=== PATIENT | male | born 1950 | race Caucasian/White ===

== ENCOUNTER 2017-05-01 09:26 | Day surgery (SDC) | payer MEDICARE ==
[2017-04-29 14:01] VITALS: BMI 28.8
[~2017-05-01 09:26] MED LIST: LACTATED RINGERS 1,000 ML IV SCH
[2017-05-01 10:15] VITALS: TEMP 97.8
[2017-05-01 10:27] LABS: Glucose,Whole Blood 138 mg/dL (75-99)
[2017-05-01] MEDS ORDERED: LIDOCAINE 1% 20 ML VIAL (10MG/ML) FOR IV START INTRADERMA ONE (10:27)
[2017-05-01] MEDS ORDERED: PROPOFOL 10 MG/ML 20 ML VIAL IV ONE (10:48)
[2017-05-01] MEDS ORDERED: LIDOCAINE 1% INJ 10MG/ML (20 ML MDV) ONE (10:48)
--- NOTE | 2017-05-01 11:05 | P.PCN ---
Date of Procedure: 05/01/17 Preoperative Diagnosis: Postoperative Diagnosis: Procedure(s) Performed: BRIEF HISTORY: Patient is a 66-year-old pleasant white male, scheduled for an elective colonoscopy as a part of evaluation of rectal bleeding for the last 1 month duration. PROCEDURE PERFORMED: Colonoscopy. PREOPERATIVE DIAGNOSIS: intermittent rectal bleeding. IV sedation per Anesthesia. PROCEDURE: After informed consent was obtained, the patient, was brought into the endoscopy unit. IV sedation was administered by Anesthesia under continuous monitoring. Digital rectal examination was normal. Initially the Olympus CF- 160 flexible video colonoscope was then inserted in the rectum, gradually advanced into the cecum without any difficulty. Careful examination was performed as the scope was gradually being withdrawn. Ileocecal valve and the appendiceal orifice were visualized and appeared normal. Prep was excellent. Mucosa of the cecum, ascending colon, transverse colon, descending colon, sigmoid colon, and rectum appeared normal. Retroflexion was performed in the rectum and small internal hemorrhoids were seen. The patient tolerated the procedure well. IMPRESSION: Normal-appearing colon from rectum to cecum with no evidence of colorectal neoplasia. Small internal hemorrhoids. RECOMMENDATIONS: Findings of this examination were discussed with the patient as well as his family. He was advised to be a high-fiber diet and take fiber supplements on a regular basis. He will avoid straining and constipation. She can have a repeat screening colonoscopy in 10 years. Implants: Indications for Procedure: Operative Findings: Description of Procedure:
[2017-05-01] MEDS ORDERED: IV FLUID CONTINUATION 1,000 ML IV ONE (11:09)
[2017-05-01 11:25] LABS: Glucose,Whole Blood 126 mg/dL (75-99)
[2017-05-01 11:51] VITALS: RESP 18
[2017-05-01 11:52] VITALS: BP 142/94; PULSE 94
== END 2017-05-01 12:03 | disposition home or self-care (01) ==
LOC: ORWHC2ENDO 09:26
PROVIDERS: ATTEND Internal Medicine Gastroenterology
DX: K64.8 Other hemorrhoids (principal); I10 Essential (primary) hypertension; E78.5 Hyperlipidemia, unspecified; J44.9 Chronic obstructive pulmonary disease, unspecified; E16.2 Hypoglycemia, unspecified; K21.9 Gastro-esophageal reflux disease without esophagitis; Z79.82 Long term (current) use of aspirin; Z79.899 Other long term (current) drug therapy; Z87.891 Personal history of nicotine dependence
CPT/HCPCS: 45378; J2001; J2704

== ENCOUNTER 2018-04-23 06:19 | Day surgery (SDC) | payer MEDICARE ==
[2018-04-16 11:00] VITALS: BMI 29.5
[~2018-04-23 06:19] MED LIST changes: +ALPRAZolam 0.25 MG TAB PO PRN; +ALPRAZolam 0.5 MG TAB PO PRN; +ASPIRIN 325 MG TAB PO STA; +ATORVASTATIN 80 MG TAB PO STA; -LACTATED RINGERS 1,000 ML IV SCH; +NITROGLYCERIN SL TABS 0.4 MG TAB SUBLINGUAL PRN; +SODIUM CHLORIDE 0.9% 1,000 ML in EMPTY BAG 1 BAG IV ONE
[2018-04-23 07:04] LABS: Basophils % (A) 1 %; Eosinophils # (A) 0.1 k/uL (0-0.7); Eosinophils % (A) 1 %; HCT 39.5 % (39.0-53.0); HGB 13.3 gm/dL (13.0-17.5); Lymphocytes # (A) 1.4 k/uL (1.0-4.8); Lymphocytes % (A) 20 %; MCH 31.6 pg (25.0-35.0); MCHC 33.6 g/dL (31.0-37.0); Mean Platelet Volume 7.7; Monocytes # (A) 0.8 k/uL (0-1.0); Monocytes % (A) 11 %; Neutrophils # (A) 4.7 k/uL (1.3-7.7); Neutrophils % (A) 65 %; Platelet Count 198 k/uL (150-450); RBC 4.21 m/uL (4.30-5.90); RDW 12.3 % (11.5-15.5); WBC 7.3 k/uL (3.8-10.6)
[2018-04-23] MEDS ORDERED: VERAPAMIL 2.5 MG/ML 2 ML AMP ONE (07:18)
[2018-04-23] MEDS ORDERED: fentaNYL (PF) 50 MCG/ML 2 ML AMP ONE (07:18)
[2018-04-23] MEDS ORDERED: diphenhydrAMINE 50 MG/ML 1 ML VIAL ONE (07:18)
[2018-04-23] MEDS ORDERED: LIDOCAINE 1% INJ 10MG/ML (20 ML MDV) ONE (07:18)
[2018-04-23] MEDS ORDERED: HEPARIN SODIUM 1,000 UN/ML (10ML VL) ONE (07:18)
[2018-04-23 07:20] LABS: Calcium 9.3 mg/dL (8.4-10.2); Potassium 4.2 mmol/L (3.5-5.1)
[2018-04-23] MEDS ORDERED: fentaNYL (PF) 50 MCG/ML 2 ML AMP IVP ONE (08:07)
[2018-04-23] MEDS ORDERED: diphenhydrAMINE 50 MG/ML 1 ML VIAL IVP ONE (08:08)
[2018-04-23] MEDS ORDERED: LIDOCAINE 1% INJ 10MG/ML (20 ML MDV) SQ ONE (08:08)
[2018-04-23] MEDS ORDERED: MIDAZOLAM 2 MG/2 ML VIAL ONE (08:10)
[2018-04-23] MEDS ORDERED: MIDAZOLAM 2 MG/2 ML VIAL IVP ONE (08:12)
[2018-04-23] MEDS ORDERED: VERAPAMIL SYRINGE (5 MG/10 ML) INTRAARTER ONE ×2 (08:12)
[2018-04-23] MEDS ORDERED: HEPARIN SODIUM 1,000 UN/ML (10ML VL) IV ONE (08:19)
[2018-04-23] MEDS ORDERED: IOPAMIDOL-370 125ML BTL INJ ONE (08:30)
[2018-04-23] MEDS ORDERED: RX INFO: IV CONTRAST WAS GIVEN 1 EACH MISC MISCELLANE PRN (08:37)
[2018-04-23] MEDS ORDERED: SODIUM CHLORIDE 0.9% 1,000 ML IV SCH (08:45)
[2018-04-23] MEDS ORDERED: MONTELUKAST 10 MG TAB PO SCH (09:00)
[2018-04-23] MEDS ORDERED: LISINOPRIL 20 MG TAB PO SCH (09:00)
[2018-04-23] MEDS ORDERED: CITALOPRAM HYDROBROMIDE 20 MG TAB PO SCH (09:00)
[2018-04-23] MEDS ORDERED: FENOFIBRATE 160 MG TAB PO SCH (09:00)
[2018-04-23] MEDS ORDERED: THIAMINE 100 MG TAB PO SCH (09:00)
[2018-04-23] MEDS ORDERED: ASPIRIN 81 MG PO SCH (09:00)
[2018-04-23] MEDS ORDERED: FISH OIL 1200MG PO SCH (09:00)
[2018-04-23] MEDS ORDERED: NIACIN TR 500 MG CAPSULE.ER PO SCH (09:00)
[2018-04-23] MEDS ORDERED: PANTOPRAZOLE 40 MG TABLET PO SCH (09:00)
[2018-04-23] MEDS ORDERED: CYANOCOBALAMIN 500 MCG TAB PO SCH (09:00)
[2018-04-23] MEDS ORDERED: METOPROLOL SUCCINATE (ER) 25 MG TAB.ER.24H PO SCH (09:00)
[2018-04-23 09:23] VITALS: RESP 16; TEMP 97.1
--- NOTE | 2018-04-23 09:56 | LTR ---
April 23, 2018 Re: Josh Mayen Dear Dr. Gannon: I had the opportunity to perform cardiac catheterization on Mr. Mayen at [facility] on the 23 of April and a full copy of the procedure note will be forwarded to you. In brief, he was found to have mild calcification of coronary arteries with no evidence of high-grade stenosis and based on those findings I recommend to continue medical therapy with aggressive coronary risk modifications that have been initiated. Thank you again for allowing me the opportunity to participate in his care. Please feel free to call for any questions. Sincerely yours, Isaiah Morejon MD MMALANL / AQUILESN: [id number] /
--- NOTE | 2018-04-23 09:59 | CC ---
CARDIAC CATHETERIZATION REPORT Mr. Mayen is a 67-year-old male with known history of hypertension, hyperlipidemia, prior history of smoking, who presented with symptoms of progressive dyspnea on exertion. Because of that he underwent a dobutamine stress echocardiogram that was reported showing inferobasal ischemia. In view of that, recommendation was made regarding cardiac catheterization. The procedure as well as the risks and the complications were discussed with the patient who is in full understanding and agreement. PROCEDURE: Patient was brought to the culture media laboratory assistant in a fasting, semi-sedated state after receiving fentanyl Benadryl and achieving moderate conscious sedated state. Using Xylocaine anesthesia in the Seldinger technique, a 6-Divehi sheath was introduced in the right radial artery. Selective right and left coronary angiography performed using 5-Divehi 3.5 bend right and left Torin catheter. Multiple views of the coronary artery including hemiaxial views were obtained. Following that 5-Divehi tight pigtail catheter was introduced in the left ventricle and a 30-degree BOSTON view of the left ventricle was obtained. Following that, catheter and sheaths were removed. Hemostasis was obtained with deployment of an TR band. There was no immediate complication. Patient is returned to his room in stable condition. FINDINGS: FLUOROSCOPY: There is mild calcification involving the LAD and the right coronary artery. LEFT MAIN: This is a large-sized vessel trifurcating in left circumflex, left anterior descending artery and ramus intermedius. Left main coronary artery has no evidence of high-grade stenosis. LEFT ANTERIOR DESCENDING ARTERY: This is a large-sized vessel reaching toward the apex with a wrap around apex segment giving rise to a moderately sized diagonal branch in mid segment. The left anterior descending artery as well as branches have no evidence of obstructive coronary artery disease. LEFT CIRCUMFLEX: This is a nondominant vessel giving rise to a small obtuse marginal branch. The left circumflex as well as branches have no evidence of obstructive coronary artery disease. RAMUS INTERMEDIUS: This is a moderately-sized vessel reaching toward the apical lateral wall that has no evidence of high-grade stenosis. RIGHT CORONARY ARTERY: This is a large dominant vessel bifurcating in PDA and posterolateral segment branches. The right coronary artery as well as branches have no evidence of obstructive coronary artery disease. LEFT VENTRICULOGRAM: Left ventriculogram was performed in the 30-degree BOSTON view and revealed normal left ventricular size and systolic function. Ejection fraction 55%. There was no significant mitral regurgitation. HEMODYNAMICS: There was no gradient across the aortic valve. The left ventricular end- diastolic pressure was 18 to 20 mmHg. CONCLUSIONS: 1. Normal coronary arteries with mild calcification. 2. Normal left ventricular size and systolic function. RECOMMENDATION: In view of the finding of the anatomy, I recommend to continue medical therapy with aggressive coronary risk modifications that has been initiated. Those findings and recommendation were discussed with the patient and his family and are in full understanding and agreement. DURATION OF PROCEDURE: 19 minutes. MMODL / IJN: [id number] /
[2018-04-23 11:50] VITALS: BP 137/91; PULSE 69
== END 2018-04-23 15:20 | disposition home or self-care (01) ==
LOC: CATHCVL 06:19 → 3OBS 08:30 → CATHCVL 15:20
PROVIDERS: ATTEND Internal Medicine Interventional Cardiology
DX: I25.10 Atherosclerotic heart disease of native coronary artery without angina pectoris (principal); R94.39 Abnormal result of other cardiovascular function study; J44.9 Chronic obstructive pulmonary disease, unspecified; I10 Essential (primary) hypertension; E78.2 Mixed hyperlipidemia; Z79.82 Long term (current) use of aspirin; Z79.51 Long term (current) use of inhaled steroids; Z79.899 Other long term (current) drug therapy; Z87.891 Personal history of nicotine dependence
CPT/HCPCS: 93458; 80048; 85025; C1894; C1769; J2250; J1200; J2001; J3010; J1644; Q9967

== ENCOUNTER → 2018-12-29 | Outpatient (CLI) | payer MEDICARE ==
[2018-12-29 12:29] LABS: Appearance,Urine Clear (Clear); Bilirubin,Urine Negative (Negative); Blood,Urine Negative (Negative); Color,Urine Yellow; Glucose,Urine (UA) Negative (Negative); Ketones,Urine Negative (Negative); Leukocyte Esterase,Urine Negative (Negative); Nitrite,Urine Negative (Negative); Protein,Urine Negative (Negative); Specific Gravity,Urine 1.014 (1.001-1.035); Urobilinogen,Urine <2.0 mg/dL (<2.0)
[2018-12-29 13:01] LABS: Albumin 4.1 g/dL (3.5-5.0); Potassium 5.3 mmol/L (3.5-5.1); Total Bilirubin 0.6 mg/dL (0.2-1.3); Total Protein 6.8 g/dL (6.3-8.2)
[2018-12-29 13:13] LABS: MCH 31.5 pg (25.0-35.0); MCHC 32.5 g/dL (31.0-37.0); Mean Platelet Volume 7.3; Platelet Count 272 k/uL (150-450); RBC 4.43 m/uL (4.30-5.90); RDW 12.2 % (11.5-15.5); WBC 10.1 k/uL (3.8-10.6)
[2018-12-29 13:23] LABS: Partial Thromboplastin Time 24.1 sec (22.0-30.0); Prothrombin Time 10.4 sec (9.0-12.0)
== END ==
LOC: LABPAT 11:15
PROVIDERS: ATTEND Orthopaedic Surgery
DX: Z01.818 Encounter for other preprocedural examination (principal); Z01.812 Encounter for preprocedural laboratory examination; Z51.81 Encounter for therapeutic drug level monitoring; Z79.01 Long term (current) use of anticoagulants
CPT/HCPCS: 36415; 80053; 81003; 85027; 85610; 85730; 87070; 93005

== ENCOUNTER 2019-01-19 09:10 | Inpatient (IN) | payer MEDICARE ==
[~2019-01-19 09:10] MED LIST changes: +ACETAMINOPHEN TAB 500 MG TAB PO ONE; -ALPRAZolam 0.25 MG TAB PO PRN; -ALPRAZolam 0.5 MG TAB PO PRN; -ASPIRIN 325 MG TAB PO STA; -ATORVASTATIN 80 MG TAB PO STA; +DEXAMETHASONE SOD PHOSPHATE 10 MG/ML 1 ML VIAL IV ONE; +HYDROmorphone 0.5 MG/0.5 ML SYRINGE IVP PRN; +MELOXICAM 7.5 MG TAB PO ONE; +MIDAZOLAM (PF) 2 MG/2 ML VIAL IV PRN; -NITROGLYCERIN SL TABS 0.4 MG TAB SUBLINGUAL PRN; +ONDANSETRON 4 MG/2 ML VIAL IVP ONE; +ROPIVACAINE 246.25 MG, EPINEPHrine 0.5 MG, KETOROLAC 30 MG, cloNIDine HCL/PF 80 MCG, WA... MISCELLANE ONE; -SODIUM CHLORIDE 0.9% 1,000 ML in EMPTY BAG 1 BAG IV ONE; +TRANEXAMIC ACID 1,000 MG in SODIUM CHLORIDE 0.9% 100 ML IVPB ONE
[2019-01-19] MEDS: LACTATED RINGERS 1,000 ML IV SCH ×2 (11:42→16:29)
[2019-01-19] MEDS ORDERED: LIDOCAINE 1% 20 ML VIAL (10MG/ML) FOR IV START INTRADERMA ONE (11:42)
[2019-01-19] MEDS ORDERED: ceFAZolin IN SWFI 2 GM/20 ML SYRINGE IVP ONE (11:52)
[2019-01-19] MEDS ORDERED: ACETAMINOPHEN TAB 500 MG TAB PO ONE (11:52)
[2019-01-19 12:00] LABS: Glucose,Whole Blood 99 mg/dL (75-99)
[2019-01-19] MEDS ORDERED: PROPOFOL 10 MG/ML 20 ML VIAL IV ONE (12:17)
[2019-01-19] MEDS ORDERED: fentaNYL (PF) 50 MCG/ML 2 ML AMP ONE (12:17)
[2019-01-19] MEDS ORDERED: TRANEXAMIC ACID 1,000 MG/10 ML VIAL ONE (12:17)
[2019-01-19] MEDS ORDERED: MIDAZOLAM 2 MG/2 ML VIAL ONE (12:17)
[2019-01-19] MEDS ORDERED: SODIUM CHLORIDE 0.9% 100 ML BAG ONE (12:17)
--- NOTE | 2019-01-19 12:18 | P.ONQ ---
Anesthesiology Proc Note - PNB - Peripheral Nerve Block Performed Left Adductor Canal Infusion Procedure Start Time: 11:56 Procedure Stop Time: 12:11 Indication: Analgesia, Requested by physician Sedation Type: Sedate with meaningful contact maintained Preparation: Sterile Dressing Position: Supine Catheter: Indwelling Needle Types: On-Q Needle Size: 100mm (4") Needle Gauge: 18 Injectate: 0.5% Ropivacaine (see comment for volume) (20 ml) Blood Aspirated: No Pain Paresthesia on Injection Noted: No
[2019-01-19] MEDS ORDERED: ceFAZolin 3,000 MG in SODIUM CHLORIDE 0.9% IRRIGATIO 3,000 ML IRRIGATION ONE (12:21)
[2019-01-19] MEDS ORDERED: LACTATED RINGERS 1,000 ML IV ONE (13:25)
--- NOTE | 2019-01-19 14:06 | P.OP ---
Date of Procedure: 01/19/19 Preoperative Diagnosis: Severe osteoarthritis left knee Postoperative Diagnosis: Severe osteoarthritis left knee Procedure(s) Performed: Left total knee arthroplasty Implants: [employer]hew Journey II CR Oxinium cruciate retaining femoral component size 8, left [employer] Journey left nonporous tibial baseplate size 8 [employer] Journey II, XLPE CR articular insert, size 9 mm, Size 7-8 left [employer] Journey BCS resurfacing oval patellar component, 35 mm All components were cemented using Palacos R bone cement.. The articulation is Oxinium on polyethylene. Anesthesia: spinal Surgeon: [facility] Therapist #1: Rose Marie Shafer Estimated Blood Loss (ml): 25 Pathology: other (Bone and cartilage) Condition: stable Disposition: PACU Indications for Procedure: After failure of conservative treatment we discussed the surgical and nonsurgical treatment options at length. Patient wishes to proceed with a total knee arthroplasty. Complications specific to this procedure were discussed at length, including but not limited to infection, bleeding, stiffness, and nerve injury. Patient is aware of all these complications and informed consent was obtained Operative Findings: The operative findings are consistent with severe osteoarthritis of the left knee Description of Procedure: Patient was seen in the preoperative area consent was reviewed and operative site was marked with a skin marker. An adductor canal pain catheter was placed by anesthesia in the preoperative area. Patient was then brought to the operating room and given preoperative antibiotics intravenously. A spinal anesthetic was administered by the anesthesia department. A tourniquet was placed on the upper thigh and the lower extremity was prepped and draped in usual sterile fashion. A gram of transexamic acid was given. A universal timeout was then performed which confirmed the patient's name, surgical site, ALLERGIES, and consent. The lower extremity was then exsanguinated and tourniquet was inflated to 250 mmHg. A standard and anterior midline approach to the knee was performed. The skin and subcutaneous tissue was dissected down to the patellar tendon. A medial parapatellar arthrotomy was then performed. The knee was then extended, the patellar was everted, and the knee was again flexed. Anterior horns of both menisci were excised, and a release was performed to the posterior medial aspect of the knee. On gross visual inspection, there was complete loss of articular cartilage in the medial and patellofemoral joint spaces. There was also significant cartilage damage in the lateral compartment. There were multiple periarticular osteophytes which were then removed with a Ronguer. The femoral canal was then opened with the appropriate drill, and the intramedullary femoral cutting guide was then placed and set for 5 of valgus. The distal femoral cutting block was then pinned in place, and the distal femur was then cut. The cutting block was then removed and the cut was checked for flatness. Next, the sizing guide was then placed and set for 3 external rotation based off of the epicondylar axis and Whitesides line. After the femur was sized, the appropriate 4-in-1 cutting block was then pinned in place. The anterior condyles were cut without notching. The posterior and chamfer cuts were performed while protecting the collateral ligaments. The cutting block was then removed, and the femoral canal was plugged with autologous bone. Attention was then directed to the tibia. The remaining ACL was removed with a Ronguer, and the tibia was then gently subluxed forward with a large bent knee retractor. Any remaining menisci was excised. The posterior lateral corner was cauterized in order to cauterize the lateral geniculate artery. The extra medullary tibial cutting guide was then placed, set for the appropriate rotation, slope, and depth of resection. The proximal tibia cutting guide was then pinned in place. Proximal tibia was then cut and sized. Next trials were then placed with the appropriate-sized insert. The knee was able to fully extend and flex to 130 and was stable throughout all range of motion. The knee was then extended, patella everted. Patella was then measured, and then using an osteotomy guide, the patella was cut at the appropriate level. The patella was then measured and drilled and the patella trial was then placed. The knee was then taken through range of motion with the patella trial and the patella tracked normally. The knee was then extended patella trial was then removed and the patella was everted. Knee was then flexed and lug holes were drilled through the femoral trial and the femoral trial was then removed. The tibial was then exposed, and the tibial broach guide was then pinned in place after it was set for the appropriate rotation to allow for the most coverage without overhang. The tibia was then reamed and broached. The cut surfaces of bone were then irrigated with pulsatile lavage. The posterior structures were injected with the ropivacaine solution. The knee was also irrigated with Irrisept solution. The components were then opened, the cement was mixed, and the components were then cemented in place. The cement was allowed to harden with the knee in full extension. While the cement was hardening, the remaining soft tissues were then injected with a ropivacaine solution, which consisted of 246.25 mg of ropivacaine, 0.5 mg of epinephrine, 30 mg of Toradol, 80 g of clonidine, and 48.45 mL of sterile water, for a total of 100 mL of fluid injected. After the cemented hardened. The tourniquet was released, and hemostasis was obtained. A second gram of transexamic acid was given. The knee was again irrigated. The knee was again taken through range of motion and found to be stable throughout all range of motion of 0-130, and the patella tracked normally. The fascia was then closed with #2 strata fix suture. The subcutaneous tissue was closed with 3-0 Vicryl and 3-0 strata fix. Dermabond glue was used for the skin and placed with the knee in flexion. The patient was placed in a sterile silver dressing. Patient was then transferred to recovery room in stable condition. The bar assistant BOBBY Dan was required due the complexity surgery and the need for a skilled surgical scrub technologist. She assisted in positioning, draping, retraction, and closure of the wound.
[2019-01-19 14:29] VITALS: RESP 16
[2019-01-19] MEDS ORDERED: ROPIVACAINE 1,100 MG, SODIUM CHLORIDE 0.9% 500 ML 330 ML MISCELLANE PRN ×2 (14:45)
--- NOTE | 2019-01-19 14:57 | XR ---
EXAMINATION TYPE: XR knee limited LT DATE OF EXAM: 01/19/2019 COMPARISON: None HISTORY: Postop knee replacement TECHNIQUE: 2 view left knee FINDINGS: Tibial and femoral components of in place. Postsurgical changes are within the soft tissues . No acute fractures are evident. IMPRESSION: 1. No acute fractures post knee replacement.
[2019-01-19] MEDS ORDERED: BISACODYL 10 MG SUPP RECTAL PRN (15:44)
[2019-01-19] MEDS ORDERED: HYDROmorphone 0.5 MG/0.5 ML SYRINGE IVP PRN ×3 (15:44)
[2019-01-19] MEDS ORDERED: DIAZEPAM 5 MG TAB PO PRN (15:44)
[2019-01-19] MEDS ORDERED: MAGNESIUM HYDROXIDE 2,400 MG/10 ML CUP PO PRN (15:44)
[2019-01-19] MEDS ORDERED: hydrOXYzine PAMOATE 25 MG CAP PO PRN (15:44)
[2019-01-19] MEDS ORDERED: NA PHOS,M-B/NA PHOS,DI-BA 133 ML ENEMA RECTAL PRN (15:44)
[2019-01-19] MEDS ORDERED: NALOXONE 0.4 MG/ML 1 ML VIAL IV PRN (15:44)
[2019-01-19] MEDS ORDERED: ONDANSETRON 4 MG/2 ML VIAL IVP PRN (15:44)
[2019-01-19] MEDS ORDERED: HYDROcodone/APAP 5-325MG 1 EACH TAB PO PRN (15:44)
[2019-01-19] MEDS ORDERED: LORazepam 1 MG TAB PO PRN (16:03)
--- NOTE | 2019-01-19 16:13 | P.CONS ---
History of Present Illness - Reason for Consult Consult date: 01/19/19 - Chief Complaint left knee OA - History of Present Illness Mrs. Mayen is a 68 years old male patient of Dr. Gannon was admitted for an elective left knee arthroplasty under Dr. Frye's with past medical history of COPD, GERD, hyperlipidemia, hypertension, osteoarthritis. Patient is evaluated postoperatively lying comfortably in bed denies any chest pain or shortness of breath, denies any history of blood clots, denies any history of coronary artery disease, peripheral artery disease or history of PE or DVT. Patient had significant osteoarthritis of the left knee which is affecting his functional activities. He is an ex smoker quit 20-25 years ago and used to smoke 2-3 packs a day prior to that. White is evaluated suggested a temp of 97 blood pressure 144/77 saturating at 94% on 3 L. Labs involving includes potassium of 4.8 glucose 99 Review of Systems Constitutional: Denies chills, Denies fever, Denies lethargy, Denies malaise, Denies poor appetite, Denies weakness, Denies weight loss Eyes: denies decreased vision, denies diplopia, denies discharge, denies pain Ears: deny: decreased hearing Ears, nose, mouth and throat: Denies dental pain, Denies headache, Denies nasal discharge, Denies nose pain Cardiovascular: Denies chest pain, Denies decreased exercise tolerance, Denies edema, Denies high blood pressure, Denies irregular heart beat, Denies palpitations, Denies paroxysmal nocturnal dyspnea, Denies rapid heart beat, Denies shortness of breath Respiratory: Denies congestion, Denies cough, Denies cough with sputum, Denies d yspnea, Denies home oxygen, Denies wheezing Gastrointestinal: Denies abdominal pain, Denies change in bowel habits, Denies coffee ground emesis, Denies early satiety, Denies excessive gas, Denies hear tburn, Denies hematemesis, Denies hematochezia, Denies loss of appetite, Denies nausea, Denies vomiting Genitourinary: Denies dysuria, Denies flank pain, Denies kidney stones, Denies menorrhagia, Denies urgency, Denies urinary frequency Musculoskeletal: Denies gait dysfunction, Denies limitation of motion, Denies morning stiffness, Denies muscle cramps knee pain Integumentary: Denies rash, Denies wounds, Denies brittle nails, Denies change in hair/nails, Denies darkening of skin Neurological: Denies balance difficulties, Denies change in speech, Denies double vision, Denies gait dysfunction, Denies loss of vision, Denies motor disturbance, Denies numbness, Denies paralysis, Denies paresthesias, Denies seizures Psychiatric: Denies anxiety, Denies depression Endocrine: Denies excessive sweating, Denies excessive thirst, Denies high blood sugars, Denies palpitations Hematologic/Lymphatic: Denies easy bruising, Denies lymphadenopathy Past Medical History Past Medical History: COPD, GERD/Reflux, Hyperlipidemia, Hypertension, Osteoarthritis (OA) Additional Past Medical History / Comment(s): hypoglycemia,hemorrhoids History of Any Multi-Drug Resistant Organisms: None Reported Past Surgical History: Back Surgery Additional Past Surgical History / Comment(s): COLONOSCOPY Past Anesthesia/Blood Transfusion Reactions: No Reported Reaction Additional Past Anesthesia/Blood Transfusion Reaction / Comm: claustrophobic,no hx blood transfusion Additional Past Alcohol Use History / Comment(s): quit smoking , smoked approx 25yrs 1ppd,dtr states "drinks approx 4 beers per day" - Past Family History Mother Family Medical History: No Reported History Father Family Medical History: No Reported History Medications and Allergies Home Medications Medication Instructions Recorded Confirmed Type Lisinopril [Zestril] 20 mg PO QAM 01/13/14 01/14/19 History Aspirin 81 mg PO DAILY 04/29/17 01/14/19 History Citalopram Hydrobromide 20 mg PO QAM 04/29/17 01/14/19 History [Citalopram HBr] Cyanocobalamin (Vitamin B-12) 1,000 mcg PO DAILY 04/29/17 01/14/19 History [Vitamin B-12] Fish Oil/Dha/Epa [Fish Oil 1,200 1,000 mg PO DAILY 04/29/17 01/14/19 History mg Fish Oil] Metoprolol Succinate (ER) [Toprol 25 mg PO QAM 04/29/17 01/19/19 History Xl] Montelukast Sodium [Singulair] 10 mg PO QAM 04/29/17 01/14/19 History Niacin 500 mg PO DAILY 04/29/17 01/14/19 History Pantoprazole Sodium 40 mg PO QAM 04/29/17 01/14/19 History Thiamine [Vitamin B-1] 500 mg PO DAILY 04/29/17 01/14/19 History Albuterol Sulfate [Proair Hfa] 1 - 2 puff INHALATION RT-Q6H PRN 01/14/19 01/19/19 History Budesonide/Formoterol Fumarate 2 puff INHALATION RT-BID 01/14/19 01/19/19 History [Symbicort 160-4.5 Mcg Inhaler] LORazepam [Ativan] 1 mg PO QAM PRN 01/14/19 01/14/19 History Tiotropium 18 Mcg/Puff [Spiriva] 1 puff INHALATION RT-DAILY 01/14/19 01/19/19 History Fenofibrate 160 mg PO DAILY 01/19/19 01/19/19 History Allergies Allergy/AdvReac Type Severity Reaction Status Date / Time No Known Allergies Allergy Verified 01/19/19 15:19 Physical Exam Vitals: Vital Signs Temp Pulse Pulse Resp BP Pulse Ox 01/19/19 15:12 70 16 149/87 100 01/19/19 14:57 74 16 141/80 100 01/19/19 14:41 77 16 138/88 98 01/19/19 14:25 95 16 135/79 92 L 01/19/19 14:10 97.7 F 95 16 144/77 94 L 01/19/19 12:13 83 17 126/88 95 01/19/19 11:11 98.2 F 79 17 119/78 98 Intake and Output 01/19/19 01/19/19 01/19/19 06:59 14:59 22:59 Intake Total 1401 250 Output Total 25 Balance 1376 250 Intake: IV 1401 250 Output: Estimated Blood Loss 25 - Constitutional General appearance: cooperative, no acute distress, obese - EENT Eyes: anicteric sclerae, PERRLA, normal appearance ENT: hearing grossly normal - Neck Neck: no lymphadenopathy, normal ROM, no other, no rigidity, no stridor, no thyromegaly - Respiratory Respiratory: bilateral: CTA, negative: diminished, dullness, rales, rhonchi - Cardiovascular Rhythm: regular Heart sounds: normal: S1, S2 Abnormal Heart Sounds: no systolic murmur, no diastolic murmur, no rub, no S3 Gallop, no S4 Gallop, no click, no other - Gastrointestinal General gastrointestinal: normal bowel sounds, soft - Integumentary Integumentary: no rash - Neurologic Neurologic: CNII-XII intact - Musculoskeletal Musculoskeletal: gait normal, strength equal bilaterally left knee with dressing intact no drainage seen On-Q pump - Psychiatric Psychiatric: A&O x's 3, appropriate affect Results CBC & Chem 7: 01/19/19 11:50 Assessment and Plan Plan: #1 left knee osteoarthritis is status post left knee arthroplasty with Dr. Frye. PTOT consult. Aspirin 325 mg twice a day for DVT prophylaxis. Incentive spirometry for pulmonary prophylaxis and on 3 L of oxygen titrated to keep SpO2 more than 90% #2 hypertension continue metoprolol 25 mg by mouth daily with lisinopril milligrams every morning. Give first was now as patient's blood pressure is high #3 hyperlipidemia we will initiate patient on fenofibrate 160 by mouth daily #4 history of COPD not in exacerbation currently. Continue Symbicort twice a day with albuterol as needed for shortness of breath #5 depression continue citalopram 20 mg every morning #6 GERD continue Protonix 40 mg every morning. CODE STATUS full code Thank you for the consult. I'll be happy to assist in patient's medical need while patient is here in the hospital
[2019-01-19 16:19] VITALS: BMI 27.8
[2019-01-19] MEDS: METOPROLOL SUCCINATE (ER) 25 MG TAB.ER.24H PO SCH ×3 (16:51→18:00)
[2019-01-19] MEDS: LISINOPRIL 20 MG TAB PO SCH ×2 (16:51→17:59)
[2019-01-19] MEDS: SODIUM CHLORIDE 0.9% 1,000 ML IV SCH (16:52)
[2019-01-19] MEDS: ceFAZolin IN SWFI 2 GM/20 ML SYRINGE IVP SCH ×2 (16:53→23:33)
[2019-01-19] MEDS: SYMBICORT 160-4.5 MCG INHALER INHALATION SCH (20:07)
[2019-01-19] MEDS: ASPIRIN 325 MG TAB PO SCH (20:29)
[2019-01-19] MEDS ORDERED: SENNOSIDES-DOCUSATE SODIUM 1 EACH TAB PO SCH (21:00)
[2019-01-20] MEDS: LACTATED RINGERS 1,000 ML IV SCH ×2 (01:21→13:16)
[2019-01-20] MEDS: HYDROcodone/APAP 5-325MG 1 EACH TAB PO PRN ×2 (04:45→11:49)
[2019-01-20] MEDS: SODIUM CHLORIDE 0.9% 1,000 ML IV SCH (05:45)
[2019-01-20] MEDS ORDERED: PANTOPRAZOLE 40 MG TABLET PO SCH (07:30)
[2019-01-20 07:33] VITALS: PULSE 67; TEMP 97.6
--- NOTE | 2019-01-20 07:37 | P.PN ---
Progress Note - Text Progress Note Date: 01/20/19 The patient is POD #1 s/p L TKA. Pain is well controlled. Pt denies weakness. Catheter site is clean and dry A/P POD #1 s/p L TKA - continue current regimen
[2019-01-20] MEDS: SYMBICORT 160-4.5 MCG INHALER INHALATION SCH (08:17)
[2019-01-20] MEDS: IPRATROPIUM 0.5 MG/2.5 ML NEBU INHALATION SCH ×2 (08:17→11:41)
[2019-01-20] MEDS: LISINOPRIL 20 MG TAB PO SCH (08:22)
[2019-01-20] MEDS: ASPIRIN 325 MG TAB PO SCH (08:22)
[2019-01-20] MEDS: METOPROLOL SUCCINATE (ER) 25 MG TAB.ER.24H PO SCH (08:22)
[2019-01-20 08:43] LABS: Basophils % (A) 0 %; Eosinophils % (A) 0 %; HCT 37.7 % (39.0-53.0); HGB 12.4 gm/dL (13.0-17.5); Lymphocytes # (A) 1.2 k/uL (1.0-4.8); Lymphocytes % (A) 7 %; MCH 31.4 pg (25.0-35.0); MCHC 32.9 g/dL (31.0-37.0); MCV 95.6 fL (80.0-100.0); Mean Platelet Volume 7.6; Monocytes # (A) 1.5 k/uL (0-1.0); Monocytes % (A) 9 %; Neutrophils # (A) 12.9 k/uL (1.3-7.7); Neutrophils % (A) 81 %; Platelet Count 272 k/uL (150-450); RBC 3.94 m/uL (4.30-5.90); RDW 12.8 % (11.5-15.5); WBC 15.9 k/uL (3.8-10.6)
[2019-01-20] MEDS ORDERED: FENOFIBRATE 160 MG TAB PO SCH (09:00)
[2019-01-20] MEDS ORDERED: CITALOPRAM HYDROBROMIDE 20 MG TAB PO SCH (09:00)
[2019-01-20] MEDS ORDERED: NIACIN TR 500 MG CAPLET PO SCH (09:00)
[2019-01-20] MEDS ORDERED: MELOXICAM 7.5 MG TAB PO SCH (09:00)
[2019-01-20] MEDS ORDERED: CYANOCOBALAMIN 500 MCG TAB PO SCH (09:00)
[2019-01-20] MEDS ORDERED: MONTELUKAST 10 MG TAB PO SCH (09:00)
[2019-01-20] MEDS ORDERED: NON-FORMULARY DRUG (Fish Oil/Dha/Epa [Fish Oil 1,200 Mg Fish Oil] 1,000 MG) PO SCH (09:00)
[2019-01-20] MEDS ORDERED: THIAMINE 100 MG TAB PO SCH (09:00)
--- NOTE | 2019-01-20 09:19 | P.DS ---
Providers Date of admission: 01/19/19 10:33 Expected date of discharge: 01/20/19 Attending physician: Faheem Frye Consults: 01/19/19 15:24 Consult Physician Urgent Consulting Provider: Shabana Gannon Consult Reason/Comments: medical management Do you want consulting provider notified?: Yes Placement Type Exists?: Yes Primary care physician: Shabana Gannon - Discharge Diagnosis(es) (1) Osteoarthritis of left knee Current Visit: Yes Status: Acute (2) S/P total knee arthroplasty Current Visit: Yes Status: Acute Hospital Course: This is a 68-year-old male with known history of degenerative arthritis of the left knee. The patient presents for evaluation. After discussion and consideration patient elects to proceed with total knee arthroplasty. The patient is seen preoperatively by Dr. Frye and medically cleared for surgery by their primary care physician. Patient is admitted to [facility] on 01/19/2019 for total knee arthroplasty. The procedures performed without complication or sequelae. The patient is doing well postoperatively. Labs and vital signs are stable on day of discharge. On day of discharge patient's knee incision is healing well. There is minimal erythema. There is no drainage noted at this time. There is minimal soft tissue swelling to the knee. Patient has full foot and ankle motion without difficulty or pain. Calf is soft and nontender to palpation. Neurovascular status to the left lower extremity is intact. Patient is discharged home in good condition. Opioid start talking form is reviewed and signed at patient bedside. Please see med rec for accurate list of home medications. Plan - Discharge Summary Discharge Rx Participant: No New Discharge Prescriptions: New Aspirin 325 mg PO BID #60 tab HYDROcodone/APAP 5-325MG [[place] 5-325] 1 - 2 tab PO Q6HR PRN #56 tab PRN Reason: Pain Sennosides [Senokot] 1 tab PO BID #60 tablet No Action Lisinopril [Zestril] 20 mg PO QAM Montelukast Sodium [Singulair] 10 mg PO QAM Metoprolol Succinate (ER) [Toprol Xl] 25 mg PO QAM Thiamine [Vitamin B-1] 500 mg PO DAILY Niacin 500 mg PO DAILY Citalopram Hydrobromide [Citalopram HBr] 20 mg PO QAM Pantoprazole Sodium 40 mg PO QAM Fish Oil/Dha/Epa [Fish Oil 1,200 mg Fish Oil] 1,000 mg PO DAILY Cyanocobalamin (Vitamin B-12) [Vitamin B-12] 1,000 mcg PO DAILY Aspirin 81 mg PO DAILY Tiotropium 18 Mcg/Puff [Spiriva] 1 puff INHALATION RT-DAILY LORazepam [Ativan] 1 mg PO QAM PRN PRN Reason: Anxiety Albuterol Sulfate [Proair Hfa] 1 - 2 puff INHALATION RT-Q6H PRN PRN Reason: sob Budesonide/Formoterol Fumarate [Symbicort 160-4.5 Mcg Inhaler] 2 puff INHALATION RT-BID Fenofibrate 160 mg PO DAILY Discharge Medication List Lisinopril [Zestril] 20 mg PO QAM 01/13/14 [History] Aspirin 81 mg PO DAILY 04/29/17 [History] Citalopram Hydrobromide [Citalopram HBr] 20 mg PO QAM 04/29/17 [History] Cyanocobalamin (Vitamin B-12) [Vitamin B-12] 1,000 mcg PO DAILY 04/29/17 [History] Fish Oil/Dha/Epa [Fish Oil 1,200 mg Fish Oil] 1,000 mg PO DAILY 04/29/17 [History] Metoprolol Succinate (ER) [Toprol Xl] 25 mg PO QAM 04/29/17 [History] Montelukast Sodium [Singulair] 10 mg PO QAM 04/29/17 [History] Niacin 500 mg PO DAILY 04/29/17 [History] Pantoprazole Sodium 40 mg PO QAM 04/29/17 [History] Thiamine [Vitamin B-1] 500 mg PO DAILY 04/29/17 [History] Albuterol Sulfate [Proair Hfa] 1 - 2 puff INHALATION RT-Q6H PRN 01/14/19 [History] Budesonide/Formoterol Fumarate [Symbicort 160-4.5 Mcg Inhaler] 2 puff INHALATION RT-BID 01/14/19 [History] LORazepam [Ativan] 1 mg PO QAM PRN 01/14/19 [History] Tiotropium 18 Mcg/Puff [Spiriva] 1 puff INHALATION RT-DAILY 01/14/19 [History] Fenofibrate 160 mg PO DAILY 01/19/19 [History] Aspirin 325 mg PO BID #60 tab 01/20/19 [Rx] HYDROcodone/APAP 5-325MG [[place] 5-325] 1 - 2 tab PO Q6HR PRN #56 tab 01/20/19 [Rx] Sennosides [Senokot] 1 tab PO BID #60 tablet 01/20/19 [Rx] Follow up Appointment(s)/Referral(s): Faheem Frye DO [Doctor of Osteopathic Medicine] - 2 Weeks Activity/Diet/Wound Care/Special Instructions: Weightbearing as tolerated with a walker. CPM 5-6h daily. Leave dressing intact. May be removed by home care nurse or by patient in 10 days. May shower with dressing on. Please follow up with [facility] and call with any questions or concerns, . Discharge Disposition: HOME WITH HOME HEALTH SERVICES
[2019-01-20 11:00] VITALS: BP 122/79
== END 2019-01-20 13:34 | disposition home health service (06) | DRG 470 ==
LOC: 2ORMAIN 10:33 → 4SSUR 14:43
PROVIDERS: ADMIT Orthopaedic Surgery; ATTEND Orthopaedic Surgery
PROC: 3E0T3BZ Introduction of Anesthetic Agent into Peripheral Nerves and Plexi, Percutaneous Approach (ICD-10-PCS; principal; 2019-01-19 12:40)
PROC: 0SRD069 Replacement of Left Knee Joint with Oxidized Zirconium on Polyethylene Synthetic Substitute, Cemented, Open Approach (ICD-10-PCS; principal; 2019-01-19 12:40)
DX: M17.12 Unilateral primary osteoarthritis, left knee (principal); E78.5 Hyperlipidemia, unspecified; J44.9 Chronic obstructive pulmonary disease, unspecified; F32.9 Major depressive disorder, single episode, unspecified; I10 Essential (primary) hypertension; K21.9 Gastro-esophageal reflux disease without esophagitis; Z79.51 Long term (current) use of inhaled steroids; Z98.890 Other specified postprocedural states; Z79.82 Long term (current) use of aspirin; Z79.899 Other long term (current) drug therapy; Z87.891 Personal history of nicotine dependence; Z87.19 Personal history of other diseases of the digestive system
CPT/HCPCS: 84132; 85025; 88300; 94640; 94760

== ENCOUNTER 2019-01-22 09:25 | Inpatient (IN) | payer MEDICARE ==
[2019-01-22] MEDS ORDERED: VANCOMYCIN IV PER PHARMACY 1 EACH MISC MISCELLANE PRN (09:31)
[2019-01-22] MEDS ORDERED: VANCOMYCIN 2,000 MG in SODIUM CHLORIDE 0.9% 500 ML 500 ML IVPB STA (09:34)
[2019-01-22] MEDS ORDERED: SODIUM CHLORIDE 0.9% 1,000 ML IV ONE (09:36)
[2019-01-22] MEDS ORDERED: MORPHINE SULFATE 4 MG/ML SYRINGE IVP STA (09:40)
[2019-01-22] MEDS ORDERED: NALOXONE 0.4 MG/ML 1 ML VIAL IV PRN ×2 (09:44→16:38)
[2019-01-22] MEDS ORDERED: MORPHINE SULFATE 4 MG/ML SYRINGE IV PRN (09:44)
[2019-01-22] MEDS ORDERED: ONDANSETRON 4 MG/2 ML VIAL IVP PRN (09:44)
--- NOTE | 2019-01-22 09:44 | ED ---
Fall HPI - General Source: patient Mode of arrival: EMS <Maribell Song - Last Filed: 01/22/19 10:24> <DeborahhemaRodolfo Reece - Last Filed: 01/22/19 15:48> - General Chief Complaint: Fall Stated Complaint: fall/knee injury Time Seen by Provider: 01/22/19 09:31 - History of Present Illness Initial Comments: 68-year-old male presenting today for chief complaint of left knee injury. POD #2 s/p TKA of the left knee for by Dr. Faheem Jay. He states he was in the shower about 45 minutes prior to arrival and he slipped and fell due to loss of balance. Denies any chest pain, shortness of breath dizziness or headache. Associated symptoms prior to falling. He states this was mechanical. After falling he noticed that he had opened his incision and there is exposure of underlying structures. Patient called EMS and was transported to the hospital for further evaluation. Upon arrival pt states pain 8/10, pt does not appear in distress, and bleeding is controlled. (Maribell Song) - Related Data Home Medications Medication Instructions Recorded Confirmed Lisinopril [Zestril] 20 mg PO QAM 01/13/14 01/22/19 Aspirin 81 mg PO DAILY 04/29/17 01/22/19 Citalopram Hydrobromide 20 mg PO QAM 04/29/17 01/22/19 [Citalopram HBr] Cyanocobalamin (Vitamin B-12) 1,000 mcg PO DAILY 04/29/17 01/22/19 [Vitamin B-12] Fish Oil/Dha/Epa [Fish Oil 1,200 1 cap PO DAILY 04/29/17 01/22/19 mg Fish Oil] Metoprolol Succinate (ER) [Toprol 25 mg PO QAM 04/29/17 01/22/19 Xl] Montelukast Sodium [Singulair] 10 mg PO QAM 04/29/17 01/22/19 Niacin 500 mg PO DAILY 04/29/17 01/22/19 Pantoprazole Sodium 40 mg PO QAM 04/29/17 01/22/19 Thiamine [Vitamin B-1] 50 mg PO DAILY 04/29/17 01/22/19 Albuterol Sulfate [Proair Hfa] 1 - 2 puff INHALATION RT-Q6H PRN 01/14/19 0 01/22/19 Budesonide/Formoterol Fumarate 2 puff INHALATION RT-BID 01/14/19 01/22/19 [Symbicort 160-4.5 Mcg Inhaler] LORazepam [Ativan] 1 mg PO QAM PRN 01/14/19 01/22/19 Tiotropium 18 Mcg/Puff [Spiriva] 1 puff INHALATION RT-DAILY 01/14/19 01/22/19 Fenofibrate 160 mg PO DAILY 01/19/19 01/22/19 Sennosides [Senokot] 8.6 mg PO BID 01/22/19 01/22/19 Previous Rx's Medication Instructions Recorded Aspirin 325 mg PO BID #60 tab 01/20/19 HYDROcodone/APAP 5-325MG [[place] 1 - 2 tab PO Q6HR PRN #56 tab 01/20/19 5-325] Allergies Allergy/AdvReac Type Severity Reaction Status Date / Time No Known Allergies Allergy Verified 01/22/19 09:47 Review of Systems ROS Other: All systems not noted in ROS Statement are negative. <Maribell Song - Last Filed: 01/22/19 10:24> ROS Other: All systems not noted in ROS Statement are negative. <Rodolfo Naranjo - Last Filed: 01/22/19 15:48> ROS Statement: Those systems with pertinent positive or pertinent negative responses have been documented in the HPI. Past Medical History Past Medical History: COPD, GERD/Reflux, Hyperlipidemia, Hypertension, Osteoarthritis (OA) Additional Past Medical History / Comment(s): hypoglycemia,hemorrhoids History of Any Multi-Drug Resistant Organisms: None Reported Past Surgical History: Back Surgery, Joint Replacement Additional Past Surgical History / Comment(s): COLONOSCOPY Past Anesthesia/Blood Transfusion Reactions: No Reported Reaction Additional Past Anesthesia/Blood Transfusion Reaction / Comment(s): claustrophobic,no hx blood transfusion Past Psychological History: Depression Smoking Status: Former smoker Past Alcohol Use History: Daily Past Drug Use History: None Reported - Past Family History Mother Family Medical History: No Reported History Father Family Medical History: No Reported History <Maribell Song - Last Filed: 01/22/19 10:24> General Exam Limitations: no limitations <Maribell Song - Last Filed: 01/22/19 10:24> - General Exam Comments Initial Comments: General: The patient is awake and alert, in no distress, and does not appear acutely ill. Eye: +3 mm pupils are equal, round and reactive to light, extra-ocular movements are intact. No nystagmus. There is normal conjunctiva bilaterally. No signs of icterus. Ears, nose, mouth and throat: There are moist mucous membranes and no oral lesions. Neck: The neck is supple, there is no tenderness or JVD. Cardiovascular: There is a regular rate and rhythm. No murmur, rub or gallop is appreciated. Respiratory: Lungs are clear to auscultation, respirations are non-labored, breath sounds are equal. No wheezes, stridor, rales, or rhonchi. Musculoskeletal: Upon inspection of the left knee there is complaint wound dehiscence. Exposure of prosthetic an underlying structures. Normal ROM, no tenderness of the right knee. Sensation intact both proximal and distal to injury site. Posterior tibial pulses equal bilaterally 2+. Edema of the dorsum of the left foot. No active bleeding Neurological: A&O x 3. CN II-XII intact, There are no obvious motor or sensory deficits. Coordination appears grossly intact. Speech is normal. Skin: Skin is warm and dry and no rashes or lesions are noted. Psychiatric: Cooperative, appropriate mood & affect, normal judgment. (Maribell Song) Course Vital Signs 01/22/19 01/22/19 01/22/19 09:28 10:28 11:14 Temperature 98.7 F Pulse Rate 104 H 96 101 H Respiratory 18 18 18 Rate Blood Pressure 145/92 141/86 146/95 O2 Sat by Pulse 95 98 98 Oximetry Medical Decision Making - Lab Data Result diagrams: 01/22/19 09:50 01/22/19 09:50 <Maribell Song - Last Filed: 01/22/19 10:24> - Lab Data Result diagrams: 01/22/19 09:50 01/22/19 09:50 <Rodolfo Naranjo - Last Filed: 01/22/19 15:48> - Medical Decision Making 68-year-old male presenting today for chief complaint of fall left knee injury. There is complete wound dehiscence on examination. Patient is neurovascularly intact. Full sensation. Proximal distal to injury site. Sterile bandage is applied. Patient was started on IV antibiotics including 2 g of Ancef and vancomycin as dosed by pharmacy. Patient's surgeon was contacted, my attending provider Dr. Naranjo spoke with Dr Faheem Jay. He recommended IV antibiotics, NPO, sterile bandage and will take patient to the OR for repair/washout. Basic laboratory studies were obtained for surgical clearance. Patient is no other complaints. Patient denies hitting his head or injury to any other extremity. Patient was given pain medication the emergency department has morphine ordered to 4 hours as needed. IV fluids were administered. Bleeding is controlled. Patient transferred to floor in stable condition appea ring well, additional orders in place by PENELOPE Dan for Dr. Jay. Patient is agreeable care plan, QUESTIONS were answered to the best mobility prior to transfer to the floor. (Maribell Song) 68-year-old male 2 days postop left total knee presents status post fall with wound dehiscence. Patient initially on antibiotics and admitted for surgical repair. Discussed case with the patient's surgeon Dr. Jay (Rodolfo Naranjo) Disposition Is patient prescribed a controlled substance at d/c from ED?: No Time of Disposition: 09:47 Decision to Admit Reason: Admit from EC Decision Date: 01/22/19 Decision Time: 09:47 <Maribell Song - Last Filed: 01/22/19 10:24> <Rodolfo Naranjo - Last Filed: 01/22/19 15:48> Clinical Impression: Dehiscence of internal surgical incision, Left knee pain Disposition: ADMITTED IP TO THIS HOSP Condition: Stable
[2019-01-22] MEDS ORDERED: ceFAZolin IN SWFI 2 GM/20 ML SYRINGE IVP STA (09:56)
[2019-01-22] MEDS: SODIUM CHLORIDE 0.9% 1,000 ML IV SCH ×3 (10:01→21:32)
[2019-01-22 10:08] LABS: Basophils % (A) 0 %; Eosinophils # (A) 0.2 k/uL (0-0.7); Eosinophils % (A) 2 %; HCT 35.8 % (39.0-53.0); HGB 12.1 gm/dL (13.0-17.5); Lymphocytes # (A) 1.1 k/uL (1.0-4.8); Lymphocytes % (A) 11 %; MCH 32.5 pg (25.0-35.0); MCHC 33.7 g/dL (31.0-37.0); MCV 96.5 fL (80.0-100.0); Mean Platelet Volume 7.7; Monocytes # (A) 1.1 k/uL (0-1.0); Monocytes % (A) 11 %; Neutrophils # (A) 7.4 k/uL (1.3-7.7); Neutrophils % (A) 74 %; Platelet Count 225 k/uL (150-450); RBC 3.71 m/uL (4.30-5.90); RDW 12.3 % (11.5-15.5); WBC 10.1 k/uL (3.8-10.6)
[2019-01-22 10:15] LABS: Albumin 3.5 g/dL (3.5-5.0); Calcium 9.2 mg/dL (8.4-10.2); Potassium 4.8 mmol/L (3.5-5.1); Total Bilirubin 0.8 mg/dL (0.2-1.3); Total Protein 6.2 g/dL (6.3-8.2)
[2019-01-22] MEDS ORDERED: HYDROmorphone 1 MG/ML 1 ML SYRINGE IVP STA (11:07)
--- NOTE | 2019-01-22 13:28 | P.HPOR ---
History of Present Illness H&P Date: 01/22/19 This is a 68-year-old male who is status post left total knee arthroplasty on 01/19/2019. Patient states that he was in the shower today and slipped and fell. Patient denies any dizziness or loss of consciousness, but states that he did hit his head. Patient presented to the emergency room via EMS because his incision split open.patient's son is present in the room today as well and states that he has had multiple falls. Patient also complains of pain in the left foot and ankle.patient thinks he also might of hit his right elbow. While in the room, the patient was describing an object that he saw on the countertop in front of him that is not actually there. Per nursing staff, the patient was having trouble with certain commands, such as rolling to the side, and also with depth perception when reaching for objects. Patient denies any nausea, headache, visual changes, neck pain, fever or chills. Review of Systems See HPI. Past Medical History Past Medical History: COPD, GERD/Reflux, Hyperlipidemia, Hypertension, Oste oarthritis (OA) Additional Past Medical History / Comment(s): Hypoglycemia, hemorrhoids History of Any Multi-Drug Resistant Organisms: None Reported Past Surgical History: Back Surgery, Joint Replacement Additional Past Surgical History / Comment(s): 01/20/19 total left knee arthroplasty, COLONOSCOPY Past Anesthesia/Blood Transfusion Reactions: No Reported Reaction Additional Past Anesthesia/Blood Transfusion Reaction / Comment(s): claustrophobic,no hx blood transfusion Smoking Status: Former smoker - Past Family History Mother Family Medical History: No Reported History Father Family Medical History: No Reported History Medications and Allergies Home Medications Medication Instructions Recorded Confirmed Type Lisinopril [Zestril] 20 mg PO QAM 01/13/14 01/22/19 History Aspirin 81 mg PO DAILY 04/29/17 01/22/19 History Citalopram Hydrobromide 20 mg PO QAM 04/29/17 01/22/19 History [Citalopram HBr] Cyanocobalamin (Vitamin B-12) 1,000 mcg PO DAILY 04/29/17 01/22/19 History [Vitamin B-12] Fish Oil/Dha/Epa [Fish Oil 1,200 1 cap PO DAILY 04/29/17 01/22/19 History mg Fish Oil] Metoprolol Succinate (ER) [Toprol 25 mg PO QAM 04/29/17 01/22/19 History Xl] Montelukast Sodium [Singulair] 10 mg PO QAM 04/29/17 01/22/19 History Niacin 500 mg PO DAILY 04/29/17 01/22/19 History Pantoprazole Sodium 40 mg PO QAM 04/29/17 01/22/19 History Thiamine [Vitamin B-1] 50 mg PO DAILY 04/29/17 01/22/19 History Albuterol Sulfate [Proair Hfa] 1 - 2 puff INHALATION RT-Q6H PRN 01/14/19 01/22/19 History Budesonide/Formoterol Fumarate 2 puff INHALATION RT-BID 01/14/19 01/22/19 History [Symbicort 160-4.5 Mcg Inhaler] LORazepam [Ativan] 1 mg PO QAM PRN 01/14/19 01/22/19 History Tiotropium 18 Mcg/Puff [Spiriva] 1 puff INHALATION RT-DAILY 01/14/19 01/22/19 History Fenofibrate 160 mg PO DAILY 01/19/19 01/22/19 History Aspirin 325 mg PO BID #60 tab 01/20/19 01/22/19 Rx HYDROcodone/APAP 5-325MG [[place] 1 - 2 tab PO Q6HR PRN #56 tab 01/20/19 01/22/19 Rx 5-325] Sennosides [Senokot] 8.6 mg PO BID 01/22/19 01/22/19 History Allergies Allergy/AdvReac Type Severity Reaction Status Date / Time No Known Allergies Allergy Verified 01/22/19 09:47 Physical Examination On exam patient is lying comfortably in bed in no acute distress. Patient is alert and oriented. Dressing is removed from the left knee revealing an open incision. Left total knee arthroplasty components are visible. There is moderate bloody drainage present. Patient is holding the left knee in flexion. There is swelling of the left lower leg including the left ankle and foot. There is ecchymosis to the lateral aspect of the left foot. There is tenderness to palpation over the left ankle .Skin is intact over the left foot and ankle. The left lower extremity is warm and well perfused. On exam of the right lower extremity there is no swelling, tenderness to palpation, ecchymosis or erythema. Patient has good range of motion of the right lower extremity. On exam of bilateral upper extremities there is a small abrasion over the right elbow. There is no tenderness to palpation or limitation of range of motion of bilateral upper extremities. There is no swelling, erythema, ecchymosis or dr ainage. Sensation is intact. Patient has good range of motion of the head and neck without pain or difficulty. Patient responds to questions appropriately. Patient does describe seeing an object sitting on the counter top in front of him that is not physically there and he relates this to his foot hurting. Results X-rays of the left knee, left tibia/fibula, left ankle and left foot are pending. - Labs Labs: Abnormal Lab Results - Last 24 Hours (Table) 01/22/19 01/22/19 Range/Units 09:50 09:50 RBC 3.71 L (4.30-5.90) m/uL Hgb 12.1 L (13.0-17.5) gm/dL Hct 35.8 L (39.0-53.0) % Monocytes # 1.1 H (0-1.0) k/uL Sodium 135 L (137-145) mmol/L BUN 21 H (9-20) mg/dL Glucose 102 H (74-99) mg/dL Total Protein 6.2 L (6.3-8.2) g/dL H & H 01/22/19 Range/Units 09:50 Hgb 12.1 L (13.0-17.5) gm/dL Hct 35.8 L (39.0-53.0) % Result Diagrams: 01/22/19 09:50 01/22/19 09:50 Assessment and Plan (1) Pain and swelling of left ankle Current Visit: Yes Status: Acute Code(s): M25.572 - PAIN IN LEFT ANKLE AND JOINTS OF LEFT FOOT; M25.472 - EFFUSION, LEFT ANKLE SNOMED Code(s): 516487272 (2) Swelling of left foot Current Visit: Yes Status: Acute Code(s): M79.89 - OTHER SPECIFIED SOFT TISSUE DISORDERS SNOMED Code(s): 097979325 (3) Dehiscence of internal surgical incision Current Visit: Yes Status: Acute Code(s): T81.32XA - DISRUPTION OF INTERNAL OPERATION (SURGICAL) WOUND, NEC, INIT SNOMED Code(s): 28950710 (4) Left knee pain Current Visit: Yes Status: Acute Code(s): M25.562 - PAIN IN LEFT KNEE SNOMED Code(s): 46068320 (5) S/P total knee arthroplasty Current Visit: No Status: Acute Code(s): Z96.659 - PRESENCE OF UNSPECIFIED ARTIFICIAL KNEE JOINT SNOMED Code(s): 3331963255971 Plan: 1. X-rays are pending. 2. Patient is to be nothing by mouth. 3. Reinforce dressing as needed. Ice to the left knee and ankle as needed. 4. Further recommendations pending x-ray results. 5. Plan for surgical wound closure today pending patient consent.
--- NOTE | 2019-01-22 14:04 | XR ---
EXAMINATION TYPE: XR tibia fibula LT DATE OF EXAM: 01/22/2019 COMPARISON: NONE HISTORY: Pain TECHNIQUE: Two views are submitted. FINDINGS: The osseous structures are intact. The joint spaces are preserved. Postsurgical changes compatible with previous knee arthroplasty noted. Patella this appears displaced laterally correlate clinically. IMPRESSION: 1. Postsurgical change involving the knee. Patella appears to be displaced laterally and should be co rrelated clinically for subluxation or dislocation.
--- NOTE | 2019-01-22 14:05 | XR ---
EXAMINATION TYPE: XR ankle complete LT DATE OF EXAM: 01/22/2019 COMPARISON: NONE HISTORY: Pain FINDINGS: Three views of the ankle demonstrate the ankle mortise to be intact and symmetric. The joint spaces are preserved. The osseous structures are intact. Soft tissue swelling noted. Small calcaneal spur noted. IMPRESSION: 1. No definite acute fracture or dislocation, if symptoms persist follow-up study in 7 to 10 days wou ld be suggested.
--- NOTE | 2019-01-22 14:05 | XR ---
EXAMINATION TYPE: XR knee complete LT DATE OF EXAM: 01/22/2019 CLINICAL HISTORY: pain TECHNIQUE: Three views of the left knee are obtained. COMPARISON: 01/19/2019 FINDINGS: Lateral dislocation of the patella is noted. No distinct fracture identified. Total knee ar throplasty identified. IMPRESSION: Lateral dislocation of the patella.
--- NOTE | 2019-01-22 14:05 | XR ---
EXAMINATION TYPE: XR foot complete LT DATE OF EXAM: 01/22/2019 CLINICAL HISTORY: pain TECHNIQUE: Frontal, lateral and oblique images of the left foot are obtained. COMPARISON: None. FINDINGS: There is no acute fracture/dislocation evident. The joint spaces appear within normal graham its. The overlying soft tissue appears unremarkable. IMPRESSION: There is no acute fracture or dislocation. ICD 10 NO FRACTURE, INITIAL EVALUATION
[2019-01-22] MEDS ORDERED: LACTATED RINGERS 1,000 ML IV ONE (15:19)
[2019-01-22] MEDS ORDERED: HYDROcodone/APAP 5-325MG 1 EACH TAB PO PRN (16:38)
[2019-01-22] MEDS ORDERED: NA PHOS,M-B/NA PHOS,DI-BA 133 ML ENEMA RECTAL PRN (16:38)
[2019-01-22] MEDS ORDERED: BISACODYL 10 MG SUPP RECTAL PRN (16:38)
[2019-01-22] MEDS ORDERED: MAGNESIUM HYDROXIDE 2,400 MG/10 ML CUP PO PRN (16:38)
[2019-01-22] MEDS ORDERED: HYDROmorphone 0.5 MG/0.5 ML SYRINGE IVP PRN ×3 (16:38)
[2019-01-22] MEDS ORDERED: SUCCINYLCHOLINE CHLORIDE 100 MG/5 ML SYR IV ONE (16:39)
[2019-01-22] MEDS ORDERED: fentaNYL (PF) 50 MCG/ML 2 ML AMP ONE (16:39)
[2019-01-22] MEDS ORDERED: HYDROmorphone (PF) 1 MG/ML ONE (16:39)
[2019-01-22] MEDS ORDERED: PROPOFOL 10 MG/ML 20 ML VIAL IV ONE (16:39)
[2019-01-22] MEDS ORDERED: MIDAZOLAM 2 MG/2 ML VIAL ONE (16:39)
[2019-01-22] MEDS ORDERED: LIDOCAINE 1% INJ 10MG/ML (20 ML MDV) ONE (16:39)
[2019-01-22] MEDS ORDERED: PHENYLEPHRINE-0.9% NACL SYG 1 MG/10 ML SYRINGE ONE (16:39)
[2019-01-22] MEDS ORDERED: ceFAZolin 3,000 MG in SODIUM CHLORIDE 0.9% IRRIGATIO 3,000 ML IRRIGATION ONE (16:42)
--- NOTE | 2019-01-22 17:38 | P.OP ---
Date of Procedure: 01/22/19 Preoperative Diagnosis: Wound dehiscence left total knee Postoperative Diagnosis: Wound dehiscence left total knee Procedure(s) Performed: Irrigation and primary closure wound dehiscence left total knee Anesthesia: SHAR Surgeon: Faheem [place] Director #1: Rose Marie Shafer Estimated Blood Loss (ml): 50 Pathology: none sent Condition: stable Disposition: PACU Indications for Procedure: This is a 68-year-old gentleman that had a left total knee on January 19. He is at home showering when he slipped and fell and landed directly onto his left knee. His wound dehisced completely including the deep fascia. He was seen in the emergency room a sterile dressing was applied. X-rays were obtained of his left leg which showed no acute fractures. After discussing the treatment options, recommended an urgent irrigation with primary closure of his left knee wound. I discussed the risk of infection secondary to the wound being open and him and his family are aware of this. Informed consent was obtained. Operative Findings: The operative findings are consistent with a wound dehiscence of the skin and deep fascia of the left knee. Description of Procedure: The patient was seen in the preoperative area and the consent was reviewed. The operative site was marked with a skin marker the patient was then brought to the operating room. General anesthetic was administered by the anesthesia de partment and the left lower extremities and prepped and draped in the usual sterile fashion. A universal timeout was then performed confirming the patient's name, surgical site, ALLERGIES, and consent. The knee wound was then inspected and found to be completely dehisced with the skin and deep to the quadriceps fascia. Any remaining suture was removed. Next, using pulsatile lavage, 3000 L of anabolic solution were irrigated through the knee. The fascia was then closed with #2 strata fix suture. Subcutaneous tissue was closed with 3-0 Vicryl followed by asad for the skin. A sterile dressing was applied and a knee immobilizer was placed. The patient was transferred recovery room in stable condition. The medical assistant cardiology BOBBY Dan was required due the complexity of surgery, and the need for skilled surgical pathologist.
--- NOTE | 2019-01-22 19:00 | XR ---
EXAMINATION TYPE: XR knee limited LT DATE OF EXAM: 01/22/2019 COMPARISON: Today HISTORY: Knee surgery TECHNIQUE: 2 views FINDINGS: There is a left knee prosthesis. Components appear in anatomic position. There are anterior skin asad. There is apparent repair of the laceration deformity above the patella compared to exa m earlier today. IMPRESSION: No complicating process seen. No fracture seen.
[2019-01-22] MEDS ORDERED: VANCOMYCIN 1,750 MG in SODIUM CHLORIDE 0.9% 500 ML 500 ML IVPB SCH (21:00)
[2019-01-22] MEDS: SENNOSIDES-DOCUSATE SODIUM 1 EACH TAB PO SCH (21:33)
[2019-01-22] MEDS: ASPIRIN 325 MG TAB PO SCH (21:33)
[2019-01-22] MEDS: HYDROcodone/APAP 5-325MG 1 EACH TAB PO PRN (21:33)
[2019-01-23] MEDS: ceFAZolin IN SWFI 2 GM/20 ML SYRINGE IVP SCH ×2 (06:08→10:41)
[2019-01-23 07:29] LABS: Basophils % (A) 0 %; Eosinophils # (A) 0.1 k/uL (0-0.7); Eosinophils % (A) 0 %; HCT 34.1 % (39.0-53.0); HGB 11.2 gm/dL (13.0-17.5); Lymphocytes # (A) 0.7 k/uL (1.0-4.8); Lymphocytes % (A) 6 %; MCH 31.3 pg (25.0-35.0); MCHC 32.8 g/dL (31.0-37.0); MCV 95.5 fL (80.0-100.0); Mean Platelet Volume 7.6; Monocytes # (A) 1.3 k/uL (0-1.0); Monocytes % (A) 11 %; Neutrophils # (A) 10.3 k/uL (1.3-7.7); Neutrophils % (A) 81 %; Platelet Count 264 k/uL (150-450); RBC 3.57 m/uL (4.30-5.90); RDW 12.4 % (11.5-15.5); WBC 12.7 k/uL (3.8-10.6)
[2019-01-23] MEDS: HYDROcodone/APAP 5-325MG 1 EACH TAB PO PRN ×2 (09:54→16:43)
[2019-01-23] MEDS: MELOXICAM 7.5 MG TAB PO SCH (09:54)
[2019-01-23] MEDS: ASPIRIN 325 MG TAB PO SCH ×2 (09:54→22:16)
--- NOTE | 2019-01-23 10:25 | P.HPIM ---
History of Present Illness H&P Date: 01/23/19 This is a 68-year-old male who is status post left knee arthroplasty on 01/19/2018. Patient presented to the emergency room after sustaining a fall in the shower which was caused by loss of balance. Patient denied any dizziness or loss of consciousness, but states that he did hit his head. Patient came to the emergency room because his incision split open from the fall. Patient's family states that he has had multiple falls in the past he has also had multiple episodes of confusion prior to this fall. In the emergency room patient was complaining of pain to the left foot and ankle. Patient also complained of seeing an object on the countertop that was not actually there. He was having difficulty following commands and depth perception with reaching for objects. Patient has medical history of COPD, GERD, hyperlipidemia, hypertension, osteoarthritis, depression. He is a former smoker who quit in a 1999 and drinks approximately 4 beers a day but none recently due to recent surgery. Patient is seen today resting in bed in moderate distress. Patient is upset and feels that the nursing staff are being mean to him and possibly poisoning him through his medications. He is not sure what they want when they are asking him to follow commands. Patient states that when he follows the commands they then start to yell at him because he is not doing what they instructed. Patient feels like they are not telling the complete story and that he is fearful of them. During the interview family did come to the bedside and stated that over the past few months they have noticed patient to have increased confusion. Patient will create stories they do not make sense to explain behaviors. Son-in-law states that he will stop in the middle of the street thinking it is a corner that he needs to stop at and is forgetful and confused. Patient denies any pain to the left knee at this time. Patient is able to answer questions appropriately. A and O 3. Patient was able to follow simple commands, however, nursing staff reports that more elaborate commands are not able to be followed. Patient denies any fever or chills at this time. Review of Systems All systems: negative Constitutional: Denies chills, Denies fever, Denies malaise Eyes: denies blurred vision, denies pain Ears, nose, mouth and throat: Denies headache, Denies nasal congestion, Denies nasal discharge, Denies sore throat Cardiovascular: Denies chest pain, Denies dyspnea on exertion, Denies shortness of breath Respiratory: Denies cough Gastrointestinal: Denies abdominal pain, Denies diarrhea, Denies nausea, Denies vomiting Genitourinary: Denies dysuria Musculoskeletal: Reports limitation of motion, Denies myalgias Integumentary: Denies pruritus, Denies rash Neurological: Reports confusion, Reports gait dysfunction, Reports lack of coordination, Denies numbness, Denies weakness Psychiatric: Reports disorientation, Denies anxiety, Denies depression, Denies hallucinations Endocrine: Denies fatigue, Denies weight change Past Medical History Past Medical History: COPD, GERD/Reflux, Hyperlipidemia, Hypertension, Ost eoarthritis (OA) Additional Past Medical History / Comment(s): Hypoglycemia, hemorrhoids History of Any Multi-Drug Resistant Organisms: None Reported Past Surgical History: Back Surgery, Joint Replacement Additional Past Surgical History / Comment(s): 01/20/19 total left knee arthroplasty, COLONOSCOPY Past Anesthesia/Blood Transfusion Reactions: No Reported Reaction Additional Past Anesthesia/Blood Transfusion Reaction / Comment(s): claustrophobic,no hx blood transfusion Smoking Status: Former smoker - Past Family History Mother Family Medical History: No Reported History Father Family Medical History: No Reported History Medications and Allergies Home Medications Medication Instructions Recorded Confirmed Type Lisinopril [Zestril] 20 mg PO QA 01/13/14 01/22/19 History Aspirin 81 mg PO DAILY 04/29/17 01/22/19 History Citalopram Hydrobromide 20 mg PO QAM 04/29/17 01/22/19 History [Citalopram HBr] Cyanocobalamin (Vitamin B-12) 1,000 mcg PO DAILY 04/29/17 01/22/19 History [Vitamin B-12] Fish Oil/Dha/Epa [Fish Oil 1,200 1 cap PO DAILY 04/29/17 01/22/19 History mg Fish Oil] Metoprolol Succinate (ER) [Toprol 25 mg PO QAM 04/29/17 01/22/19 History Xl] Montelukast Sodium [Singulair] 10 mg PO QAM 04/29/17 01/22/19 History Niacin 500 mg PO DAILY 04/29/17 01/22/19 History Pantoprazole Sodium 40 mg PO QAM 04/29/17 01/22/19 History Thiamine [Vitamin B-1] 50 mg PO DAILY 04/29/17 01/22/19 History Albuterol Sulfate [Proair Hfa] 1 - 2 puff INHALATION RT-Q6H PRN 01/14/19 01/22/19 History Budesonide/Formoterol Fumarate 2 puff INHALATION RT-BID 01/14/19 01/22/19 History [Symbicort 160-4.5 Mcg Inhaler] LORazepam [Ativan] 1 mg PO QAM PRN 01/14/19 01/22/19 History Tiotropium 18 Mcg/Puff [Spiriva] 1 puff INHALATION RT-DAILY 01/14/19 01/22/19 History Fenofibrate 160 mg PO DAILY 01/19/19 01/22/19 History Aspirin 325 mg PO BID #60 tab 01/20/19 01/22/19 Rx HYDROcodone/APAP 5-325MG [[place] 1 - 2 tab PO Q6HR PRN #56 tab 01/20/19 01/22/19 Rx 5-325] Sennosides [Senokot] 8.6 mg PO BID 01/22/19 01/22/19 History Allergies Allergy/AdvReac Type Severity Reaction Status Date / Time No Known Allergies Allergy Verified 01/22/19 09:47 Physical Exam Vitals: Vital Signs Temp Pulse Pulse Pulse Resp BP BP 01/23/19 07:38 98.2 F 119 H 12 133/87 01/23/19 01:42 98.4 F 106 H 16 130/80 01/22/19 19:00 98.3 F 116 H 16 138/92 01/22/19 18:30 109 H 18 162/90 01/22/19 18:15 110 H 17 156/87 01/22/19 18:00 109 H 18 155/90 01/22/19 17:43 97.7 F 109 H 18 153/88 01/22/19 15:15 98.9 F 110 H 17 138/91 01/22/19 14:36 98.6 F 105 H 16 123/76 01/22/19 11:14 101 H 18 146/95 01/22/19 10:28 96 18 141/86 Pulse Ox 01/23/19 07:38 92 L 01/23/19 01:42 92 L 01/22/19 19:00 92 L 01/22/19 18:30 95 01/22/19 18:15 98 01/22/19 18:00 99 01/22/19 17:43 99 01/22/19 15:15 93 L 01/22/19 14:36 92 L 01/22/19 11:14 98 01/22/19 10:28 98 Intake and Output 01/22/19 01/23/19 01/23/19 22:59 06:59 14:59 Intake Total 701 Output Total 50 375 Balance 651 -375 Intake: IV 701 Output: Urine 375 Estimated Blood Loss 50 Other: # Voids 1 - Constitutional General appearance: cooperative, mild distress - EENT Eyes: anicteric sclerae, EOMI, PERRLA ENT: hearing grossly normal, NA/AT - Neck Neck: no lymphadenopathy, normal ROM - Respiratory Respiratory: bilateral: CTA, negative: diminished, dullness, rales, rhonchi, wheezing, prolonged expiration, prolonged inspiration, other - Cardiovascular Rhythm: regular Heart sounds: normal: S1, S2 Abnormal Heart Sounds: no systolic murmur, no diastolic murmur, no rub, no S3 Gallop, no S4 Gallop, no click, no other - Gastrointestinal General gastrointestinal: no distended, normal bowel sounds, no organomegaly, soft, no tenderness - Integumentary Integumentary: decreased turgor - Neurologic Neurologic: CNII-XII intact, focal deficits - Musculoskeletal Immobilizer in place left leg. A commode with assist noted to lateral aspect of left foot. Musculoskeletal: generalized weakness - Psychiatric Psychiatric: A&O x's 3, appropriate affect, intact judgment & insight Results CBC & Chem 7: 01/23/19 06:44 01/23/19 06:44 Labs: Abnormal Lab Results - Last 24 Hours (Table) 01/23/19 Range/Units 06:44 WBC 12.7 H (3.8-10.6) k/uL RBC 3.57 L (4.30-5.90) m/uL Hgb 11.2 L (13.0-17.5) gm/dL Hct 34.1 L (39.0-53.0) % Neutrophils # 10.3 H (1.3-7.7) k/uL Lymphocytes # 0.7 L (1.0-4.8) k/uL Monocytes # 1.3 H (0-1.0) k/uL Thrombosis Risk Factor Assmnt - Choose All That Apply Each Factor Represents 1 point: Obesity (BMI >25) Other Risk Factors: Yes Each Risk Factor Represents 2 Points: Age 61-74 years, Major surgery Other congenital or acquired thrombophilia - If yes, enter type in comment: No Thrombosis Risk Factor Assessment Total Risk Factor Score: 5 Thrombosis Risk Factor Assessment Level: High Risk Assessment and Plan Plan: 1. Fall. s/p washout. Consult PT/OT 2. Knee injury s/P washout. Continue vancomycin. Continue pain management with [place] and Dilaudid. Blood cultures obtained 3. Osteoarthritis S/P total knee arthroplasty. Consult PT OT. Continue Mobic 4. Confusion. Consult psychiatry and neurology. Consult social work for possible placement 5. COPD. Symbicort 2 puffs twice a day 6. GERD. Protonix 40 mg by mouth before breakfast 7. Hyperlipidemia. Fenofibrate 160 mg daily, niacin 500 mg daily 8. Hypertension. Lisinopril 20 mg by mouth daily, metoprolol 25 mg by mouth daily 9. Depression. Continue Celexa 20 mg by mouth 9. DVT prophylaxis. 10. GI prophylaxis. See above Discharge plan: Possible Friday to Impression and plan of care have been directed as dictated by the signing physician. Shruthi Bazan nurse practitioner acting as scribe for signing physician.
[2019-01-23] MEDS: SODIUM CHLORIDE 0.9% 1,000 ML IV SCH ×3 (10:40→17:44)
--- NOTE | 2019-01-23 12:10 | P.PN ---
Subjective Progress Note Date: 01/23/19 Principal diagnosis: S/P Irrigation and primary closure of wound dehiscence Patient is seen at bedside this morning. He is postop day #1 from irrigation and primary closure of wound dehiscence from recent TKA. He has pain at the surgical site as expected but denies any new complaints. He denies numbness, tingling or calf pain. Review of systems is negative for fever, chills, chest pain, shortness of breath or other Objective - Vital Signs Vital signs: Vital Signs Temp 98.2 F 01/23/19 07:38 Pulse 119 H 01/23/19 07:38 Resp 12 01/23/19 07:38 BP 133/87 01/23/19 07:38 Pulse Ox 92 L 01/23/19 07:38 Intake & Output 01/22/19 01/23/19 01/23/19 18:59 06:59 18:59 Intake Total 1201 Output Total 50 375 Balance 1151 -375 Weight 102.058 kg Intake: IV 701 Intake, IV Titration 500 Amount Vancomycin 1,750 mg In 500 Sodium Chloride 0.9% 500 ml 500 ml @ 167 mls/hr IVPB Q12HR ALEX Rx#: [id number] Output: Urine 375 Estimated Blood Loss 50 Other: # Voids 1 - Exam Inspection reveals a benign surgical wound. Knee immobilizer in place. There is no active bleeding or drainage. Neurovascular status is intact throughout the lower extremity with motor and sensation fully intact. Calf is soft and nontender. 2+ dorsalis pedis pulse and less than 2 second cap refill is present. - Constitutional General appearance: Present: no acute distress - Labs CBC & Chem 7: 01/23/19 06:44 01/23/19 06:44 Labs: Abnormal Lab Results - Last 24 Hours (Table) 01/23/19 Range/Units 06:44 WBC 12.7 H (3.8-10.6) k/uL RBC 3.57 L (4.30-5.90) m/uL Hgb 11.2 L (13.0-17.5) gm/dL Hct 34.1 L (39.0-53.0) % Neutrophils # 10.3 H (1.3-7.7) k/uL Lymphocytes # 0.7 L (1.0-4.8) k/uL Monocytes # 1.3 H (0-1.0) k/uL Microbiology - Last 24 Hours (Table) 01/22/19 09:50 Blood Culture - Preliminary Blood No Growth after 24 hours Assessment and Plan (1) Dehiscence of internal surgical incision Narrative/Plan: He will continue with routine postop orthopedic protocol including pain management, wound care, PT, DVT prophylaxis and medical management. Maintain immobilizer. Expect D/C to home in next 1-2 days. Current Visit: Yes Status: Acute Priority: Medium Code(s): T81.32XA - DISRUPTION OF INTERNAL OPERATION (SURGICAL) WOUND, NEC, INIT SNOMED Code(s): 88283866 (2) S/P total knee arthroplasty Current Visit: No Status: Acute Priority: Medium Code(s): Z96.659 - PRESENCE OF UNSPECIFIED ARTIFICIAL KNEE JOINT SNOMED Code(s): 5464478219630 Time with Patient: Less than 30
[2019-01-23] MEDS: VANCOMYCIN 1,750 MG in SODIUM CHLORIDE 0.9% 500 ML 500 ML IVPB SCH ×2 (13:42→23:47)
[2019-01-23] MEDS: LISINOPRIL 20 MG TAB PO SCH (13:47)
--- NOTE | 2019-01-23 15:11 | P.CNNES ---
History of Present Illness Consult date: 01/23/19 Reason for Consult: Confusion History of Present Illness: Patient is a 68-year-old male who is status post left total knee arthroplasty on 01/19/2019, suffered from a fall yesterday in the shower. Patient states that he was in the shower, and his feet slipped and he fell, in which he had complete wound dehiscence of the left knee arthroplasty. He also hurt his back. Patient states that he hit his head on the toilet. Patient was brought to the hospital, where he underwent irrigation and primary closure of the wound dehiscence from recent total knee arthroplasty. Patient was noted to be confused, which prompted this neurology consultation. Patient is not in a very good mood, not very cooperative. He states that he had slipped a couple times, once in the bathroom as mentioned. He also had a slip when he was working in a "hole in the ground" and slipped in the "hole". His back is hurting. He claims back pain 04/24. Patient has also been receiving pain medication since surgery. He received 4 mg of morphine IV at 1:56 AM this morning. He also has received one tablet of [place] at 12:50 PM today. Patient was noted to have some paranoia. Patient denies any focal symptoms, problem with the vision, numbness tingling or weakness. Review of Systems Positive for left knee pain, back pain, some confusion. Denies any numbness tingling weakness. Constitutional: Reports as per HPI Past Medical History Past Medical History: COPD, GERD/Reflux, Hyperlipidemia, Hypertension, Osteoarthritis (OA) Additional Past Medical History / Comment(s): Hypoglycemia, hemorrhoids History of Any Multi-Drug Resistant Organisms: None Reported Past Surgical History: Back Surgery, Joint Replacement Additional Past Surgical History / Comment(s): 01/20/19 total left knee arthroplasty, COLONOSCOPY Past Anesthesia/Blood Transfusion Reactions: No Reported Reaction Additional Past Anesthesia/Blood Transfusion Reaction / Comment(s): claustrophobic,no hx blood transfusion Smoking Status: Former smoker - Past Family History Mother Family Medical History: No Reported History Father Family Medical History: No Reported History Medications and Allergies Home Medications Medication Instructions Recorded Confirmed Type Lisinopril [Zestril] 20 mg PO QAM 01/13/14 01/22/19 History Aspirin 81 mg PO DAILY 04/29/17 01/22/19 History Citalopram Hydrobromide 20 mg PO QAM 04/29/17 01/22/19 History [Citalopram HBr] Cyanocobalamin (Vitamin B-12) 1,000 mcg PO DAILY 04/29/17 01/22/19 History [Vitamin B-12] Fish Oil/Dha/Epa [Fish Oil 1,200 1 cap PO DAILY 04/29/17 01/22/19 History mg Fish Oil] Metoprolol Succinate (ER) [Toprol 25 mg PO QAM 04/29/17 01/22/19 History Xl] Montelukast Sodium [Singulair] 10 mg PO QAM 04/29/17 01/22/19 History Niacin 500 mg PO DAILY 04/29/17 01/22/19 History Pantoprazole Sodium 40 mg PO QAM 04/29/17 01/22/19 History Thiamine [Vitamin B-1] 50 mg PO DAILY 04/29/17 01/22/19 History Albuterol Sulfate [Proair Hfa] 1 - 2 puff INHALATION RT-Q6H PRN 01/14/19 01/22/19 History Budesonide/Formoterol Fumarate 2 puff INHALATION RT-BID 01/14/19 01/22/19 History [Symbicort 160-4.5 Mcg Inhaler] LORazepam [Ativan] 1 mg PO QAM PRN 01/14/19 01/22/19 History Tiotropium 18 Mcg/Puff [Spiriva] 1 puff INHALATION RT-DAILY 01/14/19 01/22/19 History Fenofibrate 160 mg PO DAILY 01/19/19 01/22/19 History Aspirin 325 mg PO BID #60 tab 01/20/19 01/22/19 Rx HYDROcodone/APAP 5-325MG [[place] 1 - 2 tab PO Q6HR PRN #56 tab 01/20/19 01/22/19 Rx 5-325] Sennosides [Senokot] 8.6 mg PO BID 01/22/19 01/22/19 History Allergies Allergy/AdvReac Type Severity Reaction Status Date / Time No Known Allergies Allergy Verified 01/22/19 09:47 Physical Examination - Vital Signs Vital Signs: Vital Signs Temp Pulse Pulse Resp BP Pulse Ox 01/23/19 14:08 99.0 F 113 H 18 110/75 93 L 01/23/19 07:38 98.2 F 119 H 12 133/87 92 L 01/23/19 01:42 98.4 F 106 H 16 130/80 92 L 01/22/19 19:00 98.3 F 116 H 16 138/92 92 L 01/22/19 18:30 109 H 18 162/90 95 01/22/19 18:15 110 H 17 156/87 98 01/22/19 18:00 109 H 18 155/90 99 01/22/19 17:43 97.7 F 109 H 18 153/88 99 01/22/19 15:15 98.9 F 110 H 17 138/91 93 L Intake and Output 01/23/19 01/23/19 01/23/19 06:59 14:59 22:59 Intake Total 540 Output Total 375 Balance -375 540 Intake: Oral 540 Output: Urine 375 Other: # Voids 1 1 On examination patient is a elderly male, in no distress. He is alert and awake. He is not in a very good mood, appears to have a "worried" look on his face. Patient's speech and language functions are normal. No aphasia or dysarthria. He is fully oriented, knows it is January 2019 and that he is in [facility] in the [facility] and name of the current president. On cranial nerve examination pupils are round and reactive to light visual moran are full except muscles are intact. Face is symmetric and tongue protrudes to midline. On muscle strength testing the strength is normal in both arms and the right leg. The left ankle is normal. Proximally the left leg was not tested. Reflexes are symmetric and plantars downgoing. No obvious bruit heard. Tone and bulk of muscles normal. Results - Laboratory Findings CBC and BMP: 01/23/19 06:44 01/23/19 06:44 Abnormal Lab Findings: Abnormal Labs 01/22/19 01/22/19 01/23/19 09:50 09:50 06:44 WBC 12.7 H RBC 3.71 L 3.57 L Hgb 12.1 L 11.2 L Hct 35.8 L 34.1 L Neutrophils # 10.3 H Lymphocytes # 0.7 L Monocytes # 1.1 H 1.3 H Sodium 135 L BUN 21 H Glucose 102 H Total Protein 6.2 L Assessment and Plan Assessment: * Mental confusion, probably delirium. This could be related to pain and the pain medications. * Status post slip and fall, with subsequent left knee wound dehiscence, 01/22/2019, status post irrigation and primary closure * Status post left total knee arthroplasty 01/19/2019. Plan: Computed tomography scan of head to rule out subdural hematoma. Try to limit narcotics/sedatives. We'll follow clinically.
--- NOTE | 2019-01-23 16:50 | CT ---
EXAMINATION TYPE: CT brain wo con DATE OF EXAM: 01/23/2019 COMPARISON: None HISTORY: 68-year-old male fall, confusion, Altered mental status. Rule out subdural hematoma TECHNIQUE: Examination was done in axial plane without intravenous contrast. Coronal and sagittal r econstructions performed. CT DLP: 1151.4 mGycm Automated exposure control for dose reduction was used. FINDINGS: There is no evidence of acute intracranial hemorrhage, acute ischemic changes, mass, mass-effect, or extra-axial fluid collection. There is no effacement of cerebral sulci or basal subarachnoid cister ns. There is no hydrocephalus. There is no midline shift. Lopez-white matter distinction is preserv ed. Moderate generalized cortical atrophy. Trace mucosal thickening anterior right ethmoid air cells. Orbits and globes appear intact. Mastoid a ir cells well pneumatized. Leftward nasal septal deviation. No calvarial fracture. IMPRESSION: Moderate cerebral cortical atrophy. No acute intracranial abnormality seen.
[2019-01-23] MEDS: SYMBICORT 160-4.5 MCG INHALER INHALATION SCH (19:42)
[2019-01-23] MEDS ORDERED: ASPIRIN 325 MG TAB PO SCH (21:00)
[2019-01-23] MEDS ORDERED: LORazepam 2 MG/ML INJ IV PRN (22:06)
[2019-01-23] MEDS: SENNOSIDES-DOCUSATE SODIUM 1 EACH TAB PO SCH (22:16)
[2019-01-23] MEDS: SENNOSIDES 8.6 MG TAB PO SCH (22:16)
[2019-01-23] MEDS: MIRTAZAPINE 15 MG TAB PO SCH (23:47)
[2019-01-24] MEDS ORDERED: HALOPERIDOL LACTATE 5 MG/ML 1 ML VIAL IM PRN ×2 (01:55→11:22)
[2019-01-24] MEDS ORDERED: LORazepam 2 MG/ML INJ IV PRN ×3 (01:58)
[2019-01-24] MEDS ORDERED: THIAMINE 100 MG/ML 2 ML VIAL IM STA (01:58)
[2019-01-24] MEDS: SODIUM CHLORIDE 0.9% 1,000 ML IV SCH ×2 (02:46→19:59)
[2019-01-24 02:49] LABS: Basophils % (A) 0 %; Eosinophils # (A) 0.1 k/uL (0-0.7); Eosinophils % (A) 1 %; HCT 30.9 % (39.0-53.0); HGB 10.6 gm/dL (13.0-17.5); Lymphocytes # (A) 1.1 k/uL (1.0-4.8); Lymphocytes % (A) 10 %; MCH 32.2 pg (25.0-35.0); MCHC 34.2 g/dL (31.0-37.0); MCV 93.9 fL (80.0-100.0); Mean Platelet Volume 7.4; Monocytes # (A) 1.5 k/uL (0-1.0); Monocytes % (A) 14 %; Neutrophils # (A) 8.3 k/uL (1.3-7.7); Neutrophils % (A) 73 %; Platelet Count 267 k/uL (150-450); RBC 3.29 m/uL (4.30-5.90); RDW 12.1 % (11.5-15.5); WBC 11.4 k/uL (3.8-10.6)
[2019-01-24] MEDS ORDERED: VANCOMYCIN TROUGH DUE 1 EACH MISC MISCELLANE ONE (08:00)
[2019-01-24] MEDS: SYMBICORT 160-4.5 MCG INHALER INHALATION SCH ×2 (08:55→21:36)
[2019-01-24] MEDS ORDERED: SODIUM CHLORIDE 0.9% 1,000 ML with MVI, ADULT NO.4 WITH VIT K 10 ML, THIAMINE 100 MG, F... IV ONE ×4 (09:30)
--- NOTE | 2019-01-24 09:31 | XR ---
EXAMINATION TYPE: XR Hip LT and AP Pelvis , 3 VIEWS DATE OF EXAM ORDERED: 01/24/2019 HISTORY: left hip and leg swelling bruising. COMPARISON: None. FINDINGS: There has been a previous interpedicular fusion of the lower lumbar spine. There are mild degenerative changes in both hips. Osseous structures about the pelvis are normal. No fracture or dis location is identified. IMPRESSION: 1. POSTSURGICAL CHANGE. 2. MILD DEGENERATIVE CHANGE.
[2019-01-24] MEDS ORDERED: ACETAMINOPHEN TAB 325 MG TAB PO PRN (10:18)
--- NOTE | 2019-01-24 11:31 | P.CN ---
Psychiatric Consult - . Consult date: 01/24/19 Consult:: 01/24/19 11:23 IDENTIFYING DATA: A 68-year-old male patient HPI: Patient admitted to [facility] status post fall. Per chart history he had left knee arthroplasty on 01/19/2018. He had a fall in the shower in which his incisions that open and he also per chart history hit his head. He has had subsequent surgery. Psychiatric consultation regarding him confusion, agitation. Per chart history he was making some references to the nurses being mean and possibly poisoning him through medications. Earlier today he became agitated and was screaming and swearing at staff. Per history he has been exhibiting some increased confusion for some months. Patient is initially sleeping and he does awaken with name-calling and relates that he feels tired. When asked what brought him into the hospital he states that he had an accident, makes reference to falling off of a ladder. Per staff he has been hallucinating at times. CT of the brain noted to be done which showed moderate generalized cortical atrophy. Patient currently is not able to maintain alertness and does fall back asleep. PAST PSYCHIATRIC HISTORY: Per chart history he has been on Celexa 20 mg daily and Remeron 15 mg at bedtime. There is some history of depression per chart history. PMH: COPD, gastroesophageal reflux disease, hyperlipidemia, hypertension, osteoarthritis, depression, hypoglycemia, hemorrhoids, back surgery, knee david savana ALLERGIES: No known ALLERGIES MEDICATIONS: Tylenol when necessary, aspirin, Dulcolax when necessary, Symbicort, Celexa, low fiber, Zestril, milk of magnesia when necessary, Mobic, Toprol-XL, Remeron, morphine sulfate when necessary, Narcan when necessary, niacin, Zofran when necessary, Protonix, phenobarbital, Senokot, Senokot-S, thiamine, vancomycin, CHEMICAL DEPENDENCY HISTORY: Per history alcohol use, approximately 4 beers per day and marijuana use FAMILY PSYCHIATRIC HISTORY: None known at this time FAMILY CHEMICAL DEPENDENCY HISTORY: Not known at this time SOCIAL HISTORY: Unable to be obtained due to mental status at this time MENTAL STATUS EXAM: Patient is found in his room lying in bed sleeping. He does awaken with name-calling but is not able to maintain alertness at this time. He does not show any significant agitation at this time. Per staff he has received some sedating medications, had some significant agitation earlier today. IMPRESSIONS: Delirium likely, rule out any component of dementia. Depression per history PLAN: Continue to treat any possible causes of delirium. He has been started on phenobarbital protocol for possible alcohol withdrawal. Haldol 1 mg IM twice a day when necessary ordered for any significant agitation. Psychiatry can continue to follow and monitor his status.
--- NOTE | 2019-01-24 11:48 | P.PN ---
Subjective Progress Note Date: 01/24/19 Principal diagnosis: S/P Irrigation and primary closure of wound dehiscence Patient is seen at bedside this morning. He is postop day #2 from irrigation and primary closure of wound dehiscence from recent TKA. He has had confusion and combatitiveness. CT of brain has been ordered as well as phsychiatry consult. he is sleeping when seen this morning. Objective - Vital Signs Vital signs: Vital Signs Temp 98 F 01/24/19 09:26 Pulse 107 H 01/24/19 09:26 Resp 12 01/24/19 09:26 BP 162/102 01/24/19 09:26 Pulse Ox 93 L 01/24/19 09:26 Intake & Output 01/23/19 01/24/19 01/24/19 18:59 06:59 18:59 Intake Total 540 1340 Output Total 200 1100 Balance 340 240 Intake: Intake, IV Titration 1340 Amount Sodium Chloride 0.9% 1, 840 000 ml @ 60 mls/hr IV . [id number] ALEX Rx#:[id number] Vancomycin 1,750 mg In 500 Sodium Chloride 0.9% 500 ml 500 ml @ 167 mls/hr IVPB Q12H ALEX Rx#: [id number] Oral 540 Output: Urine 200 1100 Straight 600 Other: Voiding Method Urinal # Voids 1 1 - Exam Inspection reveals a benign surgical wound. Knee immobilizer in place. There is diffuse swelling through the LLE. There is no active bleeding or drainage. Neurovascular status is intact throughout the lower extremity. Calf is soft and nontender. 2+ dorsalis pedis pulse and less than 2 second cap refill is present. - Constitutional General appearance: Present: no acute distress - Labs CBC & Chem 7: 01/24/19 02:29 01/24/19 02:29 Labs: Abnormal Lab Results - Last 24 Hours (Table) 01/24/19 Range/Units 02:29 WBC 11.4 H (3.8-10.6) k/uL RBC 3.29 L (4.30-5.90) m/uL Hgb 10.6 L (13.0-17.5) gm/dL Hct 30.9 L (39.0-53.0) % Neutrophils # 8.3 H (1.3-7.7) k/uL Monocytes # 1.5 H (0-1.0) k/uL Microbiology - Last 24 Hours (Table) 01/22/19 09:50 Blood Culture - Preliminary Blood No Growth after 24 hours Assessment and Plan (1) Dehiscence of internal surgical incision Narrative/Plan: He will continue with routine postop orthopedic protocol including pain management, wound care, PT, DVT prophylaxis and medical management. Psychiatry consulted. Doppler U/S and xray of the hip will be ordered. Maintain immobi lizer. Will make further recommendations as appropriate pending findings and course. Current Visit: Yes Status: Acute Priority: Medium Code(s): T81.32XA - DISRUPTION OF INTERNAL OPERATION (SURGICAL) WOUND, NEC, INIT SNOMED Code(s): 94868747 (2) S/P total knee arthroplasty Current Visit: No Status: Acute Priority: Medium Code(s): Z96.659 - P RESENCE OF UNSPECIFIED ARTIFICIAL KNEE JOINT SNOMED Code(s): 2055139237832
--- NOTE | 2019-01-24 11:51 | US ---
EXAMINATION TYPE: US venous doppler duplex LE LT DATE OF EXAM: 01/24/2019 9:34 AM COMPARISON: NONE CLINICAL HISTORY: leg swelling. left leg swelling SIDE PERFORMED: Left TECHNIQUE: The lower extremity deep venous system is examined utilizing real time linear array sonog kami with graded compression, doppler sonography and color-flow sonography. VESSELS IMAGED: External Iliac Vein (EIV) Common Femoral Vein Deep Femoral Vein Greater Saphenous Vein * Femoral Vein Popliteal Vein patient is post total knee, there is extensive swelling. Exam is limited behind the knee. Left Leg: Negative for DVT in upper leg, limited pop vn images as patient has extensive swelling and unable to bend knee. No popliteal fossa lesion is seen. IMPRESSION: THIS EXAMINATION IS NEGATIVE FOR DVT WITHIN THE LEFT UPPER LEG.
[2019-01-24] MEDS: VANCOMYCIN 1,750 MG in SODIUM CHLORIDE 0.9% 500 ML 500 ML IVPB SCH ×2 (12:18→23:37)
--- NOTE | 2019-01-24 12:18 | P.PN ---
Subjective Progress Note Date: 01/24/19 This is a 68-year-old male who is status post left knee arthroplasty on 01/19/2018. Patient presented to the emergency room after sustaining a fall in the shower which was caused by loss of balance. Patient denied any dizziness or loss of consciousness, but states that he did hit his head. Patient came to the emergency room because his incision split open from the fall. Patient's family states that he has had multiple falls in the past he has also had multiple episodes of confusion prior to this fall. In the emergency room patient was complaining of pain to the left foot and ankle. Patient also complained of seeing an object on the countertop that was not actually there. He was having difficulty following commands and depth perception with reaching for objects. Patient has medical history of COPD, GERD, hyperlipidemia, hypertension, osteoarthritis, depression. He is a former smoker who quit in a 2000 and drinks approximately 4 beers a day but none recently due to recent surgery. Patient is seen today resting in bed in moderate distress. Patient is upset and feels that the nursing staff are being mean to him and possibly poisoning him through his medications. He is not sure what they want when they are asking him to follow commands. Patient states that when he follows the commands they then start to yell at him because he is not doing what they instructed. Patient feels like they are not telling the complete story and that he is fearful of them. During the interview family did come to the bedside and stated that over the past few months they have noticed patient to have increased confusion. Patient will create stories they do not make sense to explain behaviors. Son-in-law states that he will stop in the middle of the street thinking it is a corner that he needs to stop at and is forgetful and confused. Patient denies any pain to the left knee at this time. Patient is able to answer questions appropriately. A and O 3. Patient was able to follow simple commands, however, nursing staff reports that more elaborate commands are not able to be followed. Patient denies any fever or chills at this time. 01/24: During the night patient experienced probable alcohol DTs possible EtOH withdrawal. Last drink was 7 days ago. Patient had increased confusion, tremors, paranoia behavior, and tachycardia. Patient experienced severe hallucinations he is disoriented to person and place an increase in agitation. His ciwa score was 22. He received a total of 4 mg of Ativan through the night. At this time patient is sleeping he is arousable however he returns easily back to sleep. Patient has a director of safety and security at the bedside. Left lower extremity is edematous, warm to touch. Patient is afebrile, he was dynamically stable. WBC 11.4, hemoglobin 10.6. Venous Doppler was negative for DVTs within the left upper leg, hip and pelvis x-ray was negative. Brain CT showed moderate cerebral cortical atrophy. No acute intracranial abnormality seen. Neurology consult suggested limited narcotics and sedatives. Review of systems: Unable to obtain due to drowsiness Objective - Vital Signs Vital signs: Vital Signs Temp 98 F 01/24/19 09:26 Pulse 107 H 01/24/19 09:26 Resp 12 01/24/19 09:26 BP 162/102 01/24/19 09:26 Pulse Ox 93 L 01/24/19 09:26 Intake & Output 01/23/19 01/24/19 01/24/19 18:59 06:59 18:59 Intake Total 540 1340 Output Total 200 1100 Balance 340 240 Intake: Intake, IV Titration 1340 Amount Sodium Chloride 0.9% 1, 840 000 ml @ 60 mls/hr IV . [id number] ALEX Rx#:[id number] Vancomycin 1,750 mg In 500 Sodium Chloride 0.9% 500 ml 500 ml @ 167 mls/hr IVPB Q12H ALEX Rx#: [id number] Oral 540 Output: Urine 200 1100 Straight 600 Other: Voiding Method Urinal # Voids 1 1 - Exam General Appearance: Alert, cooperative, no distress, appears stated age. Neck HEENT: Supple, no lymphadenopathy, no thyroid enlargement, no carotid bruits. Lungs: Clear to auscultation without crackles or wheezes no rhonchi, no deformity. Heart: Regular rate and rhythm, S1, S2 normal, no murmur, rub or gallop. Back: Symmetric, no curvature, ROM normal, no CVA tenderness. Abdomen: Soft, non-tender, no rebound or rigidity, no hepatosplenomegaly. Extremities: Left lower extremity edematous, warm to touch Pulses: 2+ and symmetric. Skin: Skin color, texture, tugor normal, no rashes or lesions. Neurologic: Alert oriented x3 cranial nerves II through XII intact, no motor deficit, no abnormal balance or gait - Labs CBC & Chem 7: 01/24/19 02:29 01/24/19 02:29 Labs: Abnormal Lab Results - Last 24 Hours (Table) 01/24/19 Range/Units 02:29 WBC 11.4 H (3.8-10.6) k/uL RBC 3.29 L (4.30-5.90) m/uL Hgb 10.6 L (13.0-17.5) gm/dL Hct 30.9 L (39.0-53.0) % Neutrophils # 8.3 H (1.3-7.7) k/uL Monocytes # 1.5 H (0-1.0) k/uL Microbiology - Last 24 Hours (Table) 01/22/19 09:50 Blood Culture - Preliminary Blood No Growth after 48 hours Assessment and Plan Plan: 1. Fall. s/p washout. Consult PT/OT 2. Knee injury s/P washout. Continue vancomycin. Discontinue narcotics, pain management with NSAIDs. Blood cultures obtained. Venous Doppler results noted above. Consult infectious disease also cellulitis. 3. Osteoarthritis S/P total knee arthroplasty. Consult PT OT. Continue Mobic 4. Confusion. Consult psychiatry and neurology appreciated. CT results noted above. Consult social work for possible placement. client liaison at bedside. 5. Delirium possible EtOH withdrawal unable to rule out EtOH encephalopathy. Change from Ativan Ciwa protocol to phenobarbital protocol. Thiamine 100 mg twice a day area 6. COPD. Symbicort 2 puffs twice a day 7. GERD. Protonix 40 mg by mouth before breakfast 8. Hyperlipidemia. Fenofibrate 160 mg daily, niacin 500 mg daily 9. Hypertension. Lisinopril 20 mg by mouth daily, metoprolol 25 mg by mouth daily 10. Depression. Continue Celexa 20 mg by mouth 11. DVT prophylaxis. 12. GI prophylaxis. See above Discharge plan: Possible Friday to Impression and plan of care have been directed as dictated by the signing physician. Shruthi Bazan nurse practitioner acting as scribe for signing physician.
[2019-01-24] MEDS: MELOXICAM 7.5 MG TAB PO SCH (13:40)
[2019-01-24] MEDS: ASPIRIN 325 MG TAB PO SCH ×2 (13:40→21:41)
[2019-01-24] MEDS: FENOFIBRATE 160 MG TAB PO SCH (13:40)
[2019-01-24] MEDS: PANTOPRAZOLE 40 MG TABLET PO SCH (13:40)
[2019-01-24] MEDS: NIACIN TR 500 MG CAPLET PO SCH (13:40)
[2019-01-24] MEDS: METOPROLOL SUCCINATE (ER) 25 MG TAB.ER.24H PO SCH (13:42)
[2019-01-24] MEDS: LISINOPRIL 20 MG TAB PO SCH (13:42)
[2019-01-24] MEDS: CITALOPRAM HYDROBROMIDE 20 MG TAB PO SCH (13:42)
[2019-01-24] MEDS: SENNOSIDES 8.6 MG TAB PO SCH ×2 (13:42→21:41)
[2019-01-24] MEDS ORDERED: PHENobarbital 64.8 MG TAB PO ONE ×2 (14:30→18:30)
--- NOTE | 2019-01-24 14:55 | P.PN ---
Subjective Progress Note Date: 01/24/19 Patient apparently had a rough night. He had been very agitated yesterday. Patient has severe claustrophobia. Wanted to go out of the room. He walked with a walker, in the hallway [facility] down he wanted to sit and wheelchair was brought. Patient then would not go back into the room. He stayed in the wheelchair for some time, then started hallucinating, seeing cats which were not there. He became violent, aggressive. Alcohol withdrawal was suspected. He was given Remeron, Haldol, Ativan 4 mg. Now getting phenobarbital. No seizures reported. Patient tells me that he drinks couple beers every day and couple times a week he drinks more heavily, about 8 beers and vodka. Patient's one of gross friend, who knows him since last 21 years Miss Zimmerman stated that she does know that he drinks every day, although does not know how much. At present denies headache, appears more calm and comfortable. He is receiving phenobarbital. Patient apparently drank the day before his surgery, which was January 18. It is possible that he is having alcohol withdrawals at this time. Objective - Vital Signs Vital signs: Vital Signs Temp 98 F 01/24/19 09:26 Pulse 107 H 01/24/19 09:26 Resp 12 01/24/19 09:26 BP 162/102 01/24/19 09:26 Pulse Ox 93 L 01/24/19 09:26 Intake & Output 01/23/19 01/24/19 01/24/19 18:59 06:59 18:59 Intake Total 540 1340 Output Total 200 1100 Balance 340 240 Intake: Intake, IV Titration 1340 Amount Sodium Chloride 0.9% 1, 840 000 ml @ 60 mls/hr IV . [id number] ALEX Rx#:[id number] Vancomycin 1,750 mg In 500 Sodium Chloride 0.9% 500 ml 500 ml @ 167 mls/hr IVPB Q12H ALEX Rx#: [id number] Oral 540 Output: Urine 200 1100 Straight 600 Other: Voiding Method Urinal # Voids 1 1 3 - Exam On examination patient is an elderly male, appears younger than his age. Patient is laying comfortably in the bed, and his close friend is present next to him. A sitter and nurse were also present. He is alert and awake. No agitation. He knows that it is January and the year is 19 and that he currently is in [facility] in [facility]. Speech and language functions are normal. Attention span slightly decreased. Fund of knowledge appears adequate for now. Cranial nerves are normal. Muscle strength is normal in the arms. Legs not checked. Tone is normal. - Labs CBC & Chem 7: 01/24/19 02:29 01/24/19 02:29 Labs: Abnormal Lab Results - Last 24 Hours (Table) 01/24/19 Range/Units 02:29 WBC 11.4 H (3.8-10.6) k/uL RBC 3.29 L (4.30-5.90) m/uL Hgb 10.6 L (13.0-17.5) gm/dL Hct 30.9 L (39.0-53.0) % Neutrophils # 8.3 H (1.3-7.7) k/uL Monocytes # 1.5 H (0-1.0) k/uL Microbiology - Last 24 Hours (Table) 01/22/19 09:50 Blood Culture - Preliminary Blood No Growth after 48 hours Assessment and Plan Assessment: * Mental confusion, probably delirium. Probable alcohol withdrawal syndrome. * History of alcoholism. * Status post slip and fall, with subsequent left knee wound dehiscence, 01/22/2019, status post irrigation and primary closure * Status post left total knee arthroplasty 01/19/2019. Plan: Computed tomography scan of head was negative for any subdural hematoma. Doppler ultrasound negative for DVT. Try to limit narcotics/sedatives. Treatment of alcohol withdrawal as per protocol. Neurologically, no other workup indicated. We will sign off.
[2019-01-24] MEDS: THIAMINE 100 MG TAB PO SCH (18:34)
[2019-01-24] MEDS ORDERED: HALOPERIDOL LACTATE 5 MG/ML 1 ML VIAL IM SCH (21:00)
[2019-01-24] MEDS: MIRTAZAPINE 15 MG TAB PO SCH (21:41)
[2019-01-24] MEDS: SENNOSIDES-DOCUSATE SODIUM 1 EACH TAB PO SCH (21:41)
--- NOTE | 2019-01-24 22:53 | P.CONS ---
History of Present Illness - Reason for Consult Consult date: 01/24/19 Left knee cellulitis Requesting physician: Keanu Urrutia - Chief Complaint Left knee wound dehiscence x 1 day - History of Present Illness Patient is a 68-year-old male who is status post left knee arthroplasty done by Dr. mcgee of on 01/19/2019, patient was subsequently discharged home in stable condition on the day of presentation back to the hospital the patient slipped while taking a shower landing on his left knee with dehiscence of his left knee wound down to the fascial level patient was subsequently taken back to the OR and status post primary repair of his left knee and no evidence of any purulence was noticed at the time of surgical repair the patient has been afebrile on presentation and continued to be afebrile throughout his hospital stay the patient did have a normal white count presentation subsequently white count slightly jumped to 12.2 however is down to 11.1 today the patient did have blood cultures turned which are negative so for the patient has been treated with IV vancomycin pharmacy to dose since admission infectious disease was consulted today for further recommendations regarding antibiotic therapy. The patient is currently lethargic and not adequate historian and didn't answer any question regarding the level of pain to his left knee or any other symptoms hence most information has been obtained from review the chart Review of Systems Positive points has been mentioned in HPI, complete review could not be obtained because of his condition Past Medical History Past Medical History: COPD, GERD/Reflux, Hyperlipidemia, Hypertension, Osteoart hritis (OA) Additional Past Medical History / Comment(s): Hypoglycemia, hemorrhoids History of Any Multi-Drug Resistant Organisms: None Reported Past Surgical History: Back Surgery, Joint Replacement Additional Past Surgical History / Comment(s): 01/20/19 total left knee arthroplasty, COLONOSCOPY Past Anesthesia/Blood Transfusion Reactions: No Reported Reaction Additional Past Anesthesia/Blood Transfusion Reaction / Comm: claustrophobic,no hx blood transfusion Smoking Status: Former smoker - Past Family History Mother Family Medical History: No Reported History Father Family Medical History: No Reported History Medications and Allergies Home Medications Medication Instructions Recorded Confirmed Type Lisinopril [Zestril] 20 mg PO QAM 01/13/14 01/22/19 History Aspirin 81 mg PO DAILY 04/29/17 01/22/19 History Citalopram Hydrobromide 20 mg PO QAM 04/29/17 01/22/19 History [Citalopram HBr] Cyanocobalamin (Vitamin B-12) 1,000 mcg PO DAILY 04/29/17 01/22/19 History [Vitamin B-12] Fish Oil/Dha/Epa [Fish Oil 1,200 1 cap PO DAILY 04/29/17 01/22/19 History mg Fish Oil] Metoprolol Succinate (ER) [Toprol 25 mg PO QAM 04/29/17 01/22/19 History Xl] Montelukast Sodium [Singulair] 10 mg PO QAM 04/29/17 01/22/19 History Niacin 500 mg PO DAILY 04/29/17 01/22/19 History Pantoprazole Sodium 40 mg PO QAM 04/29/17 01/22/19 History Thiamine [Vitamin B-1] 50 mg PO DAILY 04/29/17 01/22/19 History Albuterol Sulfate [Proair Hfa] 1 - 2 puff INHALATION RT-Q6H PRN 01/14/19 01/22/19 History Budesonide/Formoterol Fumarate 2 puff INHALATION RT-BID 01/14/19 01/22/19 History [Symbicort 160-4.5 Mcg Inhaler] LORazepam [Ativan] 1 mg PO QAM PRN 01/14/19 01/22/19 History Tiotropium 18 Mcg/Puff [Spiriva] 1 puff INHALATION RT-DAILY 01/14/19 01/22/19 History Fenofibrate 160 mg PO DAILY 01/19/19 01/22/19 History Aspirin 325 mg PO BID #60 tab 01/20/19 01/22/19 Rx HYDROcodone/APAP 5-325MG [[place] 1 - 2 tab PO Q6HR PRN #56 tab 01/20/19 01/22/19 Rx 5-325] Sennosides [Senokot] 8.6 mg PO BID 01/22/19 01/22/19 History Allergies Allergy/AdvReac Type Severity Reaction Status Date / Time No Known Allergies Allergy Verified 01/22/19 09:47 Physical Exam Vitals: Vital Signs Temp Pulse Pulse Resp BP BP Pulse Ox 01/24/19 09:26 98 F 107 H 12 162/102 93 L 01/24/19 03:23 106 H 24 152/77 96 05/12/19 01:30 98.2 F 123 H 28 H 114/75 96 01/23/19 19:39 116 H 18 01/23/19 19:21 98.0 F 120 H 16 127/82 93 L 01/23/19 14:08 99.0 F 113 H 18 110/75 93 L Intake and Output 01/23/19 01/24/19 01/24/19 22:59 06:59 14:59 Intake Total 480 860 Output Total 200 1100 Balance 280 -240 Intake: Intake, IV Titration 480 860 Amount Sodium Chloride 0.9% 1, 480 360 000 ml @ 60 mls/hr IV . [id number] ALEX Rx#:[id number] Vancomycin 1,750 mg In 500 Sodium Chloride 0.9% 500 ml 500 ml @ 167 mls/hr IVPB Q12H ALEX Rx#: [id number] Output: Urine 200 1100 Straight 600 Other: Voiding Method Urinal # Voids 1 GENERAL DESCRIPTION: An elderly male lying in bed, no distress. No tachypnea or accessory muscle of respiration use. HEENT: Shows Pallor , no scleral icterus. Oral mucous membrane is dry. No pharyngeal erythema or thrush NECK: Trachea central, no thyromegaly. LUNGS: Unlabored breathing. Clear to auscultation anteriorly. No wheeze or crackle. HEART: S1, S2, regular rate and rhythm. No loud murmur ABDOMEN: Soft, no tenderness , guarding or rigidity, no organomegaly EXTREMITIES: Left knee with minimal swelling and redness stitches are intact no drainage was noticed SKIN: No rash, no masses palpable. NEUROLOGICAL: The patient is sleepy orientation could not be determined. Results CBC & Chem 7: 01/24/19 02:29 01/24/19 02:29 Labs: Abnormal Lab Results - Last 24 Hours (Table) 01/24/19 Range/Units 02:29 WBC 11.4 H (3.8-10.6) k/uL RBC 3.29 L (4.30-5.90) m/uL Hgb 10.6 L (13.0-17.5) gm/dL Hct 30.9 L (39.0-53.0) % Neutrophils # 8.3 H (1.3-7.7) k/uL Monocytes # 1.5 H (0-1.0) k/uL Microbiology - Last 24 Hours (Table) 01/22/19 09:50 Blood Culture - Preliminary Blood No Growth after 48 hours Assessment and Plan Assessment: 1-patient with recent history of left knee arthroplasty. Subsequently had did have a fall with dehiscence of his left knee wound status post operative repair of the same on 01/22/2019 this patient has been afebrile throughout his hospital stay with a normal white count on presentation subsequently slight jump that has subsequently came down to the culture has been negative clinical suspicious low for underlying cellulitis Plan: 1-marked the area of the redness on his left knee that we will monitor serially 2-continue with empiric vancomycin pharmacy to dose while monitoring his kidney function and Vanco trough closely We will follow-up on clinical condition and cultures to further adjust medi cation if needed Thank you for this consultation will follow this patient along with you Time with Patient: Greater than 30
[2019-01-25] MEDS: SYMBICORT 160-4.5 MCG INHALER INHALATION SCH ×2 (07:40→19:24)
[2019-01-25] MEDS: PHENobarbital 32.4 MG TAB PO SCH ×3 (08:26→21:37)
[2019-01-25] MEDS: THIAMINE 100 MG TAB PO SCH ×2 (08:26→16:48)
[2019-01-25] MEDS: PHENobarbital 64.8 MG TAB PO SCH ×3 (08:26→21:37)
[2019-01-25] MEDS: SENNOSIDES 8.6 MG TAB PO SCH ×2 (08:26→21:37)
[2019-01-25] MEDS: LISINOPRIL 20 MG TAB PO SCH (08:26)
[2019-01-25] MEDS: CITALOPRAM HYDROBROMIDE 20 MG TAB PO SCH (08:27)
[2019-01-25] MEDS: ASPIRIN 325 MG TAB PO SCH ×2 (08:27→21:38)
[2019-01-25] MEDS: MELOXICAM 7.5 MG TAB PO SCH (08:27)
[2019-01-25] MEDS: PANTOPRAZOLE 40 MG TABLET PO SCH (08:27)
[2019-01-25] MEDS: METOPROLOL SUCCINATE (ER) 25 MG TAB.ER.24H PO SCH (08:27)
[2019-01-25] MEDS: FENOFIBRATE 160 MG TAB PO SCH (08:27)
[2019-01-25] MEDS: NIACIN TR 500 MG CAPLET PO SCH (08:41)
--- NOTE | 2019-01-25 09:41 | P.PN ---
Subjective Progress Note Date: 01/25/19 This is a 68 year old male who is status post irrigation and wound closure after a fall on 01/22/2019. Patient underwent let total knee arthroplasty on 01/19/2019. Today patient states that his pain is under control. Patient denies any new complaints today. Patient does seem confused this morning. Patient does answer questions appropriately. Objective - Vital Signs Vital signs: Vital Signs Temp 98.5 F 01/25/19 07:51 Pulse 86 01/25/19 07:51 Resp 16 01/25/19 07:51 BP 143/84 01/25/19 07:51 Pulse Ox 92 L 01/25/19 07:51 Intake & Output 01/24/19 01/25/19 01/25/19 18:59 06:59 18:59 Intake Total 1300 Balance 1300 Intake: Intake, IV Titration 1300 Amount Sodium Chloride 0.9% 1, 800 000 ml @ 100 mls/hr IV . Q10H7M ONE with Mvi, Adult No.4 with Vit K 10 ml with Thiamine 100 mg with Folic Acid 1 mg Rx#: [id number] Vancomycin 1,750 mg In 500 Sodium Chloride 0.9% 500 ml 500 ml @ 167 mls/hr IVPB Q12H ALEX Rx#: [id number] Other: Voiding Method Diaper Diaper # Voids 3 3 # Bowel Movements 1 - Exam On exam asad are intact. There is minimal drainage present. Minimal erythema. There is moderate swelling of the left lower extremity. Calf is soft. Patient has good foot and ankle motion. Neurovascular status and circulatory status are intact. - Labs CBC & Chem 7: 01/24/19 02:29 01/24/19 02:29 Labs: Microbiology - Last 24 Hours (Table) 01/22/19 09:50 Blood Culture - Preliminary Blood No Growth after 48 hours Assessment and Plan Assessment: Status post irrigation and wound closure left knee. (1) Pain and swelling of left ankle Current Visit: Yes Status: Acute Code(s): M25.572 - PAIN IN LEFT ANKLE AND JOINTS OF LEFT FOOT; M25.472 - EFFUSION, LEFT ANKLE SNOMED Code(s): 219936855 (2) Swelling of left foot Current Visit: Yes Status: Acute Code(s): M79.89 - OTHER SPECIFIED SOFT TISSUE DISORDERS SNOMED Code(s): 442511113 (3) Dehiscence of internal surgical incision Current Visit: Yes Status: Acute Priority: Medium Code(s): T81.32XA - DISRUPTION OF INTERNAL OPERATION (SURGICAL) WOUND, NEC, INIT SNOMED Code(s): 44076210 (4) Left knee pain Current Visit: Yes Status: Acute Code(s): M25.562 - PAIN IN LEFT KNEE SNOMED Code(s): 47316382 (5) S/P total knee arthroplasty Current Visit: No Status: Acute Priority: Medium Code(s): Z96.659 - PRESENCE OF UNSPECIFIED ARTIFICIAL KNEE JOINT SNOMED Code(s): 4360291060518 Plan: 1. Continue knee immobilizer. 2. Rest and elevate. 3. Continue pain control. 4. Continue ASA for anticoagulation. 5. Appreciate input from medicine. 6. Patient may need discharge to rehab.
[2019-01-25 10:51] LABS: Potassium 3.7 mmol/L (3.5-5.1)
[2019-01-25] MEDS ORDERED: VANCOMYCIN TROUGH DUE 1 EACH MISC MISCELLANE ONE (11:00)
[2019-01-25 11:03] LABS: C Reactive Protein 162.8 mg/L (<10.0)
[2019-01-25 11:28] LABS: Basophils % (A) 1 %; Eosinophils # (A) 0.3 k/uL (0-0.7); Eosinophils % (A) 4 %; HCT 31.9 % (39.0-53.0); HGB 10.1 gm/dL (13.0-17.5); Lymphocytes % (A) 14 %; MCH 30.6 pg (25.0-35.0); MCHC 31.7 g/dL (31.0-37.0); MCV 96.6 fL (80.0-100.0); Mean Platelet Volume 7.2; Monocytes # (A) 0.9 k/uL (0-1.0); Monocytes % (A) 13 %; Neutrophils # (A) 4.7 k/uL (1.3-7.7); Neutrophils % (A) 66 %; Platelet Count 317 k/uL (150-450); RBC 3.31 m/uL (4.30-5.90); RDW 11.9 % (11.5-15.5); WBC 7.2 k/uL (3.8-10.6)
[2019-01-25] MEDS: VANCOMYCIN 1,750 MG in SODIUM CHLORIDE 0.9% 500 ML 500 ML IVPB SCH (12:15)
[2019-01-25] MEDS: SODIUM CHLORIDE 0.9% 1,000 ML IV SCH (12:15)
--- NOTE | 2019-01-25 13:38 | P.PN ---
Subjective Progress Note Date: 01/25/19 This is a 68-year-old male who is status post left knee arthroplasty on 01/19/2018. Patient presented to the emergency room after sustaining a fall in the shower which was caused by loss of balance. Patient denied any dizziness or loss of consciousness, but states that he did hit his head. Patient came to the emergency room because his incision split open from the fall. Patient's family states that he has had multiple falls in the past he has also had multiple episodes of confusion prior to this fall. In the emergency room patient was complaining of pain to the left foot and ankle. Patient also complained of seeing an object on the countertop that was not actually there. He was having difficulty following commands and depth perception with reaching for objects. Patient has medical history of COPD, GERD, hyperlipidemia, hypertension, osteoarthritis, depression. He is a former smoker who quit in a 2000 and drinks approximately 4 beers a day but none recently due to recent surgery. Patient is seen today resting in bed in moderate distress. Patient is upset and feels that the nursing staff are being mean to him and possibly poisoning him through his medications. He is not sure what they want when they are asking him to follow commands. Patient states that when he follows the commands they then start to yell at him because he is not doing what they instructed. Patient feels like they are not telling the complete story and that he is fearful of them. During the interview family did come to the bedside and stated that over the past few months they have noticed patient to have increased confusion. Patient will create stories they do not make sense to explain behaviors. Son-in-law states that he will stop in the middle of the street thinking it is a corner that he needs to stop at and is forgetful and confused. Patient denies any pain to the left knee at this time. Patient is able to answer questions appropriately. A and O 3. Patient was able to follow simple commands, however, nursing staff reports that more elaborate commands are not able to be followed. Patient denies any fever or chills at this time. 01/24: During the night patient experienced probable alcohol DTs possible EtOH withdrawal. Last drink was 7 days ago. Patient had increased confusion, tremors, paranoia behavior, and tachycardia. Patient experienced severe hallucinations he is disoriented to person and place an increase in agitation. His ciwa score was 22. He received a total of 4 mg of Ativan through the night. At this time patient is sleeping he is arousable however he returns easily back to sleep. Patient has a product safety coordinator at the bedside. Left lower extremity is edematous, warm to touch. Patient is afebrile, he was dynamically stable. WBC 11.4, hemoglobin 10.6. Venous Doppler was negative for DVTs within the left upper leg, hip and pelvis x-ray was negative. Brain CT showed moderate cerebral cortical atrophy. No acute intracranial abnormality seen. Neurology consult suggested limited narcotics and sedatives. 01/25: Patient is found ambulating in the hallway with PT and OT. Orthopedics is recommending subacute rehab secondary to the recent total knee arthroplasty and potential for injury. He does have a left knee immobilizer in place. Patient has been seen by multiple consultants including Dr. Mcgraw and 1 dose of Haldol was given. He is currently on the phenobarbital protocol. His mental status is improved at this point but he continues to have confusion. He has been followed by neurology and subsequently signed off his case. He has been seen by Dr. Link with recommendations for vancomycin. Suspicion low for underlying cellulitis. Discussed discharge planning with his daughter and currently planning for subacute rehab. Discussed his current symptoms and prognosis. Patient most likely has some alcohol withdrawal as well as underlying dementia.. Review Of Systems: Constitutional: No fever, no chills, no night sweats. No weight change. No weakness, fatigue or lethargy. No daytime sleepiness. EENT: No headache. No blurred vision or double vision, no loss of vision. No loss of Hearing, no ringing in the ears, no dizziness. No nasal drainage or congestion. No epistaxis. No sore throat. Lungs: No shortness of breath, cough, no sputum production. No wheezing. Cardiovascular: No chest pain, no lower extremity edema. No palpitations. No paroxysmal nocturnal dyspnea. No orthopnea. No lightheadedness or dizziness. No syncopal episodes. Abdominal: No abdominal pain. No nausea, vomiting. No diarrhea. No constipation. No bloody or tarry stools.. No loss of appetite. Genitourinary: No dysuria, increased frequency, urgency. No urinary retention. Musculoskeletal: No myalgias. No muscle weakness, no gait dysfunction, no frequent falls. No back pain. No neck pain. Left knee pain. Integumentary: Surgical wounds, no lesions. No rash or pruritus. No unusual bruising. No change in hair or nails. Neurologic: No aphasia. No facial droop. No change in mentation. No head injury. No headache. No paralysis. No paresthesia. Psychiatric: No depression. No anxiety. No mood swings. Noted confusion. Endocrine: No abnormal blood sugars. No weight change. No excessive sweating or thirst. No cold intolerance. Objective - Vital Signs Vital signs: Vital Signs Temp 98.5 F 01/25/19 07:51 Pulse 86 01/25/19 07:51 Resp 16 01/25/19 07:51 BP 143/84 01/25/19 07:51 Pulse Ox 92 L 01/25/19 07:51 Intake & Output 01/24/19 01/25/19 01/25/19 18:59 06:59 18:59 Intake Total 1300 Balance 1300 Intake: Intake, IV Titration 1300 Amount Sodium Chloride 0.9% 1, 800 000 ml @ 100 mls/hr IV . Q10H7M ONE with Mvi, Adult No.4 with Vit K 10 ml with Thiamine 100 mg with Folic Acid 1 mg Rx#: [id number] Vancomycin 1,750 mg In 500 Sodium Chloride 0.9% 500 ml 500 ml @ 167 mls/hr IVPB Q12H [facility] Rx#: [id number] Other: Voiding Method Diaper Diaper # Voids 3 3 # Bowel Movements 1 - Exam General Appearance: Alert, cooperative, no distress, appears stated age. Neck HEENT: Supple, no lymphadenopathy, no thyroid enlargement, no carotid brui ts. Lungs: Clear to auscultation without crackles or wheezes no rhonchi, no deformity. Heart: Regular rate and rhythm, S1, S2 normal, no murmur, rub or gallop. Back: Symmetric, no curvature, ROM normal, no CVA tenderness. Abdomen: Soft, non-tender, no rebound or rigidity, no hepatosplenomegaly. Extremities: Left lower extremity edematous, warm to touch. Knee immobilizer in place. Pulses: 2+ and symmetric. Skin: Skin color, texture, tugor normal, no rashes or lesions. Neurologic: Alert oriented x2 cranial nerves II through XII intact, no motor deficit, no abnormal balance or gait - Labs CBC & Chem 7: 01/25/19 10:05 01/25/19 10:05 Labs: Microbiology - Last 24 Hours (Table) 01/22/19 09:50 Blood Culture - Preliminary Blood No Growth after 48 hours Assessment and Plan Plan: 1. Fall. s/p washout. Consult PT/OT 2. Knee injury s/P washout. Continue vancomycin. Discontinue narcotics, pain management with NSAIDs. Blood cultures obtained. Venous Doppler results noted above. Consult infectious disease also cellulitis. 3. Osteoarthritis S/P total knee arthroplasty. Consult PT OT. Continue Mobic 4. Confusion. Consult psychiatry and neurology appreciated. CT results noted above. Consult social work for possible placement. certified technician at bedside. 5. Acute Delirium possible EtOH withdrawal and possible EtOH encephalopathy with underlying dementia. Continue phenobarbital protocol. Thiamine 100 mg twice a day area 6. COPD. Symbicort 2 puffs twice a day 7. GERD. Protonix 40 mg by mouth before breakfast 8. Hyperlipidemia. Fenofibrate 160 mg daily, niacin 500 mg daily 9. Hypertension. Lisinopril 20 mg by mouth daily, metoprolol 25 mg by mouth daily 10. Depression. Continue Celexa 20 mg by mouth 11. DVT prophylaxis. 12. GI prophylaxis. See above Discharge plan: Possible Friday to Impression and plan of care have been directed as dictated by the signing physician. Destini Barrett nurse practitioner acting as scribe for signing physician.
--- NOTE | 2019-01-25 14:22 | PN ---
PROGRESS NOTE DATE OF SERVICE: 01/25/2019 REASON FOR FOLLOWUP: Left knee swelling, redness and question of cellulitis. INTERVAL HISTORY: The patient is currently afebrile. Patient has been breathing comfortably. Denies having any chest pain or cough or any worsening pain in the left knee area. PHYSICAL EXAMINATION: Blood pressure 143/84 with a pulse of 83, temperature 98.5. He is 92% on room air. General description is an elderly male, lying in bed in no distress. RESPIRATORY SYSTEM: Unlabored breathing, clear to auscultation anteriorly. HEART: S1, S2. Regular rate and rhythm. ABDOMEN: Soft, no tenderness. EXTREMITIES: Left knee with swelling. No significant redness today with minimal clear drainage today. LABS: Hemoglobin is 7.1 with white count of 7.2 with BUN of 11, creatinine 1.03. Blood culture negative. DIAGNOSTIC IMPRESSION AND PLAN: Patient with left knee swelling, more likely secondary to recent trauma with wound dehiscence stage IV with for underlying cellulitis, currently on vancomycin. Blood cultures have been negative. Will continue with a short course of oral antibiotic . Family at the bedside, their concerns and questions were answered. MMODL / IJN: [id number] /
[2019-01-25] MEDS ORDERED: LORazepam 2 MG/ML INJ IV PRN ×3 (18:55)
[2019-01-25] MEDS: DONEPEZIL 5 MG TAB PO SCH (21:37)
[2019-01-25] MEDS: SENNOSIDES-DOCUSATE SODIUM 1 EACH TAB PO SCH (21:38)
[2019-01-25] MEDS: VANCOMYCIN 1,500 MG in SODIUM CHLORIDE 0.9% 250 ML IVPB SCH (23:51)
[2019-01-26] MEDS: SODIUM CHLORIDE 0.9% 1,000 ML IV SCH (04:31)
[2019-01-26] MEDS: ASPIRIN 325 MG TAB PO SCH ×2 (07:44→20:18)
[2019-01-26] MEDS: METOPROLOL SUCCINATE (ER) 25 MG TAB.ER.24H PO SCH (07:44)
[2019-01-26] MEDS: THIAMINE 100 MG TAB PO SCH ×2 (07:44→17:35)
[2019-01-26] MEDS: FENOFIBRATE 160 MG TAB PO SCH (07:45)
[2019-01-26] MEDS: SENNOSIDES 8.6 MG TAB PO SCH ×2 (07:45→20:21)
[2019-01-26] MEDS: LISINOPRIL 20 MG TAB PO SCH (07:45)
[2019-01-26] MEDS: NIACIN TR 500 MG CAPLET PO SCH (07:45)
[2019-01-26] MEDS: MELOXICAM 7.5 MG TAB PO SCH (07:45)
[2019-01-26] MEDS: PHENobarbital 64.8 MG TAB PO SCH (07:45)
[2019-01-26] MEDS: PHENobarbital 32.4 MG TAB PO SCH ×3 (07:45→21:25)
[2019-01-26] MEDS: PANTOPRAZOLE 40 MG TABLET PO SCH (07:45)
[2019-01-26] MEDS: CITALOPRAM HYDROBROMIDE 20 MG TAB PO SCH (07:46)
[2019-01-26] MEDS: SYMBICORT 160-4.5 MCG INHALER INHALATION SCH ×2 (09:31→20:38)
--- NOTE | 2019-01-26 11:47 | P.PN ---
Subjective Progress Note Date: 01/26/19 This is a 68 year old male who is status post irrigation and wound closure after a fall on 01/22/2019. Patient underwent left total knee arthroplasty on 01/19/2019. Today patient states that his pain is under control. Patient continues to be confused. Family is present in the room today. Patient denies any new complaints. Objective - Vital Signs Vital signs: Vital Signs Temp 98.0 F 01/26/19 01:36 Pulse 72 01/26/19 01:36 Resp 18 01/26/19 01:36 BP 140/88 01/26/19 01:36 Pulse Ox 98 01/26/19 01:36 Intake & Output 01/25/19 01/26/19 01/26/19 18:59 06:59 18:59 Intake Total 650 250 Output Total 1040 Balance -390 250 Intake: Intake, IV Titration 650 250 Amount Sodium Chloride 0.9% 1, 400 000 ml @ 100 mls/hr IV . Q10H7M ONE with Mvi, Adult No.4 with Vit K 10 ml with Thiamine 100 mg with Folic Acid 1 mg Rx#: [id number] Vancomycin 1,500 mg In 250 250 Sodium Chloride 0.9% 250 ml @ 125 mls/hr IVPB Q12H [facility] Rx#:[id number] Output: Urine 1040 Other: Voiding Method Diaper # Voids 1 1 # Bowel Movements 1 - Exam On exam asad are intact. There is minimal drainage present. Minimal erythema. There is moderate swelling of the left lower extremity. Calf is soft. Patient has good foot and ankle motion. Neurovascular status and circulatory status are intact. - Labs CBC & Chem 7: 01/25/19 10:05 01/26/19 06:51 Labs: Microbiology - Last 24 Hours (Table) 01/22/19 09:50 Blood Culture - Preliminary Blood No Growth after 72 hours Assessment and Plan Assessment: Status post irrigation and wound closure left knee. (1) Pain and swelling of left ankle Current Visit: Yes Status: Acute Code(s): M25.572 - PAIN IN LEFT ANKLE AND JOINTS OF LEFT FOOT; M25.472 - EFFUSION, LEFT ANKLE SNOMED Code(s): 197379777 (2) Swelling of left foot Current Visit: Yes Status: Acute Code(s): M79.89 - OTHER SPECIFIED SOFT TISSUE DISORDERS SNOMED Code(s): 719513153 (3) Dehiscence of internal surgical incision Current Visit: Yes Status: Acute Priority: Medium Code(s): T81.32XA - DISRUPTION OF INTERNAL OPERATION (SURGICAL) WOUND, NEC, INIT SNOMED Code(s): 31926958 (4) Left knee pain Current Visit: Yes Status: Acute Code(s): M25.562 - PAIN IN LEFT KNEE SNOMED Code(s): 65479171 (5) S/P total knee arthroplasty Current Visit: No Status: Acute Priority: Medium Code(s): Z96.659 - PRESENCE OF UNSPECIFIED ARTIFICIAL KNEE JOINT SNOMED Code(s): 0568236992614 Plan: 1. Continue knee immobilizer until outpatient follow-up. 2. Rest and elevate. 3. Continue pain control. 4. Continue ASA for anticoagulation. 5. Appreciate input from medicine. 6. Likely discharge to [facility] tomorrow.
[2019-01-26] MEDS: VANCOMYCIN 1,500 MG in SODIUM CHLORIDE 0.9% 250 ML IVPB SCH (13:58)
--- NOTE | 2019-01-26 15:44 | P.PN ---
Subjective Progress Note Date: 01/26/19 This is a 68-year-old male who is status post left knee arthroplasty on 01/19/2018. Patient presented to the emergency room after sustaining a fall in the shower which was caused by loss of balance. Patient denied any dizziness or loss of consciousness, but states that he did hit his head. Patient came to the emergency room because his incision split open from the fall. Patient's family states that he has had multiple falls in the past he has also had multiple episodes of confusion prior to this fall. In the emergency room patient was complaining of pain to the left foot and ankle. Patient also complained of seeing an object on the countertop that was not actually there. He was having difficulty following commands and depth perception with reaching for objects. Patient has medical history of COPD, GERD, hyperlipidemia, hypertension, osteoarthritis, depression. He is a former smoker who quit in a 2000 and drinks approximately 4 beers a day but none recently due to recent surgery. Patient is seen today resting in bed in moderate distress. Patient is upset and feels that the nursing staff are being mean to him and possibly poisoning him through his medications. He is not sure what they want when they are asking him to follow commands. Patient states that when he follows the commands they then start to yell at him because he is not doing what they instructed. Patient feels like they are not telling the complete story and that he is fearful of them. During the interview family did come to the bedside and stated that over the past few months they have noticed patient to have increased confusion. Patient will create stories they do not make sense to explain behaviors. Son-in-law states that he will stop in the middle of the street thinking it is a corner that he needs to stop at and is forgetful and confused. Patient denies any pain to the left knee at this time. Patient is able to answer questions appropriately. A and O 3. Patient was able to follow simple commands, however, nursing staff reports that more elaborate commands are not able to be followed. Patient denies any fever or chills at this time. 01/24: During the night patient experienced probable alcohol DTs possible EtOH withdrawal. Last drink was 7 days ago. Patient had increased confusion, tremors, paranoia behavior, and tachycardia. Patient experienced severe hallucinations he is disoriented to person and place an increase in agitation. His ciwa score was 22. He received a total of 4 mg of Ativan through the night. At this time patient is sleeping he is arousable however he returns easily back to sleep. Patient has a chief security and safety officer at the bedside. Left lower extremity is edematous, warm to touch. Patient is afebrile, he was dynamically stable. WBC 11.4, hemoglobin 10.6. Venous Doppler was negative for DVTs within the left upper leg, hip and pelvis x-ray was negative. Brain CT showed moderate cerebral cortical atrophy. No acute intracranial abnormality seen. Neurology consult suggested limited narcotics and sedatives. 01/25: Patient is found ambulating in the hallway with PT and OT. Orthopedics is recommending subacute rehab secondary to the recent total knee arthroplasty and potential for injury. He does have a left knee immobilizer in place. Patient has been seen by multiple consultants including Dr. Mcgraw and 1 dose of Haldol was given. He is currently on the phenobarbital protocol. His mental status is improved at this point but he continues to have confusion. He has been followed by neurology and subsequently signed off his case. He has been seen by Dr. Link with recommendations for vancomycin. Suspicion low for underlying cellulitis. Discussed discharge planning with his daughter and currently planning for subacute rehab. Discussed his current symptoms and prognosis. Patient most likely has some alcohol withdrawal as well as underlying dementia.. 01/26: The patient is confused today but is stable. Pain is controlled. He is complaining of discomfort behind his knee from pressure of the immobilizer and nurse will add padding. We will complete the medication reconciliation patient may be discharged to [facility] today. Antibiotics have been clarified with Dr. Link and patient will be placed on doxycycline for 7 more days. Patient will be provided prescription for phenobarbital for another 4 days and this course will be completed. Daughter is concerned about Lewey body dementia and patient does demonstrate signs and symptoms of this. Patient has been afebrile, heart rate in the 70s, blood pressure 140/88, pulse ox 98% on room air. Patient is cleared for discharge from medicine. Review Of Systems: Constitutional: No fever, no chills, no night sweats. No weight change. No weakness, fatigue or lethargy. No daytime sleepiness. EENT: No headache. No blurred vision or double vision, no loss of vision. No loss of Hearing, no ringing in the ears, no dizziness. No nasal drainage or congestion. No epistaxis. No sore throat. Lungs: No shortness of breath, cough, no sputum production. No wheezing. Cardiovascular: No chest pain, no lower extremity edema. No palpitations. No paroxysmal nocturnal dyspnea. No orthopnea. No lightheadedness or dizziness. No syncopal episodes. Abdominal: No abdominal pain. No nausea, vomiting. No diarrhea. No constipation. No bloody or tarry stools.. No loss of appetite. Genitourinary: No dysuria, increased frequency, urgency. No urinary retention. Musculoskeletal: No myalgias. No muscle weakness, no gait dysfunction, no frequent falls. No back pain. No neck pain. Left knee pain. Integumentary: Surgical wounds, no lesions. No rash or pruritus. No unusual bruising. No change in hair or nails. Neurologic: No aphasia. No facial droop. No change in mentation. No head injury. No headache. No paralysis. No paresthesia. Psychiatric: No depression. No anxiety. No mood swings. Noted confusion. Endocrine: No abnormal blood sugars. No weight change. No excessive sweating or thirst. No cold intolerance. Objective - Vital Signs Vital signs: Vital Signs Temp 98.0 F 01/26/19 01:36 Pulse 72 01/26/19 01:36 Resp 18 01/26/19 01:36 BP 140/88 01/26/19 01:36 Pulse Ox 98 01/26/19 01:36 Intake & Output 01/25/19 01/26/19 01/26/19 18:59 06:59 18:59 Intake Total 650 250 Output Total 1040 Balance -390 250 Intake: Intake, IV Titration 650 250 Amount Sodium Chloride 0.9% 1, 400 000 ml @ 100 mls/hr IV . Q10H7M ONE with Mvi, Adult No.4 with Vit K 10 ml with Thiamine 100 mg with Folic Acid 1 mg Rx#: [id number] Vancomycin 1,500 mg In 250 250 Sodium Chloride 0.9% 250 ml @ 125 mls/hr IVPB Q12H [facility] Rx#:[id number] Output: Urine 1040 Other: Voiding Method Diaper # Voids 1 1 # Bowel Movements 1 - Exam General Appearance: Alert, cooperative, no distress, appears stated age. Neck HEENT: Supple, no lymphadenopathy, no thyroid enlargement, no carotid bruits. Lungs: Clear to auscultation without crackles or wheezes no rhonchi, no deformity. Heart: Regular rate and rhythm, S1, S2 normal, no murmur, rub or gallop. Back: Symmetric, no curvature, ROM normal, no CVA tenderness. Abdomen: Soft, non-tender, no rebound or rigidity, no hepatosplenomegaly. Extremities: Left lower extremity edematous, warm to touch. Knee immobilizer in place. Pulses: 2+ and symmetric. Skin: Skin color, texture, tugor normal, no rashes or lesions. Neurologic: Alert oriented x2 cranial nerves II through XII intact, no motor deficit, no abnormal balance or gait - Labs CBC & Chem 7: 01/25/19 10:05 01/26/19 06:51 Labs: Abnormal Lab Results - Last 24 Hours (Table) 01/25/19 01/25/19 Range/Units 10:05 10:05 RBC 3.31 L (4.30-5.90) m/uL Hgb 10.1 L (13.0-17.5) gm/dL Hct 31.9 L (39.0-53.0) % Chloride 108 H (98-107) mmol/L Glucose 109 H (74-99) mg/dL C-Reactive Protein 162.8 H (<10.0) mg/L Microbiology - Last 24 Hours (Table) 01/22/19 09:50 Blood Culture - Preliminary Blood No Growth after 72 hours Assessment and Plan Plan: 1. Fall. s/p washout. Patient to be transferred to subacute rehab. 2. Knee injury s/P washout. Continue vancomycin. Discontinue narcotics, pain management with NSAIDs. Blood cultures obtained. Venous Doppler results noted above. Consult infectious disease also cellulitis. 3. Osteoarthritis S/P total knee arthroplasty. Consult PT OT. Continue Mobic 4. Confusion. Consult psychiatry and neurology appreciated. CT results noted above. Consult social work for possible placement. full time babysitter at bedside. 5. Acute Delirium possible EtOH withdrawal and possible EtOH encephalopathy with underlying dementia. Continue phenobarbital protocol. Thiamine 100 mg twice a day area 6. COPD. Symbicort 2 puffs twice a day 7. GERD. Protonix 40 mg by mouth before breakfast 8. Hyperlipidemia. Fenofibrate 160 mg daily, niacin 500 mg daily 9. Hypertension. Lisinopril 20 mg by mouth daily, metoprolol 25 mg by mouth daily 10. Depression. Continue Celexa 20 mg by mouth 11. DVT prophylaxis. 12. GI prophylaxis. See above Discharge plan: [facility]. Medication reconciliation completed. Impression and plan of care have been directed as dictated by the signing physician. Destini Barrett nurse practitioner acting as scribe for signing physician.
[2019-01-26 16:14] VITALS: PULSE 75
[2019-01-26 19:39] VITALS: BP 134/79; RESP 16; TEMP 99.9
[2019-01-26] MEDS: DONEPEZIL 5 MG TAB PO SCH (20:17)
[2019-01-26] MEDS: SENNOSIDES-DOCUSATE SODIUM 1 EACH TAB PO SCH (20:23)
[2019-01-26] MEDS: DOXYCYCLINE 100 MG CAP PO SCH (21:25)
--- NOTE | 2019-01-26 22:15 | PN ---
PROGRESS NOTE DATE OF SERVICE: 01/26/2019 REASON FOR FOLLOWUP: Question of left knee cellulitis. INTERVAL HISTORY: The patient is currently afebrile. The patient has been breathing comfortably. Denies having any chest pain or any cough. No abdominal pain. Denies any pain to the left knee area. PHYSICAL EXAMINATION: Blood pressure 121/77 with a pulse of 75, temperature 98. He is 95% on room air. General description is an elderly male lying in bed in no distress. RESPIRATORY SYSTEM: Unlabored breathing. Clear to auscultation anteriorly. HEART: S1, S2. Regular rate and rhythm. ABDOMEN: Soft. Left knee is currently dressed up. No obvious drainage on the dressing. LABS: Creatinine 0.97. Blood culture has been negative. DIAGNOSTIC IMPRESSION AND PLAN: Patient admitted to hospital after dehiscence of his left knee wound after a fall with no evidence of any purulence at time of surgical repair. Minimal swelling, more likely post-surgical. Clinical suspicion is low for overlying significant cellulitis. Currently on vancomycin. That will be transitioned to oral doxycycline 100 b.i.d. for another 7 days with close outpatient followup. MMODL / IJN: [id number] /
--- NOTE | 2019-01-27 08:40 | P.DS ---
Providers Date of admission: 01/22/19 09:44 Expected date of discharge: 01/27/19 Attending physician: Faheem Frye Consults: 01/22/19 13:28 Consult Physician Routine Consulting Provider: Shabana Gannon Consult Reason/Comments: medical management. Do you want consulting provider notified?: Yes 01/23/19 10:35 Consult Physician Routine Consulting Provider: Angel Goel Consult Reason/Comments: Increased confusion; Do you want consulting provider notified?: Yes 01/23/19 10:38 Consult Physician Routine Consulting Provider: Luiz Elkins Consult Reason/Comments: confusion vs. dementia, paronia Do you want consulting provider notified?: Yes 01/24/19 10:20 Consult Physician Routine Consulting Provider: Phyllis Link Consult Reason/Comments: wound dehiscence poss. cellulitis Do you want consulting provider notified?: Already Contacted Primary care physician: Shabana Lairdo - Discharge Diagnosis(es) (1) Pain and swelling of left ankle Current Visit: Yes Status: Acute (2) Swelling of left foot Current Visit: Yes Status: Acute (3) Dehiscence of internal surgical incision Current Visit: Yes Status: Acute Priority: Medium (4) Left knee pain Current Visit: Yes Status: Acute (5) S/P total knee arthroplasty Current Visit: No Status: Acute Priority: Medium (6) Delirium Current Visit: Yes Status: Acute Hospital Course: This is a 68-year-old male who is status post left total knee arthroplasty on 01/19/2019. Patient fell at home in the shower on 01/22/2019 onto his left knee causing wound dehiscence of his incision. Patient presented to the emergency room for further evaluation. X-rays were found to be negative and patient underwent irrigation and primary closure wound dehiscence left total knee arthroplasty on 01/22/2019. Patient is admitted to [facility] on 01/22/2019. The procedures performed without complication or sequelae. The patient has been confused and agitated postoperatively and has been treated and evaluated for alcohol withdrawal during this admission. A CT of the brain was negative for any acute process. A Doppler ultrasound of the left lower extremity was negative for DVT. Labs and vital signs are stable on day of discharge. On day of discharge patient's knee incision is healing well. There is minimal erythema. There is minimal drainage noted at this time. There is minimal soft tissue swelling to the knee. Patient has full foot and ankle motion without difficulty or pain. Calf is soft and nontender to palpation. Neurovascular status to the left lower extremity is intact. Patient is discharged to rehab in good condition. Please see [facility] rec for accurate list of home medications. Patient Condition at Discharge: Stable Plan - Discharge Summary Discharge Rx Participant: No New Discharge Prescriptions: New Donepezil [Aricept] 5 mg PO HS #30 tab Aspirin 325 mg PO BID tab PHENobarbital [Luminal] 32.4 mg PO 0730,1630,2200 4 Days tab Meloxicam [Mobic] 7.5 mg PO DAILY tab Sennosides-Docusate Sodium [Senokot-S] 2 each PO HS tab Acetaminophen Tab [Tylenol] 650 mg PO Q4HR PRN tab PRN Reason: Fever And/ Or Pain Doxycycline Hyclate 100 mg PO BID #14 tab Aspirin 325 mg PO BID #60 tab Cephalexin [Keflex] 500 mg PO Q6H 10 Days #40 cap Continue Lisinopril [Zestril] 20 mg PO QAM Montelukast Sodium [Singulair] 10 mg PO QAM Metoprolol Succinate (ER) [Toprol XL] 25 mg PO QAM Thiamine [Vitamin B-1] 50 mg PO DAILY Niacin 500 mg PO DAILY Citalopram Hydrobromide [Citalopram HBr] 20 mg PO QAM Pantoprazole Sodium 40 mg PO QAM Fish Oil/Dha/Epa [Fish Oil 1,200 mg Fish Oil] 1 cap PO DAILY Cyanocobalamin (Vitamin B-12) [Vitamin B-12] 1,000 mcg PO DAILY Tiotropium 18 Mcg/Puff [Spiriva] 1 puff INHALATION RT-DAILY Albuterol Sulfate [Proair Hfa] 1 - 2 puff INHALATION RT-Q6H PRN PRN Reason: sob Budesonide/Formoterol Fumarate [Symbicort 160-4.5 Mcg Inhaler] 2 puff INHALATION RT-BID Fenofibrate 160 mg PO DAILY Sennosides [Senokot] 8.6 mg PO BID Discontinued Aspirin 81 mg PO DAILY LORazepam [Ativan] 1 mg PO QAM PRN PRN Reason: Anxiety Aspirin 325 mg PO BID #60 tab HYDROcodone/APAP 5-325MG [Willard 5-325] 1 - 2 tab PO Q6HR PRN #56 tab PRN Reason: Pain Discharge Medication List Lisinopril [Zestril] 20 mg PO QAM 01/13/14 [History] Citalopram Hydrobromide [Citalopram HBr] 20 mg PO QAM 04/29/17 [History] Cyanocobalamin (Vitamin B-12) [Vitamin B-12] 1,000 mcg PO DAILY 04/29/17 [History] Fish Oil/Dha/Epa [Fish Oil 1,200 mg Fish Oil] 1 cap PO DAILY 04/29/17 [History] Metoprolol Succinate (ER) [Toprol XL] 25 mg PO QAM 04/29/17 [History] Montelukast Sodium [Singulair] 10 mg PO QAM 04/29/17 [History] Niacin 500 mg PO DAILY 04/29/17 [History] Pantoprazole Sodium 40 mg PO QAM 04/29/17 [History] Thiamine [Vitamin B-1] 50 mg PO DAILY 04/29/17 [History] Albuterol Sulfate [Proair Hfa] 1 - 2 puff INHALATION RT-Q6H PRN 01/14/19 [History] Budesonide/Formoterol Fumarate [Symbicort 160-4.5 Mcg Inhaler] 2 puff INHALATION RT-BID 01/14/19 [History] Tiotropium 18 Mcg/Puff [Spiriva] 1 puff INHALATION RT-DAILY 01/14/19 [History] Fenofibrate 160 mg PO DAILY 01/19/19 [History] Sennosides [Senokot] 8.6 mg PO BID 01/22/19 [History] Acetaminophen Tab [Tylenol] 650 mg PO Q4HR PRN tab 01/26/19 [Rx] Aspirin 325 mg PO BID tab 01/26/19 [Rx] Donepezil [Aricept] 5 mg PO HS #30 tab 01/26/19 [Rx] Doxycycline Hyclate 100 mg PO BID #14 tab 01/26/19 [Rx] Meloxicam [Mobic] 7.5 mg PO DAILY tab 01/26/19 [Rx] PHENobarbital [Luminal] 32.4 mg PO 0730,1630,2200 4 Days tab 01/26/19 [Rx] Sennosides-Docusate Sodium [Senokot-S] 2 each PO HS tab 01/26/19 [Rx] Aspirin 325 mg PO BID #60 tab 01/27/19 [Rx] Cephalexin [Keflex] 500 mg PO Q6H 10 Days #40 cap 01/27/19 [Rx] Follow up Appointment(s)/Referral(s): Shabana Gannon MD [Primary Care Provider] - 1 Week (afater discharge from [facility]) Faheem Frye DO [Doctor of Osteopathic Medicine] - 10 Days Activity/Diet/Wound Care/Special Instructions: Weightbearing as tolerated with a walker and knee immobilizer. Knee immobilizer to be worn at all times except for hygiene until follow-up appointment. Daily dressing changes, keep incision clean and dry. May shower if no drainage from incision. Abhijeet to be removed 10-14 days postoperatively. Please follow up with [facility] and call with any questions or concerns, [phone]. Discharge Disposition: TRANSFER TO SNF/ECF
[2019-01-27] MEDS: SYMBICORT 160-4.5 MCG INHALER INHALATION SCH (09:07)
[2019-01-27] MEDS: METOPROLOL SUCCINATE (ER) 25 MG TAB.ER.24H PO SCH (09:11)
[2019-01-27] MEDS: SENNOSIDES 8.6 MG TAB PO SCH (09:11)
[2019-01-27] MEDS: THIAMINE 100 MG TAB PO SCH (09:11)
[2019-01-27] MEDS: ASPIRIN 325 MG TAB PO SCH (09:11)
[2019-01-27] MEDS: CITALOPRAM HYDROBROMIDE 20 MG TAB PO SCH (09:12)
[2019-01-27] MEDS: PHENobarbital 32.4 MG TAB PO SCH (09:12)
[2019-01-27] MEDS: PANTOPRAZOLE 40 MG TABLET PO SCH (09:12)
[2019-01-27] MEDS: LISINOPRIL 20 MG TAB PO SCH (09:12)
[2019-01-27] MEDS: FENOFIBRATE 160 MG TAB PO SCH (09:12)
[2019-01-27] MEDS: MELOXICAM 7.5 MG TAB PO SCH (09:12)
[2019-01-27] MEDS: NIACIN TR 500 MG CAPLET PO SCH (09:15)
[2019-01-27] MEDS: DOXYCYCLINE 100 MG CAP PO SCH (09:15)
--- NOTE | 2019-01-27 14:23 | PN ---
PROGRESS NOTE DATE OF SERVICE: 01/27/2019 REASON FOR FOLLOWUP: Possible left leg cellulitis. INTERVAL HISTORY: The patient currently denies having any fever or any chills. Denies having any chest pain. No shortness of breath. No cough. No abdominal pain or any pain. Worsening pain to the left knee is about 2/10. PHYSICAL EXAMINATION: His last reported blood pressure is 134/79 with a pulse of 75. He is 95% on room air. General description is an elderly male lying in bed, in no distress. RESPIRATORY SYSTEM: Unlabored breathing, clear to auscultation anteriorly. HEART: S1, S2. Regular rate and rhythm. Positive left is congestive labs no new. LABS: Have been obtained today. Blood culture has been negative. DIAGNOSTIC IMPRESSION AND PLAN: Patient admitted to the hospital with left knee wound dehiscence after recent left knee arthroplasty, status post primary closure of the same with no evidence of any occlusion illness at the time of surgery no further fevers 9 elevated white count more likely reactive. The patient given a short course of oral doxycycline since then and close outpatient followup condition. He is. MMODL / IJN: [id number] /
== END 2019-01-27 13:32 | DRG 908 ==
LOC: EC 09:25 → 4SSUR 09:44
PROVIDERS: ADMIT Orthopaedic Surgery; ATTEND Orthopaedic Surgery
PROC: 0JQP0ZZ Repair Left Lower Leg Subcutaneous Tissue and Fascia, Open Approach (ICD-10-PCS; principal; 2019-01-22 16:26)
DX: T81.32XA Disruption of internal operation (surgical) wound, not elsewhere classified, initial encounter (principal); F10.231 Alcohol dependence with withdrawal delirium; L03.116 Cellulitis of left lower limb; R44.3 Hallucinations, unspecified; J44.9 Chronic obstructive pulmonary disease, unspecified; G31.2 Degeneration of nervous system due to alcohol; F03.90 Unspecified dementia, unspecified severity, without behavioral disturbance, psychotic disturbance, mood disturbance, and anxiety; F32.9 Major depressive disorder, single episode, unspecified; F40.240 Claustrophobia; E78.5 Hyperlipidemia, unspecified; I10 Essential (primary) hypertension; K21.9 Gastro-esophageal reflux disease without esophagitis; M19.90 Unspecified osteoarthritis, unspecified site; E16.2 Hypoglycemia, unspecified; K64.9 Unspecified hemorrhoids; R29.6 Repeated falls; M54.9 Dorsalgia, unspecified; M79.672 Pain in left foot; M25.572 Pain in left ankle and joints of left foot; M25.521 Pain in right elbow; Z79.82 Long term (current) use of aspirin; Z79.899 Other long term (current) drug therapy; Z79.51 Long term (current) use of inhaled steroids; Z96.652 Presence of left artificial knee joint; Z87.891 Personal history of nicotine dependence; W18.2XXA Fall in (into) shower or empty bathtub, initial encounter; W22.09XA Striking against other stationary object, initial encounter; Y93.E1 Activity, personal bathing and showering
CPT/HCPCS: 36415; 70450; 73502; 80048; 80053; 80202; 82565; 83605; 85025; 86140; 86850; 86900; 86901; 87040; 93005; 94640; 96374; 96375; 99284

== ENCOUNTER 2019-02-04 02:26 | Inpatient (IN) | payer MEDICARE ==
[2019-02-04] MEDS ORDERED: HYDROcodone/APAP 5-325MG 1 EACH TAB PO PRN (04:15)
[2019-02-04] MEDS ORDERED: ACETAMINOPHEN TAB 325 MG TAB PO PRN (04:15)
[2019-02-04] MEDS ORDERED: MORPHINE SULFATE 4 MG/ML SYRINGE IV PRN (04:15)
[2019-02-04] MEDS ORDERED: NALOXONE 0.4 MG/ML 1 ML VIAL IV PRN ×2 (04:15→11:41)
[2019-02-04] MEDS ORDERED: ONDANSETRON 4 MG/2 ML VIAL IVP PRN (04:15)
[2019-02-04] MEDS ORDERED: ALBUTEROL NEBULIZED 2.5 MG/3 ML INHALATION PRN (04:17)
[2019-02-04] MEDS: SODIUM CHLORIDE 0.9% 1,000 ML IV SCH ×4 (04:26→18:41)
[2019-02-04 04:27] LABS: Basophils # (A) 0.1 k/uL (0-0.2); Basophils % (A) 1 %; Eosinophils # (A) 0.4 k/uL (0-0.7); Eosinophils % (A) 4 %; HCT 33.3 % (39.0-53.0); Hypochromasia Slight; Lymphocytes # (A) 1.7 k/uL (1.0-4.8); Lymphocytes % (A) 18 %; MCH 30.6 pg (25.0-35.0); MCHC 32.9 g/dL (31.0-37.0); Mean Platelet Volume 7.8; Monocytes # (A) 0.7 k/uL (0-1.0); Monocytes % (A) 8 %; Neutrophils # (A) 6.1 k/uL (1.3-7.7); Neutrophils % (A) 67 %; Platelet Count 429 k/uL (150-450); RBC 3.58 m/uL (4.30-5.90); RDW 12.7 % (11.5-15.5); WBC 9.2 k/uL (3.8-10.6)
[2019-02-04 04:34] LABS: Potassium 4.4 mmol/L (3.5-5.1)
[2019-02-04 04:39] LABS: INR 1.2 (<1.2); Prothrombin Time 12.3 sec (9.0-12.0)
--- NOTE | 2019-02-04 05:06 | ED ---
General Adult HPI - General Chief complaint: Skin/Abscess/Foreign Body Stated complaint: Post OP Knee Complications Time Seen by Provider: 02/04/19 03:00 Source: patient, EMS Mode of arrival: EMS Limitations: no limitations - History of Present Illness Initial comments: This patient is a 68-year-old man presents from the [facility] care facility for complaint of him with his surgical incision. He had undergone left TKA on 01/19/[address] Frye. In addition, the patient had a fall, landing on his left knee and resulting in a wound dehiscence, on 01/22, though subsequently closed. Patient reports that he had gotten up to use the bathroom tonight and then noticed that there was blood coming from his incision site. The patient states that he had been feeling relatively well prior to that. No fever or chills. No increase in his postsurgical pain. No chest pain, palpitations, shortness of breath. Onset/Timin -: hour(s) Location: left, lower extremity Consistency: constant Improves with: none Worsens with: none Associated Symptoms: denies other symptoms Treatments Prior to Arrival: none - Related Data Home Medications Medication Instructions Recorded Confirmed Lisinopril [Zestril] 20 mg PO QAM 01/13/14 01/22/19 Citalopram Hydrobromide 20 mg PO QAM 04/29/17 01/22/19 [Citalopram HBr] Cyanocobalamin (Vitamin B-12) 1,000 mcg PO DAILY 04/29/17 01/22/19 [Vitamin B-12] Fish Oil/Dha/Epa [Fish Oil 1,200 1 cap PO DAILY 04/29/17 01/22/19 mg Fish Oil] Metoprolol Succinate (ER) [Toprol 25 mg PO QAM 04/29/17 01/22/19 XL] Montelukast Sodium [Singulair] 10 mg PO QAM 04/29/17 01/22/19 Niacin 500 mg PO DAILY 04/29/17 01/22/19 Pantoprazole Sodium 40 mg PO QAM 04/29/17 01/22/19 Thiamine [Vitamin B-1] 50 mg PO DAILY 04/29/17 01/22/19 Albuterol Sulfate [Proair Hfa] 1 - 2 puff INHALATION RT-Q6H PRN 01/14/19 01/22/19 Budesonide/Formoterol Fumarate 2 puff INHALATION RT-BID 01/14/19 01/22/19 [Symbicort 160-4.5 Mcg Inhaler] Tiotropium 18 Mcg/Puff [Spiriva] 1 puff INHALATION RT-DAILY 01/14/19 01/22/19 Fenofibrate 160 mg PO DAILY 01/19/19 01/22/19 Sennosides [Senokot] 8.6 mg PO BID 01/22/19 01/22/19 Previous Rx's Medication Instructions Recorded Acetaminophen Tab [Tylenol] 650 mg PO Q4HR PRN tab 01/26/19 Aspirin 325 mg PO BID tab 01/26/19 Donepezil [Aricept] 5 mg PO HS #30 tab 01/26/19 Doxycycline Hyclate 100 mg PO BID #14 tab 01/26/19 Meloxicam [Mobic] 7.5 mg PO DAILY tab 01/26/19 Sennosides-Docusate Sodium 2 each PO HS tab 01/26/19 [Senokot-S] Aspirin 325 mg PO BID #60 tab 01/27/19 Cephalexin [Keflex] 500 mg PO Q6H 10 Days #40 cap 01/27/19 PHENobarbital 32.4 mg PO TID 3 Days #9 tab 01/27/19 Allergies Allergy/AdvReac Type Severity Reaction Status Date / Time No Known Allergies Allergy Verified 02/04/19 02:33 Review of Systems ROS Statement: Those systems with pertinent positive or pertinent negative responses have been documented in the HPI. ROS Other: All systems not noted in ROS Statement are negative. Constitutional: Denies: fever, chills Respiratory: Denies: cough, dyspnea Cardiovascular: Denies: chest pain, palpitations, syncope Gastrointestinal: Denies: vomiting Skin: Reports: as per HPI Neurological: Denies: weakness Hematological/Lymphatic: Denies: easy bleeding Past Medical History Past Medical History: COPD, GERD/Reflux, Hyperlipidemia, Hypertension, Osteoarthritis (OA) Additional Past Medical History / Comment(s): Hypoglycemia, hemorrhoids History of Any Multi-Drug Resistant Organisms: None Reported Past Surgical History: Back Surgery, Joint Replacement Additional Past Surgical History / Comment(s): 01/20/19 total left knee arthroplasty, COLONOSCOPY Past Anesthesia/Blood Transfusion Reactions: No Reported Reaction Additional Past Anesthesia/Blood Transfusion Reaction / Comment(s): claust rophobic,no hx blood transfusion Past Psychological History: Depression Smoking Status: Former smoker Past Alcohol Use History: Occasional Past Drug Use History: None Reported - Past Family History Mother Family Medical History: No Reported History Father Family Medical History: No Reported History General Exam Limitations: no limitations General appearance: alert, in no apparent distress Head exam: Present: atraumatic, normocephalic Eye exam: Present: normal appearance. Absent: scleral icterus, conjunctival injection Respiratory exam: Present: normal lung sounds bilaterally. Absent: respiratory distress, wheezes, rales, rhonchi, stridor Cardiovascular Exam: Present: regular rate, normal rhythm, normal heart sounds. Absent: systolic murmur, diastolic murmur, rubs, gallop GI/Abdominal exam: Present: soft. Absent: distended, tenderness, guarding, rebound, mass Extremities exam: Present: other (There is an approximately 10 cm length of the patient's surgical incision that has had dehiscence. No active bleeding currently. There does not appear to be secondary infection at this point.) Back exam: Present: normal inspection Neurological exam: Present: alert. Absent: motor sensory deficit Skin exam: Present: warm, dry, normal color, other (As above). Absent: rash Course Vital Signs 02/04/19 02:30 Temperature 98.2 F Pulse Rate 78 Respiratory 18 Rate Blood Pressure 147/93 O2 Sat by Pulse 97 Oximetry Medical Decision Making - Lab Data Result diagrams: 02/04/19 04:00 02/04/19 04:00 Lab Results 02/04/19 02/04/19 02/04/19 Range/Units 04:00 04:00 04:00 WBC 9.2 (3.8-10.6) k/uL RBC 3.58 L (4.30-5.90) m/uL Hgb 11.0 L (13.0-17.5) gm/dL Hct 33.3 L (39.0-53.0) % MCV 93.0 (80.0-100.0) fL MCH 30.6 (25.0-35.0) pg MCHC 32.9 (31.0-37.0) g/dL RDW 12.7 (11.5-15.5) % Plt Count 429 (150-450) k/uL Neutrophils % 67 % Lymphocytes % 18 % Monocytes % 8 % Eosinophils % 4 % Basophils % 1 % Neutrophils # 6.1 (1.3-7.7) k/uL Lymphocytes # 1.7 (1.0-4.8) k/uL Monocytes # 0.7 (0-1.0) k/uL Eosinophils # 0.4 (0-0.7) k/uL Basophils # 0.1 (0-0.2) k/uL Hypochromasia Slight PT 12.3 H (9.0-12.0) sec INR 1.2 H (<1.2) Sodium 134 L (137-145) mmol/L Potassium 4.4 (3.5-5.1) mmol/L Chloride 106 (98-107) mmol/L Carbon Dioxide 20 L (22-30) mmol/L Anion Gap 8 mmol/L BUN 17 (9-20) mg/dL Creatinine 1.25 (0.66-1.25) mg/dL Est GFR (CKD-EPI)AfAm 68 (>60 ml/min/1.73 sqM) Est GFR (CKD-EPI)NonAf 58 (>60 ml/min/1.73 sqM) Glucose 113 H (74-99) mg/dL Calcium 10.0 (8.4-10.2) mg/dL Disposition Clinical Impression: Dehiscence of closure of skin Disposition: ADMITTED IP TO THIS [facility] Condition: Fair Referrals: Shabana Gannon MD [Primary Care Provider] - 1-2 days
[2019-02-04] MEDS: SYMBICORT 160-4.5 MCG INHALER INHALATION SCH ×2 (08:43→21:46)
--- NOTE | 2019-02-04 08:51 | P.HPOR ---
History of Present Illness H&P Date: 02/04/19 This is a 68 year-old male who is admitted for wound dehiscence of the knee after a fall around 1:30am today. Patient has been at [facility] and states that when he was walking back from the bathroom he slipped and fell and noticed blood draining from his left knee. Patient is status post left total knee arthroplasty on 01/19/2019. Patient has a history of a previous fall causing wound dehiscence on 01/22/2019. Patient underwent irrigation and primary wound closure of left knee incision on 01/22/2019. Patient was seen in the office on 02/03/2019 as an outpatient and was doing very well. Incision was clean, dry and intact. Patient denies any pain, dizziness, fever/chills, numbness, weakness or tingling. Patient has a history of delirium and alcohol withdrawal along with COPD, GERD, hyperlipidemia and hypertension. No family is present in the room today. Review of Systems See HPI. Past Medical History Past Medical History: COPD, GERD/Reflux, Hyperlipidemia, Hypertension, Osteoarthritis (OA) Additional Past Medical History / Comment(s): Hypoglycemia, hemorrhoids History of Any Multi-Drug Resistant Organisms: None Reported Past Surgical History: Back Surgery, Joint Replacement Additional Past Surgical History / Comment(s): 01/20/19 total left knee arthroplasty, COLONOSCOPY Past Anesthesia/Blood Transfusion Reactions: No Reported Reaction Additional Past Anesthesia/Blood Transfusion Reaction / Comment(s): claustrophobic,no hx blood transfusion Past Psychological History: Depression Additional Psychological History / Comment(s): Pt normally resides alone, lately d/t his recent knee surgery, family has been staying with him. He is using a cane or walker to ambulate. He normally can drive. Smoking Status: Former smoker Past Alcohol Use History: Occasional Additional Past Alcohol Use History / Comment(s): Pt started smoking as a teen and quit in 1999. He drinks approximately 4 beers a day but none for several days d/t recent surgery. Past Drug Use History: None Reported - Past Family History Mother Family Medical History: No Reported History Father Family Medical History: No Reported History Medications and Allergies Home Medications Medication Instructions Recorded Confirmed Type Lisinopril [Zestril] 20 mg PO QAM 01/13/14 02/04/19 History Citalopram Hydrobromide 20 mg PO QAM 04/29/17 02/04/19 History [Citalopram HBr] Cyanocobalamin (Vitamin B-12) 2,000 mcg PO DAILY@1700 04/29/17 02/04/19 History [Vitamin B-12] Fish Oil/Dha/Epa [Fish Oil 1,200 1 cap PO DAILY 04/29/17 02/04/19 History mg Fish Oil] Metoprolol Succinate (ER) [Toprol 25 mg PO QAM 04/29/17 02/04/19 History XL] Montelukast Sodium [Singulair] 10 mg PO QAM 04/29/17 02/04/19 History Niacin 500 mg PO DAILY 04/29/17 02/04/19 History Pantoprazole Sodium 40 mg PO QAM 04/29/17 02/04/19 History Thiamine [Vitamin B-1] 50 mg PO DAILY 04/29/17 02/04/19 History Albuterol Sulfate [Proair Hfa] 2 puff INHALATION RT-Q6H PRN 01/14/19 02/04/19 History Budesonide/Formoterol Fumarate 2 puff INHALATION RT-BID 01/14/19 02/04/19 History [Symbicort 160-4.5 Mcg Inhaler] Tiotropium 18 Mcg/Puff [Spiriva] 1 puff INHALATION RT-DAILY 01/14/19 02/04/19 History Fenofibrate 160 mg PO DAILY@1700 01/19/19 02/04/19 History Acetaminophen Tab [Tylenol] 650 mg PO Q4HR PRN tab 01/26/19 02/04/19 Rx Donepezil [Aricept] 5 mg PO HS #30 tab 01/26/19 02/04/19 Rx Meloxicam [Mobic] 7.5 mg PO DAILY tab 01/26/19 02/04/19 Rx Aspirin 325 mg PO BID #60 tab 01/27/19 02/04/19 Rx Cephalexin [Keflex] 500 mg PO QID@08,12,17,21 02/04/19 02/04/19 History Sennosides-Docusate Sodium 2 tab PO HS 02/04/19 02/04/19 History [Senokot-S] Allergies Allergy/AdvReac Type Severity Reaction Status Date / Time No Known Allergies Allergy Verified 02/04/19 08:25 Physical Examination On exam patient is resting comfortably in bed. On inspection there is dehiscence of his left total knee incision. There is swelling of the left lower extremity. Left lower extremity is warm and well perfused. Sensation is int act. Exams of the head, neck, bilateral upper extremities and right lower extremity are within normal limits. Neurovascular status and circulatory status are intact. Results X-rays of the left knee are pending. - Labs Labs: Abnormal Lab Results - Last 24 Hours (Table) 02/04/19 02/04/19 02/04/19 Range/Units 04:00 04:00 04:00 RBC 3.58 L (4.30-5.90) m/uL Hgb 11.0 L (13.0-17.5) gm/dL Hct 33.3 L (39.0-53.0) % PT 12.3 H (9.0-12.0) sec INR 1.2 H (<1.2) Sodium 134 L (137-145) mmol/L Carbon Dioxide 20 L (22-30) mmol/L Glucose 113 H (74-99) mg/dL H & H 02/04/19 Range/Units 04:00 Hgb 11.0 L (13.0-17.5) gm/dL Hct 33.3 L (39.0-53.0) % Coagulation 02/04/19 Range/Units 04:00 INR 1.2 H (<1.2) Result Diagrams: 02/04/19 04:00 02/04/19 04:00 Assessment and Plan (1) Dehiscence of incision Current Visit: Yes Status: Acute Code(s): T81.31XA - DISRUPTION OF EXTERNAL OPERATION (SURGICAL) WOUND, NEC, INIT SNOMED Code(s): 81737712 (2) S/P total knee arthroplasty Current Visit: No Status: Acute Priority: Medium Code(s): Z96.659 - PRESENCE OF UNSPECIFIED ARTIFICIAL KNEE JOINT SNOMED Code(s): 5483210664840 Plan: 1. NPO diet. 2. Keep wound covered. May reinforce dressing as needed. 3. Non-weightbearing to the left lower extremity. 4. Continue IV antibiotics. 5. X-rays of the left knee are pending. 6. Appreciate input from medicine. 7. If x-rays are negative, plan for irrigation and wound closure in the OR today. Pending medical clearance and consent.
[2019-02-04] MEDS ORDERED: FAMOTIDINE 20 MG TAB PO SCH (09:00)
[2019-02-04] MEDS ORDERED: NIACIN 500 MG PO SCH (09:00)
[2019-02-04] MEDS ORDERED: PHENobarbital 32.4 MG TAB PO SCH (09:00)
[2019-02-04] MEDS ORDERED: DOXYCYCLINE 100 MG CAP PO SCH (09:00)
--- NOTE | 2019-02-04 09:04 | XR ---
EXAMINATION TYPE: XR knee complete LT DATE OF EXAM: 02/04/2019 CLINICAL HISTORY: Left knee pain after fall with recent arthroplasty. TECHNIQUE: Frontal and lateral views of the left knee are obtained. COMPARISON: 01/22/2019. FINDINGS: There is evidence of recent surgery with decreased degree of subcutaneous emphysema and so ft tissue swelling in comparison to the exam of 01/22/2019. The midline surgical asad have been rem wendie in the interim. Right hip arthroplasty demonstrates normal alignment without evidence of hardwar e fracture, nome bone fracture or loosening. IMPRESSION: No evidence of hardware fracture, malalignment, or nome bone fracture of the knee. Decr eased amount of subcutaneous emphysema and soft tissue swelling in comparison to the recent postsurgi hong radiograph.
[2019-02-04] MEDS: PANTOPRAZOLE 40 MG TABLET PO SCH (10:29)
[2019-02-04] MEDS: CITALOPRAM HYDROBROMIDE 20 MG TAB PO SCH (10:29)
[2019-02-04] MEDS: THIAMINE 100 MG TAB PO SCH (10:29)
[2019-02-04] MEDS: MONTELUKAST 10 MG TAB PO SCH (10:29)
[2019-02-04] MEDS: LISINOPRIL 10 MG TAB PO SCH (10:29)
[2019-02-04] MEDS: METOPROLOL SUCCINATE (ER) 25 MG TAB.ER.24H PO SCH (10:29)
[2019-02-04] MEDS: PHENobarbital 32.4 MG TAB PO SCH ×3 (10:30→22:38)
[2019-02-04] MEDS: FENOFIBRATE 160 MG TAB PO SCH (10:30)
[2019-02-04] MEDS: CYANOCOBALAMIN 500 MCG TAB PO SCH (10:44)
[2019-02-04] MEDS ORDERED: HYDROmorphone 0.5 MG/0.5 ML SYRINGE IVP PRN ×3 (11:41)
[2019-02-04] MEDS ORDERED: MAGNESIUM HYDROXIDE 2,400 MG/10 ML CUP PO PRN (11:41)
[2019-02-04] MEDS ORDERED: BISACODYL 10 MG SUPP RECTAL PRN (11:41)
[2019-02-04] MEDS ORDERED: LACTATED RINGERS 1,000 ML IV ONE (12:19)
[2019-02-04] MEDS ORDERED: MIDAZOLAM 2 MG/2 ML VIAL ONE (12:56)
[2019-02-04] MEDS ORDERED: fentaNYL (PF) 50 MCG/ML 2 ML AMP ONE (12:56)
[2019-02-04] MEDS ORDERED: PROPOFOL 10 MG/ML 20 ML VIAL IV ONE (12:56)
[2019-02-04] MEDS ORDERED: LIDOCAINE 1% INJ 10MG/ML (20 ML MDV) ONE (12:56)
[2019-02-04] MEDS ORDERED: ceFAZolin 1,000 MG VIAL IVPB ONE (13:18)
--- NOTE | 2019-02-04 13:59 | P.OP ---
Date of Procedure: 02/04/19 Preoperative Diagnosis: wound dehiscence left total knee Postoperative Diagnosis: wound dehiscence left total knee Procedure(s) Performed: irrigation an primary closure left total knee Anesthesia: SHAR Surgeon: Faheem Frye Estimated Blood Loss (ml): 25 Pathology: other (cultures x 2) Condition: stable Disposition: PACU Indications for Procedure: this is a 68-year-old gentleman that has had a left total knee performed approximately 3 weeks ago. 3 days after surgery he fell and opened his left knee wound he was brought urgently to the OR for irrigation an primary closure. his placed in knee immobilizer Patricia is been residing a residential. he was seen in the office yesterday and his wound appeared to have healed well the patient had good range of motion and strength of his knee. his skin stables were removed and he was allowed to remove his knee immobilizer. then last evening something happened at the residential , and his incision split open again. after discussing this with his daughter at length, I recommended another urgent irrigation and closure of his wound. I discussed I'm very concerned about an infection there are aware of this. informed consent was obtained. Operative Findings: the operative findings are consistent the dehiscence of the skin and part of the patellar retinaculum. Description of Procedure: the patient was seen in the preoperative area. The consent was reviewed and the operative site was marked with a skin marker. The case was discussed at length with the patient and with his daughter who was present. The patient was then brought to the operating room and given a general anesthetic by the anesthesia department. The patient is already on scheduled antibiotics from the emergency room. The left knee was then prepped and draped in usual sterile fashion. Guild timeout was then performed confirming the patient's name , ALLERGY , surgical site , and consent. The left knee wound was inspected found have dehiscence of the skin as well as a part of the patellar retinacular repair. 2 deep cultures were obtained. there was no obvious signs of infection. Next using pulsatile lavage, the knee was irrigated with 3000 L of antibiotic solution. The patellar retinaculum was then repaired with #1 Vicryl as well as #1 strata fix suture. Skin was closed with 3-0 Vicryl and asad. A sterile dressing was applied and patient was placed in a knee immobilizer. The patient was then transferred to the recovery room in stable condition.
[2019-02-04] MEDS: HYDROmorphone 1 MG/ML 1 ML SYRINGE IVP ONE ×2 (14:09→14:16)
--- NOTE | 2019-02-04 16:44 | P.CONS ---
History of Present Illness - Reason for Consult Consult date: 02/04/19 Medical management - History of Present Illness This is a 68-year-old male patient of Dr. Gannon with past medical history of COPD, GERD, hyperlipidemia, hypertension, osteoarthritis, depression. He is a former smoker who quit in a 1999 and drinks approximately 4 beers a day but none recently due to recent surgery and ECF. He is status post left knee arthroplasty on 01/19/2018. Patient presented to the emergency room after sustaining a fall in the shower which was caused by loss of balance on January 22 requiring rehospitalization. He underwent irrigation and closure of wound dehiscence. Patient had significant mental status changes was combative and confused and was placed on alcohol withdrawal therapy. He was seen in consultation by Dr. Mcgraw and was given 1 dose of Haldol and continued on phenobarbital protocol. Eventually his confusion did improve and he appears to have a baseline confusion possibly related to warrant kidneys encephalopathy. Patient was discharge to [facility] for subacute rehab. Apparently, patient had a fall at the skilled nursing causing a second wound dehiscence of his left knee surgery site. He has been admitted under the care of Dr. Frye with plan for I&D today. Review of Systems ROS unobtainable: due to mental status Past Medical History Past Medical History: COPD, GERD/Reflux, Hyperlipidemia, Hypertension, Osteoarthritis (OA) Additional Past Medical History / Comment(s): Hypoglycemia, hemorrhoids History of Any Multi-Drug Resistant Organisms: None Reported Past Surgical History: Back Surgery, Joint Replacement Additional Past Surgical History / Comment(s): 01/20/19 total left knee arthroplasty, COLONOSCOPY Past Anesthesia/Blood Transfusion Reactions: No Reported Reaction Additional Past Anesthesia/Blood Transfusion Reaction / Comm: claustrophobic,no hx blood transfusion Past Psychological History: Depression Additional Psychological History / Comment(s): Pt normally resides alone, lately d/t his recent knee surgery, family has been staying with him. He is using a c ane or walker to ambulate. He normally can drive. Smoking Status: Former smoker Past Alcohol Use History: Occasional Additional Past Alcohol Use History / Comment(s): Pt started smoking as a teen and quit in 1999. He drinks approximately 4 beers a day but none for several days d/t recent surgery. Past Drug Use History: None Reported - Past Family History Mother Family Medical History: No Reported History Father Family Medical History: No Reported History Medications and Allergies Home Medications Medication Instructions Recorded Confirmed Type Lisinopril [Zestril] 20 mg PO QAM 01/13/14 02/04/19 History Citalopram Hydrobromide 20 mg PO QAM 04/29/17 02/04/19 History [Citalopram HBr] Cyanocobalamin (Vitamin B-12) 2,000 mcg PO DAILY@1700 04/29/17 02/04/19 History [Vitamin B-12] Fish Oil/Dha/Epa [Fish Oil 1,200 1 cap PO DAILY 04/29/17 02/04/19 History mg Fish Oil] Metoprolol Succinate (ER) [Toprol 25 mg PO QAM 04/29/17 02/04/19 History XL] Montelukast Sodium [Singulair] 10 mg PO QAM 04/29/17 02/04/19 History Niacin 500 mg PO DAILY 04/29/17 02/04/19 History Pantoprazole Sodium 40 mg PO QAM 04/29/17 02/04/19 History Thiamine [Vitamin B-1] 50 mg PO DAILY 04/29/17 02/04/19 History Albuterol Sulfate [Proair Hfa] 2 puff INHALATION RT-Q6H PRN 01/14/19 02/04/19 History Budesonide/Formoterol Fumarate 2 puff INHALATION RT-BID 01/14/19 02/04/19 History [Symbicort 160-4.5 Mcg Inhaler] Tiotropium 18 Mcg/Puff [Spiriva] 1 puff INHALATION RT-DAILY 01/14/19 02/04/19 History Fenofibrate 160 mg PO DAILY@1700 01/19/19 02/04/19 History Acetaminophen Tab [Tylenol] 650 mg PO Q4HR PRN tab 01/26/19 02/04/19 Rx Donepezil [Aricept] 5 mg PO HS #30 tab 01/26/19 02/04/19 Rx Meloxicam [Mobic] 7.5 mg PO DAILY tab 01/26/19 02/04/19 Rx Aspirin 325 mg PO BID #60 tab 01/27/19 02/04/19 Rx Cephalexin [Keflex] 500 mg PO QID@,,,21 02/04/19 02/04/19 History Sennosides-Docusate Sodium 2 tab PO HS 02/04/19 02/04/19 History [Senokot-S] Allergies Allergy/AdvReac Type Severity Reaction Status Date / Time No Known Allergies Allergy Verified 02/04/19 08:25 Physical Exam Vitals: Vital Signs Temp Pulse Pulse Resp BP BP Pulse Ox 02/04/19 07:10 97.7 F 73 143/86 99 02/04/19 05:43 87 18 138/87 99 02/04/19 02:30 98.2 F 78 18 147/93 97 Intake and Output 02/03/19 02/04/19 02/04/19 22:59 06:59 14:59 Other: Weight 102.512 kg General Appearance: Alert, cooperative, no distress, appears stated age. Neck HEENT: Supple, no lymphadenopathy, no thyroid enlargement, no carotid bruits. Lungs: Clear to auscultation without crackles or wheezes no rhonchi, no deformity. Heart: Regular rate and rhythm, S1, S2 normal, no murmur, rub or gallop. Back: Symmetric, no curvature, ROM normal, no CVA tenderness. Abdomen: Soft, non-tender, no rebound or rigidity, no hepatosplenomegaly. Extremities: Dressing is in place to the left knee which was not removed. Knee immobilizer in place.. Pulses: 2+ and symmetric. Skin: Skin color, texture, tugor normal, no rashes or lesions. Neurologic: Alert oriented x1-2 cranial nerves II through XII intact, no motor deficit Results CBC & Chem 7: 02/04/19 04:00 02/04/19 04:00 Labs: Abnormal Lab Results - Last 24 Hours (Table) 02/04/19 02/04/19 02/04/19 Range/Units 04:00 04:00 04:00 RBC 3.58 L (4.30-5.90) m/uL Hgb 11.0 L (13.0-17.5) gm/dL Hct 33.3 L (39.0-53.0) % PT 12.3 H (9.0-12.0) sec INR 1.2 H (<1.2) Sodium 134 L (137-145) mmol/L Carbon Dioxide 20 L (22-30) mmol/L Glucose 113 H (74-99) mg/dL Assessment and Plan Plan: 1. Fall with wound dehiscence. Orthopedics is planning for I&D today. 2. Osteoarthritis S/P total knee arthroplasty initially completed on January 19. Consult PT OT. 3. Confusion most likely secondary to Wernicke encephalopathy secondary to long-term alcohol abuse. Patient was seen by psychiatry and neurology on last admission. Continue vitamin B12 daily, phenobarbital 32.4 mg 3 times daily, thiamine daily. Continue Aricept 5 mg at bedtime. 4. COPD. Symbicort 2 puffs twice a day 5. GERD. Protonix 40 mg by mouth before breakfast 6. Hyperlipidemia. Fenofibrate 160 mg daily, niacin 500 mg daily 7. Hypertension. Lisinopril 20 mg by mouth daily, metoprolol 25 mg by mouth daily 8. Recurrent depression. Continue Celexa 20 mg by mouth 11. DVT prophylaxis. Aspirin 325 mg twice daily. 12. GI prophylaxis. See above Discharge plan: [facility]. Medication reconciliation completed. Impression and plan of care have been directed as dictated by the signing physician. Destini Barrett nurse practitioner acting as scribe for signing physician.
[2019-02-04] MEDS ORDERED: LORazepam 2 MG/ML INJ IV PRN (16:45)
[2019-02-04] MEDS: IPRATROPIUM 0.5 MG/2.5 ML NEBU INHALATION SCH ×2 (16:54→18:41)
[2019-02-04] MEDS: LORazepam 1 MG TAB PO PRN ×2 (17:43→22:38)
[2019-02-04 19:44] VITALS: RESP 16
[2019-02-04] MEDS ORDERED: DONEPEZIL 5 MG TAB PO SCH (21:00)
[2019-02-04] MEDS ORDERED: SENNOSIDES-DOCUSATE SODIUM 1 EACH TAB PO SCH (21:00)
[2019-02-04] MEDS: ASPIRIN 325 MG TAB PO SCH (22:38)
[2019-02-05] MEDS: LORazepam 1 MG TAB PO PRN (03:20)
[2019-02-05] MEDS: SODIUM CHLORIDE 0.9% 1,000 ML IV SCH ×2 (05:59)
[2019-02-05] MEDS: SYMBICORT 160-4.5 MCG INHALER INHALATION SCH (07:38)
[2019-02-05 07:39] LABS: Basophils # (A) 0.1 k/uL (0-0.2); Basophils % (A) 1 %; Eosinophils # (A) 0.2 k/uL (0-0.7); Eosinophils % (A) 2 %; HCT 30.5 % (39.0-53.0); HGB 9.9 gm/dL (13.0-17.5); Hypochromasia Slight; Lymphocytes # (A) 1.3 k/uL (1.0-4.8); Lymphocytes % (A) 14 %; MCH 30.2 pg (25.0-35.0); MCHC 32.5 g/dL (31.0-37.0); MCV 93.2 fL (80.0-100.0); Mean Platelet Volume 6.9; Monocytes # (A) 0.9 k/uL (0-1.0); Monocytes % (A) 9 %; Neutrophils # (A) 6.7 k/uL (1.3-7.7); Neutrophils % (A) 72 %; Platelet Count 407 k/uL (150-450); RBC 3.27 m/uL (4.30-5.90); RDW 12.4 % (11.5-15.5); WBC 9.3 k/uL (3.8-10.6)
[2019-02-05] MEDS: ASPIRIN 325 MG TAB PO SCH (07:52)
[2019-02-05] MEDS: THIAMINE 100 MG TAB PO SCH (07:52)
[2019-02-05] MEDS: PANTOPRAZOLE 40 MG TABLET PO SCH (07:52)
[2019-02-05] MEDS: MONTELUKAST 10 MG TAB PO SCH (07:52)
[2019-02-05] MEDS: LISINOPRIL 10 MG TAB PO SCH (07:52)
[2019-02-05] MEDS: PHENobarbital 32.4 MG TAB PO SCH (07:53)
[2019-02-05] MEDS: CYANOCOBALAMIN 500 MCG TAB PO SCH (07:53)
[2019-02-05] MEDS: METOPROLOL SUCCINATE (ER) 25 MG TAB.ER.24H PO SCH (07:53)
[2019-02-05] MEDS: FENOFIBRATE 160 MG TAB PO SCH (07:54)
[2019-02-05] MEDS: CITALOPRAM HYDROBROMIDE 20 MG TAB PO SCH (07:54)
--- NOTE | 2019-02-05 08:13 | P.PN ---
Subjective Progress Note Date: 02/05/19 This is a 68 year-old male who is status post irrigation and primary closure left total knee. This is postoperative day #1. Patient is seen and evaluated at bedside. Patient does seem confused today, but is not agitated. Per nursing staff the patient was very agitated after surgery yesterday. Patient denies any pain or new complaints today. Patient denies any fever/chills, numbness, weakness, tingling, abdominal pain, shortness of breath or chest pain. Objective - Vital Signs Vital signs: Vital Signs Temp 98.9 F 02/05/19 01:00 Pulse 91 02/05/19 01:00 Resp 16 02/05/19 01:00 BP 143/89 02/05/19 01:00 Pulse Ox 96 02/05/19 01:00 Intake & Output 02/04/19 02/05/19 02/05/19 18:59 06:59 18:59 Intake Total 800 Output Total 25 800 Balance 775 -800 Intake: IV 700 Oral 100 Output: Urine 800 Estimated Blood Loss 25 Other: # Voids 1 - Exam Vital signs are stable. Patient is in no acute distress and is alert. Patient does seem confused. Calf is soft and nontender to palpation. Dressing is clean, dry, and intact. Dressing is removed and the incision is clean, dry and intact. There is no active drainage. Patient has full foot and ankle motion without pain or difficulty. Neurovascular status and circulatory status are intact. - Labs CBC & Chem 7: 02/05/19 06:44 02/04/19 04:00 Labs: Abnormal Lab Results - Last 24 Hours (Table) 02/05/19 Range/Units 06:44 RBC 3.27 L (4.30-5.90) m/uL Hgb 9.9 L (13.0-17.5) gm/dL Hct 30.5 L (39.0-53.0) % Microbiology - Last 24 Hours (Table) 02/04/19 13:30 Gram Stain - Preliminary Knee - Left Wound Culture - Preliminary 02/04/19 13:30 Gram Stain - Preliminary Knee - Left Wound Culture - Preliminary 02/04/19 13:30 Anaerobic Culture - Preliminary Knee - Left 02/04/19 13:30 Anaerobic Culture - Preliminary Knee - Left Assessment and Plan Assessment: Status post irrigation and primary wound closure left knee. (1) Dehiscence of incision Current Visit: Yes Status: Acute Code(s): T81.31XA - DISRUPTION OF EXTERNAL OPERATION (SURGICAL) WOUND, NEC, INIT SNOMED Code(s): 72293131 (2) S/P total knee arthroplasty Current Visit: No Status: Acute Priority: Medium Code(s): Z96.659 - PRESENCE OF UNSPECIFIED ARTIFICIAL KNEE JOINT SNOMED Code(s): 7422152511666 Plan: 1. Weightbearing as tolerated with knee immobilizer and walker. Maintain knee immobilizer at all times. 2. Continue routine postoperative care and pain control. 3. Continue IV antibiotics. 4. Daily dressing changes. Keep dressing clean and dry. 5. Appreciate input from medicine. 6. Anticipate discharge back to [facility] today or tomorrow.
[2019-02-05 08:36] VITALS: BP 144/82; PULSE 76; TEMP 98.8
--- NOTE | 2019-02-05 09:25 | P.DS ---
Providers Date of admission: 02/04/19 04:15 Expected date of discharge: 02/05/19 Attending physician: Faheem Frye Consults: 02/04/19 08:34 Consult Physician Routine Consulting Provider: Richard De Los Santos Reason/Comments: medical management Do you want consulting provider notified?: Yes Primary care physician: Shabana Jagdeep - Discharge Diagnosis(es) (1) Dehiscence of incision Current Visit: Yes Status: Acute (2) S/P total knee arthroplasty Current Visit: No Status: Acute Priority: Medium Hospital Course: This is a 68-year-old male who was admitted on 02/04/2019 for dehiscence of left knee incision after a fall. The patient presented for evaluation in the emergency room. After discussion and consideration patient elects to proceed with irrigation and primary wound closure of the left knee. The patient is seen preoperatively by Dr. Frye and cleared for surgery. Patient has a history of left total knee arthroplasty done on 01/19/2019. Patient had a previous fall and underwent irrigation and primary wound closure of the left knee on 01/22/2019. Patient has been at [facility] for rehabilitation and was doing well until this most recent injury. Patient is status post irrigation and primary wound closure of the left knee on 02/04/2019. The procedures performed without complication or sequelae. The patient is doing well postoperatively. Labs and vital signs are stable on day of discharge. On day of discharge patient's knee incision is healing well. There is minimal erythema. There is minimal drainage noted at this time. There is minimal soft tissue swelling to the left lower extremity. Patient has full foot and ankle motion without difficulty or pain. Neurovascular status to the left lower extremity is intact. Patient is discharged to rehab in good condition. Please see med rec for accurate list of home medications. Patient Condition at Discharge: Fair Plan - Discharge Summary Discharge Rx Participant: No New Discharge Prescriptions: New Aspirin 325 mg PO BID #28 tab LORazepam [Ativan] 1 mg PO Q4HR PRN #12 tab PRN Reason: Anxiety PHENobarbital [Luminal] 32.4 mg PO TID #9 tab Continue Lisinopril [Zestril] 20 mg PO QAM Montelukast Sodium [Singulair] 10 mg PO QAM Metoprolol Succinate (ER) [Toprol XL] 25 mg PO QAM Thiamine [Vitamin B-1] 50 mg PO DAILY Niacin 500 mg PO DAILY Citalopram Hydrobromide [Citalopram HBr] 20 mg PO QAM Pantoprazole Sodium 40 mg PO QAM Fish Oil/Dha/Epa [Fish Oil 1,200 mg Fish Oil] 1 cap PO DAILY Cyanocobalamin (Vitamin B-12) [Vitamin B-12] 2,000 mcg PO DAILY@1700 Tiotropium 18 Mcg/Puff [Spiriva] 1 puff INHALATION RT-DAILY Albuterol Sulfate [Proair Hfa] 2 puff INHALATION RT-Q6H PRN PRN Reason: Shortness Of Breath Budesonide/Formoterol Fumarate [Symbicort 160-4.5 Mcg Inhaler] 2 puff INHALATION RT-BID Fenofibrate 160 mg PO DAILY@1700 Donepezil [Aricept] 5 mg PO HS #30 tab Meloxicam [Mobic] 7.5 mg PO DAILY tab Acetaminophen Tab [Tylenol] 650 mg PO Q4HR PRN tab PRN Reason: Fever And/ Or Pain Aspirin 325 mg PO BID #60 tab Cephalexin [Keflex] 500 mg PO QID@,,, Sennosides-Docusate Sodium [Senokot-S] 2 tab PO HS Discharge Medication List Lisinopril [Zestril] 20 mg PO QAM 01/13/14 [History] Citalopram Hydrobromide [Citalopram HBr] 20 mg PO QAM 04/29/17 [History] Cyanocobalamin (Vitamin B-12) [Vitamin B-12] 2,000 mcg PO DAILY@1700 04/29/17 [History] Fish Oil/Dha/Epa [Fish Oil 1,200 mg Fish Oil] 1 cap PO DAILY 04/29/17 [History] Metoprolol Succinate (ER) [Toprol XL] 25 mg PO QAM 04/29/17 [History] Montelukast Sodium [Singulair] 10 mg PO QAM 04/29/17 [History] Niacin 500 mg PO DAILY 04/29/17 [History] Pantoprazole Sodium 40 mg PO QAM 04/29/17 [History] Thiamine [Vitamin B-1] 50 mg PO DAILY 04/29/17 [History] Albuterol Sulfate [Proair Hfa] 2 puff INHALATION RT-Q6H PRN 01/14/19 [History] Budesonide/Formoterol Fumarate [Symbicort 160-4.5 Mcg Inhaler] 2 puff INHALATION RT-BID 01/14/19 [History] Tiotropium 18 Mcg/Puff [Spiriva] 1 puff INHALATION RT-DAILY 01/14/19 [History] Fenofibrate 160 mg PO DAILY@1700 01/19/19 [History] Acetaminophen Tab [Tylenol] 650 mg PO Q4HR PRN tab 01/26/19 [Rx] Donepezil [Aricept] 5 mg PO HS #30 tab 01/26/19 [Rx] Meloxicam [Mobic] 7.5 mg PO DAILY tab 01/26/19 [Rx] Aspirin 325 mg PO BID #60 tab 01/27/19 [Rx] Cephalexin [Keflex] 500 mg PO QID@08,12,17,21 02/04/19 [History] Sennosides-Docusate Sodium [Senokot-S] 2 tab PO HS 02/04/19 [History] Aspirin 325 mg PO BID #28 tab 02/05/19 [Rx] LORazepam [Ativan] 1 mg PO Q4HR PRN #12 tab 02/05/19 [Rx] PHENobarbital [Luminal] 32.4 mg PO TID #9 tab 02/05/19 [Rx] Follow up Appointment(s)/Referral(s): Shabana Gannon MD [Primary Care Provider] - 1-2 days Faheem Frye DO [Doctor of Osteopathic Medicine] - 10 Days Activity/Diet/Wound Care/Special Instructions: Maintain knee immobilizer at all times. Weightbearing as tolerated with knee immobilizer, walker and supervision. Continue Keflex as prescribed, 500mg by mouth four times daily for 3 weeks. Abhijeet to be removed in 14 days. Aspirin twice a day for 2 more weeks. Please follow up with [facility] in 10 days and call with any questions or concerns, . Discharge Disposition: TRANSFER TO SNF/ECF
--- NOTE | 2019-02-05 11:29 | P.PN ---
Subjective Progress Note Date: 02/05/19 This is a 68-year-old male patient of Dr. Gannon with past medical history of COPD, GERD, hyperlipidemia, hypertension, osteoarthritis, depression. He is a former smoker who quit in a 2000 and drinks approximately 4 beers a day but none recently due to recent surgery and ECF. He is status post left knee arthroplasty on 01/19/2018. Patient presented to the emergency room after sustaining a fall in the shower which was caused by loss of balance on January 22 requiring rehospitalization. He underwent irrigation and closure of wound dehiscence. Patient had significant mental status changes was combative and confused and was placed on alcohol withdrawal therapy. He was seen in consultation by Dr. Mcgraw and was given 1 dose of Haldol and continued on phenobarbital protocol. Eventually his confusion did improve and he appears to have a baseline confusion possibly related to warrant kidneys encephalopathy. Patient was discharge to [facility] for subacute rehab. Apparently, patient had a fall at the [place] [facility] causing a second wound dehiscence of his left knee surgery site. He has been admitted under the care of Dr. Frye with plan for I&D today. 02/05: Objective - Vital Signs Vital signs: Vital Signs Temp 98.8 F 02/05/19 06:56 Pulse 76 02/05/19 08:00 Resp 16 02/05/19 08:00 BP 144/82 02/05/19 06:56 Pulse Ox 94 L 02/05/19 06:56 Intake & Output 02/04/19 02/05/19 02/05/19 18:59 06:59 18:59 Intake Total 800 Output Total 25 800 Balance 775 -800 Intake: IV 700 Oral 100 Output: Urine 800 Estimated Blood Loss 25 Other: # Voids 1 - Exam Review Of Systems: Constitutional: No fever, no chills, no night sweats. No weight change. No weakness, fatigue or lethargy. No daytime sleepiness. EENT: No headache. No blurred vision or double vision, no loss of vision. No loss of Hearing, no ringing in the ears, no dizziness. No nasal drainage or congestion. No epistaxis. No sore throat. Lungs: No shortness of breath, cough, no sputum production. No wheezing. Cardiovascular: No chest pain, no lower extremity edema. No palpitations. No paroxysmal nocturnal dyspnea. No orthopnea. No lightheadedness or dizziness. No syncopal episodes. Abdominal: No abdominal pain. No nausea, vomiting. No diarrhea. No constipation. No bloody or tarry stools.. No loss of appetite. Genitourinary: No dysuria, increased frequency, urgency. No urinary retention. Musculoskeletal: No myalgias. No muscle weakness, no gait dysfunction, no frequent falls. No back pain. No neck pain. Left knee discomfort. Integumentary: No wounds, no lesions. No rash or pruritus. No unusual bruising. No change in hair or nails. Neurologic: No aphasia. No facial droop. No change in mentation. No head injury. No headache. No paralysis. No paresthesia. Psychiatric: No depression. No anxiety. No mood swings. Endocrine: No abnormal blood sugars. No weight change. No excessive sweating or thirst. No cold intolerance. General Appearance: Alert, cooperative, no distress, appears stated age. Neck HEENT: Supple, no lymphadenopathy, no thyroid enlargement, no carotid bruits. Lungs: Clear to auscultation without crackles or wheezes no rhonchi, no deformity. Heart: Regular rate and rhythm, S1, S2 normal, no murmur, rub or gallop. Back: Symmetric, no curvature, ROM normal, no CVA tenderness. Abdomen: Soft, non-tender, no rebound or rigidity, no hepatosplenomegaly. Extremities: Dressing is in place to the left knee which was not removed. Knee immobilizer in place.. Pulses: 2+ and symmetric. Skin: Skin color, texture, tugor normal, no rashes or lesions. Neurologic: Alert oriented x 2, cranial nerves II through XII intact, no motor deficit - Labs CBC & Chem 7: 02/05/19 06:44 02/04/19 04:00 Labs: Abnormal Lab Results - Last 24 Hours (Table) 02/05/19 Range/Units 06:44 RBC 3.27 L (4.30-5.90) m/uL Hgb 9.9 L (13.0-17.5) gm/dL Hct 30.5 L (39.0-53.0) % Microbiology - Last 24 Hours (Table) 02/04/19 13:30 Gram Stain - Preliminary Knee - Left Wound Culture - Preliminary 02/04/19 13:30 Gram Stain - Preliminary Knee - Left Wound Culture - Preliminary 02/04/19 13:30 Anaerobic Culture - Preliminary Knee - Left 02/04/19 13:30 Anaerobic Culture - Preliminary Knee - Left Assessment and Plan Plan: 1. Fall with wound dehiscence. Orthopedics has performed irrigation and primary closure of the left total knee wound. 2. Osteoarthritis S/P total knee arthroplasty initially completed on January 19. Consult PT OT. 3. Confusion most likely secondary to Wernicke encephalopathy secondary to long-term alcohol abuse. Patient was seen by psychiatry and neurology on last admission. Continue vitamin B12 daily, phenobarbital 32.4 mg 3 times daily, thiamine daily. Continue Aricept 5 mg at bedtime. 4. COPD. Symbicort 2 puffs twice a day 5. GERD. Protonix 40 mg by mouth before breakfast 6. Hyperlipidemia. Fenofibrate 160 mg daily, niacin 500 mg daily 7. Hypertension. Lisinopril 20 mg by mouth daily, metoprolol 25 mg by mouth daily 8. Recurrent depression. Continue Celexa 20 mg by mouth 11. DVT prophylaxis. Aspirin 325 mg twice daily. 12. GI prophylaxis. See above Discharge plan: [facility]. Medication reconciliation completed and patient cleared for discharge back to [facility]. Impression and plan of care have been directed as dictated by the signing physician. Destini Barrett nurse practitioner acting as scribe for signing physician.
== END 2019-02-05 11:55 | DRG 908 ==
LOC: EC 02:26 → OBSVTOIN 04:15 → INTOOBSV 04:15 → 4SSUR 04:15 → UNDODISOB 02-05 11:55 → UNDODISIN 02-05 11:55
PROVIDERS: ADMIT Orthopaedic Surgery; ATTEND Orthopaedic Surgery
PROC: 0HDLXZZ Extraction of Left Lower Leg Skin, External Approach (ICD-10-PCS; 2019-02-04)
PROC: 0JQP3ZZ Repair Left Lower Leg Subcutaneous Tissue and Fascia, Percutaneous Approach (ICD-10-PCS; 2019-02-04)
PROC: 0LDR0ZZ Extraction of Left Knee Tendon, Open Approach (ICD-10-PCS; principal; 2019-02-04 11:40)
DX: T81.32XA Disruption of internal operation (surgical) wound, not elsewhere classified, initial encounter (principal); F33.9 Major depressive disorder, recurrent, unspecified; E51.2 Wernicke's encephalopathy; J44.9 Chronic obstructive pulmonary disease, unspecified; E78.5 Hyperlipidemia, unspecified; F40.240 Claustrophobia; I10 Essential (primary) hypertension; K21.9 Gastro-esophageal reflux disease without esophagitis; Z79.51 Long term (current) use of inhaled steroids; Z79.1 Long term (current) use of non-steroidal anti-inflammatories (NSAID); Z79.82 Long term (current) use of aspirin; Z79.899 Other long term (current) drug therapy; Z87.891 Personal history of nicotine dependence; Z96.652 Presence of left artificial knee joint; K64.9 Unspecified hemorrhoids; M19.90 Unspecified osteoarthritis, unspecified site; R45.1 Restlessness and agitation; W19.XXXA Unspecified fall, initial encounter; Y92.129 Unspecified place in nursing home as the place of occurrence of the external cause
CPT/HCPCS: 36415; 80048; 85025; 85610; 87070; 87075; 87205; 94640; 96361; 96365; 96366; 96375; 96376; 99284; 99285

== ENCOUNTER 2019-03-25 13:00 | Emergency (ER) | payer MEDICARE ==
[2019-03-25 13:24] VITALS: RESP 18
[2019-03-25] MEDS ORDERED: LIDOCAINE 1% INJ 10MG/ML (20 ML MDV) SQ ONE (14:08)
--- NOTE | 2019-03-25 15:25 | XR ---
EXAMINATION TYPE: XR knee complete LT DATE OF EXAM: 03/25/2019 CLINICAL HISTORY: Fall with subsequent left knee pain TECHNIQUE: Three views of the left knee are obtained. COMPARISON: 02/04/2019 FINDINGS: There is no acute fracture/dislocation evident in the left knee arthroplasty nor [place]. The tri-compartment joint spaces appear within normal limits. The patellar joint effusion is see n. The medial superior anterior left knee calcifications are present. No hardware fracture nor malali gnment. IMPRESSION: There is no acute fracture or dislocation in the left knee [place] bone or arthroplasty. New calcifications appear linear and the medial suprapatellar region and could relate to myositis oss ificans or sequela of vastus medialis calcific tendinosis. However there appears to be a suprapatella r joint effusion deep to this and MRI could further evaluate both findings.
[2019-03-25] MEDS ORDERED: DIPH,PERTUS(ACELL)TETVAC-LF 0.5 ML VIAL IM ONE (16:18)
--- NOTE | 2019-03-25 16:27 | ED ---
Lower Extremity Injury HPI - General Chief Complaint: Extremity Injury, Lower Stated Complaint: Fall, knee injury/laceration Time Seen by Provider: 03/25/19 13:27 Source: patient Mode of arrival: wheelchair Limitations: no limitations - History of Present Illness Initial Comments: Patient is a 68-year-old male who presents emergency Department with complaints of falling onto his left knee 2 hours ago. Patient states he was trying to go up 2 steps onto his porch and did not lift his left leg far enough and tripped and fell straight down onto his left knee. Patient is s/p 2 months from left TKA. Patient has large laceration to the anterior aspect of the left knee. Patient states his last tetanus vaccine was over 11 years ago. Patient states he is able to walk on his left knee and his bending within normal limits. Patient denies hitting his head or any other injuries at this time. Patient denies being on a blood thinner. Bleeding is controlled at this time. No other complaints at this time. - Related Data Home Medications Medication Instructions Recorded Confirmed Lisinopril [Zestril] 20 mg PO QAM 01/13/14 02/04/19 Citalopram Hydrobromide 20 mg PO QAM 04/29/17 02/04/19 [Citalopram HBr] Cyanocobalamin (Vitamin B-12) 2,000 mcg PO DAILY@1700 04/29/17 02/04/19 [Vitamin B-12] Fish Oil/Dha/Epa [Fish Oil 1,200 1 cap PO DAILY 04/29/17 02/04/19 mg Fish Oil] Metoprolol Succinate (ER) [Toprol 25 mg PO QAM 04/29/17 02/04/19 XL] Montelukast Sodium [Singulair] 10 mg PO QAM 04/29/17 02/04/19 Niacin 500 mg PO DAILY 04/29/17 02/04/19 Pantoprazole Sodium 40 mg PO QAM 04/29/17 02/04/19 Thiamine [Vitamin B-1] 50 mg PO DAILY 04/29/17 02/04/19 Albuterol Sulfate [Proair Hfa] 2 puff INHALATION RT-Q6H PRN 01/14/19 02/04/19 Budesonide/Formoterol Fumarate 2 puff INHALATION RT-BID 01/14/19 02/04/19 [Symbicort 160-4.5 Mcg Inhaler] Tiotropium 18 Mcg/Puff [Spiriva] 1 puff INHALATION RT-DAILY 01/14/19 02/04/19 Fenofibrate 160 mg PO DAILY@1700 01/19/19 02/04/19 Cephalexin [Keflex] 500 mg PO QID@08,12,17,21 02/04/19 02/04/19 Sennosides-Docusate Sodium 2 tab PO HS 02/04/19 02/04/19 [Senokot-S] Previous Rx's Medication Instructions Recorded Acetaminophen Tab [Tylenol] 650 mg PO Q4HR PRN tab 01/26/19 Donepezil [Aricept] 5 mg PO HS #30 tab 01/26/19 Meloxicam [Mobic] 7.5 mg PO DAILY tab 01/26/19 Aspirin 325 mg PO BID #60 tab 01/27/19 Aspirin 325 mg PO BID #28 tab 02/05/19 LORazepam [Ativan] 1 mg PO Q4HR PRN #12 tab 02/05/19 PHENobarbital [Luminal] 32.4 mg PO TID #9 tab 02/05/19 Cephalexin [Keflex] 500 mg PO Q6HR 3 Days #12 cap 03/25/19 Allergies Allergy/AdvReac Type Severity Reaction Status Date / Time No Known Allergies Allergy Verified 03/25/19 13:21 Review of Systems ROS Statement: Those systems with pertinent positive or pertinent negative responses have been documented in the HPI. ROS Other: All systems not noted in ROS Statement are negative. Past Medical History Past Medical History: COPD, GERD/Reflux, Hyperlipidemia, Hypertension, Osteoarthritis (OA) Additional Past Medical History / Comment(s): Hypoglycemia, hemorrhoids History of Any Multi-Drug Resistant Organisms: None Reported Past Surgical History: Back Surgery, Joint Replacement Additional Past Surgical History / Comment(s): 01/20/19 total left knee arthroplasty, COLONOSCOPY Past Anesthesia/Blood Transfusion Reactions: No Reported Reaction Additional Past Anesthesia/Blood Transfusion Reaction / Comment(s): claustrophobic,no hx blood transfusion Past Psychological History: No Psychological Hx Reported, Depression Smoking Status: Former smoker Past Alcohol Use History: None Reported, Occasional Past Drug Use History: None Reported - Past Family History Mother Family Medical History: No Reported History Father Family Medical History: No Reported History General Exam - General Exam Comments Initial Comments: GENERAL: Well-appearing, well-nourished and in no acute distress. HEAD: Atraumatic, normocephalic. EYES: Pupils equal round and reactive to light, extraocular movements intact, sclera anicteric, conjunctiva are normal. ENT: TMs normal, nares patent, oropharynx clear without exudates. Moist mucous membranes. NECK: Normal range of motion, supple without lymphadenopathy or JVD. LUNGS: Breath sounds clear to auscultation bilaterally and equal. No wheezes rales or rhonchi. HEART: Regular rate and rhythm without murmurs, rubs or gallops. ABDOMEN: Soft, nontender, normoactive bowel sounds. No guarding, no rebound. No masses appreciated. : Deferred EXTREMITIES: Healing scar on left knee secondary to TKA 2 months ago. Patient has full left knee extension and flexion 90-100 degrees. Neurovascular intact. NEUROLOGICAL: Cranial nerves II through XII grossly intact. Normal speech, normal gait. PSYCH: Normal mood, normal affect. SKIN: Warm, Dry, normal turgor. Patient has large laceration, 5cm irregular shaped, to anterior aspect of the left knee. Limitations: no limitations Course Vital Signs 03/25/19 03/25/19 13:21 16:32 Temperature 98.1 F 98.2 F Pulse Rate 80 91 Respiratory 18 18 Rate Blood Pressure 108/74 119/77 O2 Sat by Pulse 92 L Oximetry Procedures - Laceration Laceration #1 Consent Obtained: verbal consent Indication: laceration Site: lower extremity (Anterior left knee) Size (cm): 5 Description: linear, irregular Depth: simple, single layer Anesthetic Used: lidocaine 1% Anesthesia Technique: local infiltration Amount (mls): 2 Pre-repair: irrigated extensively Type of Sutures: nylon Size of Sutures: 4-0 Number of Sutures: 10 Technique: simple, interrupted Patient Tolerated Procedure: well Medical Decision Making - Medical Decision Making Patient is a 68-year-old male with complaints of a fall onto his left knee with large laceration 2 hours ago. Patient is 2 months s/p left TKA. On exam patient's range of motion is within his normal limits. Patient has large laceration, 5 cm, on the anterior aspect of his left knee. X-rays of the left knee show no acute fracture dislocation of the pala bone or arthroplasty. 10, 4-0 sutures were used to close this wound. Patient tolerated procedure well. Patient will follow up with his surgeon next week. Patient will be given prescription for antibiotics for infection prophylactic. Patient's tetanus vaccine is updated today. Patient will be discharged home. Return parameters were discussed with the patient and he verbalized understanding. Case discussed with Dr. Ann. Disposition Clinical Impression: Fall, Laceration of left knee, S/P total knee arthroplasty Disposition: HOME SELF-CARE Condition: Stable Instructions (If sedation given, give patient instructions): Care For Your Stitches (ED) Additional Instructions: Please return to the Emergency Department if symptoms worsen or any other concerns. Follow-up with surgeon as discussed next week. Watch for any signs of infection such as increase in redness, yellow drainage from the area, fever, chills. Prescriptions: Cephalexin [Keflex] 500 mg PO Q6HR 3 Days #12 cap Is patient prescribed a controlled substance at d/c from ED?: No Referrals: Shabana Gannon MD [Primary Care Provider] - 1-2 days
[2019-03-25 16:33] VITALS: BP 119/77; PULSE 91; TEMP 98.2
== END 2019-03-25 16:32 | disposition home or self-care (01) ==
LOC: EC 13:00
DX: S81.012A Laceration without foreign body, left knee, initial encounter (principal); Z23 Encounter for immunization; M25.862 Other specified joint disorders, left knee; I10 Essential (primary) hypertension; F32.9 Major depressive disorder, single episode, unspecified; J44.9 Chronic obstructive pulmonary disease, unspecified; K21.9 Gastro-esophageal reflux disease without esophagitis; Z79.51 Long term (current) use of inhaled steroids; Z79.899 Other long term (current) drug therapy; Z96.652 Presence of left artificial knee joint; W01.0XXA Fall on same level from slipping, tripping and stumbling without subsequent striking against object, initial encounter
CPT/HCPCS: 73562; 90715; 99283; 90471; 12002; J2001

== ENCOUNTER → 2019-05-18 | Outpatient (CLI) | payer MEDICARE ==
[2019-05-18 18:13] LABS: Appearance,BF Bloody; Color,BF Red; Nucleated Cells, Body Fluid 944 /uL; RBC, Body Fluid 11111 /uL
[2019-05-18 18:19] LABS: Mononuclear WBC,Body Fluid 21 %; Polynuclear WBC,Body Fluid 79 %; Total Cells Counted,Body Fluid 100
== END | disposition home or self-care (01) ==
LOC: LABWHC1 17:12
PROVIDERS: ATTEND Orthopaedic Surgery
DX: M25.562 Pain in left knee (principal); I10 Essential (primary) hypertension; E78.5 Hyperlipidemia, unspecified; S76.199 Other specified injury of unspecified quadriceps muscle, fascia and tendon; J44.9 Chronic obstructive pulmonary disease, unspecified; Z47.89 Encounter for other orthopedic aftercare; Z96.652 Presence of left artificial knee joint; Z87.891 Personal history of nicotine dependence
CPT/HCPCS: 87070; 87075; 87205; 89050; 89060

== ENCOUNTER → 2021-01-16 | Outpatient (CLI) | payer MEDICARE ==
--- NOTE | 2021-01-16 10:59 | XR ---
EXAMINATION TYPE: XR bone survey complete DATE OF EXAM: 01/16/2021 COMPARISON: None HISTORY: Monoclonal gammopathy TECHNIQUE: Multiple images were obtained over the axial and appendicular skeleton FINDINGS: Cervical spine: 2 views were obtained. Note is made of vascular calcification in the region of the le ft carotid bifurcation. Prevertebral space is normal. Disc heights are preserved. Vertebral body heig hts are preserved. Posterior spinal lamellar line is intact. No suspicious lytic lesions are evident. CHEST: Heart size is normal. Pulmonary vasculature is normal. Lungs are clear. Osseous structures wit hin the field of view appear unremarkable. Note is made of thoracic spondylosis. Humeri: No suspicious lytic or sclerotic lesions are evident. Joint spaces as visualized appear prese rved. Skull: 2 views. No suspicious lytic lesions are evident. Right frontal sinus is hypoplastic. Pelvis: Single AP view pelvis. Sacroiliac joints and symphysis pubis are normal. Femoral heads articu late with the acetabulum. Joint space narrowing is present. No suspicious lytic or sclerotic lesions are evident. Postsurgical changes are within the lower lumbar spine. Thoracic spine: There are 12 thoracic type vertebral bodies. Pedicles are intact. The body heights ar e preserved. Alignment is normal. Spondylosis is present within the mid thoracic spine. No suspicious lytic lesions. Lumbar spine: 2 views. There 5 lumbar-type vertebral bodies. L1 and L2 pedicles are intact. Some comp ression deformity of L1 is noted. This may be chronic. Pedicle screws are present L3-L5. Bilateral femurs: Femoral heads articulate with the acetabulum. No suspicious lytic or sclerotic lesi ons are evident. Left knee prosthesis is noted. Calcifications adjacent to the medial metaphyseal lef t femur. IMPRESSION: 1. No suspicious lytic lesions identified. 2. No suspicious acute osseous abnormality
== END | disposition home or self-care (01) ==
LOC: RADXRMAIN 10:09
PROVIDERS: ATTEND Internal Medicine Hematology & Oncology
DX: D47.2 Monoclonal gammopathy (principal)
CPT/HCPCS: 77075

== ENCOUNTER → 2021-12-27 | Outpatient (CLI) | payer MEDICARE ==
--- NOTE | 2021-12-27 13:37 | CT ---
EXAMINATION TYPE: CT chest w con DATE OF EXAM: 12/27/2021 COMPARISON: CT dated 08/16/2010 and x-ray dated 12/17/2021 HISTORY: prior abnormal exam CT DLP: 720 mGycm Automated exposure control for dose reduction was used. TECHNIQUE: CT scan of the chest is performed with IV Contrast, patient injected with 100 mL of Isovue 300. FINDINGS: LUNGS: Suspicious lesion with spiculated margin measuring 2.2 x 2.6 cm seen at the medial aspect of t he left upper lobe, not appreciated in 2010 CT scan. It is inseparable from the mediastinal pleura wi th possible invasion into the adjacent mediastinal fat. Large left-sided pleural effusion with a left lower lobe subsegmental pulmonary atelectasis demonstrating air bronchogram within. Severe COPD johnson ges and emphysematous changes mainly involving the upper lobes. 4 mm nodule in the left oblique fissu re, stable. Thick irregular scarring is seen in the left lung apex. No other definite suspicious lung lesion identified. MEDIASTINUM: Ascending aortic aneurysm measuring 4.5 cm. No gross cardiomegaly. Arterial and coronary atherosclerotic calcifications. No sizable pericardial effusion. No pathologically enlarged lymph no jack in the chest. OTHER: Unremarkable upper abdomen. Minimal upper endplate depression of T6 and T7 vertebral bodies w ith mild compression of L1, likely chronic. No gross aggressive bone lesion. Questionable chronic hea led fracture of the superior aspect of the body of the sternum. IMPRESSION: Left upper lung lobe suspicious lesion as described above, for further PET/CT scan assessment and [facility] surgery consultation. Other findings as described above.
== END | disposition home or self-care (01) ==
LOC: RADCTMAIN 10:32
PROVIDERS: ATTEND Internal Medicine Critical Care Medicine
DX: R91.8 Other nonspecific abnormal finding of lung field (principal)
CPT/HCPCS: 82565; 84520; 71260; 36415; Q9967

== ENCOUNTER → 2022-01-12 | Outpatient (CLI) | payer MEDICARE ==
--- NOTE | 2022-01-15 06:21 | PE ---
EXAMINATION TYPE: PET CT fusion skull to thigh DATE OF EXAM: 01/12/2022 COMPARISON: Prior chest CT December 27, 2021 and older CTs HISTORY: Solitary pulmonary nodule, abnormal CT. TECHNIQUE: Following the intravenous administration of 11.07 mCi of F-18 FDG, whole body images are performed from the skull base to the midthigh. Images are reviewed on the computer in the coronal, a xial, and sagittal planes. Reconstructed rotating images are created on independent workstation and reviewed on the computer. A localization and attenuation correction CT is performed in conjunction with the PET scan. Blood glucose level equals 106 SCAN: Initial Scan FINDINGS: SKULL BASE AND NECK: No areas of abnormal hypermetabolic uptake. CHEST, MEDIASTINUM, AND HILAR REGION: Background underlying emphysematous change is redemonstrated. P ersistent moderate to large size left pleural effusion extending to left lung apex slightly larger fr om recent CT. No abnormal hypermetabolic uptake in effusion. Suggestion of mildly hypermetabolic pleu ral based subcentimeter nodularity axial image 112, max SUV is 2.69 at this level Persistent suspicious anterior 2.8 x 2.0 cm spiculated nodule with abnormal hypermetabolic uptake axi al image 95, max SUV is 10.38. Cavitary 3.2 x 1.5 cm left apical lesion axial image 74, max SUV is 4. 38. Persistent abnormal mass or lymph node measuring approximately 1.5 x 1.4 cm in the inferior prevascul ar space axial image 98, max SUV is 6.08. ABDOMEN AND PELVIS: No adrenal masses. Normal excretion. No areas of abnormal hypermetabolic uptake. OSSEOUS STRUCTURES: No areas of abnormal hypermetabolic uptake. OTHER CT: Ascending aortic aneurysm up to 4.3 cm. Mild three-vessel coronary artery calcification. Postsurgical change to the lumbar spine is present. IMPRESSION: Confirmation of suspected left lung malignancy with thoracic adenopathy and possible left apical lung involvement along with moderate to large size associated left pleural effusion. No dista l metastatic disease is seen.
== END | disposition home or self-care (01) ==
LOC: RADPETMAIN 08:21
PROVIDERS: ATTEND Internal Medicine Critical Care Medicine
DX: R91.8 Other nonspecific abnormal finding of lung field (principal)
CPT/HCPCS: 78815; A9552

== ENCOUNTER 2022-01-21 10:49 | Day surgery (SDC) | payer MEDICARE ==
[~2022-01-21 10:49] MED LIST changes: -ACETAMINOPHEN TAB 500 MG TAB PO ONE; -DEXAMETHASONE SOD PHOSPHATE 10 MG/ML 1 ML VIAL IV ONE; -HYDROmorphone 0.5 MG/0.5 ML SYRINGE IVP PRN; -MELOXICAM 7.5 MG TAB PO ONE; -MIDAZOLAM (PF) 2 MG/2 ML VIAL IV PRN; -ONDANSETRON 4 MG/2 ML VIAL IVP ONE; -ROPIVACAINE 246.25 MG, EPINEPHrine 0.5 MG, KETOROLAC 30 MG, cloNIDine HCL/PF 80 MCG, WA... MISCELLANE ONE; +SODIUM CHLORIDE 0.9% 500 ML 500 ML in EMPTY BAG 1 BAG IV PRN; -TRANEXAMIC ACID 1,000 MG in SODIUM CHLORIDE 0.9% 100 ML IVPB ONE
[2022-01-21] MEDS ORDERED: ATROPINE SULFATE 0.4 MG/ML 1 ML VIAL IM STA (11:23)
[2022-01-21 11:27] VITALS: TEMP 97.8
[2022-01-21 12:21] VITALS: BP 118/77; PULSE 84; RESP 14
--- NOTE | 2022-01-21 12:52 | XR ---
EXAMINATION TYPE: XR chest 1V portable DATE OF EXAM: 01/21/2022 COMPARISON: Chest CT December 27, 2021. PET CT January 12, 2022 HISTORY: Left-sided thoracentesis. History of lung cancer. TECHNIQUE: Single AP portable frontal upright view of the chest is obtained. FINDINGS: No pneumothorax after left-sided thoracentesis. Background chronic emphysematous change wi th persistent left basilar opacity favoring pleural effusion and associated infiltrate and/or atelect asis. The cardiac silhouette size remains within normal limits. The osseous structures are deminera lized. IMPRESSION: As above.
--- NOTE | 2022-01-21 13:15 | PCN ---
PROCEDURE NOTE PULMONARY/CRITICAL CARE PROCEDURE NOTE: PROCEDURE: Left-sided thoracentesis. PREOP DIAGNOSIS: Left pleural effusion. Rule out cancer. POSTOP DIAGNOSIS: Left pleural effusion, rule out cancer. REGIONAL MANAGER: Dr. Burton. DESCRIPTION OF PROCEDURE: There was informed consent and universal timeout. The patient's procedure took place in [facility] third floor. The left posterior chest was marked. 700 mL of brownish fluid was removed from the left pleural space. The patient tolerated the procedure well. There was no immediate complication. The patient's fluid will be sent for chemistry, cytology, and microbiology. Again, there was no immediate complication. A chest x-ray was done after the procedure. If the chest x-ray is normal, the patient could be discharged home. MMODL / IJN: [id number] /
[2022-01-21] MEDS ORDERED: LIDOCAINE 1% INJ 10MG/ML (10 ML MDV) SQ ONE (13:31)
[2022-01-21 21:57] LABS: Appearance,BF Cloudy
[2022-01-21 22:54] LABS: Glucose, BF Source Pleural Fluid; Glucose, Body Fluid 91 mg/dL; LDH, Body Fluid Source Pleural Fluid; T. Protein, Body Fluid Source Pleural Fluid; Total Protein, Body Fluid 4470 mg/dL
== END 2022-01-22 13:18 ==
LOC: PROCWHC3 10:49
PROVIDERS: ATTEND Internal Medicine Critical Care Medicine
DX: J91.0 Malignant pleural effusion (principal); C80.1 Malignant (primary) neoplasm, unspecified; Z79.84 Long term (current) use of oral hypoglycemic drugs; Z79.82 Long term (current) use of aspirin; Z79.51 Long term (current) use of inhaled steroids; Z79.899 Other long term (current) drug therapy; K21.9 Gastro-esophageal reflux disease without esophagitis; M19.90 Unspecified osteoarthritis, unspecified site; H81.09 Meniere's disease, unspecified ear; F41.9 Anxiety disorder, unspecified; J44.9 Chronic obstructive pulmonary disease, unspecified; I10 Essential (primary) hypertension; E78.5 Hyperlipidemia, unspecified; Z87.891 Personal history of nicotine dependence; Z98.890 Other specified postprocedural states
CPT/HCPCS: 88108; 88305; 89050; 88342; 88341; 87070; 87205; 87075; 87116; 87206; 82945; 83615; 84157; 71045; 96372; 32554; J0461; J2001 ×2

== ENCOUNTER → 2022-01-21 | Outpatient (CLI) | payer MEDICARE ==
--- NOTE | 2022-01-21 11:08 | US ---
EXAMINATION TYPE: US chest DATE OF EXAM: 01/21/2022 COMPARISON: Chest CT December 27, 2021. PET/CT January 12, 2022 CLINICAL HISTORY: J90 Plureal Effusion. Left chest per order. Lung cancer. TECHNIQUE: Targeted ultrasound of the posterior lower left hemithorax EXAM MEASUREMENTS: Left Pleural Effusion pocket size: 11.3 cm and 6.5 cm to lung Left skin surface to fluid distance: 3.5 cm Left side marked for possible thoracentesis outside the dept. Pulmonologists are able to review the images in the patient?s EMR. Small to moderate-sized left pleural effusion correlates with most recent PET/CT. IMPRESSIONS: As above.
== END | disposition home or self-care (01) ==
LOC: RADUSWWP 10:31
PROVIDERS: ATTEND Internal Medicine Critical Care Medicine
DX: J90 Pleural effusion, not elsewhere classified (principal)
CPT/HCPCS: 76604

== ENCOUNTER 2022-01-31 11:22 | Day surgery (SDC) | payer MEDICARE ==
[2022-01-31] MEDS ORDERED: ATROPINE SULFATE 0.4 MG/ML 1 ML VIAL IM STA (11:40)
[2022-01-31 11:48] VITALS: RESP 18; TEMP 98.1
--- NOTE | 2022-01-31 12:59 | XR ---
EXAMINATION TYPE: XR chest 1V DATE OF EXAM: 01/31/2022 COMPARISON: 01/21/2022 HISTORY: 71-year-old male preprocedural imaging prior to thoracentesis TECHNIQUE: Single frontal view of the chest is obtained. FINDINGS: Left heart margin obscured by adjacent pleural parenchymal opacity. Moderate to large left pleural ef fusion increased from prior exam. Relative upper lung lucencies. Hyperinflation. Patchy lower lung op acities on both sides. IMPRESSION: Slight increased moderate to large left pleural effusion with adjacent atelectasis and/or consolidati on.
--- NOTE | 2022-01-31 13:36 | XR ---
EXAMINATION TYPE: XR chest 1V portable DATE OF EXAM: 01/31/2022 COMPARISON: 01/31/2022 HISTORY: Postthoracentesis TECHNIQUE: Single frontal view of the chest is obtained. FINDINGS: Interval resolution of left-sided pleural fluid with basilar consolidation. Nodular promin ence of the medial aspect of left upper lobe. This likely represents a suspicious mass seen by prior PET scan. Underlying COPD noted. Biapical pleural thickening. No pneumothorax. IMPRESSION: 1. No pneumothorax post procedure.
[2022-01-31 13:48] VITALS: BP 121/80; PULSE 89
--- NOTE | 2022-01-31 14:43 | PCN ---
PROCEDURE NOTE PROCEDURE: Left-sided thoracentesis. PREOPERATIVE DIAGNOSIS: Recurrent left pleural effusion. POSTOPERATIVE DIAGNOSIS: Recurrent malignant left pleural effusion. HAT BLOCK MAKER: Dr. Burton. PROCEDURE DESCRIPTION: There was informed consent and universal timeout. The patient's procedure took place in [address] procedure area. The patient was prepped in the usual fashion. The area was cleansed. The area had been previously marked by ultrasound. The ultrasound was reviewed by me. Skin was anesthetized. with 1% lidocaine. The fluid was located with the small needle. Next, the catheter device was used to attempt to extract the fluid. Unfortunately, only about 10 mL of yellow fluid was extracted. For some reason, I could not locate the pocket as was previously marked. This was not his first thoracentesis. The procedure was aborted when no fluid could be obtained. The patient tolerated the procedure well. Will ask Interventional Radiology to try to do the procedure with ultrasound guidance. MMODL / IJN: [id number] / MTDD
--- NOTE | 2022-01-31 15:53 | US ---
Ultrasound-guided therapeutic and diagnostic thoracentesis DATE OF EXAM: 01/31/2022 CLINICAL HISTORY: Left pleural effusion The procedure was discussed with the patient. The risks, complications, benefits, and alternatives we re discussed and any questions were answered. Informed consent was obtained. The patient was placed supine on the ultrasound table and prepped and draped in the usual sterile fas hion. All elements of maximal barrier and sterile technique were utilized. Under ultrasound guidance, access into the pleural space was obtained, via the thoracentesis catheter system and direct ultrasound guidance. Ap proximately 2.6 liters of straw-colored fluid was removed. The patient was stable throughout the procedure and remained stable upon discharge from Department of Radiology. IMPRESSION: 1. Successful therapeutic and diagnostic thoracentesis under ultrasound guidance.
== END 2022-02-01 07:22 | disposition home or self-care (01) ==
LOC: PROCWHC3 11:22
PROVIDERS: ATTEND Internal Medicine Critical Care Medicine
DX: J91.0 Malignant pleural effusion (principal)
CPT/HCPCS: 71045; 32555 ×2; 96372; 32554; J0461

== ENCOUNTER → 2022-02-07 | Outpatient (CLI) | payer MEDICARE ==
--- NOTE | 2022-02-08 04:26 | MR ---
EXAMINATION TYPE: MR brain wo/w con DATE OF EXAM: 02/07/2022 COMPARISON: None HISTORY: Headache, AMS, lung cancer CONTRAST: Standard multiplanar, multisequence MRI departmental protocol images were obtained without contrast a nd with 10 mL intravenous Gadavist gadolinium contrast. There is some cerebral cortical atrophy. There is no mass effect or midline shift. No evidence of int racranial hemorrhage. Diffusion images show no sign of an acute infarct. No evidence of any significa nt cerebral edema. There is minimal white matter increased signal on the T2 and FLAIR images in the c entrum semiovale bilaterally. The brainstem is intact. Corpus callosum is intact. There is mild thinn ing of the corpus callosum. Sella turcica appears normal. No evidence of orbital mass. Contrast images show no pathologic enhancement. There is normal enhancement of the venous sinuses. IMPRESSION: Cerebral atrophy. Age-related white matter signal changes. No evidence of an infarct. No evidence of metastatic disease.
== END | disposition home or self-care (01) ==
LOC: RADMRIMAIN 08:40
PROVIDERS: ATTEND Internal Medicine Hematology & Oncology
DX: G44.59 Other complicated headache syndrome (principal); R41.82 Altered mental status, unspecified
CPT/HCPCS: 70553; A9585

== ENCOUNTER 2022-02-19 13:42 | Inpatient (IN) | payer MEDICARE ==
--- NOTE | 2022-02-19 14:25 | ED ---
General Adult HPI - General Chief complaint: Shortness of Breath Stated complaint: MUKESH-Sent by PCP Time Seen by Provider: 02/19/22 14:00 Source: patient, RN notes reviewed, old records reviewed Mode of arrival: ambulatory Limitations: no limitations - History of Present Illness Initial comments: This is a 71-year-old male who presents emergency Department with a diagnosis of lung cancer. Patient has had pleural effusions and has had thoracentesis twice before. Patient become more short of breath over the last few days and his oncologist wants to come and be admitted and get a thoracentesis for a third time so that they can start treatment for the lung cancer. Patient states he has increased shortness of breath over the last couple days he denies any fever chills or cough per patient denies any chest pain or palpitations. Patient denies any abdominal pain patient denies nausea vomiting diarrhea. - Related Data Home Medications Medication Instructions Recorded Confirmed Citalopram Hydrobromide 20 mg PO DAILY 04/29/17 02/19/22 [Citalopram HBr] Cyanocobalamin (Vitamin B-12) 1,000 mcg PO MOTUWETHFR 04/29/17 02/19/22 [Vitamin B-12] Fish Oil/Dha/Epa [Fish Oil 1,200 1 cap PO DAILY 04/29/17 02/19/22 mg Fish Oil] Niacin 500 mg PO DAILY 04/29/17 02/19/22 Pantoprazole Sodium 40 mg PO DAILY 04/29/17 02/19/22 Thiamine [Vitamin B-1] 100 mg PO DAILY 04/29/17 02/19/22 Budesonide/Formoterol Fumarate 2 puff INHALATION RT-BID 01/14/19 02/19/22 [Symbicort 160-4.5 Mcg Inhaler] Tiotropium 18 Mcg/Puff [Spiriva] 1 puff INHALATION RT-DAILY 01/14/19 02/19/22 Fenofibrate 160 mg PO DAILY 01/19/19 02/19/22 Ezetimibe [Zetia] 10 mg PO DAILY 01/21/22 02/19/22 Pioglitazone [Actos] 30 mg PO DAILY 01/21/22 02/19/22 Docusate [Colace] 100 mg PO DAILY 02/19/22 02/19/22 Donepezil HCl [Aricept] 10 mg PO DAILY 02/19/22 02/19/22 LORazepam [Ativan] 1 mg PO DAILY PRN 02/19/22 02/19/22 Metoprolol Succinate (ER) [Toprol 25 mg PO DAILY 02/19/22 02/19/22 Xl] Montelukast Sodium [Singulair] 10 mg PO DAILY 02/19/22 02/19/22 Allergies Allergy/AdvReac Type Severity Reaction Status Date / Time No Known Allergies Allergy Verified 02/19/22 16:05 Review of Systems ROS Statement: Those systems with pertinent positive or pertinent negative responses have been documented in the HPI. ROS Other: All systems not noted in ROS Statement are negative. Past Medical History Past Medical History: Cancer, COPD, GERD/Reflux, Hyperlipidemia, Hypertension, Osteoarthritis (OA), Respiratory Disorder Additional Past Medical History / Comment(s): Hypoglycemia, hemorrhoids. LEFT PLEURAL EFFUSIONS. THORACENTESIS., left lung cancer diagnosed january 2022. Pt states he is not diabetic but takes actos. History of Any Multi-Drug Resistant Organisms: None Reported Past Surgical History: Back Surgery, Joint Replacement Additional Past Surgical History / Comment(s): 01/20/19 total left knee arthroplasty, COLONOSCOPY. LEFT THORACENTESIS. Past Anesthesia/Blood Transfusion Reactions: No Reported Reaction Additional Past Anesthesia/Blood Transfusion Reaction / Comment(s): claustrophobic,no hx blood transfusion Past Psychological History: No Psychological Hx Reported, Depression Smoking Status: Former smoker Past Alcohol Use History: None Reported, Occasional Past Drug Use History: None Reported - Past Family History Mother Family Medical History: No Reported History Father Family Medical History: No Reported History General Exam - General Exam Comments Initial Comments: GENERAL: Patient is well-developed and well-nourished. Patient is nontoxic and well- hydrated and is in no acute distress. ENT: Neck is soft and supple. No significant lymphadenopathy is noted. Oropharynx is clear. Moist mucous membranes. Neck has full range of motion without eliciting any pain. EYES: The sclera were anicteric and conjunctiva were pink and moist. Extraocular movements were intact and pupils were equal round and reactive to light. Eyelids were unremarkable. PULMONARY: Patient has significantly decreased breath sounds on the left. CARDIOVASCULAR: There is a regular rate and rhythm without any murmurs gallops or rubs. ABDOMEN: Soft and nontender with normal bowel sounds. SKIN: Skin is clear with no lesions or rashes and otherwise unremarkable. NEUROLOGIC: Patient is alert and oriented x3. Cranial nerves II through XII are grossly intact. Motor and sensory are also intact. Normal speech, volume and content. Symmetrical smile. MUSCULOSKELETAL: Normal extremities with adequate strength and full range of motion. LYMPHATICS: No significant lymphadenopathy is noted PSYCHIATRIC: Normal psychiatric evaluation. Limitations: no limitations Course Vital Signs 02/19/22 02/19/22 02/19/22 13:44 14:35 16:00 Temperature 97.4 F L Pulse Rate 90 74 Respiratory 20 18 Rate Blood Pressure 116/88 125/94 136/90 O2 Sat by Pulse 96 96 Oximetry Medical Decision Making - Medical Decision Making EKG shows sinus rhythm at 72 bpm ME interval is 205 QRSs 85 QT interval 365 QTC is 390. Patient's EKG shows no ST segment elevation or depression. Patient's chest x-ray shows a large pleural effusion on the right I spoke with Dr. De Los Santos he agreed to admit the patient admitted the patient I wrote admitting orders. - Lab Data Result diagrams: 02/19/22 14:31 02/19/22 14:31 Lab Results 02/19/22 02/19/22 02/19/22 Range/Units 14:31 14:31 14:31 WBC 11.2 H (3.8-10.6) k/uL RBC 5.33 (4.30-5.90) m/uL Hgb 15.4 (13.0-17.5) gm/dL Hct 46.5 (39.0-53.0) % MCV 87.3 (80.0-100.0) fL MCH 28.9 (25.0-35.0) pg MCHC 33.1 (31.0-37.0) g/dL RDW 13.4 (11.5-15.5) % Plt Count 344 (150-450) k/uL MPV 7.1 Neutrophils % 73 % Lymphocytes % 11 % Monocytes % 8 % Eosinophils % 5 % Basophils % 0 % Neutrophils # 8.2 H (1.3-7.7) k/uL Lymphocytes # 1.2 (1.0-4.8) k/uL Monocytes # 0.9 (0-1.0) k/uL Eosinophils # 0.6 (0-0.7) k/uL Basophils # 0.0 (0-0.2) k/uL PT (9.0-12.0) sec INR (<1.2) APTT (22.0-30.0) sec Sodium 133 L (137-145) mmol/L Potassium 4.6 (3.5-5.1) mmol/L Chloride 106 (98-107) mmol/L Carbon Dioxide 22 (22-30) mmol/L Anion Gap 5 mmol/L BUN 11 (9-20) mg/dL Creatinine 0.93 (0.66-1.25) mg/dL Est GFR (CKD-EPI)AfAm >90 (>60 ml/min/1.73 sqM) Est GFR (CKD-EPI)NonAf 81 (>60 ml/min/1.73 sqM) Glucose 95 (74-99) mg/dL Calcium 9.2 (8.4-10.2) mg/dL Total Bilirubin 0.4 (0.2-1.3) mg/dL AST 20 (17-59) U/L ALT 12 (4-49) U/L Alkaline Phosphatase 57 (38-126) U/L Troponin I <0.012 (0.000-0.034) ng/mL Total Protein 6.8 (6.3-8.2) g/dL Albumin 4.0 (3.5-5.0) g/dL 02/19/22 Range/Units 15:10 WBC (3.8-10.6) k/uL RBC (4.30-5.90) m/uL Hgb (13.0-17.5) gm/dL Hct (39.0-53.0) % MCV (80.0-100.0) fL MCH (25.0-35.0) pg MCHC (31.0-37.0) g/dL RDW (11.5-15.5) % Plt Count (150-450) k/uL MPV Neutrophils % % Lymphocytes % % Monocytes % % Eosinophils % % Basophils % % Neutrophils # (1.3-7.7) k/uL Lymphocytes # (1.0-4.8) k/uL Monocytes # (0-1.0) k/uL Eosinophils # (0-0.7) k/uL Basophils # (0-0.2) k/uL PT 10.8 (9.0-12.0) sec INR 1.0 (<1.2) APTT 21.6 L (22.0-30.0) sec Sodium (137-145) mmol/L Potassium (3.5-5.1) mmol/L Chloride (98-107) mmol/L Carbon Dioxide (22-30) mmol/L Anion Gap mmol/L BUN (9-20) mg/dL Creatinine (0.66-1.25) mg/dL Est GFR (CKD-EPI)AfAm (>60 ml/min/1.73 sqM) Est GFR (CKD-EPI)NonAf (>60 ml/min/1.73 sqM) Glucose (74-99) mg/dL Calcium (8.4-10.2) mg/dL Total Bilirubin (0.2-1.3) mg/dL AST (17-59) U/L ALT (4-49) U/L Alkaline Phosphatase (38-126) U/L Troponin I (0.000-0.034) ng/mL Total Protein (6.3-8.2) g/dL Albumin (3.5-5.0) g/dL Disposition Clinical Impression: Pleural effusion, Lung cancer Disposition: ADMITTED IP TO THIS HOSP Referrals: Shabana Gannon MD [Primary Care Provider] - 1-2 days Time of Disposition: 16:05
[2022-02-19 14:57] LABS: Basophils % (A) 0 %; Eosinophils # (A) 0.6 k/uL (0-0.7); Eosinophils % (A) 5 %; HCT 46.5 % (39.0-53.0); HGB 15.4 gm/dL (13.0-17.5); Lymphocytes # (A) 1.2 k/uL (1.0-4.8); Lymphocytes % (A) 11 %; MCH 28.9 pg (25.0-35.0); MCHC 33.1 g/dL (31.0-37.0); MCV 87.3 fL (80.0-100.0); Mean Platelet Volume 7.1; Monocytes # (A) 0.9 k/uL (0-1.0); Monocytes % (A) 8 %; Neutrophils # (A) 8.2 k/uL (1.3-7.7); Neutrophils % (A) 73 %; Platelet Count 344 k/uL (150-450); RBC 5.33 m/uL (4.30-5.90); RDW 13.4 % (11.5-15.5); WBC 11.2 k/uL (3.8-10.6)
[2022-02-19 15:02] LABS: ALT 12 U/L (4-49); AST 20 U/L (17-59); African American GFR (CKD) >90 (>60 ml/min/1.73 sqM); Alkaline Phosphatase 57 U/L (38-126); Anion Gap 5 mmol/L; Blood Urea Nitrogen 11 mg/dL (9-20); Calcium 9.2 mg/dL (8.4-10.2); Carbon Dioxide 22 mmol/L (22-30); Chloride 106 mmol/L (98-107); Glucose 95 mg/dL (74-99); Non-African American GFR(CKD) 81 (>60 ml/min/1.73 sqM); Potassium 4.6 mmol/L (3.5-5.1); Sodium 133 mmol/L (137-145); Total Bilirubin 0.4 mg/dL (0.2-1.3); Total Protein 6.8 g/dL (6.3-8.2)
--- NOTE | 2022-02-19 15:19 | XR ---
EXAMINATION TYPE: XR chest 2V DATE OF EXAM: 02/19/2022 COMPARISON: 01/31/2022 HISTORY: 71-year-old male shortness of breath, difficulty breathing TECHNIQUE: PA and lateral views FINDINGS: Left heart margin obscured by adjacent pleural parenchymal opacity. Relative lung lucencies and hyper inflation. Mild interstitial prominence. IMPRESSION: Interval development of a moderate left pleural effusion with adjacent atelectasis and/or consolidati on. Background COPD.
[2022-02-19 15:38] LABS: Prothrombin Time 10.8 sec (9.0-12.0)
[2022-02-19 15:46] LABS: Partial Thromboplastin Time 21.6 sec (22.0-30.0)
[2022-02-19] MEDS ORDERED: SODIUM CHLORIDE 0.9% 1,000 ML IV ONE (16:20)
[2022-02-19] MEDS: ACETAMINOPHEN TAB 325 MG TAB PO PRN (23:52)
[2022-02-19] MEDS: LORazepam 1 MG TAB PO PRN (23:53)
[2022-02-20] MEDS: SYMBICORT 160-4.5 MCG INHALER INHALATION SCH ×2 (07:45→19:13)
[2022-02-20] MEDS: IPRATROPIUM 0.5 MG/2.5 ML NEBU INHALATION SCH ×4 (07:45→19:12)
[2022-02-20] MEDS: LORazepam 1 MG TAB PO PRN (08:28)
[2022-02-20] MEDS: MONTELUKAST 10 MG TAB PO SCH (08:29)
[2022-02-20] MEDS: THIAMINE 100 MG TAB PO SCH (08:29)
[2022-02-20] MEDS: DONEPEZIL 10 MG TAB PO SCH (08:29)
[2022-02-20] MEDS: NIACIN TR 500 MG CAPLET PO SCH (08:29)
[2022-02-20] MEDS: DOCUSATE 100 MG CAP PO SCH (08:29)
[2022-02-20] MEDS: PIOGLITAZONE 30 MG TAB PO SCH (08:29)
[2022-02-20] MEDS: CITALOPRAM HYDROBROMIDE 20 MG TAB PO SCH (08:29)
[2022-02-20] MEDS: FENOFIBRATE 160 MG TAB PO SCH (08:29)
[2022-02-20] MEDS: METOPROLOL SUCCINATE (ER) 25 MG TAB.ER.24H PO SCH (08:29)
[2022-02-20] MEDS: EZETIMIBE 10 MG TAB PO SCH (08:29)
[2022-02-20] MEDS: PANTOPRAZOLE 40 MG TABLET PO SCH (08:29)
[2022-02-20] MEDS ORDERED: NON FORMULARY DRUG (Fish Oil/Dha/Epa [Fish Oil 1,200 Mg Fish Oil] 1 EACH Capsule) PO SCH (09:00)
[2022-02-20] MEDS ORDERED: CYANOCOBALAMIN 500 MCG TAB PO SCH (09:00)
--- NOTE | 2022-02-20 11:00 | P.HPIM ---
History of Present Illness H&P Date: 02/20/22 HISTORY OF PRESENT ILLNESS This is a 71-year-old male patient of Dr. Matthews with past medical history of COPD, hypertension, hyperlipidemia, diabetes mellitus type 2, generalized anxiety disorder, dementia. Patient states that he was diagnosed with left- sided lung cancer 5-6 weeks ago. Patient is a poor historian and not able to give full details but states he was told to come into the hospital to have his lung drained. 12/27: CAT scan of the chest revealed left upper lobe suspicious lesion. 01/12: PET scan revealed confirmation of suspected left lung malignancy with thor acic adenopathy and possible left apical lung involvement along with moderate to large size associated left pleural effusion. No distal metastatic disease is seen. 01/16: Bone scan revealed no suspicious lytic lesions, no suspicious acute osseous abnormalities. 01/21: Left-sided thoracentesis with removal of 700 ML's of brownish fluid. Pathology positive for metastatic adenocarcinoma consistent with pulmonary primary. 01/31: Patient underwent left-sided thoracentesis which was unsuccessful as pocke t was not located and procedure was aborted. Followed by ultrasound-guided thoracentesis by radiology with removal of 2.6 L of straw-colored fluid. 02/07 MRI of the brain revealed cerebral atrophy. Age-related white matter signal changes. No evidence of an infarct. No evidence of metastatic disease. Patient presented to [facility] emergency center. He was found to be afebrile, heart rate 90, blood pressure 116/88, pulse ox 96% on room air. EKG was a sinus rhythm with no acute ST changes. WBC 11.2, hemoglobin 15.4, platelet count 344. Sodium 133, potassium 4.6, chloride 106, CO2 22, BUN 11 creatinine 0.93. Blood sugar 95. Troponin negative. INR 1.0. Chest x-ray reveals interval development of moderate left pleural effusion with adjacent atelectasis and/or consolidation and background of COPD. Patient is status post 1 L of IV fluids, admitted to the [facility] floor and consult placed with pulmonary medicine, cardiothoracic surgery for Pleurx catheter, oncology. REVIEW OF SYSTEMS Constitutional: No fever, no chills, no night sweats. No weight change. No weakness, fatigue or lethargy. No daytime sleepiness. EENT: No headache. No blurred vision or double vision, no loss of vision. No loss of Hearing, no ringing in the ears, no dizziness. No nasal drainage or congestion. No epistaxis. No sore throat. Lungs: Reports shortness of breath, cough, no sputum production. No wheezing. Reports dyspnea with exertion. Cardiovascular: No chest pain, no lower extremity edema. No palpitations. No paroxysmal nocturnal dyspnea. No orthopnea. No lightheadedness or dizziness. No syncopal episodes. Abdominal: No abdominal pain. No nausea, vomiting. No diarrhea. No constipation. No bloody or tarry stools. No loss of appetite. Genitourinary: No dysuria, increased frequency, urgency. No urinary retention. Musculoskeletal: No myalgias. No muscle weakness, no gait dysfunction, no frequent falls. No back pain. No neck pain. Integumentary: No wounds, no lesions. No rash or pruritus. No unusual bruising. No change in hair or nails. Neurologic: No aphasia. No facial droop. No change in mentation. No head injury. No headache. No paralysis. No paresthesia. Psychiatric: No depression. No anxiety. No mood swings. Endocrine: No abnormal blood sugars. No weight change. SOCIAL HISTORY Patient was a smoker of one pack per day for greater than 30 years and quit 20 years ago. He denies any alcohol use, marijuana or illicit drug use. Patient is and lives alone. FAMILY HISTORY Father in his 70s and patient does not know the cause of or his medical history. Mother in her 40s from some type of leukemia. Patient has one sister alive with no major medical problems. He decided have any brothers. Patient has one daughter with no major medical problems. PHYSICAL EXAMINATION Gen: This is a 71-year-old male. He is resting in bed appears to be comfortable and in no acute distress. HEENT: Head is atraumatic, normocephalic. Pupils equal, round. Sclerae is anicteric. NECK: Supple. No JVD. No lymphadenopathy. No thyromegaly. LUNGS: Diminished. Few scattered rhonchi. No intercostal retractions. HEART: Regular rate and rhythm. No murmur. ABDOMEN: Soft. Bowel sounds are present. No masses. No tenderness. EXTREMITIES: No pedal edema. No calf tenderness. NEUROLOGICAL: Patient is awake, alert and oriented x2 mild confusion, poor short-term memory. Cranial nerves 2 through 12 are grossly intact. ASSESSMENT AND PLAN 1. Malignant lobulated left-sided pleural effusion, recurrent. [facility] consult with cardiothoracic surgery for Pleurx catheter placement. 2. Recently diagnosed with adenocarcinoma of the lung. Consult with oncology and pulmonary medicine. 3. COPD without exacerbation. Continue Symbicort twice daily, Atrovent 4 times daily, Singulair 10 mg daily. 4. Hypertension. Continue Toprol-XL 25 mg daily. 5. Hyperlipidemia. Continue Zetia 10 mg daily, fenofibrate 160 mg daily 6. Diabetes mellitus type 2. Continue Actos 30 mg daily, NovoLog scale before meals and at bedtime. 7. Generalized anxiety disorder. Continue Celexa 20 mg daily, Ativan 1 mg daily as needed. 8. Dementia. Continue Aricept 10 mg daily. 9. Gastroesophageal reflux disease and GI prophylaxis. Continue Protonix 40 mg daily. 10. DVT prophylaxis. SCDs and PRASANTH hose. Patient will be admitted to the hospital for a minimum of 2 night stay. DISCHARGE PLAN Most likely return home. Impression and plan of care have been directed as dictated by the signing physician. Destini Barrett nurse practitioner acting as scribe for signing physician. Past Medical History Past Medical History: Cancer, COPD, GERD/Reflux, Hyperlipidemia, Hypertension, Osteoarthritis (OA), Respiratory Disorder Additional Past Medical History / Comment(s): Hypoglycemia, hemorrhoids. LEFT PLEURAL EFFUSIONS. THORACENTESIS., left lung cancer diagnosed january 2022. Pt states he is not diabetic but takes actos. History of Any Multi-Drug Resistant Organisms: None Reported Past Surgical History: Back Surgery, Joint Replacement Additional Past Surgical History / Comment(s): 01/20/19 total left knee arthropl asty, COLONOSCOPY. LEFT THORACENTESIS. Past Anesthesia/Blood Transfusion Reactions: No Reported Reaction Additional Past Anesthesia/Blood Transfusion Reaction / Comment(s): claustrophobic,no hx blood transfusion Past Psychological History: No Psychological Hx Reported Additional Psychological History / Comment(s): Pt normally resides alone, lately d/t his recent knee surgery, family has been staying with him. He can drive. Smoking Status: Former smoker Past Alcohol Use History: None Reported, Occasional Additional Past Alcohol Use History / Comment(s): Pt started smoking as a teen and quit in 1999. He drinks approximately 4 beers a day but none for several days d/t recent surgery. Past Drug Use History: None Reported - Past Family History Mother Family Medical History: No Reported History Father Family Medical History: No Reported History Medications and Allergies Home Medications Medication Instructions Recorded Confirmed Type Citalopram Hydrobromide 20 mg PO DAILY 04/29/17 02/19/22 History [Citalopram HBr] Cyanocobalamin (Vitamin B-12) 1,000 mcg PO MOTUWETHFR 04/29/17 02/19/22 History [Vitamin B-12] Fish Oil/Dha/Epa [Fish Oil 1,200 1 cap PO DAILY 04/29/17 02/19/22 History mg Fish Oil] Niacin 500 mg PO DAILY 04/29/17 02/19/22 History Pantoprazole Sodium 40 mg PO DAILY 04/29/17 02/19/22 History Thiamine [Vitamin B-1] 100 mg PO DAILY 04/29/17 02/19/22 History Budesonide/Formoterol Fumarate 2 puff INHALATION RT-BID 01/14/19 02/19/22 History [Symbicort 160-4.5 Mcg Inhaler] Tiotropium 18 Mcg/Puff [Spiriva] 1 puff INHALATION RT-DAILY 01/14/19 02/19/22 History Fenofibrate 160 mg PO DAILY 01/19/19 02/19/22 History Ezetimibe [Zetia] 10 mg PO DAILY 01/21/22 02/19/22 History Pioglitazone [Actos] 30 mg PO DAILY 01/21/22 02/19/22 History Docusate [Colace] 100 mg PO DAILY 02/19/22 02/19/22 History Donepezil HCl [Aricept] 10 mg PO DAILY 02/19/22 02/19/22 History LORazepam [Ativan] 1 mg PO DAILY PRN 02/19/22 02/19/22 History Metoprolol Succinate (ER) [Toprol 25 mg PO DAILY 02/19/22 02/19/22 History Xl] Montelukast Sodium [Singulair] 10 mg PO DAILY 02/19/22 02/19/22 History Allergies Allergy/AdvReac Type Severity Reaction Status Date / Time No Known Allergies Allergy Verified 02/19/22 16:05 Physical Exam Vitals: Vital Signs Temp Pulse Pulse Resp BP BP Pulse Ox 02/20/22 04:58 97.9 F 80 18 118/76 93 L 02/19/22 23:04 97.7 F 68 18 132/86 93 L 02/19/22 23:00 18 02/19/22 19:20 97.5 F L 66 18 136/93 95 02/19/22 16:00 136/90 02/19/22 14:35 74 18 125/94 96 02/19/22 13:44 97.4 F L 90 20 116/88 96 Intake and Output 02/19/22 02/20/22 02/20/22 22:59 06:59 14:59 Intake Total 400 Balance 400 Intake: Oral 400 Other: Voiding Method Toilet # Voids 3 Weight 106.141 kg Results CBC & Chem 7: 02/19/22 14:31 02/19/22 14:31 Labs: Abnormal Lab Results - Last 24 Hours (Table) 02/19/22 02/19/22 02/19/22 Range/Units 14:31 14:31 15:10 WBC 11.2 H (3.8-10.6) k/uL Neutrophils # 8.2 H (1.3-7.7) k/uL APTT 21.6 L (22.0-30.0) sec Sodium 133 L (137-145) mmol/L Thrombosis Risk Factor Assmnt - Choose All That Apply Any of the Below Risk Factors Present?: Yes Each Factor Represents 1 point: Abnormal pulmonary function (COPD), Obesity (BMI >25) Other Risk Factors: Yes Each Risk Factor Represents 2 Points: Age 61-74 years, Malignancy Other congenital or acquired thrombophilia - If yes, enter type in comment: No Thrombosis Risk Factor Assessment Total Risk Factor Score: 6 Thrombosis Risk Factor Assessment Level: High Risk
--- NOTE | 2022-02-20 11:25 | P.GSCN ---
History of Present Illness Consult date: 02/20/22 Reason for Consult: Recurrent malignant pleural effusion Requesting physician: Destini Brarett History of present illness: This is a 71-year-old gentleman who follows on an outpatient basis with Dr. Gannon for primary care, Dr. Burton for pulmonology, and Dr. Colon for oncology. He has a previous medical history of COPD with previous tobacco dependence, new diagnosis of lung cancer, hypertension, hyperlipidemia, borderline diabetes, and anxiety. This gentleman has a history of thoracentesis 3 with cytology on 01/21 positive for metastatic adenocarcinoma consistent with pulmonary primary. Unfortunately after his last thoracentesis he quickly filled back up with fluid again on his left side. Dr. Burton requested placement of Pleurx catheter and patient was to see Dr. Millan in the office 02/21/2022 to schedule Pleurx catheter placement. Unfortunately patient continued to have shortness of breath and came to [facility] emergency room at the request of Dr. Colon for treatment of his left-sided pleural effusion. Consultation was placed to Dr. Millan for Pleurx catheter placement. Review of Systems Review of systems was completed and was negative except as noted - Respiratory Reports as per HPI, Reports dyspnea Past Medical History Past Medical History: Cancer, COPD, GERD/Reflux, Hyperlipidemia, Hypertension, Osteoarthritis (OA), Respiratory Disorder Additional Past Medical History / Comment(s): Hypoglycemia, hemorrhoids. LEFT PLEURAL EFFUSIONS. THORACENTESIS., left lung cancer diagnosed january 2022. Pt states he is not diabetic but takes actos. History of Any Multi-Drug Resistant Organisms: None Reported Past Surgical History: Back Surgery, Joint Replacement Additional Past Surgical History / Comment(s): 01/20/19 total left knee arthroplasty, COLONOSCOPY. LEFT THORACENTESIS. Past Anesthesia/Blood Transfusion Reactions: No Reported Reaction Additional Past Anesthesia/Blood Transfusion Reaction / Comm: claustrophobic,no hx blood transfusion Past Psychological History: Anxiety Additional Psychological History / Comment(s): Pt normally resides alone, lately d/t his recent knee surgery, family has been staying with him. He can drive. Smoking Status: Former smoker Past Alcohol Use History: None Reported, Occasional Additional Past Alcohol Use History / Comment(s): Pt started smoking as a teen and quit in 1999. He drinks approximately 4 beers a day but none for several days d/t recent surgery. Past Drug Use History: None Reported - Past Family History Mother Additional Family Medical History / Comment(s): Leukemia Father Family Medical History: No Reported History Additional Family Medical History / Comment(s): from old age Medications and Allergies Home Medications Medication Instructions Recorded Confirmed Type Citalopram Hydrobromide 20 mg PO DAILY 04/29/17 02/19/22 History [Citalopram HBr] Cyanocobalamin (Vitamin B-12) 1,000 mcg PO MOTUWETHFR 04/29/17 02/19/22 History [Vitamin B-12] Fish Oil/Dha/Epa [Fish Oil 1,200 1 cap PO DAILY 04/29/17 02/19/22 History mg Fish Oil] Niacin 500 mg PO DAILY 04/29/17 02/19/22 History Pantoprazole Sodium 40 mg PO DAILY 04/29/17 02/19/22 History Thiamine [Vitamin B-1] 100 mg PO DAILY 04/29/17 02/19/22 History Budesonide/Formoterol Fumarate 2 puff INHALATION RT-BID 01/14/19 02/19/22 History [Symbicort 160-4.5 Mcg Inhaler] Tiotropium 18 Mcg/Puff [Spiriva] 1 puff INHALATION RT-DAILY 01/14/19 02/19/22 History Fenofibrate 160 mg PO DAILY 01/19/19 02/19/22 History Ezetimibe [Zetia] 10 mg PO DAILY 01/21/22 02/19/22 History Pioglitazone [Actos] 30 mg PO DAILY 01/21/22 02/19/22 History Docusate [Colace] 100 mg PO DAILY 02/19/22 02/19/22 History Donepezil HCl [Aricept] 10 mg PO DAILY 02/19/22 02/19/22 History LORazepam [Ativan] 1 mg PO DAILY PRN 02/19/22 02/19/22 History Metoprolol Succinate (ER) [Toprol 25 mg PO DAILY 02/19/22 02/19/22 History Xl] Montelukast Sodium [Singulair] 10 mg PO DAILY 02/19/22 02/19/22 History Allergies Allergy/AdvReac Type Severity Reaction Status Date / Time No Known Allergies Allergy Verified 02/19/22 16:05 Surgical - Exam Vital Signs Temp Pulse Resp BP Pulse Ox 97.4 F L 90 20 116/88 96 02/19/22 13:44 02/19/22 13:44 02/19/22 13:44 02/19/22 13:44 02/19/22 13:44 CONSTITUTIONAL: Awake and alert, appears comfortable, cooperative, well- developed, well-nourished, no pain, no acute distress EYES: Pupils equal, round, reactive to light, normal ocular movement ENT: Moist mucous membranes without oral lesions present NECK: No masses, no bruits, trachea midline RESPIRATORY: Lungs sounds diminished on the left side. Respirations even, nonlabored. Currently on room air with oxygen saturation 93%. Strong cough. No chest wall deformities. No clubbing or cyanosis present CARDIOVASCULAR: S1, S2 present. Regular rate and rhythm. Palpable peripheral pulses bilaterally. No edema present. No calf pain or tenderness noted. GASTROINTESTINAL: Abdomen soft, nontender, nondistended without masses or organomegaly noted. There is no rebound or guarding present. Active bowel sounds present 4 quadrants. GENITOURINARY: Deferred INTEGUMENTARY: Skin is warm and dry with evidence of good perfusion. NEUROLOGIC: Cranial nerves II through XII intact, normal coordination, no obvious motor or sensory deficits, speech is normal MUSKULOSKELETAL: Able to move all extremities, strength equal bilaterally, normal posture PSYCHIATRIC: Alert and oriented to person place and time, appropriate affect, intact judgment and insight Results - Labs 02/19/22 14:31 02/19/22 14:31 Abnormal Lab Results - Last 24 Hours (Table) 02/19/22 02/19/22 02/19/22 Range/Units 14:31 14:31 15:10 WBC 11.2 H (3.8-10.6) k/uL Neutrophils # 8.2 H (1.3-7.7) k/uL APTT 21.6 L (22.0-30.0) sec Sodium 133 L (137-145) mmol/L Diabetes panel 02/19/22 Range/Units 14:31 Sodium 133 L (137-145) mmol/L Potassium 4.6 (3.5-5.1) mmol/L Chloride 106 (98-107) mmol/L Carbon Dioxide 22 (22-30) mmol/L BUN 11 (9-20) mg/dL Creatinine 0.93 (0.66-1.25) mg/dL Glucose 95 (74-99) mg/dL Calcium 9.2 (8.4-10.2) mg/dL AST 20 (17-59) U/L ALT 12 (4-49) U/L Alkaline Phosphatase 57 (38-126) U/L Total Protein 6.8 (6.3-8.2) g/dL Albumin 4.0 (3.5-5.0) g/dL Calcium panel 02/19/22 Range/Units 14:31 Calcium 9.2 (8.4-10.2) mg/dL Albumin 4.0 (3.5-5.0) g/dL Pituitary panel 02/19/22 Range/Units 14:31 Sodium 133 L (137-145) mmol/L Potassium 4.6 (3.5-5.1) mmol/L Chloride 106 (98-107) mmol/L Carbon Dioxide 22 (22-30) mmol/L BUN 11 (9-20) mg/dL Creatinine 0.93 (0.66-1.25) mg/dL Glucose 95 (74-99) mg/dL Calcium 9.2 (8.4-10.2) mg/dL Adrenal panel 02/19/22 Range/Units 14:31 Sodium 133 L (137-145) mmol/L Potassium 4.6 (3.5-5.1) mmol/L Chloride 106 (98-107) mmol/L Carbon Dioxide 22 (22-30) mmol/L BUN 11 (9-20) mg/dL Creatinine 0.93 (0.66-1.25) mg/dL Glucose 95 (74-99) mg/dL Calcium 9.2 (8.4-10.2) mg/dL Total Bilirubin 0.4 (0.2-1.3) mg/dL AST 20 (17-59) U/L ALT 12 (4-49) U/L Alkaline Phosphatase 57 (38-126) U/L Total Protein 6.8 (6.3-8.2) g/dL Albumin 4.0 (3.5-5.0) g/dL - Imaging Chest x-ray: report reviewed, image reviewed CT scan - chest: report reviewed, image reviewed EKG: image reviewed Assessment and Plan Assessment: 1. Recurrent left-sided malignant pleural effusion, status post thoracentesis 3 with cytology on 01/21/22 positive for metastatic adenocarcinoma consistent with pulmonary primary 2. COPD 3. Previous tobacco dependence 4. Hypertension 5. Hyperlipidemia 6. Borderline diabetes 7. Anxiety Plan: The patient was seen and examined at the bedside with Dr. Millan. Chart/diagnostics were reviewed in detail. The patient is currently sitting up in a recliner in no acute distress, oxygenating well on room air. The usual perioperative course of Pleurx catheter placement was discussed in detail with the patient, risks and benefits reviewed, all questions are answered, and the patient does consent to surgery. The patient will be nothing by mouth after midnight. Our plan is for left sided Pleurx catheter placement by Dr. Millan tomorrow, 02/21/2022. Teaching regarding Pleurx catheter drainage will take place after placement, home care will be ordered. Medical management of other comorbidities per primary care, oncology, pulmonology. Thank you for this consult. We will continue to follow along with you and make further recommendations. I have personally seen and examined the patient, performed the documentation and the assessment and plan as written. Number of minutes spent on the visit: 30. Madelaine Calix NP-C
[2022-02-20 12:13] LABS: Glucose,Whole Blood 100 mg/dL (75-99)
[2022-02-20] MEDS: INSULIN ASPART (NovoLOG) 100 UNIT/ML VIAL SQ SCH ×3 (12:20→20:13)
--- NOTE | 2022-02-20 14:04 | P.CNPUL ---
History of Present Illness Consult date: 02/20/22 Reason for consult: pleural effusion History of present illness: 71-year-old male patient with known history of COPD and metastatic adenocarcinom a of the lung with malignant left-sided pleural effusion. The patient has undergone previous thoracentesis 2 and the patient is coming in with worsening shortness of breath. There is a recurrent left-sided pleural effusion and the patient was hospitalized with the intention of inserting a Pleurx catheter. The patient has not started any treatment. The patient has seen oncology. There is a recent diagnosis of lung cancer. PET scan was doneAnd this was done on 02/11/2023 showed evidence of left lung malignancy with thoracic lymphadenopathy and possible left apical involvement along with moderately large sized pleural effusion on the left. MRI of the brain was done as part of the workup and it showed no evidence of any metastatic involvement. The patient has no syncope. No hoarseness. He has lost some weight. Exertional dyspnea. Has episodic coughing spells. 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 No hemoptysis. No pleurisy. No swelling lower extremities. No other complaints otherwise for now. Review of Systems Constitutional: Reports fatigue, Reports weakness Eyes: denies as per HPI, denies blurred vision, denies bulging eye, denies decreased vision, denies diplopia, denies discharge, denies dry eye, denies irritation, denies itching, denies pain, denies photophobia, denies loss of peripheral vision, denies loss of vision, denies tunnel vision/blind spots Ears: deny: decreased hearing, ear discharge, earache, tinnitus Ears, nose, mouth and throat: Reports as per HPI Breasts: absent: as per HPI, gynecomastia Cardiovascular: Reports decreased exercise tolerance, Reports dyspnea on exertion Respiratory: Reports cough, Reports dyspnea, Reports wheezing Gastrointestinal: Reports as per HPI Genitourinary: Reports as per HPI Musculoskeletal: Reports as per HPI Musculoskeletal: absent: ankle pain, ankle stiffness, ankle swelling Neurological: Reports as per HPI Psychiatric: Reports as per HPI Endocrine: Reports as per HPI Hematologic/Lymphatic: Reports as per HPI Allergic/Immunologic: Reports as per HPI Past Medical History Past Medical History: Cancer, COPD, GERD/Reflux, Hyperlipidemia, Hypertension, Osteoarthritis (OA), Respiratory Disorder Additional Past Medical History / Comment(s): Hypoglycemia, hemorrhoids. LEFT PLEURAL EFFUSIONS. THORACENTESIS., left lung cancer diagnosed january 2022. Pt states he is not diabetic but takes actos. History of Any Multi-Drug Resistant Organisms: None Reported Past Surgical History: Back Surgery, Joint Replacement Additional Past Surgical History / Comment(s): 01/20/19 total left knee arthroplasty, COLONOSCOPY. LEFT THORACENTESIS. Past Anesthesia/Blood Transfusion Reactions: No Reported Reaction Additional Past Anesthesia/Blood Transfusion Reaction / Comment(s): claustrophobic,no hx blood transfusion Past Psychological History: Anxiety Additional Psychological History / Comment(s): Pt normally resides alone, lately d/t his recent knee surgery, family has been staying with him. He can drive. Smoking Status: Former smoker Past Alcohol Use History: None Reported, Occasional Additional Past Alcohol Use History / Comment(s): Pt started smoking as a teen and quit in 1999. He drinks approximately 4 beers a day but none for several days d/t recent surgery. Past Drug Use History: None Reported - Past Family History Mother Family Medical History: No Reported History Additional Family Medical History / Comment(s): Leukemia Father Family Medical History: No Reported History Additional Family Medical History / Comment(s): from old age Medications and Allergies Home Medications Medication Instructions Recorded Confirmed Type Citalopram Hydrobromide 20 mg PO DAILY 04/29/17 02/19/22 History [Citalopram HBr] Cyanocobalamin (Vitamin B-12) 1,000 mcg PO MOTUWETHFR 04/29/17 02/19/22 History [Vitamin B-12] Fish Oil/Dha/Epa [Fish Oil 1,200 1 cap PO DAILY 04/29/17 02/19/22 History mg Fish Oil] Niacin 500 mg PO DAILY 04/29/17 02/19/22 History Pantoprazole Sodium 40 mg PO DAILY 04/29/17 02/19/22 History Thiamine [Vitamin B-1] 100 mg PO DAILY 04/29/17 02/19/22 History Budesonide/Formoterol Fumarate 2 puff INHALATION RT-BID 01/14/19 02/19/22 History [Symbicort 160-4.5 Mcg Inhaler] Tiotropium 18 Mcg/Puff [Spiriva] 1 puff INHALATION RT-DAILY 01/14/19 02/19/22 History Fenofibrate 160 mg PO DAILY 01/19/19 02/19/22 History Ezetimibe [Zetia] 10 mg PO DAILY 01/21/22 02/19/22 History Pioglitazone [Actos] 30 mg PO DAILY 01/21/22 02/19/22 History Docusate [Colace] 100 mg PO DAILY 02/19/22 02/19/22 History Donepezil HCl [Aricept] 10 mg PO DAILY 02/19/22 02/19/22 History LORazepam [Ativan] 1 mg PO DAILY PRN 02/19/22 02/19/22 History Metoprolol Succinate (ER) [Toprol 25 mg PO DAILY 02/19/22 02/19/22 History Xl] Montelukast Sodium [Singulair] 10 mg PO DAILY 02/19/22 02/19/22 History Allergies Allergy/AdvReac Type Severity Reaction Status Date / Time No Known Allergies Allergy Verified 02/19/22 16:05 Physical Exam Vitals: Vital Signs Temp Pulse Pulse Resp BP BP Pulse Ox 02/20/22 12:08 97.5 F L 62 18 143/86 93 L 02/20/22 04:58 97.9 F 80 18 118/76 93 L 02/19/22 23:04 97.7 F 68 18 132/86 93 L 02/19/22 23:00 18 02/19/22 19:20 97.5 F L 66 18 136/93 95 02/19/22 16:00 136/90 02/19/22 14:35 74 18 125/94 96 Intake and Output 02/19/22 02/20/22 02/20/22 22:59 06:59 14:59 Intake Total 400 Balance 400 Intake: Oral 400 Other: Voiding Method Toilet # Voids 3 Weight 106.141 kg CONSTITUTIONAL: Awake and alert, appears comfortable, cooperative, well- developed, well-nourished, no pain, no acute distress EYES: Pupils equal, round, reactive to light, normal ocular movement ENT: Moist mucous membranes without oral lesions present NECK: No masses, no bruits, trachea midline RESPIRATORY: Lungs sounds diminished on the left side. Respirations even, nonlabored. Currently on room air with oxygen saturation 93%. Strong cough. No chest wall deformities. No clubbing or cyanosis present CARDIOVASCULAR: S1, S2 present. Regular rate and rhythm. Palpable peripheral pulses bilaterally. No edema present. No calf pain or tenderness noted. GASTROINTESTINAL: Abdomen soft, nontender, nondistended without masses or organomegaly noted. There is no rebound or guarding present. Active bowel sounds present 4 quadrants. GENITOURINARY: Deferred INTEGUMENTARY: Skin is warm and dry with evidence of good perfusion. NEUROLOGIC: Cranial nerves II through XII intact, normal coordination, no obvious motor or sensory deficits, speech is normal MUSKULOSKELETAL: Able to move all extremities, strength equal bilaterally, normal posture PSYCHIATRIC: Alert and oriented to person place and time, appropriate affect, intact judgment and insight Results - Laboratory Findings CBC and BMP: 02/19/22 14:31 02/19/22 14:31 PT/INR, D-dimer PT 10.8 sec (9.0-12.0) 02/19/22 15:10 INR 1.0 (<1.2) 02/19/22 15:10 Abnormal lab findings: Abnormal Labs 02/19/22 02/19/22 02/19/22 14:31 14:31 15:10 WBC 11.2 H Neutrophils # 8.2 H APTT 21.6 L Sodium 133 L POC Glucose (mg/dL) 02/20/22 12:11 WBC Neutrophils # APTT Sodium POC Glucose (mg/dL) 100 H - Diagnostic Findings Chest x-ray: image reviewed Assessment and Plan Plan: Recurrent left-sided malignant pleural effusion, status post thoracentesis 3 with cytology on 01/21/22 positive for metastatic adenocarcinoma consistent with pulmonary primary Metastatic adenocarcinoma of the lung with pleural effusion, malignant maintained on a combination of Spiriva and Symbicort on outpatient basis COPD Previous tobacco dependence Hypertension Hyperlipidemia Borderline diabetes Anxiety Plan Resume home medications Supplemental O2 to maintain a saturation above 90% Proceed with a Pleurx catheter insertion tomorrow for symptomatic relief. Will continue to FU
[2022-02-20] MEDS ORDERED: CYANOCOBALAMIN 1,000 MCG/ML 1 ML VIAL IM ONE (15:15)
[2022-02-20 17:07] LABS: Glucose,Whole Blood 119 mg/dL (75-99)
[2022-02-20] MEDS: FOLIC ACID 1 MG TAB PO SCH (17:41)
[2022-02-20] MEDS: ACETAMINOPHEN TAB 325 MG TAB PO PRN (17:42)
[2022-02-20] MEDS: LORazepam 0.5 MG TAB PO PRN (17:42)
--- NOTE | 2022-02-20 19:51 | P.CONS ---
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 Rrecently though, patient was referred to Dr. Colon for new diagnosis of lung adenocarcinoma. He presented with worsening exertional dyspnea 2-3 months, CT of the chest 12/27/21 revealed a large left pleural effusion, 2.2 x 2.6 spiculated mass in the left upper lobe, inseparable of the mediastinal fat. Staging PET scan 01/12/22 revealed large left pleural effusion, suspicious uptake in the left upper lobe lung mass, cavitary lesion in the left apex, borderline mediastinal nodes. 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 Colon met with the patient on , plans for treatment with carboplatin, Alimta and Keytruda, pending insurance approval. Patient has had thoracentesis on 01/21-that is the one aware patient was diagnosed, he also h ad a 2.6 L thoracentesis 01/31. Unfortunately, patient is having reaccumulation of fluid which led to him going to the ER for acute symptoms. Patient was due to see CTS next week for possible Pleurx drain. Otherwise, patient is thankfully not experiencing too many other symptoms on a 10 point ROS. Review of Systems 10 point review of systems is negative except as stated in HPI Past Medical History Past Medical History: Cancer, COPD, GERD/Reflux, Hyperlipidemia, Hypertension, Osteoarthritis (OA), Respiratory Disorder Additional Past Medical History / Comment(s): Hypoglycemia, hemorrhoids. LEFT PLEURAL EFFUSIONS. THORACENTESIS., left lung cancer diagnosed january 2022. Pt states he is not diabetic but takes actos. History of Any Multi-Drug Resistant Organisms: None Reported Past Surgical History: Back Surgery, Joint Replacement Additional Past Surgical History / Comment(s): 01/20/19 total left knee arthroplasty, COLONOSCOPY. LEFT THORACENTESIS. Past Anesthesia/Blood Transfusion Reactions: No Reported Reaction Additional Past Anesthesia/Blood Transfusion Reaction / Comm: claustrophobic,no hx blood transfusion Past Psychological History: Anxiety Additional Psychological History / Comment(s): Pt normally resides alone, lately d/t his recent knee surgery, family has been staying with him. He can drive. Smoking Status: Former smoker Past Alcohol Use History: None Reported, Occasional Additional Past Alcohol Use History / Comment(s): Pt started smoking as a teen and quit in 1999. He drinks approximately 4 beers a day but none for several d ays d/t recent surgery. Past Drug Use History: None Reported - Past Family History Mother Family Medical History: No Reported History Additional Family Medical History / Comment(s): Leukemia Father Family Medical History: No Reported History Additional Family Medical History / Comment(s): from old age Medications and Allergies Home Medications Medication Instructions Recorded Confirmed Type Citalopram Hydrobromide 20 mg PO DAILY 04/29/17 02/19/22 History [Citalopram HBr] Cyanocobalamin (Vitamin B-12) 1,000 mcg PO MOTUWETHFR 04/29/17 02/19/22 History [Vitamin B-12] Fish Oil/Dha/Epa [Fish Oil 1,200 1 cap PO DAILY 04/29/17 02/19/22 History mg Fish Oil] Niacin 500 mg PO DAILY 04/29/17 02/19/22 History Pantoprazole Sodium 40 mg PO DAILY 04/29/17 02/19/22 History Thiamine [Vitamin B-1] 100 mg PO DAILY 04/29/17 02/19/22 History Budesonide/Formoterol Fumarate 2 puff INHALATION RT-BID 01/14/19 02/19/22 History [Symbicort 160-4.5 Mcg Inhaler] Tiotropium 18 Mcg/Puff [Spiriva] 1 puff INHALATION RT-DAILY 01/14/19 02/19/22 History Fenofibrate 160 mg PO DAILY 01/19/19 02/19/22 History Ezetimibe [Zetia] 10 mg PO DAILY 01/21/22 02/19/22 History Pioglitazone [Actos] 30 mg PO DAILY 01/21/22 02/19/22 History Docusate [Colace] 100 mg PO DAILY 02/19/22 02/19/22 History Donepezil HCl [Aricept] 10 mg PO DAILY 02/19/22 02/19/22 History LORazepam [Ativan] 1 mg PO DAILY PRN 02/19/22 02/19/22 History Metoprolol Succinate (ER) [Toprol 25 mg PO DAILY 02/19/22 02/19/22 History Xl] Montelukast Sodium [Singulair] 10 mg PO DAILY 02/19/22 02/19/22 History Allergies Allergy/AdvReac Type Severity Reaction Status Date / Time No Known Allergies Allergy Verified 02/19/22 16:05 Physical Exam Vitals: Vital Signs Temp Pulse Pulse Resp BP BP Pulse Ox 02/20/22 12:08 97.5 F L 62 18 143/86 93 L 02/20/22 04:58 97.9 F 80 18 118/76 93 L 02/19/22 23:04 97.7 F 68 18 132/86 93 L 02/19/22 23:00 18 02/19/22 19:20 97.5 F L 66 18 136/93 95 Intake and Output 02/20/22 02/20/22 02/20/22 06:59 14:59 22:59 Intake Total 400 Balance 400 Intake: Oral 400 Other: Voiding Method Toilet # Voids 3 Weight 106.141 kg - Constitutional General appearance: average body habitus, cooperative, no acute distress - EENT Eyes: anicteric sclerae, EOMI ENT: hearing grossly normal - Neck Neck: no lymphadenopathy - Respiratory Respiratory: right: CTA, left: diminished, other (absent breath sounds lower two thirds) - Cardiovascular Rhythm: regular Heart sounds: normal: S1, S2 Abnormal Heart Sounds: no systolic murmur, no diastolic murmur, no rub, no S3 Gallop, no S4 Gallop, no click, no other leg Peripheral Edema: bilateral: None - Gastrointestinal General gastrointestinal: no absent bowel sounds, no decreased bowel sounds, no distended, no hepatomegaly, no hyperactive bowel sounds, normal bowel sounds, no organomegaly, no rigid, no scaphoid, soft, no splenomegaly, no tenderness, no umbilical hernia, no ventral hernia - Integumentary Integumentary: normal - Neurologic Neurologic: CNII-XII intact - Musculoskeletal Musculoskeletal: strength equal bilaterally - Psychiatric Psychiatric: A&O x's 3, appropriate affect, intact judgment & insight Results CBC & Chem 7: 02/19/22 14:31 02/19/22 14:31 Labs: Abnormal Lab Results - Last 24 Hours (Table) 02/20/22 Range/Units 12:11 POC Glucose (mg/dL) 100 H (75-99) mg/dL Chest x-ray: report reviewed Assessment and Plan (1) Malignant pleural effusion Current Visit: Yes Status: Acute Priority: High Code(s): J91.0 - MALIGNANT PLEURAL EFFUSION SNOMED Code(s): 628459125 (2) Adenocarcinoma, lung Current Visit: Yes Status: Acute Priority: High Code(s): C34.90 - MALIGNANT NEOPLASM OF UNSP PART OF UNSP BRONCHUS OR LUNG SNOMED Code(s): 410455621 Plan: Patient shortness of breath/difficulty breathing secondary to recurrent malignant pleural effusion. Pulmonary and cardiothoracic surgery consulted. Patient is being considered for a possible Pleurx drain so that symptoms can be managed outpatient until patient is had a chance to start treatment and for treatment to work. New diagnosis of lung adenocarcinoma, metastatic disease. Patient saw Dr. Colon on 02/18/22 with recommendations for carboplatin, Alimta and keytruda (lumikras for KRAS G12C mutation is second line therapy). Due to start treatment after education session. We are trying to adjust that appointment so that patient can be started on treatment sooner. Parenteral B12 and oral folic acid ordered for folate antagonist treatment pPnding Pulmonary and CTS evaluation of patient. attests: I have preformed H&P, seen and examined patient, developed impression and plan of care. Discussed with dictator. Agree with documentation, dictated as a scribe.
[2022-02-20 20:15] LABS: Glucose,Whole Blood 134 mg/dL (75-99)
[2022-02-21] MEDS: LORazepam 0.5 MG TAB PO PRN (06:44)
[2022-02-21] MEDS: MONTELUKAST 10 MG TAB PO SCH (07:20)
[2022-02-21] MEDS: EZETIMIBE 10 MG TAB PO SCH (07:20)
[2022-02-21] MEDS: METOPROLOL SUCCINATE (ER) 25 MG TAB.ER.24H PO SCH (07:20)
[2022-02-21 07:26] LABS: Glucose,Whole Blood 99 mg/dL (75-99)
[2022-02-21] MEDS: INSULIN ASPART (NovoLOG) 100 UNIT/ML VIAL SQ SCH ×2 (07:26→13:06)
--- NOTE | 2022-02-21 07:51 | P.PN ---
Subjective Progress Note Date: 02/21/22 ISTORY OF PRESENT ILLNESS This is a 71-year-old male patient of Dr. Matthews with past medical history of COPD, hypertension, hyperlipidemia, diabetes mellitus type 2, generalized anxiety disorder, dementia. Patient states that he was diagnosed with left- sided lung cancer 5-6 weeks ago. Patient is a poor historian and not able to give full details but states he was told to come into the hospital to have his lung drained. 12/27: CAT scan of the chest revealed left upper lobe suspicious lesion. 01/12: PET scan revealed confirmation of suspected left lung malignancy with thoracic adenopathy and possible left apical lung involvement along with moderate to large size associated left pleural effusion. No distal metastatic disease is seen. 01/16: Bone scan revealed no suspicious lytic lesions, no suspicious acute osseous abnormalities. 01/21: Left-sided thoracentesis with removal of 700 ML's of brownish fluid. Pathology positive for metastatic adenocarcinoma consistent with pulmonary primary. 01/31: Patient underwent left-sided thoracentesis which was unsuccessful as pocket was not located and procedure was aborted. Followed by ultrasound-guided thoracentesis by radiology with removal of 2.6 L of straw-colored fluid. 02/07 MRI of the brain revealed cerebral atrophy. Age-related white matter signal changes. No evidence of an infarct. No evidence of metastatic disease. Patient presented to [facility] emergency center. He was found to be afebrile, heart rate 90, blood pressure 116/88, pulse ox 96% on room air. EKG was a sinus rhythm with no acute ST changes. WBC 11.2, hemoglobin 15.4, platelet count 344. Sodium 133, potassium 4.6, chloride 106, CO2 22, BUN 11 creatinine 0.93. Blood sugar 95. Troponin negative. INR 1.0. Chest x-ray reveals interval development of moderate left pleural effusion with adjacent atelectasis and/or consolidation and background of COPD. Patient is status post 1 L of IV fluids, admitted to the [facility] floor and con sult placed with pulmonary medicine, cardiothoracic surgery for Pleurx catheter, oncology. 02/21: Patient complains of feeling crabby because he is NPO for procedure today. He is scheduled for PleurX catheter around [facility] today. Patient is comfortable at rest without shortness of breath. REVIEW OF SYSTEMS Constitutional: No fever, no chills, no night sweats. No weight change. No weakness, fatigue or lethargy. No daytime sleepiness. EENT: No headache. No blurred vision or double vision, no loss of vision. No loss of Hearing, no ringing in the ears, no dizziness. No nasal drainage or congestion. No epistaxis. No sore throat. Lungs: Reports shortness of breath, cough, no sputum production. No wheezing. Reports dyspnea with exertion. Cardiovascular: No chest pain, no lower extremity edema. No palpitations. No paroxysmal nocturnal dyspnea. No orthopnea. No lightheadedness or dizziness. No syncopal episodes. Abdominal: No abdominal pain. No nausea, vomiting. No diarrhea. No constipation. No bloody or tarry stools. No loss of appetite. Genitourinary: No dysuria, increased frequency, urgency. No urinary retention. Musculoskeletal: No myalgias. No muscle weakness, no gait dysfunction, no frequent falls. No back pain. No neck pain. Integumentary: No wounds, no lesions. No rash or pruritus. No unusual bruising. No change in hair or nails. Neurologic: No aphasia. No facial droop. No change in mentation. No head injury. No headache. No paralysis. No paresthesia. Psychiatric: No depression. No anxiety. No mood swings. Endocrine: No abnormal blood sugars. No weight change. PHYSICAL EXAMINATION Gen: This is a 71-year-old male. He is resting in bed appears to be comfortable and in no acute distress. HEENT: Head is atraumatic, normocephalic. Pupils equal, round. Sclerae is anict paty. NECK: Supple. No JVD. No lymphadenopathy. No thyromegaly. LUNGS: Diminished. Few scattered rhonchi. No intercostal retractions. HEART: Regular rate and rhythm. No murmur. ABDOMEN: Soft. Bowel sounds are present. No masses. No tenderness. EXTREMITIES: No pedal edema. No calf tenderness. NEUROLOGICAL: Patient is awake, alert and oriented x2 mild confusion, poor short-term memory. Cranial nerves 2 through 12 are grossly intact. ASSESSMENT AND PLAN 1. Malignant lobulated left-sided pleural effusion, recurrent. Patient admitted to the [facility] floor, consult with cardiothoracic surgery for Pleurx catheter placement scheduled today. 2. Recently diagnosed with adenocarcinoma of the lung. Consult with oncology and pulmonary medicine appreciated. 3. COPD without exacerbation. Continue Symbicort twice daily, Atrovent 4 times daily, Singulair 10 mg daily. 4. Hypertension. Continue Toprol-XL 25 mg daily. 5. Hyperlipidemia. Continue Zetia 10 mg daily, fenofibrate 160 mg daily 6. Diabetes mellitus type 2. Continue Actos 30 mg daily, NovoLog scale before meals and at bedtime. 7. Generalized anxiety disorder. Continue Celexa 20 mg daily, Ativan 1 mg daily as needed. 8. Dementia. Continue Aricept 10 mg daily. 9. Gastroesophageal reflux disease and GI prophylaxis. Continue Protonix 40 mg daily. 10. DVT prophylaxis. SCDs and PRASANTH hose. DISCHARGE PLAN Most likely return home on . Impression and plan of care have been directed as dictated by the signing physician. Destini Barrett nurse practitioner acting as scribe for signing physician. Objective - Vital Signs Vital signs: Vital Signs Temp 97.6 F 02/21/22 05:00 Pulse 84 02/21/22 05:00 Resp 16 02/21/22 05:00 BP 147/89 02/21/22 05:00 Pulse Ox 92 L 02/21/22 05:00 FiO2 21 02/20/22 19:18 Intake & Output 02/20/22 02/21/22 02/21/22 18:59 06:59 18:59 Intake Total 1100 590 Balance 1100 590 Intake: Oral 1100 590 Other: Voiding Method Toilet # Voids 2 2 - Labs CBC & Chem 7: 02/19/22 14:31 02/19/22 14:31 Labs: Abnormal Lab Results - Last 24 Hours (Table) 02/20/22 02/20/22 02/20/22 Range/Units 12:11 17:05 20:12 POC Glucose (mg/dL) 100 H 119 H 134 H (75-99) mg/dL
[2022-02-21] MEDS: SYMBICORT 160-4.5 MCG INHALER INHALATION SCH (08:08)
[2022-02-21] MEDS: IPRATROPIUM 0.5 MG/2.5 ML NEBU INHALATION SCH ×2 (08:08→12:12)
[2022-02-21] MEDS ORDERED: LACTATED RINGERS 1,000 ML IV ONE (10:40)
[2022-02-21] MEDS ORDERED: ONDANSETRON 4 MG/2 ML VIAL ONE (11:00)
[2022-02-21] MEDS ORDERED: ONDANSETRON 4 MG/2 ML VIAL IVP ONE (11:01)
[2022-02-21] MEDS ORDERED: DEXAMETHASONE SOD PHOSPHATE 4 MG/ML 1 ML VIAL IVP ONE (11:01)
[2022-02-21] MEDS ORDERED: PROPOFOL 10 MG/ML 20 ML VIAL IV ONE (11:20)
[2022-02-21] MEDS ORDERED: fentaNYL (PF) 50 MCG/ML 2 ML AMP ONE (11:20)
[2022-02-21] MEDS ORDERED: MIDAZOLAM 2 MG/2 ML VIAL ONE (11:20)
--- NOTE | 2022-02-21 11:22 | P.PN ---
Subjective Progress Note Date: 02/21/22 Principal diagnosis: SOB, newly diagnosed carcinoma Pt going for pleurex drain, no new c/o Objective - Vital Signs Vital signs: Vital Signs Temp 97.0 F L 02/21/22 10:36 Pulse 76 02/21/22 10:36 Resp 16 02/21/22 10:36 BP 152/81 02/21/22 10:36 Pulse Ox 95 02/21/22 10:36 FiO2 21 02/20/22 19:18 Intake & Output 02/20/22 02/21/22 02/21/22 18:59 06:59 18:59 Intake Total 1100 590 Balance 1100 590 Intake: Oral 1100 590 Other: Voiding Method Toilet # Voids 2 2 - Exam Pt leaving unit-did not appear to be in any acute distress, A&Ox4 - Labs CBC & Chem 7: 02/19/22 14:31 02/19/22 14:31 Labs: Abnormal Lab Results - Last 24 Hours (Table) 02/20/22 02/20/22 02/20/22 Range/Units 12:11 17:05 20:12 POC Glucose (mg/dL) 100 H 119 H 134 H (75-99) mg/dL Assessment and Plan (1) Malignant pleural effusion Current Visit: Yes Status: Acute Priority: High Code(s): J91.0 - MALIGNANT PLEURAL EFFUSION SNOMED Code(s): 867176834 (2) Adenocarcinoma, lung Current Visit: Yes Status: Acute Priority: High Code(s): C34.90 - MALIGNANT NEOPLASM OF UNSP PART OF UNSP BRONCHUS OR LUNG SNOMED Code(s): 779100926 Plan: Patient shortness of breath/difficulty breathing secondary to recurrent malignant pleural effusion. Pleurex drain insertion with Cardiothoracic surgery. New diagnosis of lung adenocarcinoma, metastatic disease. Patient saw Dr. Colon on 02/18/22 with recommendations for carboplatin, Alimta and keytruda (lumikras for KRAS G12C mutation is second line therapy). Due to start treatment after education session. Edu appt updated. Parenteral B12 and oral folic acid ordered for folate antagonist treatment
[2022-02-21] MEDS ORDERED: LIDOCAINE 1% INJ 10MG/ML (20 ML MDV) SQ ONE ×2 (11:36)
--- NOTE | 2022-02-21 12:06 | P.OP ---
Date of Procedure: 02/21/22 Preoperative Diagnosis: Recurrent malignant left pleural effusion Postoperative Diagnosis: Same Procedure(s) Performed: Placement of left Pleurx catheter with fluoroscopic guidance Implants: Pleurx catheter Anesthesia: MAC Surgeon: Pollo Millan Estimated Blood Loss (ml): 2 IV fluids (ml): 200 Urine output (ml): 0 Pathology: none sent Condition: stable Disposition: PACU Indications for Procedure: 71-year-old male with known pulmonary metastatic carcinoma and recurrent malignant pleural effusion. Was scheduled to be seen by me in the office today but presented to the hospital yesterday complaints of shortness of breath and was admitted with a left pleural effusion. Pleurx catheter was indicated for drainage of recurrent left malignant pleural effusion Operative Findings: 2000 mL of serous yellow fluid was drained with good reexpansion of the lung Description of Procedure: Patient was brought to the operating room and placed supine on the table. The right arm was tucked at the side and the left arm placed on arm board. The left lower chest and left upper quadrant of the abdomen were sterilely prepped and draped. 1% lidocaine was used for anesthesia. The fluid was localized in the seventh interspace in the anterior axillary line. 18-gauge needle was placed here into the pleural space and guidewire threaded into the pleural space under fluoroscopic guidance. Under lidocaine anesthesia counterincision was made just below the costal arch in the left upper quadrant and the puncture site near the seventh interspace was enlarged with a knife. Pleurx catheter was tunneled from the exit site to the entry site and the cuff positioned just under the skin. Introducer and dilator were placed over the guidewire and through the introducer sheath the Pleurx catheter was introduced into the pleural space. Introducer sheath was removed. Catheter was connected to suction and clear serous drainage was obtained. Catheter was secured at the exit site with a 2-0 silk suture. The entry site was closed with a 4-0 Vicryl subcuticular stitch. Upon completion of the drainage the catheter was capped. Skin glue was applied at the entry site and the drapes were removed. Standard Pleurx dressing was applied. Patient was transferred to recovery in stable condition. Fluoroscopy on completion of the breech procedure demonstrated good reexpansion of the lung. Catheter was in good position.
[2022-02-21 12:07] VITALS: RESP 15; TEMP 97.7
--- NOTE | 2022-02-21 12:33 | XR ---
EXAMINATION TYPE: XR chest 1V portable DATE OF EXAM: 02/21/2022 COMPARISON: 02/19/2022 INDICATION: Post Pleurx catheter placement TECHNIQUE: Single frontal view of the chest is obtained. FINDINGS: The heart size is normal. The pulmonary vasculature is normal. Previous moderate left pleural effusion is diminished. Left-sided chest tube is present. This has a m arker outside of the chest . Correlate with the function. IMPRESSION: 1. Small left pleural effusion, diminished from prior study. Catheter is present on the left Follow-u p is recommended
--- NOTE | 2022-02-21 12:39 | FL ---
Fluoroscopy INDICATION: Pain FINDINGS: Fluoroscopy time: 4 seconds. Images obtained: 2. IMPRESSIONS: 1. Documentation of fluoroscopy.
[2022-02-21 12:45] VITALS: BP 129/87; PULSE 82
--- NOTE | 2022-02-21 13:03 | P.PN ---
Subjective Progress Note Date: 02/21/22 Principal diagnosis: Shortness of breath 71-year-old male patient with known history of COPD and metastatic adenocarcinoma of the lung with malignant left-sided pleural effusion. The patient has undergone previous thoracentesis 2 and the patient is coming in with worsening shortness of breath. There is a recurrent left-sided pleural effusion and the patient was hospitalized with the intention of inserting a Pleurx catheter. The patient has not started any treatment. The patient has seen oncology. There is a recent diagnosis of lung cancer. PET scan was doneAnd this was done on 02/11/2023 showed evidence of left lung malignancy with thoracic lymphadenopathy and possible left apical involvement along with moderately large sized pleural effusion on the left. MRI of the brain was done as part of the workup and it showed no evidence of any metastatic involvement. The patient has no syncope. No hoarseness. He has lost some weight. Exertional dyspnea. Has episodic coughing spells. 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 No hemoptysis. No pleurisy. No swelling lower extremities. No other complaints otherwise for now. On 02/21/2022 patient is undergoing placement of left proximal catheter for recurrent malignant left pleural effusion. Patient has known history of pulmonary metastatic carcinoma with recurrent malignant pleural effusion. He was seen in preop this morning, he was on room air, vital signs have been stable, no significant distress, alert and oriented 3. Patient had 2000 mL of serous yellow fluid drained with good reexpansion of the lung. Tolerated procedure well. Objective - Vital Signs Vital signs: Vital Signs Temp 97.7 F 02/21/22 11:55 Pulse 82 02/21/22 12:30 Resp 15 02/21/22 12:30 BP 129/87 02/21/22 12:30 Pulse Ox 95 02/21/22 12:30 FiO2 21 02/20/22 19:18 Intake & Output 02/20/22 02/21/22 02/21/22 18:59 06:59 18:59 Intake Total 1100 590 350 Output Total 1999 Balance 1100 590 -1650 Intake: IV 350 Oral 1100 590 Output: Pleural Fluid 1999 Other: Voiding Method Toilet # Voids 2 2 - Exam GENERAL EXAM: Alert, active, comfortable in no apparent distress. HEAD: Normocephalic/atraumatic. EYES: Normal reaction of pupils, equal size. Conjunctiva pink, sclera white. NOSE: Clear with pink turbinates. THROAT: No erythema or exudates. NECK: No masses, no JVD, no thyroid enlargement, no adenopathy. CHEST: No chest wall deformity. Symmetrical expansion. Left anterior chest Pleurx catheter in place, covered with a surgical dressing LUNGS: Equal air entry with no crackles, wheeze, rhonchi or dullness. Diminished breath sounds over left lower lobe CVS: Regular rate and rhythm, normal S1 and S2, no gallops, no murmurs, no rubs ABDOMEN: Soft, nontender. No hepatosplenomegaly, normal bowel sounds, no guarding or rigidity. EXTREMITIES: No clubbing, no edema, no cyanosis, 2+ pulses and upper and lower extremities. MUSCULOSKELETAL: Muscle strength and tone normal. SPINE: No scoliosis or deformity SKIN: No rashes CENTRAL NERVOUS SYSTEM: Alert and oriented -3. No focal deficits, tone is normal in all 4 extremities. PSYCHIATRIC: Alert and oriented -3. Appropriate affect. Intact judgment and insight. - Labs CBC & Chem 7: 02/19/22 14:31 02/19/22 14:31 Labs: Abnormal Lab Results - Last 24 Hours (Table) 02/20/22 02/20/22 Range/Units 17:05 20:12 POC Glucose (mg/dL) 119 H 134 H (75-99) mg/dL Assessment and Plan Plan: Recurrent left-sided malignant pleural effusion, status post thoracentesis 3 with cytology on 01/21/22 positive for metastatic adenocarcinoma consistent with pulmonary primary. Patient is status post left Pleurx catheter placement with drainage of 2 L of serous fluid on 02/21/2022 Metastatic adenocarcinoma of the lung with pleural effusion, malignant maintained on a combination of Spiriva and Symbicort on outpatient basis COPD Previous tobacco dependence Hypertension Hyperlipidemia Borderline diabetes Anxiety Plan: Patient tolerated procedure very well 2 L of serous pleural fluid was drained post Pleurx catheter insertion Postprocedure chest x-ray has been reviewed showing some residual diminished small left pleural effusion Weaning FiO2, encourage deep breathing and coughing Patient can be considered for discharge home once cleared by CT surgery, and was education was provided how to care for Pleurx catheter at home I have personally seen and examined the patient, performed the documentation and the assessment and plan as written. Number of minutes spent on the visit: 10 I have personally seen and examined the patient and reviewed the documentation. I performed a joint evaluation with the nurse practitioner in this evaluation was done more than 20 minutes. I fully agree with the documentation above and the plan of care. Time with Patient: Less than 30
--- NOTE | 2022-02-21 13:49 | P.DS ---
Providers Date of admission: 02/19/22 16:24 Expected date of discharge: 02/21/22 Attending physician: Richard De Los Santos Consults: 02/20/22 09:15 Consult Physician Routine Consulting Provider: Julio C Schafer Consult Reason/Comments: lung cancer,left pleural effusion Do you want consulting provider notified?: Already Contacted 02/20/22 09:17 Consult Physician Routine Consulting Provider: Tamara Carter Consult Reason/Comments: lung cancer, left pleural effusion Do you want consulting provider notified?: Yes 02/20/22 09:21 Consult Physician Routine Consulting Provider: Pollo Millan Consult Reason/Comments: pleural eff, malignant Do you want consulting provider notified?: Yes Primary care physician: [facility] Course: HISTORY OF PRESENT ILLNESS This is a 71-year-old male patient of Dr. Matthews with past medical history of COPD, hypertension, hyperlipidemia, diabetes mellitus type 2, generalized anxiety disorder, dementia. Patient states that he was diagnosed with left- sided lung cancer 5-6 weeks ago. Patient is a poor historian and not able to give full details but states he was told to come into the hospital to have his lung drained. 12/27: CAT scan of the chest revealed left upper lobe suspicious lesion. 01/12: PET scan revealed confirmation of suspected left lung malignancy with thoracic adenopathy and possible left apical lung involvement along with moderate to large size associated left pleural effusion. No distal metastatic disease is seen. 01/16: Bone scan revealed no suspicious lytic lesions, no suspicious acute osseous abnormalities. 01/21: Left-sided thoracentesis with removal of 700 ML's of brownish fluid. Pathology positive for metastatic adenocarcinoma consistent with pulmonary primary. 01/31: Patient underwent left-sided thoracentesis which was unsuccessful as pocket was not located and procedure was aborted. Followed by ultrasound-guided thoracentesis by radiology with removal of 2.6 L of straw-colored fluid. 02/07 MRI of the brain revealed cerebral atrophy. Age-related white matter signal changes. No evidence of an infarct. No evidence of metastatic disease. Patient presented to [facility] emergency center. He was found to be afebrile, heart rate 90, blood pressure 116/88, pulse ox 96% on room air. EKG was a sinus rhythm with no acute ST changes. WBC 11.2, hemoglobin 15.4, platelet count 344. Sodium 133, potassium 4.6, chloride 106, CO2 22, BUN 11 creatinine 0.93. Blood sugar 95. Troponin negative. INR 1.0. Chest x-ray reveals interval development of moderate left pleural effusion with adjacent atelectasis and/or consolidation and background of COPD. Patient is status post 1 L of IV fluids, admitted to the [facility] floor and consult placed with pulmonary medicine, cardiothoracic surgery for Pleurx catheter, oncology. 02/21: Patient complains of feeling crabby because he is NPO for procedure today. He is scheduled for PleurX catheter around [facility] [place] today. Patient is comfortable at rest without shortness of breath. Patient will need home care arranged and Pleurx teaching with patient and family prior to discharge and he will be discharged home later today. Patient has been seen by oncology and he is to start treatment after education session and arrangements are being made for this. Patient has also been seen by pulmonary medicine. Patient will be discharged home today in stable condition. DISCHARGE DIAGNOSES 1. Malignant lobulated left-sided pleural effusion, recurrent s/p Pleurx catheter placement. 2. Recently diagnosed with adenocarcinoma of the lung. 3. COPD without exacerbation. 4. Hypertension. 5. Hyperlipidemia. 6. Diabetes mellitus type 2. 7. Generalized anxiety disorder. 8. Dementia. 9. Gastroesophageal reflux disease. DISCHARGE PLAN Home Greater than 35 minutes was utilized and coordinating patient's discharge. Impression and plan of care have been directed as dictated by the signing physician. Destini Barrett nurse practitioner acting as scribe for signing physician. Patient Condition at Discharge: Stable Plan - Discharge Summary Discharge Rx Participant: No New Discharge Prescriptions: New Folic Acid 1 mg PO DAILY #90 tablet Continue Thiamine [Vitamin B-1] 100 mg PO DAILY Niacin 500 mg PO DAILY Citalopram Hydrobromide [Citalopram HBr] 20 mg PO DAILY Pantoprazole Sodium 40 mg PO DAILY Fish Oil/Dha/Epa [Fish Oil 1,200 mg Fish Oil] 1 cap PO DAILY Cyanocobalamin (Vitamin B-12) [Vitamin B-12] 1,000 mcg PO MOTUWETHFR Tiotropium 18 Mcg/Puff [Spiriva] 1 puff INHALATION RT-DAILY Budesonide/Formoterol Fumarate [Symbicort 160-4.5 Mcg Inhaler] 2 puff INHALATION RT-BID Fenofibrate 160 mg PO DAILY Ezetimibe [Zetia] 10 mg PO DAILY LORazepam [Ativan] 1 mg PO DAILY PRN PRN Reason: Anxiety Pioglitazone [Actos] 30 mg PO DAILY Docusate [Colace] 100 mg PO DAILY Montelukast Sodium [Singulair] 10 mg PO DAILY Metoprolol Succinate (ER) [Toprol XL] 25 mg PO DAILY Donepezil HCl [Aricept] 10 mg PO DAILY Discharge Medication List Citalopram Hydrobromide [Citalopram HBr] 20 mg PO DAILY 04/29/17 [History] Cyanocobalamin (Vitamin B-12) [Vitamin B-12] 1,000 mcg PO MOTUWETHFR 04/29/17 [History] Fish Oil/Dha/Epa [Fish Oil 1,200 mg Fish Oil] 1 cap PO DAILY 04/29/17 [History] Niacin 500 mg PO DAILY 04/29/17 [History] Pantoprazole Sodium 40 mg PO DAILY 04/29/17 [History] Thiamine [Vitamin B-1] 100 mg PO DAILY 04/29/17 [History] Budesonide/Formoterol Fumarate [Symbicort 160-4.5 Mcg Inhaler] 2 puff INHALATION RT-BID 01/14/19 [History] Tiotropium 18 Mcg/Puff [Spiriva] 1 puff INHALATION RT-DAILY 01/14/19 [History] Fenofibrate 160 mg PO DAILY 01/19/19 [History] Ezetimibe [Zetia] 10 mg PO DAILY 01/21/22 [History] Pioglitazone [Actos] 30 mg PO DAILY 01/21/22 [History] Docusate [Colace] 100 mg PO DAILY 02/19/22 [History] Donepezil HCl [Aricept] 10 mg PO DAILY 02/19/22 [History] LORazepam [Ativan] 1 mg PO DAILY PRN 02/19/22 [History] Metoprolol Succinate (ER) [Toprol XL] 25 mg PO DAILY 02/19/22 [History] Montelukast Sodium [Singulair] 10 mg PO DAILY 02/19/22 [History] Folic Acid 1 mg PO DAILY #90 tablet 02/21/22 [Rx] Follow up Appointment(s)/Referral(s): Shabana Gannon MD [Primary Care Provider] - 1 Week Juliet Del Valle ANPBC [Nurse Practitioner] - 03/01/22 9:45 am (This is chemotherapy education visit) Activity/Diet/Wound Care/Special Instructions: PleurX discharge instructions: 1. Home Care is ordered, they will obtain new bottles. 2. May shower after 24 hours, no tub baths/hot tubs. 3. Do not drain more than 1 liter or 1000 mL in 24 hours. 4. New drainage bottle needed with each drainage. 5. Drainage frequency dictated by patient symptoms, may be every day, every other day, weekly, or however often the patient is symptomatic. 6. Please notify GATE TECHNICIAN or office if temperature >101F, excessive pain at insertion site, drainage consistency changes to cloudy or smells bad, catheter falls out, or anything else that concerns you. 7. Contact surgery office with weekly drainage amounts. May fax the amounts. 8. Once drainage is less than 50 mL three times in a row, notify the surgery office for possible removal. Surgery office: , fax Discharge Disposition: HOME SELF-CARE
[2022-02-21] MEDS: NIACIN TR 500 MG CAPLET PO SCH (13:55)
[2022-02-21] MEDS: ACETAMINOPHEN TAB 325 MG TAB PO PRN (13:56)
[2022-02-21] MEDS: DOCUSATE 100 MG CAP PO SCH (13:56)
[2022-02-21] MEDS: PIOGLITAZONE 30 MG TAB PO SCH (13:56)
[2022-02-21] MEDS: THIAMINE 100 MG TAB PO SCH (13:56)
[2022-02-21] MEDS: CITALOPRAM HYDROBROMIDE 20 MG TAB PO SCH (13:56)
[2022-02-21] MEDS: DONEPEZIL 10 MG TAB PO SCH (13:56)
[2022-02-21] MEDS: FOLIC ACID 1 MG TAB PO SCH (13:56)
[2022-02-21] MEDS: PANTOPRAZOLE 40 MG TABLET PO SCH (13:56)
[2022-02-21] MEDS: FENOFIBRATE 160 MG TAB PO SCH (14:13)
== END 2022-02-21 15:03 | disposition home or self-care (01) | DRG 181 ==
LOC: EC 13:42 → 5NMEDONC 16:24
PROVIDERS: ADMIT Internal Medicine Geriatric Medicine; ATTEND Internal Medicine Geriatric Medicine
PROC: 0W9B30Z Drainage of Left Pleural Cavity with Drainage Device, Percutaneous Approach (ICD-10-PCS; principal; 2022-02-21 10:55)
DX: C34.12 Malignant neoplasm of upper lobe, left bronchus or lung (principal); J91.0 Malignant pleural effusion; Z87.891 Personal history of nicotine dependence; R73.03 Prediabetes; E78.5 Hyperlipidemia, unspecified; F40.240 Claustrophobia; F41.1 Generalized anxiety disorder; I10 Essential (primary) hypertension; J44.9 Chronic obstructive pulmonary disease, unspecified; K21.9 Gastro-esophageal reflux disease without esophagitis; Z79.51 Long term (current) use of inhaled steroids; Z79.84 Long term (current) use of oral hypoglycemic drugs; Z79.899 Other long term (current) drug therapy; Z80.6 Family history of leukemia; Z96.652 Presence of left artificial knee joint; R59.0 Localized enlarged lymph nodes; Z98.890 Other specified postprocedural states; D47.2 Monoclonal gammopathy; Z60.2 Problems related to living alone
CPT/HCPCS: 36415; 71045; 71046; 76000; 80053; 84484; 85025; 85610; 85730; 93005; 94640; 94760; 99285

== ENCOUNTER → 2022-04-01 | Outpatient (CLI) | payer MEDICARE ==
--- NOTE | 2022-04-01 16:43 | CT ---
EXAMINATION TYPE: CT chest w con CT DLP: 498.4 mGycm, Automated exposure control for dose reduction was used. DATE OF EXAM: 04/01/2022 1:56 PM COMPARISON: CT chest for 12/27/2021, PET 01/12/2022 CLINICAL INDICATION:Male, 71 years old with history of C34.12 LUNG CANCER; follow up to lung CA TECHNIQUE: Multiple axial images were obtained through the chest. Contrast used:70 mL of Isovue 300 with IV Contrast, Oral contrast used: None FINDINGS: LUNGS/ PLEURA: Trace left pleural effusion with Pleurx catheter in place. There is moderate to severe centrilobular emphysema changes. Left upper lobe nodule measures grossly similarly at 2.7 x 1.7 cm w hen compared to 12/27/2021 given differences in slice selection. Additional more apical cavitary lesio n is again visualized not definitively changed from 12/27/2021. AIRWAY: Patent and unremarkable.. HEART: Heart is mildly enlarged for size. There is coronary artery atherosclerosis present. MEDIASTINUM: Left pulmonary hilum lymph nodes appear increased in size now measuring 3.0 x 1.7 cm pre viously 1.9 x 1.5 cm. There is a new lymph node measuring 7 mm in short axis just posterior to the st ernum on the left (series 3 image 39). Left epicardial fat lymph nodes just above the diaphragm on th e left are similar to prior. VASCULATURE: No aortic aneurysm. Mild dilation of ascending thoracic aorta measuring up to 41 mm. MUSCULOSKELETAL: No acute osseous pathology . Partially visualized fixation hardware in the lower lum bar spine. SOFT TISSUES/LYMPH NODES: Left Pleurx catheter is in place with tip projecting near the posterior asp ect of the pleural space. LOWER NECK: No significant findings. UPPER ABDOMEN: No significant findings. IMPRESSION: 1. Overall the the left upper lobe does nodule does no appear significantly changed in size. However , there been increase in size of left pulmonary hilum lymph nodes and a new lymph node posterior to t he sternum concerning for progression of disease. Cavitary lesion within the left lung apex is felt t o be similar as well. Attention on follow-up PET/CT. 2. Pleurx catheter in place with persistent trace left pleural effusion. 3. Moderate to severe COPD changes. 4. Mild dilation of the ascending thoracic aorta up to 41 mm. Stable from 12/27/2021.
== END | disposition home or self-care (01) ==
LOC: RADCTMAIN 12:35
PROVIDERS: ATTEND Internal Medicine Hematology & Oncology
DX: C34.12 Malignant neoplasm of upper lobe, left bronchus or lung (principal)
CPT/HCPCS: 82565; 84520; 71260; 36415; Q9967

== ENCOUNTER → 2022-05-17 | Outpatient (CLI) | payer MEDICARE ==
--- NOTE | 2022-05-17 12:25 | PE ---
EXAMINATION TYPE: PET CT fusion skull to thigh DATE OF EXAM: 05/17/2022 COMPARISON: Prior PET/CT January 12, 2022 HISTORY: Left-sided lung cancer diagnosed December 2021 TECHNIQUE: Following the intravenous administration of 9.77 mCi of F-18 FDG, whole body images are p erformed from the skull base to the midthigh. Images are reviewed on the computer in the coronal, ax ial, and sagittal planes. Reconstructed rotating images are created on independent workstation and r eviewed on the computer. A localization and attenuation correction CT is performed in conjunction w ith the PET scan. Blood glucose level equals 98. SCAN: Subsequent Scan FINDINGS: SKULL BASE AND NECK: No areas of abnormal hypermetabolic uptake. CHEST, MEDIASTINUM, AND HILAR REGION: Background underlying emphysematous change is redemonstrated. S mall to tiny size left pleural effusion markedly improved from prior PET/CT . Persistent anterior 2.8 x 1.7 cm spiculated nodule with abnormal hypermetabolic uptake axial image 75 current study, max SUV is 5.67 decreased from 10.38 prior study. Prominent bleb or cavitary lesion m edial posterior left lung apex redemonstrated now is ametabolic . Persistent abnormal mass or lymph node measuring approximately 2.1 x 0.9 cm in the inferior prevascu lar space axial image 78 redemonstrated, max SUV is 4.84 improved from 6.08 on prior study. No new areas of abnormal hypermetabolic uptake seen. ABDOMEN AND PELVIS: No adrenal masses. Normal excretion. No new areas of abnormal hypermetabolic upta ke. OSSEOUS STRUCTURES: No new areas of abnormal hypermetabolic uptake. OTHER CT: Ascending aortic aneurysm up to 4.3 centimeters redemonstrated. Mild three-vessel coronary artery calcification redemonstrated. Postsurgical change to the lumbar spine is again seen. IMPRESSION: Partial positive treatment response as detailed above.
== END | disposition home or self-care (01) ==
LOC: RADPETMAIN 10:20
PROVIDERS: ATTEND Internal Medicine Hematology & Oncology
DX: C34.12 Malignant neoplasm of upper lobe, left bronchus or lung (principal)
CPT/HCPCS: 78815; 93005; A9552

== ENCOUNTER → 2022-06-24 | Outpatient (CLI) | payer MEDICARE ==
--- NOTE | 2022-06-25 04:49 | MR ---
EXAMINATION TYPE: MR brain wo/w con DATE OF EXAM: 06/24/2022 COMPARISON: None HISTORY: Lung cancer. CONTRAST: Standard multiplanar, multisequence MRI departmental protocol images were obtained without contrast a nd with 10 mL intravenous Gadavist gadolinium contrast. There is cerebral cortical atrophy. There is no mass effect or midline shift. No sign of intracranial hemorrhage. Diffusion images show no sign of an acute infarct. There is mild thinning of the corpus callosum. Sella turcica is normal. No evidence of orbital mass. No evidence of cerebral edema. The br ainstem is intact. There are a few scattered areas of white matter increased signal on the T2 and FLA IR images that measure up to 5 mm. Total numbers less than 5. There is no pathologic enhancement. There is normal enhancement of the venous sinuses. IMPRESSION: Mild atrophy. No evidence of metastatic disease. No acute intracranial abnormality. Scattered small w tres matter high signal foci could relate to some mild microvascular ischemia.
== END | disposition home or self-care (01) ==
LOC: RADMRIMAIN 16:28
PROVIDERS: ATTEND Internal Medicine Hematology & Oncology
DX: C34.12 Malignant neoplasm of upper lobe, left bronchus or lung (principal)
CPT/HCPCS: 70553; A9585

== ENCOUNTER 2022-08-16 23:01 | Emergency (ER) | payer MEDICARE ==
[2022-08-16 23:08] VITALS: BP 129/76; PULSE 83; RESP 16; TEMP 98.7
--- NOTE | 2022-08-16 23:08 | ED ---
Fall HPI - General Chief Complaint: Fall Stated Complaint: Fall Time Seen by Provider: 08/16/22 23:06 Source: patient, RN notes reviewed, old records reviewed Mode of arrival: EMS Limitations: no limitations - History of Present Illness Initial Comments: This is a 71-year-old male to the emergency department for evaluation. Patient fell Backwards and hit his head is on the left side no loss of consciousness but unsure of loss of consciousness was was for minimal time. Patient does have difficulty with ambulation does have difficulty with dizziness on position change. None of this is new. 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 Witnessed: yes, by family Loss of Consciousness: none Prolonged Down Time?: no Symptoms Prior to Fall: none Location: head Severity: mild Severity scale (1-10): 3 Context: tripped/slipped Associated Symptoms: headache - Related Data Home Medications Medication Instructions Recorded Confirmed Citalopram Hydrobromide 20 mg PO DAILY 04/29/17 02/19/22 [Citalopram HBr] Cyanocobalamin (Vitamin B-12) 1,000 mcg PO MOTUWETHFR 04/29/17 02/19/22 [Vitamin B-12] Fish Oil/Dha/Epa [Fish Oil 1,200 1 cap PO DAILY 04/29/17 02/19/22 mg Fish Oil] Niacin 500 mg PO DAILY 04/29/17 02/19/22 Pantoprazole Sodium 40 mg PO DAILY 04/29/17 02/19/22 Thiamine [Vitamin B-1] 100 mg PO DAILY 04/29/17 02/19/22 Budesonide/Formoterol Fumarate 2 puff INHALATION RT-BID 01/14/19 02/19/22 [Symbicort 160-4.5 Mcg Inhaler] Tiotropium 18 Mcg/Puff [Spiriva] 1 puff INHALATION RT-DAILY 01/14/19 02/19/22 Fenofibrate 160 mg PO DAILY 01/19/19 02/19/22 Ezetimibe [Zetia] 10 mg PO DAILY 01/21/22 02/19/22 Pioglitazone [Actos] 30 mg PO DAILY 01/21/22 02/19/22 Docusate [Colace] 100 mg PO DAILY 02/19/22 02/19/22 Donepezil HCl [Aricept] 10 mg PO DAILY 02/19/22 02/19/22 LORazepam [Ativan] 1 mg PO DAILY PRN 02/19/22 02/19/22 Metoprolol Succinate (ER) [Toprol 25 mg PO DAILY 02/19/22 02/19/22 XL] Montelukast Sodium [Singulair] 10 mg PO DAILY 02/19/22 02/19/22 Previous Rx's Medication Instructions Recorded Folic Acid 1 mg PO DAILY #90 tablet 02/21/22 Allergies Allergy/AdvReac Type Severity Reaction Status Date / Time No Known Allergies Allergy Verified 02/21/22 10:30 Review of Systems ROS Statement: Those systems with pertinent positive or pertinent negative responses have been documented in the HPI. ROS Other: All systems not noted in ROS Statement are negative. Past Medical History Past Medical History: Cancer, COPD, GERD/Reflux, Hyperlipidemia, Hypertension, Osteoarthritis (OA), Respiratory Disorder Additional Past Medical History / Comment(s): Hypoglycemia, hemorrhoids. LEFT PLEURAL EFFUSIONS. THORACENTESIS., left lung cancer diagnosed january 2022. Pt states he is not diabetic but takes actos. History of Any Multi-Drug Resistant Organisms: None Reported Past Surgical History: Back Surgery, Joint Replacement Additional Past Surgical History / Comment(s): 01/20/19 total left knee arthroplasty, COLONOSCOPY. LEFT THORACENTESIS, 02/21/22 Left Pleurx catheter inserted by Dr. Millan Past Anesthesia/Blood Transfusion Reactions: No Reported Reaction Additional Past Anesthesia/Blood Transfusion Reaction / Comment(s): claustrophobic,no hx blood transfusion Past Psychological History: Anxiety Additional Psychological History / Comment(s): Pt normally resides alone, lately d/t his recent knee surgery, family has been staying with him. He can drive. Smoking Status: Former smoker Past Alcohol Use History: None Reported, Occasional Additional Past Alcohol Use History / Comment(s): Pt started smoking as a teen and quit in 1999. He drinks approximately 4 beers a day but none for several days d/t recent surgery. Past Drug Use History: None Reported - Past Family History Mother Family Medical History: No Reported History Additional Family Medical History / Comment(s): Leukemia Father Family Medical History: No Reported History Additional Family Medical History / Comment(s): from old age General Exam General appearance: alert, in no apparent distress Head exam: Present: normocephalic, normal inspection. Absent: atraumatic (Laceration to left sided head) Eye exam: Present: normal appearance, PERRL, EOMI. Absent: scleral icterus, conjunctival injection, periorbital swelling ENT exam: Present: normal exam, mucous membranes moist Neck exam: Present: normal inspection. Absent: tenderness, meningismus, lymphadenopathy Respiratory exam: Present: normal lung sounds bilaterally. Absent: respiratory distress, wheezes, rales, rhonchi, stridor Cardiovascular Exam: Present: regular rate, normal rhythm, normal heart sounds. Absent: systolic murmur, diastolic murmur, rubs, gallop, clicks GI/Abdominal exam: Present: soft, normal bowel sounds. Absent: distended, tenderness, guarding, rebound, rigid Extremities exam: Present: normal inspection, full ROM, normal capillary refill. Absent: tenderness, pedal edema, joint swelling, calf tenderness Back exam: Present: normal inspection Neurological exam: Present: alert, oriented X3, CN II-XII intact Psychiatric exam: Present: normal affect, normal mood Skin exam: Present: warm, dry, intact, normal color. Absent: rash Course Vital Signs 08/16/22 23:05 Temperature 98.7 F Pulse Rate 83 Respiratory 16 Rate Blood Pressure 129/76 O2 Sat by Pulse 94 L Oximetry - Reevaluation(s) Reevaluation #1: 08/17/22 01:03 Medical record is reviewed Reevaluation #2: 08/17/22 01:03 Patient has no acute complaint Reevaluation #3: 08/17/22 01:03 Patient informed results and questions answered Medical Decision Making - Medical Decision Making 68 female DF for evaluation patient does have laceration to parietal scalp. Laceration is repaired with asad computed tomography scan is negative and patient can be discharged home - Radiology Data Radiology results: report reviewed (CT brain C-spine negative for acute disease x-ray left hand negative for acute injury), image reviewed Disposition Clinical Impression: Fall, Head injury, Scalp laceration Disposition: HOME SELF-CARE Condition: Good Instructions (If sedation given, give patient instructions): Fall Prevention for Older Adults (ED), Staple Care (ED) Is patient prescribed a controlled substance at d/c from ED?: No Referrals: Shabana Gannon MD [Primary Care Provider] - 1-2 days Time of Disposition: 01:00
[2022-08-16] MEDS ORDERED: SODIUM CHLORIDE 0.9% 500 ML 500 ML IV STA (23:51)
--- NOTE | 2022-08-17 00:17 | CT ---
EXAMINATION TYPE: CT brain cspine wo con DATE OF EXAM: 08/17/2022 COMPARISON: CT brain 01/23/2019 HISTORY: fall CT DLP: 1484.3 mGycm Automated exposure control for dose reduction was used. Images obtained of the brain and cervical spine without contrast. There is some cerebral cortical atrophy. There is no mass effect or midline shift. No sign of intracr anial hemorrhage. Calvarium is intact. The cervical vertebra have normal alignment. There is degenerative spurring anteriorly at C6-7. The p osterior element are intact. Facet joints are intact. No compression fracture. No subluxation. There is apparent previous surgery left mastoid sinus. No evidence of mastoiditis. IMPRESSION: Degenerative hypertrophic mild changes at the C6-7 level. No cervical spine fracture. Cerebral atrophy. No acute intracranial abnormality. Brain is not changed compared to old exam.
--- NOTE | 2022-08-17 00:22 | XR ---
EXAMINATION TYPE: XR finger LT DATE OF EXAM: 08/17/2022 COMPARISON: NONE HISTORY: Fall. Finger injury. TECHNIQUE: 3 views FINDINGS: There is flexion deformity of the index finger left hand. There is narrowing and spurring a t the third MP joint. The middle finger appears intact. There are no erosions. There is slight sublux ation at the third MP joint. IMPRESSION: There is some osteoarthritis and minimal subluxation at the third MP joint. No fracture s een.
== END 2022-08-17 01:42 | disposition home or self-care (01) ==
LOC: EC 23:01
DX: S01.01XA Laceration without foreign body of scalp, initial encounter (principal); J44.9 Chronic obstructive pulmonary disease, unspecified; I10 Essential (primary) hypertension; M19.90 Unspecified osteoarthritis, unspecified site; K21.9 Gastro-esophageal reflux disease without esophagitis; Z87.891 Personal history of nicotine dependence; Z79.899 Other long term (current) drug therapy; W01.198A Fall on same level from slipping, tripping and stumbling with subsequent striking against other object, initial encounter
CPT/HCPCS: 12001; 70450; 72125; 96360; 99284

== ENCOUNTER → 2022-09-27 | Outpatient (CLI) | payer MEDICARE ==
--- NOTE | 2022-09-29 21:55 | PE ---
EXAMINATION TYPE: PET CT fusion skull to thigh DATE OF EXAM: 09/27/2022 CLINICAL INDICATION:Male, 71 years old with history of C34.12 MALIGNANT NEOPLASM OF UPPER LOBE, LEFT BRON; TECHNIQUE: Following the intravenous administration of 11.5 mCi of F-18 FDG, whole body images are performed from the skull base to the midthigh. Images are reviewed on the computer in the coronal, a xial, and sagittal planes. Reconstructed rotating images are created on independent workstation and reviewed on the computer. A non-contrast CT is performed in conjunction with the PET scan. Glucose level 83 mg/dL COMPARISON: CT None, PET/CT 05/17/2022, FINDINGS: Mediastinal SUV mean is 1.7. Hepatic parenchyma SUV mean is 2.5. SKULL BASE AND NECK: No suspicious radiotracer activity. CHEST, MEDIASTINUM, AND HILAR REGION: * Left upper lobe medial pleural thickening with increased FDG activity max SUV 5.1, previously 2.8 * Left internal mammary lymph node asymmetric increased FDG activity max SUV 1.5, previously 1.5 * Left upper lobe 2.1 cm pulmonary nodule Max SUV 9.5, previously 5.7 * Left perihilar lymph node max SUV 5.2, previously 4.8. * Left lower lobe posterior medial pleural max SUV 4.1 previously 2.7. * Left of the arterial fat 6 mm lymph node max SUVs 2.8, previously 2.4. ABDOMEN AND PELVIS: No suspicious radiotracer activity. OSSEOUS STRUCTURES: No suspicious radiotracer activity. OTHER CT: Atherosclerosis of the arterial vasculature. The heart is mildly enlarged for size. Trace l eft pleural effusion. The prostate is enlarged measuring up to 6.4 cm in transverse dimension. Fixati on hardware to the lower spine hardware appears in appropriate position. IMPRESSION: Progression of disease with increasing metabolic activity of left upper lobe pulmonary nodule, multip le foci along the pleura and left pulmonary hilum lymph nodes.
== END | disposition home or self-care (01) ==
LOC: RADPETMAIN 10:07
PROVIDERS: ATTEND Internal Medicine Hematology & Oncology
DX: C34.12 Malignant neoplasm of upper lobe, left bronchus or lung (principal); J98.4 Other disorders of lung; R91.1 Solitary pulmonary nodule; R59.0 Localized enlarged lymph nodes
CPT/HCPCS: 78815; A9552

== ENCOUNTER 2022-10-15 17:52 | Inpatient (IN) | payer MEDICARE ==
--- NOTE | 2022-10-15 18:25 | ED ---
Weakness HPI - General Chief complaint: Weakness Stated complaint: Increased confusion Time Seen by Provider: 10/15/22 17:52 Source: patient, EMS, RN notes reviewed Mode of arrival: EMS Limitations: no limitations - History of Present Illness Initial comments: 71-year-old male brought in by EMS with complaints of confusion increased weakness over last day or 2 unsteady gait he's also had frequent urination he has fallen he complains no head neck or back pain however he's had chills he was noted by paramedics have a temperature 101.8 and heart rate of 120. He has maintained his blood pressure. He does have a history of lung cancer and didn't chemotherapy No other current complaints or modifying factors other than the patient's suspected have Alzheimer's disease or dementia MD Complaint: generalized weakness - Related Data Home Medications Medication Instructions Recorded Confirmed Citalopram Hydrobromide 20 mg PO DAILY 04/29/17 10/15/22 [Citalopram HBr] Cyanocobalamin (Vitamin B-12) 1,000 mcg PO DAILY 04/29/17 10/15/22 [Vitamin B-12] Fish Oil/Dha/Epa [Fish Oil 1,200 1 cap PO DAILY 04/29/17 10/15/22 mg Fish Oil] Niacin 500 mg PO DAILY 04/29/17 10/15/22 Pantoprazole Sodium 40 mg PO DAILY 04/29/17 10/15/22 Thiamine [Vitamin B-1] 100 mg PO DAILY 04/29/17 10/15/22 Budesonide/Formoterol Fumarate 2 puff INHALATION RT-BID 01/14/19 10/15/22 [Symbicort 160-4.5 Mcg Inhaler] Tiotropium 18 Mcg/Puff [Spiriva] 1 puff INHALATION RT-DAILY 01/14/19 10/15/22 Fenofibrate 160 mg PO DAILY 01/19/19 10/15/22 Ezetimibe [Zetia] 10 mg PO DAILY 01/21/22 10/15/22 Pioglitazone [Actos] 30 mg PO DAILY 01/21/22 10/15/22 Docusate [Colace] 100 mg PO DAILY 02/19/22 10/15/22 Donepezil HCl [Aricept] 10 mg PO DAILY 02/19/22 10/15/22 LORazepam [Ativan] 1 mg PO DAILY PRN 02/19/22 10/15/22 Montelukast Sodium [Singulair] 10 mg PO DAILY 02/19/22 10/15/22 Cholecalciferol [Vitamin D3 (25 25 mcg PO DAILY 10/15/22 10/15/22 Mcg = 1000 Iu)] Previous Rx's Medication Instructions Recorded Folic Acid 1 mg PO DAILY #90 tablet 02/21/22 Allergies Allergy/AdvReac Type Severity Reaction Status Date / Time No Known Allergies Allergy Verified 10/15/22 19:42 Review of Systems ROS Statement: Those systems with pertinent positive or pertinent negative responses have been documented in the HPI. ROS Other: All systems not noted in ROS Statement are negative. Past Medical History Past Medical History: COPD, GERD/Reflux, Hyperlipidemia, Hypertension, Osteoarthritis (OA) Additional Past Medical History / Comment(s): Hypoglycemia, hemorrhoids History of Any Multi-Drug Resistant Organisms: None Reported Past Surgical History: Back Surgery, Joint Replacement Additional Past Surgical History / Comment(s): 01/20/19 total left knee arthroplasty, COLONOSCOPY Past Anesthesia/Blood Transfusion Reactions: No Reported Reaction Additional Past Anesthesia/Blood Transfusion Reaction / Comment(s): claustrophobic,no hx blood transfusion Past Psychological History: No Psychological Hx Reported, Depression Smoking Status: Former smoker Past Alcohol Use History: None Reported, Occasional Past Drug Use History: None Reported - Past Family History Mother Family Medical History: No Reported History Additional Family Medical History / Comment(s): Leukemia Father Family Medical History: No Reported History Additional Family Medical History / Comment(s): from old age General Exam - General Exam Comments Initial Comments: This is a well up well-nourished awake alert oriented 4 male he does appear somewhat anxious Limitations: no limitations General appearance: alert, anxious Head exam: Present: atraumatic, normocephalic, normal inspection Eye exam: Present: normal appearance, PERRL, EOMI. Absent: scleral icterus, conjunctival injection, periorbital swelling ENT exam: Present: mucous membranes dry Neck exam: Present: normal inspection. Absent: tenderness, meningismus, lymp hadenopathy Respiratory exam: Present: normal lung sounds bilaterally. Absent: respiratory distress, wheezes, rales, rhonchi, stridor Cardiovascular Exam: Present: normal rhythm, tachycardia, normal heart sounds. Absent: systolic murmur, diastolic murmur, rubs, gallop, clicks GI/Abdominal exam: Present: soft, distended (Mild bladder distention), normal bowel sounds. Absent: tenderness, guarding, rebound, rigid Rectal exam: Present: deferred Extremities exam: Present: normal inspection, full ROM, normal capillary refill. Absent: tenderness, pedal edema, joint swelling, calf tenderness Back exam: Present: normal inspection Neurological exam: Present: alert, oriented X3, CN II-XII intact Psychiatric exam: Present: normal affect, normal mood Skin exam: Present: warm, dry, intact, normal color. Absent: rash Course Vital Signs 10/15/22 10/15/22 10/15/22 17:54 18:37 20:00 Temperature 99.1 F Pulse Rate 114 H 115 H Pulse Rate [ 114 H Right Supine Pulse Oximetery ] Respiratory 20 16 Rate Blood Pressure 131/86 121/95 O2 Sat by Pulse 96 95 Oximetry 10/15/22 10/15/22 21:00 22:00 Temperature 98.8 F Pulse Rate 116 H 111 H Pulse Rate [ Right Supine Pulse Oximetery ] Respiratory 16 16 Rate Blood Pressure 119/76 142/82 O2 Sat by Pulse 96 97 Oximetry EKG Findings - EKG Results: EKG: interpreted by ERMD (EKG interpreted by va sinus tachycardia 114 RI interval 213 QRS duration 83 daily since QTC 310/377 left exodeviation no acute ST-T wave changes) Medical Decision Making - Medical Decision Making I did discuss findings with the patient's son was present patient does demonstrate evidence of dehydration tachycardia and fever some chills evidence of interstitial infiltrates on chest x-ray. Patient also had hypomagnesemia. Also mildly elevated creatinine. Did discuss this with the patient family patient will be admitted he is agreed to stay at this time.Was pt. sent in by a medical professional or institution (, PA, DENTAL HYGIENIST, urgent care, hospital, or group home...) When possible be specific @ -[No] Did you speak to anyone other than the patient for history (EMS, parent, family, police, friend...)? What history was obtained from this source @ -[Family and EMS] Did you review nursing and triage notes (agree or disagree)? Why? @ -[I reviewed and agree with nursing and triage notes] Were old charts reviewed (outside hosp., previous admission, EMS record, old EKG, old radiological studies, urgent care reports/EKG's, group home records)? Report findings @ -[ old charts were reviewed] Differential Diagnosis (chest pain, altered mental status, abdominal pain women, abdominal pain men, vaginal bleeding, weakness, fever, dyspnea, syncope, headache, dizziness, GI bleed, back pain, seizure, CVA, palpatations, mental health)? @ -[Pneumonia, UTI, altered mental status] EKG interpreted by me (3pts min.). @ -[As above] X-rays interpreted by me (1pt min.). @ -As above] CT interpreted by me (1pt min.). @ -[None done] U/S interpreted by me (1pt. min.). @ -[None done] What testing was considered but not performed or refused? (CT, X-rays, U/S, labs)? Why? @ -[None] What meds were considered but not given or refused? Why? @ -[None] Did you discuss the management of the patient with other professionals (professionals i.e. , PA, DENTAL HYGIENIST, lab, RT, psych nurse, social services, court advocate, teacher, workers' compensation hearings officer, case management coordinator)? Give summary @ -[[place] covering for Dr. Crain] Was smoking cessation discussed for >3mins.? @ -[No] Was critical care preformed (if so, how long)? @ -[No] Were there social determinants of health that impacted care today? How? (Homelessness, low income, unemployed, alcoholism, drug addiction, transportation, low edu. Level, literacy, decrease access to med. care, usp, rehab)? @ -[No] Was there de-escalation of care discussed even if they declined (Discuss DNR or withdrawal of care, Hospice)? DNR status @ -[No] What co-morbidities impacted this encounter? (DM, HTN, Smoking, COPD, CAD, Cancer, CVA, ARF, Chemo, Hep., AIDS, mental health diagnosis, sleep apnea, morbid obesity)? @ -[Lung cancer] Was patient admitted / discharged? Hospital course, mention meds given and route, prescriptions, significant lab abnormalities, going to OR and other pertinent info. @ -[hospital course] admitted Undiagnosed new problem with uncertain prognosis? @ -[No] Drug Therapy requiring intensive monitoring for toxicity (Heparin, Nitro, Insulin, Cardizem)? @ -[No] Were any procedures done? @ -[No] Diagnosis/symptom? @ -[default] pneumonia, weakness, dehydration, leukocytosis, altered mental status, failure to thrive Acute, or Chronic, or Acute on Chronic? @ -[Acute] Uncomplicated (without systemic symptoms) or Complicated (systemic symptoms)? @ -[default] Side effects of treatment? @ -[No] Exacerbation, Progression, or Severe Exacerbation? @ -[No] Poses a threat to life or bodily function? How? (Chest pain, [place], [place], pneumonia, PE, COPD, DKA, ARF, appy, cholecystitis, CVA, Diverticulitis, Homicidal, Suicidal, threat to staff... and all critical care pts) @ -[Nontreated, pneumonia] - Lab Data Result diagrams: 10/15/22 18:15 10/15/22 18:15 Lab Results 10/15/22 10/15/22 10/15/22 Range/Units 18:15 18:15 18:15 WBC 15.2 H (3.8-10.6) k/uL RBC 4.79 (4.30-5.90) m/uL Hgb 13.9 (13.0-17.5) gm/dL Hct 41.8 (39.0-53.0) % MCV 87.4 (80.0-100.0) fL MCH 29.0 (25.0-35.0) pg MCHC 33.2 (31.0-37.0) g/dL RDW 13.9 (11.5-15.5) % Plt Count 217 (150-450) k/uL MPV 7.6 Neutrophils % 91 % Lymphocytes % 2 % Monocytes % 5 % Eosinophils % 1 % Basophils % 0 % Neutrophils # 13.8 H (1.3-7.7) k/uL Lymphocytes # 0.3 L (1.0-4.8) k/uL Monocytes # 0.8 (0-1.0) k/uL Eosinophils # 0.1 (0-0.7) k/uL Basophils # 0.0 (0-0.2) k/uL Sodium 135 L (137-145) mmol/L Potassium 4.6 (3.5-5.1) mmol/L Chloride 103 (98-107) mmol/L Carbon Dioxide 24 (22-30) mmol/L Anion Gap 8 mmol/L BUN 18 (9-20) mg/dL Creatinine 1.49 H (0.66-1.25) mg/dL Est GFR (CKD-EPI)AfAm 53 (>60 ml/min/1.73 sqM) Est GFR (CKD-EPI)NonAf 46 (>60 ml/min/1.73 sqM) Glucose 89 (74-99) mg/dL Calcium 9.5 (8.4-10.2) mg/dL Magnesium 1.4 L (1.6-2.3) mg/dL Total Bilirubin 0.6 (0.2-1.3) mg/dL AST 25 (17-59) U/L ALT 17 (4-49) U/L Alkaline Phosphatase 71 (38-126) U/L Ammonia <9 (<30) umol/L Creatine Kinase 48 L (55-170) U/L Troponin I (0.000-0.034) ng/mL Total Protein 7.6 (6.3-8.2) g/dL Albumin 4.3 (3.5-5.0) g/dL Urine Color Urine Appearance (Clear) Urine pH (5.0-8.0) Ur Specific [place] (1.001-1.035) Urine Protein (Negative) Urine Glucose (UA) (Negative) Urine Ketones (Negative) Urine Blood (Negative) Urine Nitrite (Negative) Urine Bilirubin (Negative) Urine Urobilinogen (<2.0) mg/dL Ur Leukocyte Esterase (Negative) Coronavirus (PCR) (Not Detectd) Influenza Type A RNA (Not Detectd) Influenza Type B (PCR) (Not Detectd) 10/15/22 10/15/22 10/15/22 Range/Units 18:15 18:15 20:11 WBC (3.8-10.6) k/uL RBC (4.30-5.90) m/uL Hgb (13.0-17.5) gm/dL Hct (39.0-53.0) % MCV (80.0-100.0) fL MCH (25.0-35.0) pg MCHC (31.0-37.0) g/dL RDW (11.5-15.5) % Plt Count (150-450) k/uL MPV Neutrophils % % Lymphocytes % % Monocytes % % Eosinophils % % Basophils % % Neutrophils # (1.3-7.7) k/uL Lymphocytes # (1.0-4.8) k/uL Monocytes # (0-1.0) k/uL Eosinophils # (0-0.7) k/uL Basophils # (0-0.2) k/uL Sodium (137-145) mmol/L Potassium (3.5-5.1) mmol/L Chloride (98-107) mmol/L Carbon Dioxide (22-30) mmol/L Anion Gap mmol/L BUN (9-20) mg/dL Creatinine (0.66-1.25) mg/dL Est GFR (CKD-EPI)AfAm (>60 ml/min/1.73 sqM) Est GFR (CKD-EPI)NonAf (>60 ml/min/1.73 sqM) Glucose (74-99) mg/dL Calcium (8.4-10.2) mg/dL Magnesium (1.6-2.3) mg/dL Total Bilirubin (0.2-1.3) mg/dL AST (17-59) U/L ALT (4-49) U/L Alkaline Phosphatase (38-126) U/L Ammonia (<30) umol/L Creatine Kinase (55-170) U/L Troponin I <0.012 (0.000-0.034) ng/mL Total Protein (6.3-8.2) g/dL Albumin (3.5-5.0) g/dL Urine Color Light Yellow Urine Appearance Clear (Clear) Urine pH 7.0 (5.0-8.0) Ur Specific [place] 1.016 (1.001-1.035) Urine Protein Trace H (Negative) Urine Glucose (UA) Negative (Negative) Urine Ketones Negative (Negative) Urine Blood Negative (Negative) Urine Nitrite Negative (Negative) Urine Bilirubin Negative (Negative) Urine Urobilinogen <2.0 (<2.0) mg/dL Ur Leukocyte Esterase Negative (Negative) Coronavirus (PCR) (Not Detectd) Influenza Type A RNA Not Detected (Not Detectd) Influenza Type B (PCR) Not Detected (Not Detectd) 01/31/23 Range/Units 20:11 WBC (3.8-10.6) k/uL RBC (4.30-5.90) m/uL Hgb (13.0-17.5) gm/dL Hct (39.0-53.0) % MCV (80.0-100.0) fL MCH (25.0-35.0) pg MCHC (31.0-37.0) g/dL RDW (11.5-15.5) % Plt Count (150-450) k/uL MPV Neutrophils % % Lymphocytes % % Monocytes % % Eosinophils % % Basophils % % Neutrophils # (1.3-7.7) k/uL Lymphocytes # (1.0-4.8) k/uL Monocytes # (0-1.0) k/uL Eosinophils # (0-0.7) k/uL Basophils # (0-0.2) k/uL Sodium (137-145) mmol/L Potassium (3.5-5.1) mmol/L Chloride (98-107) mmol/L Carbon Dioxide (22-30) mmol/L Anion Gap mmol/L BUN (9-20) mg/dL Creatinine (0.66-1.25) mg/dL Est GFR (CKD-EPI)AfAm (>60 ml/min/1.73 sqM) Est GFR (CKD-EPI)NonAf (>60 ml/min/1.73 sqM) Glucose (74-99) mg/dL Calcium (8.4-10.2) mg/dL Magnesium (1.6-2.3) mg/dL Total Bilirubin (0.2-1.3) mg/dL AST (17-59) U/L ALT (4-49) U/L Alkaline Phosphatase (38-126) U/L Ammonia (<30) umol/L Creatine Kinase (55-170) U/L Troponin I (0.000-0.034) ng/mL Total Protein (6.3-8.2) g/dL Albumin (3.5-5.0) g/dL Urine Color Urine Appearance (Clear) Urine pH (5.0-8.0) Ur Specific [place] (1.001-1.035) Urine Protein (Negative) Urine Glucose (UA) (Negative) Urine Ketones (Negative) Urine Blood (Negative) Urine Nitrite (Negative) Urine Bilirubin (Negative) Urine Urobilinogen (<2.0) mg/dL Ur Leukocyte Esterase (Negative) Coronavirus (PCR) Not Detected (Not Detectd) Influenza Type A RNA (Not Detectd) Influenza Type B (PCR) (Not Detectd) - Radiology Data Interpreted by me: Imaging shows evidence of increased interstitial markings but no definitive consolidation this was evaluated and interpreted by me EKG shows evidence again of increased interstitial markings. Disposition Clinical Impression: Interstitial pneumonia, Febrile illness, acute, Dehydration, Tachycardia, Hypomagnesemia, Failure to thrive, Mental status alteration Disposition: ADMITTED IP TO THIS [facility] Condition: Fair Referrals: Shabana Gannon MD [Primary Care Provider] - 1-2 days Decision Date: 10/15/22 Decision Time: 21:00
[2022-10-15 18:40] LABS: Appearance,Urine Clear (Clear); Bilirubin,Urine Negative (Negative); Blood,Urine Negative (Negative); Color,Urine Light Yellow; Glucose,Urine (UA) Negative (Negative); Ketones,Urine Negative (Negative); Leukocyte Esterase,Urine Negative (Negative); Nitrite,Urine Negative (Negative); Protein,Urine Trace (Negative); Specific Gravity,Urine 1.016 (1.001-1.035); Urobilinogen,Urine <2.0 mg/dL (<2.0)
--- NOTE | 2022-10-15 18:45 | CT ---
EXAMINATION TYPE: CT brain cspine wo con DATE OF EXAM: 10/15/2022 COMPARISON: 08/16/2022 HISTORY: ams, fever CT DLP: 1508.9 mGycm Automated exposure control for dose reduction was used. TECHNIQUE: CT scan of the head and cervical spine are performed without contrast. FINDINGS: There is no acute intracranial hemorrhage, mass effect, or midline shift identified. The ventricles and sulci are within normal limits in size. The globes are intact and the visualized sin uses are clear. Cervical spine is visualized in its entirety from C1 through upper thoracic levels and demonstrates s atisfactory alignment without evidence of acute fracture or dislocation. Prevertebral soft tissue ap pears within normal limits. The C1-C2 articulation is unremarkable. IMPRESSION: 1. There is no acute fracture or dislocation evident in the cervical spine. 2. No acute intracranial hemorrhage, mass effect, or midline shift is seen.
--- NOTE | 2022-10-15 18:50 | XR ---
EXAMINATION TYPE: XR chest 2V DATE OF EXAM: 10/15/2022 COMPARISON: 02/21/22 HISTORY: Shortness of breath TECHNIQUE: Frontal and lateral views of the chest are obtained. FINDINGS: Scattered senescent parenchymal changes noted. Hyperinflation compatible with COPD. Chronic elevation left hemidiaphragm. Nonspecific interstitial prominence. Heart size is stable. Mediastinal structures are stable and grossly unremarkable. No evidence for hilar prominence. Degenerative changes dorsal spine. IMPRESSION: 1. Nonspecific prominence of the pulmonary interstitium. No definite overt failure at this time. No f ocal consolidation.
[2022-10-15 18:59] LABS: Basophils % (A) 0 %; Eosinophils # (A) 0.1 k/uL (0-0.7); Eosinophils % (A) 1 %; HCT 41.8 % (39.0-53.0); HGB 13.9 gm/dL (13.0-17.5); Lymphocytes # (A) 0.3 k/uL (1.0-4.8); Lymphocytes % (A) 2 %; MCHC 33.2 g/dL (31.0-37.0); MCV 87.4 fL (80.0-100.0); Mean Platelet Volume 7.6; Monocytes # (A) 0.8 k/uL (0-1.0); Monocytes % (A) 5 %; Neutrophils # (A) 13.8 k/uL (1.3-7.7); Neutrophils % (A) 91 %; Platelet Count 217 k/uL (150-450); RBC 4.79 m/uL (4.30-5.90); RDW 13.9 % (11.5-15.5); WBC 15.2 k/uL (3.8-10.6)
[2022-10-15 19:12] LABS: Albumin 4.3 g/dL (3.5-5.0); Calcium 9.5 mg/dL (8.4-10.2); Magnesium 1.4 mg/dL (1.6-2.3); Potassium 4.6 mmol/L (3.5-5.1); Total Bilirubin 0.6 mg/dL (0.2-1.3); Total Protein 7.6 g/dL (6.3-8.2)
[2022-10-15] MEDS ORDERED: MAGNESIUM SULFATE-D5W PMX 1 GM in DEXTROSE/WATER 1 100ML.BAG IVPB ONE (20:04)
[2022-10-15] MEDS ORDERED: LORazepam 2 MG/ML INJ IV STA (21:57)
[2022-10-15] MEDS ORDERED: cefTRIAXone IN SWFI 1,000 MG/10 ML SYRINGE IVP ONE (22:00)
[2022-10-15] MEDS ORDERED: AZITHROMYCIN 500 MG in SODIUM CHLORIDE 0.9% 250 ML IVPB STA (22:29)
[2022-10-15] MEDS ORDERED: PNEUMONIA PROTOCOL UTILIZED 1 EACH MISC PO PRN (22:29)
[2022-10-15] MEDS ORDERED: LORazepam 1 MG TAB PO PRN (22:30)
[2022-10-15] MEDS: SODIUM CHLORIDE 0.9% 1,000 ML IV SCH (22:47)
[2022-10-16] MEDS ORDERED: ACETAMINOPHEN TAB 325 MG TAB PO PRN (00:01)
--- NOTE | 2022-10-16 07:35 | XR ---
EXAMINATION TYPE: XR chest 1V portable DATE OF EXAM: 10/16/2022 HISTORY: Shortness of breath. COMPARISON: 10/15/2022 TECHNIQUE: Single view of the chest is submitted. FINDINGS: Demonstrated are scattered senescent parenchymal change. Developing Basilar atelectasis or infiltrates noted. The heart is stable. Hilar and mediastinal structures are within normal limits. Degenerative changes are seen of the dorsal spine. IMPRESSION: 1. Developing Basilar atelectasis or infiltrates noted.
[2022-10-16] MEDS ORDERED: SYMBICORT 160-4.5 MCG INHALER INHALATION SCH (08:00)
[2022-10-16] MEDS ORDERED: IPRATROPIUM 0.5 MG/2.5 ML NEBU INHALATION SCH (08:00)
[2022-10-16] MEDS ORDERED: EZETIMIBE 10 MG TAB PO SCH (09:00)
[2022-10-16] MEDS ORDERED: FOLIC ACID 1 MG TAB PO SCH (09:00)
[2022-10-16] MEDS ORDERED: PANTOPRAZOLE 40 MG TABLET PO SCH (09:00)
[2022-10-16] MEDS ORDERED: DONEPEZIL 10 MG TAB PO SCH (09:00)
[2022-10-16] MEDS ORDERED: NIACIN TR 500 MG CAPLET PO SCH (09:00)
[2022-10-16] MEDS ORDERED: PIOGLITAZONE 30 MG TAB PO SCH (09:00)
[2022-10-16] MEDS ORDERED: THIAMINE 100 MG TAB PO SCH (09:00)
[2022-10-16] MEDS ORDERED: MONTELUKAST 10 MG TAB PO SCH (09:00)
[2022-10-16] MEDS ORDERED: FENOFIBRATE 160 MG TAB PO SCH (09:00)
[2022-10-16] MEDS ORDERED: DOCUSATE 100 MG CAP PO SCH (09:00)
[2022-10-16] MEDS ORDERED: CYANOCOBALAMIN 500 MCG TAB PO SCH (09:00)
[2022-10-16] MEDS ORDERED: CITALOPRAM HYDROBROMIDE 20 MG TAB PO SCH (09:00)
[2022-10-16] MEDS ORDERED: AZITHROMYCIN 500 MG TAB PO SCH (09:00)
[2022-10-16] MEDS ORDERED: CHOLECALCIFEROL 25 MCG (1000 IU) TABLET PO SCH (09:00)
[2022-10-16] MEDS ORDERED: NON FORMULARY DRUG (Fish Oil/Dha/Epa [Fish Oil 1,200 Mg Fish Oil] 1 EACH Capsule) PO SCH (09:00)
[2022-10-16] MEDS: SODIUM CHLORIDE 0.9% 1,000 ML IV SCH (09:40)
[2022-10-16] MEDS: IPRATROPIUM 0.5 MG/2.5 ML NEBU INHALATION SCH ×2 (11:30→15:10)
--- NOTE | 2022-10-16 13:52 | P.HPIM ---
History of Present Illness Patient is a pleasant 71-year-old male came in with complaints of the lightheadedness and headache. Patient had history of lung cancer received chemotherapy completed chemotherapy since the his chemotherapy patient has some memory issues patient is presently alert oriented 3. Patient lives with by himself with family members living close by. Patient has sinus tachycardia which improved at this time. Patient received IV fluids and mildly dehydrated does have acute renal failure with creatinine of 1.49 day patient doesn't have any fever here does have mild leukocytosis in the ER physician's noted was documented patient had fever at home and the chest x-ray showing atelectasis and patient was started on treatment for pneumonia with Rocephin and azithromycin. Patient clinically doing well had a history of anxiety and whenever he gets anxious patient's with agitated patient is on Ativan for that at home which was used earlier today morning with improvement in his symptoms. REVIEW OF SYSTEMS: CONSTITUTIONAL: No fever, no malaise, no fatigue. HEENT: No recent visual problems or hearing problems. Denied any sore throat. CARDIOVASCULAR: No chest pain, orthopnea, PND, no palpitations, no syncope. PULMONARY: No shortness of breath, no cough, no hemoptysis. GASTROINTESTINAL: No diarrhea, no nausea, no vomiting, no abdominal pain. NEUROLOGICAL: No headaches, no weakness, no numbness. HEMATOLOGICAL: Denies any bleeding or petechiae. GENITOURINARY: Denies any burning micturition, frequency, or urgency. MUSCULOSKELETAL/RHEUMATOLOGICAL: Denies any joint pain, swelling, or any muscle pain. ENDOCRINE: Denies any polyuria or polydipsia. The rest of the 14-point review of systems is negative. PHYSICAL EXAMINATION: GENERAL: The patient is alert and oriented x3, not in any acute distress. Well developed, well nourished. HEENT: Pupils are round and equally reacting to light. EOMI. No scleral icterus. No conjunctival pallor. Normocephalic, atraumatic. No pharyngeal erythema. No thyromegaly. CARDIOVASCULAR: S1 and S2 present. No murmurs, rubs, or gallops. PULMONARY: Chest is clear to auscultation, no wheezing or crackles. ABDOMEN: Soft, nontender, nondistended, normoactive bowel sounds. No palpable organomegaly. MUSCULOSKELETAL: No joint swelling or deformity. EXTREMITIES: No cyanosis, clubbing, or pedal edema. NEUROLOGICAL: Gross neurological examination did not reveal any focal deficits. SKIN: No rashes. Assessment and plan -Dizziness and headache headache resolved, dizziness and lightheadedness is probably secondary to mild intravascular volume depletion dehydration patient received IV fluids will discontinue the IV fluids at this time. -Generalized weakness physical therapy and occupational therapy evaluation. -Primary headache syndrome for which patient will follow with neurology as an outpatient. -Atelectasis low possibility of pneumonia clinically we'll obtain up to level he progressed from as high patient will be given antibiotics for pneumonia upon discharge -History of lung cancer received chemotherapy -Gases visual reflux disease -Hyperlipidemia -Hypertension -Osteoarthritis -Sinus tachycardia secondary to hypokalemia improved with IV fluids Patient will be discharged later today Past Medical History Past Medical History: COPD, GERD/Reflux, Hyperlipidemia, Hypertension, Osteoarthritis (OA) Additional Past Medical History / Comment(s): Hypoglycemia, hemorrhoids History of Any Multi-Drug Resistant Organisms: None Reported Past Surgical History: Back Surgery, Joint Replacement Additional Past Surgical History / Comment(s): 01/20/19 total left knee arthroplasty, COLONOSCOPY Past Anesthesia/Blood Transfusion Reactions: No Reported Reaction Additional Past Anesthesia/Blood Transfusion Reaction / Comment(s): claustrophobic,no hx blood transfusion Past Psychological History: No Psychological Hx Reported, Depression Smoking Status: Former smoker Past Alcohol Use History: None Reported, Occasional Past Drug Use History: None Reported - Past Family History Mother Family Medical History: No Reported History Additional Family Medical History / Comment(s): Leukemia Father Family Medical History: No Reported History Additional Family Medical History / Comment(s): from old age Medications and Allergies Home Medications Medication Instructions Recorded Confirmed Type Citalopram Hydrobromide 20 mg PO DAILY 04/29/17 10/15/22 History [Citalopram HBr] Cyanocobalamin (Vitamin B-12) 1,000 mcg PO DAILY 04/29/17 10/15/22 History [Vitamin B-12] Fish Oil/Dha/Epa [Fish Oil 1,200 1 cap PO DAILY 04/29/17 10/15/22 History mg Fish Oil] Niacin 500 mg PO DAILY 04/29/17 10/15/22 History Pantoprazole Sodium 40 mg PO DAILY 04/29/17 10/15/22 History Thiamine [Vitamin B-1] 100 mg PO DAILY 04/29/17 10/15/22 History Budesonide/Formoterol Fumarate 2 puff INHALATION RT-BID 01/14/19 10/15/22 History [Symbicort 160-4.5 Mcg Inhaler] Tiotropium 18 Mcg/Puff [Spiriva] 1 puff INHALATION RT-DAILY 01/14/19 10/15/22 History Fenofibrate 160 mg PO DAILY 01/19/19 10/15/22 History Ezetimibe [Zetia] 10 mg PO DAILY 01/21/22 10/15/22 History Pioglitazone [Actos] 30 mg PO DAILY 01/21/22 10/15/22 History Docusate [Colace] 100 mg PO DAILY 02/19/22 10/15/22 History Donepezil HCl [Aricept] 10 mg PO DAILY 02/19/22 10/15/22 History LORazepam [Ativan] 1 mg PO DAILY PRN 02/19/22 10/15/22 History Montelukast Sodium [Singulair] 10 mg PO DAILY 02/19/22 10/15/22 History Folic Acid 1 mg PO DAILY #90 tablet 02/21/22 10/15/22 Rx Cholecalciferol [Vitamin D3 (25 25 mcg PO DAILY 10/15/22 10/15/22 History Mcg = 1000 Iu)] Allergies Allergy/AdvReac Type Severity Reaction Status Date / Time No Known Allergies Allergy Verified 10/15/22 19:42 Physical Exam Vitals: Vital Signs Temp Pulse Pulse Resp BP Pulse Ox 10/16/22 11:41 67 18 10/16/22 11:30 67 16 10/16/22 08:33 67 16 10/16/22 08:22 67 16 97 10/16/22 07:36 63 18 128/87 98 10/16/22 06:55 98.6 F 72 16 127/85 98 10/16/22 04:00 98 16 119/81 98 10/16/22 00:00 97 16 123/95 99 10/15/22 22:21 112 H 16 115/78 98 10/15/22 22:00 98.8 F 111 H 16 142/82 97 10/15/22 21:00 116 H 16 119/76 96 10/15/22 20:00 115 H 16 121/95 95 10/15/22 18:37 114 H 10/15/22 17:54 99.1 F 114 H 20 131/86 96 Intake and Output 10/15/22 10/16/22 10/16/22 22:59 06:59 14:59 Output Total 160 Balance -160 Output: Post Void Residual 160 Other: Voiding Method Urinal Weight 95.254 kg Results CBC & Chem 7: 10/15/22 18:15 10/15/22 18:15 Labs: Abnormal Lab Results - Last 24 Hours (Table) 10/15/22 10/15/22 10/15/22 Range/Units 18:15 18:15 18:15 WBC 15.2 H (3.8-10.6) k/uL Neutrophils # 13.8 H (1.3-7.7) k/uL Lymphocytes # 0.3 L (1.0-4.8) k/uL Sodium 135 L (137-145) mmol/L Creatinine 1.49 H (0.66-1.25) mg/dL Magnesium 1.4 L (1.6-2.3) mg/dL Creatine Kinase 48 L (55-170) U/L Urine Protein Trace H (Negative)
[2022-10-16 15:11] VITALS: RESP 16
[2022-10-16] MEDS: MAGNESIUM SULFATE-D5W PMX 1 GM in DEXTROSE/WATER 1 100ML.BAG IVPB SCH ×2 (15:19→17:05)
[2022-10-16 17:31] VITALS: BP 119/76; PULSE 72; TEMP 97.2
== END 2022-10-16 17:31 | disposition home or self-care (01) | DRG 640 ==
LOC: EC 17:52 → 5NMEDONC 22:31
PROVIDERS: ADMIT Hospitalist; ATTEND Hospitalist
DX: E86.0 Dehydration (principal); J18.9 Pneumonia, unspecified organism; J44.0 Chronic obstructive pulmonary disease with (acute) lower respiratory infection; N17.9 Acute kidney failure, unspecified; R41.82 Altered mental status, unspecified; E83.42 Hypomagnesemia; R62.7 Adult failure to thrive; F32.A Depression, unspecified; E87.6 Hypokalemia; G44.89 Other headache syndrome; F41.9 Anxiety disorder, unspecified; K21.9 Gastro-esophageal reflux disease without esophagitis; E78.5 Hyperlipidemia, unspecified; I10 Essential (primary) hypertension; M19.90 Unspecified osteoarthritis, unspecified site; R26.81 Unsteadiness on feet; W19.XXXA Unspecified fall, initial encounter; Z20.822 Contact with and (suspected) exposure to COVID-19; F40.240 Claustrophobia; Z96.652 Presence of left artificial knee joint; Z68.27 Body mass index [BMI] 27.0-27.9, adult; Z79.899 Other long term (current) drug therapy; Z87.891 Personal history of nicotine dependence; Z85.118 Personal history of other malignant neoplasm of bronchus and lung; Z92.21 Personal history of antineoplastic chemotherapy; Z79.84 Long term (current) use of oral hypoglycemic drugs; Z79.51 Long term (current) use of inhaled steroids
CPT/HCPCS: 36415; 51798; 70450; 71045; 71046; 72125; 80053; 81003; 82140; 82550; 83735; 83880; 84145; 84484; 85025; 87040; 87070; 87077; 87186; 87205; 87502; 87635; 93005; 94640; 94760; 96361; 96365; 96366; 96367; 96375; 99285

== ENCOUNTER → 2023-01-23 | Outpatient (CLI) | payer MEDICARE ==
--- NOTE | 2023-01-23 12:29 | CT ---
EXAMINATION TYPE: CT chest wo con DATE OF EXAM: 01/23/2023 COMPARISON: Prior chest CT November 22, 2012 and older studies. HISTORY: lung cancer progress study. CT DLP: 478.4 mGycm. Automated Exposure Control for Dose Reduction was Utilized. TECHNIQUE: CT scan of the thorax is performed without IV contrast. FINDINGS: LUNGS: Moderate to advanced underlying emphysematous changes greatest in the upper lungs is redemonst rated. Persistent spiculated 3.0 x 2.8 cm mass in the anterior left upper lung axial image 23 stable or slightly smaller from most recent CT. There is moderate to severe left apical pleural/parenchymal scarring extending posteriorly redemonstrated with partially calcified spiculated 2.8 x 1.7 cm nodule somewhat difficult to accurately measure axial image 10 not significantly changed from most recent C T. Focal irregular scarring in the left midlung anteriorly axial image 32 is not significantly change d from most recent CT. Persistent tiny left pleural effusion and left basilar chronic consolidation a nd/or atelectasis. Persistent left-sided volume loss. No definitive new or enlarging nodules or carlos s. MEDIASTINUM: Lack of IV contrast is noted to limit evaluation for mediastinal and especially hilar ad enopathy. There are stable prominent but subcentimeter lymph nodes in the prevascular space along wit h the AP window. No cardiomegaly. Tiny Pericardial effusion is stable. Moderate coronary artery hong cification is redemonstrated OTHER: Slight scoliotic curvature redemonstrated. Mild to moderate height loss superior L1 endplate r edemonstrated. IMPRESSION: Moderate to advanced emphysematous change with stable findings from the most recent CT.
== END | disposition home or self-care (01) ==
LOC: RADCTMAIN 11:49
PROVIDERS: ATTEND Internal Medicine Hematology & Oncology
DX: C34.12 Malignant neoplasm of upper lobe, left bronchus or lung (principal); J43.9 Emphysema, unspecified
CPT/HCPCS: 71250

== ENCOUNTER → 2023-02-26 | Outpatient (CLI) | payer MEDICARE ==
--- NOTE | 2023-02-26 16:14 | US ---
EXAMINATION TYPE: US kidneys/renal and bladder DATE OF EXAM: 02/26/2023 COMPARISON: NONE CLINICAL INDICATION: Male, 72 years old with history of N18.30 CHRONIC KIDNEY DISEASE, STAGE 3 UNSPEC IFIED; CKD, with post void EXAM MEASUREMENTS: Right Kidney: 10.2 x 4.5 x 5.2 cm Left Kidney: 10.1 x 4.5 x 6.3 cm Post Void Residual Volume: 14.6ml mL right normal less than 50 mL. Right Kidney: No hydronephrosis or masses seen Left Kidney: No hydronephrosis or masses seen Bladder: wnl Normal Post Void Residual: yes IMPRESSION: 1. Normal renal ultrasound.
== END | disposition home or self-care (01) ==
LOC: RADUSWWP 07:40
PROVIDERS: ATTEND Family Medicine
DX: N18.30 Chronic kidney disease, stage 3 unspecified (principal)
CPT/HCPCS: 76770

== ENCOUNTER → 2023-03-21 | Outpatient (CLI) | payer MEDICARE ==
--- NOTE | 2023-03-22 13:42 | PE ---
EXAMINATION TYPE: PET CT fusion skull to thigh DATE OF EXAM: 03/21/2023 CLINICAL INDICATION:Male, 72 years old with history of C34.12 lung ca; TECHNIQUE: Following the intravenous administration of 11.85 mCi of F-18 FDG, whole body images are performed from the skull base to the midthigh. Images are reviewed on the computer in the coronal, axial, and sagittal planes. Reconstructed rotating images are created on independent workstation and reviewed on the computer. A non-contrast CT is performed in conjunction with the PET scan. Glucose level 85 mg/dL COMPARISON: CT chest 01/23/2023, PET/CT 09/27/2022, FINDINGS: Mediastinal SUV mean is 1.9. Hepatic parenchyma SUV mean is 2.0. SKULL BASE AND NECK: No suspicious radiotracer activity. CHEST, MEDIASTINUM, AND HILAR REGION: * Left upper lobe medial pleural thickening with increased FDG activity max SUV 7.7, previously 5.1, 2.8 * Left internal mammary lymph node asymmetric increased FDG activity max SUV 3.3, previously 1.6, 1. 5 * Left upper lobe measuring 2.6 cm x 2.6 cm, previously similar on 01/23/2023 2.1 cm on 09/27/2022 pul monary nodule Max SUV 11.2, previously 9.5, 5.7 * Left perihilar lymph node max SUV 8.6, previously 5.2, 4.8. * Left lower lobe posterior medial pleural max SUV 4.2, previously 4.1 2.7. * Left epicardial fat lymph node not definitively seen on today's exam there is irregular FDG avid s oft tissue now near the diaphragm max SUV 5.3. Previously the lymph node had max SUVs 2.8, previously 2.4. ABDOMEN AND PELVIS: No suspicious radiotracer activity. OSSEOUS STRUCTURES: No suspicious radiotracer activity. Degeneration changes of the left acromioclavi cular joint max SUV 2.7. OTHER CT: Atherosclerosis of the arterial vasculature. The heart is mildly enlarged for size. Trace l eft pleural effusion. The prostate is enlarged measuring up to 6.4 cm in transverse dimension. Fixati on hardware to the lower spine hardware appears in appropriate position. IMPRESSION: Progression of disease with increasing metabolic activity of left upper lobe pulmonary nodule. The si ze is relatively stable size compared to recent CT, multiple foci along the pleura and left pulmonary hilum lymph nodes have also increased in metabolic activity.
== END | disposition home or self-care (01) ==
LOC: RADPETMAIN 08:15
PROVIDERS: ATTEND Internal Medicine Hematology & Oncology
DX: C34.12 Malignant neoplasm of upper lobe, left bronchus or lung (principal); R91.1 Solitary pulmonary nodule; R59.0 Localized enlarged lymph nodes; J98.4 Other disorders of lung
CPT/HCPCS: 78815; A9552

== ENCOUNTER 2023-06-28 11:49 | Emergency (ER) | payer MEDICARE ==
[2023-06-28] MEDS: ONDANSETRON 4 MG/2 ML VIAL IVP STA (13:15)
[2023-06-28] MEDS: HYDROmorphone 0.5 MG/0.5 ML SYRINGE IVP STA (13:16)
[2023-06-28] MEDS: SODIUM CHLORIDE 0.9% 1,000 ML IV ONE (13:17)
[2023-06-28 13:18] LABS: Basophils % (A) 0 %; Eosinophils # (A) 0.9 k/uL (0-0.7); Eosinophils % (A) 5 %; HCT 40.4 % (39.0-53.0); HGB 13.4 gm/dL (13.0-17.5); Lymphocytes # (A) 1.1 k/uL (1.0-4.8); Lymphocytes % (A) 7 %; MCH 29.2 pg (25.0-35.0); MCHC 33.1 g/dL (31.0-37.0); Mean Platelet Volume 7.5; Monocytes # (A) 1.2 k/uL (0-1.0); Monocytes % (A) 7 %; Neutrophils # (A) 13.2 k/uL (1.3-7.7); Neutrophils % (A) 80 %; Platelet Count 249 k/uL (150-450); RBC 4.59 m/uL (4.30-5.90); RDW 13.3 % (11.5-15.5); WBC 16.6 k/uL (3.8-10.6)
[2023-06-28 13:24] LABS: ALT 10 U/L (4-49); AST 18 U/L (17-59); African American GFR (CKD) 67 (>60 ml/min/1.73 sqM); Alkaline Phosphatase 63 U/L (38-126); Amylase 100 U/L (30-110); Anion Gap 10 mmol/L; Blood Urea Nitrogen 19 mg/dL (9-20); Calcium 9.3 mg/dL (8.4-10.2); Carbon Dioxide 24 mmol/L (22-30); Chloride 104 mmol/L (98-107); Glucose 96 mg/dL (74-99); Lipase 69 U/L (23-300); Non-African American GFR(CKD) 58 (>60 ml/min/1.73 sqM); Potassium 4.2 mmol/L (3.5-5.1); Sodium 138 mmol/L (137-145); Total Bilirubin 0.4 mg/dL (0.2-1.3); Total Protein 7.2 g/dL (6.3-8.2)
--- NOTE | 2023-06-28 13:36 | ED ---
Abdominal Pain HPI - General Chief Complaint: Abdominal Pain Stated Complaint: Abd pain Time Seen by Provider: 06/28/23 11:55 Source: patient, RN notes reviewed Mode of arrival: ambulatory Limitations: no limitations - History of Present Illness Initial Comments: 72-year-old male presents emergency Department with chief complaint of abdominal pain. He's been having increasing abdominal last few days. He does have a history of ulcers, states he has a history of lung cancer not any current treatment. Patient states the pain is getting worse he did try some Maalox, Protonix with no relief of symptoms. He states he did have some diarrhea and he states he feels slightly dehydrated. - Related Data Home Medications Medication Instructions Recorded Confirmed Citalopram Hydrobromide 20 mg PO DAILY 04/29/17 10/15/22 [Citalopram HBr] Cyanocobalamin (Vitamin B-12) 1,000 mcg PO DAILY 04/29/17 10/15/22 [Vitamin B-12] Fish Oil/Dha/Epa [Fish Oil 1,200 1 cap PO DAILY 04/29/17 10/15/22 mg Fish Oil] Niacin 500 mg PO DAILY 04/29/17 10/15/22 Pantoprazole Sodium 40 mg PO DAILY 04/29/17 10/15/22 Thiamine [Vitamin B-1] 100 mg PO DAILY 04/29/17 10/15/22 Budesonide/Formoterol Fumarate 2 puff INHALATION RT-BID 01/14/19 10/15/22 [Symbicort 160-4.5 Mcg Inhaler] Tiotropium 18 Mcg/Puff [Spiriva] 1 puff INHALATION RT-DAILY 01/14/19 10/15/22 Fenofibrate 160 mg PO DAILY 01/19/19 10/15/22 Ezetimibe [Zetia] 10 mg PO DAILY 01/21/22 10/15/22 Pioglitazone [Actos] 30 mg PO DAILY 01/21/22 10/15/22 Docusate [Colace] 100 mg PO DAILY 02/19/22 10/15/22 Donepezil HCl [Aricept] 10 mg PO DAILY 02/19/22 10/15/22 LORazepam [Ativan] 1 mg PO DAILY PRN 02/19/22 10/15/22 Montelukast Sodium [Singulair] 10 mg PO DAILY 02/19/22 10/15/22 Cholecalciferol [Vitamin D3 (25 25 mcg PO DAILY 10/15/22 10/15/22 Mcg = 1000 Iu)] Previous Rx's Medication Instructions Recorded Folic Acid 1 mg PO DAILY #90 tablet 02/21/22 cefUROXime axetiL [Ceftin] 500 mg PO BID 7 Days #14 tab 10/16/22 Sucralfate [Carafate] 1 gm PO BID #30 tablet 06/28/23 Allergies Allergy/AdvReac Type Severity Reaction Status Date / Time No Known Allergies Allergy Verified 06/28/23 11:52 Review of Systems ROS Statement: Those systems with pertinent positive or pertinent negative responses have been documented in the HPI. ROS Other: All systems not noted in ROS Statement are negative. Past Medical History Past Medical History: COPD, GERD/Reflux, Hyperlipidemia, Hypertension, Osteoarthritis (OA) Additional Past Medical History / Comment(s): Hypoglycemia, hemorrhoids History of Any Multi-Drug Resistant Organisms: None Reported Past Surgical History: Back Surgery, Joint Replacement Additional Past Surgical History / Comment(s): 01/20/19 total left knee arthroplasty, COLONOSCOPY Past Anesthesia/Blood Transfusion Reactions: No Reported Reaction Additional Past Anesthesia/Blood Transfusion Reaction / Comment(s): claustrophobic,no hx blood transfusion Past Psychological History: No Psychological Hx Reported, Depression Smoking Status: Former smoker Past Alcohol Use History: None Reported, Occasional Past Drug Use History: None Reported - Past Family History Mother Family Medical History: No Reported History Additional Family Medical History / Comment(s): Leukemia Father Family Medical History: No Reported History Additional Family Medical History / Comment(s): from old age General Exam Limitations: no limitations General appearance: alert, in no apparent distress Head exam: Present: atraumatic, normocephalic, normal inspection Eye exam: Present: normal appearance, PERRL, EOMI. Absent: scleral icterus, conjunctival injection, periorbital swelling ENT exam: Present: normal exam, normal oropharynx, mucous membranes moist Neck exam: Present: normal inspection, full ROM. Absent: tenderness, meningismus, lymphadenopathy Respiratory exam: Present: normal lung sounds bilaterally. Absent: respiratory distress, wheezes, rales, rhonchi, stridor Cardiovascular Exam: Present: regular rate, normal rhythm, normal heart sounds. Absent: systolic murmur, diastolic murmur, rubs, gallop, clicks GI/Abdominal exam: Present: soft, tenderness, normal bowel sounds. Absent: distended, guarding, rebound, rigid Course Vital Signs 06/28/23 06/28/23 11:52 13:06 Temperature 97.7 F 97.9 F Pulse Rate 63 57 L Respiratory 16 18 Rate Blood Pressure 138/88 123/71 O2 Sat by Pulse 95 95 Oximetry Medical Decision Making - Medical Decision Making Was pt. sent in by a medical professional or institution (, PA, LIFE ASSURANCE REPRESENTATIVE, urgent care, hospital, or fdc...) When possible be specific @ -No Did you speak to anyone other than the patient for history (EMS, parent, family, police, friend...)? What history was obtained from this source @ -Daughter in the room providing significant past medical history Did you review nursing and triage notes (agree or disagree)? Why? @ -I reviewed and agree with nursing and triage notes Were old charts reviewed (outside hosp., previous admission, EMS record, old EKG, old radiological studies, urgent care reports/EKG's, fdc records)? Report findings @ -No old charts were reviewed Differential Diagnosis (chest pain, altered mental status, abdominal pain women, abdominal pain men, vaginal bleeding, weakness, fever, dyspnea, syncope, headache, dizziness, GI bleed, back pain, seizure, CVA, palpatations, mental health, musculoskeletal)? @ -nDifferential Abdominal Pain Men: Appendicitis, cholecystitis, diverticulosis, ischemic bowel, pancreatitis, hepatitis, UTI, gastroenteritis, AAA, incarcerated hernia, bowel obstruction, constipation, inflammatory bowel, hepatitis, peptic ulcer disease, splenic infarction, perforated viscus, testicular torsion, this is not meant to be an all-inclusive listble EKG interpreted by me (3pts min.). @ -[None X-rays interpreted by me (1pt min.). @ -None done CT interpreted by me (1pt min.). @ -CT abdomen and pelvis shows no acute intra-abdominal process U/S interpreted by me (1pt. min.). @ -None done What testing was considered but not performed or refused? (CT, X-rays, U/S, labs)? Why? @ -None What meds were considered but not given or refused? Why? @ -None Did you discuss the management of the patient with other professionals (professionals i.e. , PA, LIFE ASSURANCE REPRESENTATIVE, lab, RT, psych nurse, long term care social worker, seed cutter, teacher, hospital admissions officer, director of casework department)? Give summary @ -No Was smoking cessation discussed for >3mins.? @ -No Was critical care preformed (if so, how long)? @ -No Were there social determinants of health that impacted care today? How? (Homelessness, low income, unemployed, alcoholism, drug addiction, transportation, low edu. Level, literacy, decrease access to med. care, detention, rehab)? @ -No Was there de-escalation of care discussed even if they declined (Discuss DNR or withdrawal of care, Hospice)? DNR status @ -No What co-morbidities impacted this encounter? (DM, HTN, Smoking, COPD, CAD, Cancer, CVA, ARF, Chemo, Hep., AIDS, mental health diagnosis, sleep apnea, mor bid obesity)? @ -Lung cancer, ulcers Was patient admitted / discharged? Hospital course, mention meds given and route, prescriptions, significant lab abnormalities, going to OR and other pertinent info. @ -Discharge patient workup is negative at this time patient has no evidence of acute abdominal process rediscussed history of ulcers and increased reflux may be causing symptoms. Patient be given Carafate will follow-up return parameters were discussed. Undiagnosed new problem with uncertain prognosis? @ -No Drug Therapy requiring intensive monitoring for toxicity (Heparin, Nitro, Insulin, Cardizem)? @ -No Were any procedures done? @ -No Diagnosis/symptom? @ -Abdominal pain Acute, or Chronic, or Acute on Chronic? @ -Acute Uncomplicated (without systemic symptoms) or Complicated (systemic symptoms)? @ -Uncomplicated Side effects of treatment? @ -No Exacerbation, Progression, or Severe Exacerbation? @ -No Poses a threat to life or bodily function? How? (Chest pain, [place], CO, pneumonia, PE, COPD, DKA, ARF, appy, cholecystitis, CVA, Diverticulitis, Homicidal, Suicidal, threat to staff... and all critical care pts) @ -No - Lab Data Result diagrams: 06/28/23 12:23 06/28/23 12:23 Lab Results 06/28/23 06/28/23 06/28/23 Range/Units 12:23 12: 12:23 WBC 16.6 H (3.8-10.6) k/uL RBC 4.59 (4.30-5.90) m/uL Hgb 13.4 (13.0-17.5) gm/dL Hct 40.4 (39.0-53.0) % MCV 88.0 (80.0-100.0) fL MCH 29.2 (25.0-35.0) pg MCHC 33.1 (31.0-37.0) g/dL RDW 13.3 (11.5-15.5) % Plt Count 249 (150-450) k/uL MPV 7.5 Neutrophils % 80 % Lymphocytes % 7 % Monocytes % 7 % Eosinophils % 5 % Basophils % 0 % Neutrophils # 13.2 H (1.3-7.7) k/uL Lymphocytes # 1.1 (1.0-4.8) k/uL Monocytes # 1.2 H (0-1.0) k/uL Eosinophils # 0.9 H (0-0.7) k/uL Basophils # 0.0 (0-0.2) k/uL Sodium 138 (137-145) mmol/L Potassium 4.2 (3.5-5.1) mmol/L Chloride 104 (98-107) mmol/L Carbon Dioxide 24 (22-30) mmol/L Anion Gap 10 mmol/L BUN 19 (9-20) mg/dL Creatinine 1.23 (0.66-1.25) mg/dL Est GFR (CKD-EPI)AfAm 67 (>60 ml/min/1.73 sqM) Est GFR (CKD-EPI)NonAf 58 (>60 ml/min/1.73 sqM) Glucose 96 (74-99) mg/dL Plasma Lactic Acid Mg (0.7-2.0) mmol/L Calcium 9.3 (8.4-10.2) mg/dL Total Bilirubin 0.4 (0.2-1.3) mg/dL AST 18 (17-59) U/L ALT 10 (4-49) U/L Alkaline Phosphatase 63 (38-126) U/L Total Protein 7.2 (6.3-8.2) g/dL Albumin 4.0 (3.5-5.0) g/dL Amylase 100 (30-110) U/L Lipase 69 (23-300) U/L Urine Color Colorless Urine Appearance Clear (Clear) Urine pH 8.0 (5.0-8.0) Ur Specific [place] 1.015 (1.001-1.035) Urine Protein Negative (Negative) Urine Glucose (UA) Negative (Negative) Urine Ketones Negative (Negative) Urine Blood Negative (Negative) Urine Nitrite Negative (Negative) Urine Bilirubin Negative (Negative) Urine Urobilinogen <2.0 (<2.0) mg/dL Ur Leukocyte Esterase Negative (Negative) 06/28/23 Range/Units 12:23 WBC (3.8-10.6) k/uL RBC (4.30-5.90) m/uL Hgb (13.0-17.5) gm/dL Hct (39.0-53.0) % MCV (80.0-100.0) fL MCH (25.0-35.0) pg MCHC (31.0-37.0) g/dL RDW (11.5-15.5) % Plt Count (150-450) k/uL MPV Neutrophils % % Lymphocytes % % Monocytes % % Eosinophils % % Basophils % % Neutrophils # (1.3-7.7) k/uL Lymphocytes # (1.0-4.8) k/uL Monocytes # (0-1.0) k/uL Eosinophils # (0-0.7) k/uL Basophils # (0-0.2) k/uL Sodium (137-145) mmol/L Potassium (3.5-5.1) mmol/L Chloride (98-107) mmol/L Carbon Dioxide (22-30) mmol/L Anion Gap mmol/L BUN (9-20) mg/dL Creatinine (0.66-1.25) mg/dL Est GFR (CKD-EPI)AfAm (>60 ml/min/1.73 sqM) Est GFR (CKD-EPI)NonAf (>60 ml/min/1.73 sqM) Glucose (74-99) mg/dL Plasma Lactic Acid Mg 1.1 (0.7-2.0) mmol/L Calcium (8.4-10.2) mg/dL Total Bilirubin (0.2-1.3) mg/dL AST (17-59) U/L ALT (4-49) U/L Alkaline Phosphatase (38-126) U/L Total Protein (6.3-8.2) g/dL Albumin (3.5-5.0) g/dL Amylase (30-110) U/L Lipase (23-300) U/L Urine Color Urine Appearance (Clear) Urine pH (5.0-8.0) Ur Specific [place] (1.001-1.035) Urine Protein (Negative) Urine Glucose (UA) (Negative) Urine Ketones (Negative) Urine Blood (Negative) Urine Nitrite (Negative) Urine Bilirubin (Negative) Urine Urobilinogen (<2.0) mg/dL Ur Leukocyte Esterase (Negative) Disposition Clinical Impression: Abdominal pain Disposition: HOME SELF-CARE Condition: Stable Instructions (If sedation given, give patient instructions): Abdominal Pain (ED) Additional Instructions: Please return to the Emergency Department if symptoms worsen or any other concerns. Prescriptions: Sucralfate [Carafate] 1 gm PO BID #30 tablet Is patient prescribed a controlled substance at d/c from ED?: No Referrals: Shabana Gannon MD [Primary Care Provider] - 1-2 days Time of Disposition: 15:17
[2023-06-28 14:08] LABS: Appearance,Urine Clear (Clear); Bilirubin,Urine Negative (Negative); Blood,Urine Negative (Negative); Color,Urine Colorless; Glucose,Urine (UA) Negative (Negative); Ketones,Urine Negative (Negative); Leukocyte Esterase,Urine Negative (Negative); Nitrite,Urine Negative (Negative); Protein,Urine Negative (Negative); Specific Gravity,Urine 1.015 (1.001-1.035); Urobilinogen,Urine <2.0 mg/dL (<2.0)
--- NOTE | 2023-06-28 14:46 | CT ---
EXAMINATION TYPE: CT abdomen pelvis w con CT DLP: 1362.5 mGycm, Automated exposure control for dose reduction was used. DATE OF EXAM: 06/28/2023 2:31 PM COMPARISON: CT abdomen pelvis most recent from CLINICAL INDICATION:Male, 72 years old with history of abdominal pain. TECHNIQUE: Axial CT of the abdomen and pelvis. Sagittal and coronal reformats were created on a [employer] workstation. Contrast used:100 mL of Isovue 300 with IV Contrast, (none if empty) Oral contrast used: without Oral Contrast (none if empty) FINDINGS: LOWER CHEST: Emphysematous changes are noted in the lung bases. Trace left pleural effusion is identi fied. ABDOMEN LIVER: Unremarkable GALLBLADDER AND BILE DUCTS: Unremarkable. PANCREAS: Unremarkable. SPLEEN: Unremarkable. ADRENAL GLANDS: Unremarkable. KIDNEYS AND URETERS: No evidence of hydronephrosis or renal calculus. The ureters are unremarkable. PELVIS BLADDER: Unremarkable REPRODUCTIVE: The prostate is enlarged. ABDOMEN & PELVIS STOMACH AND BOWEL: Stomach and duodenum are unremarkable. No evidence of bowel obstruction. PERITONEUM/RETROPERITONEUM: No evidence of pneumoperitoneum or free fluid. VASCULATURE: Moderate atherosclerotic calcifications are present throughout the abdominal aorta and i ts branches. No evidence of aortic aneurysm. MUSCULOSKELETAL: Postsurgical changes with posterior fusion rods are identified spanning the L3-L5 le chente. No acute osseous process is identified. Remote compression deformities of the L1 vertebral body is identified. LYMPH NODES: No gross evidence for lymphadenopathy. SOFT TISSUE/ABDOMINAL WALL: Unremarkable IMPRESSION: 1. No acute intra-abdominal process. 2. Remote compression deformities of the L1 vertebral body.
[2023-06-28 15:55] VITALS: BP 128/78; PULSE 51; RESP 8; TEMP 98.1
== END 2023-06-28 15:42 | disposition home or self-care (01) ==
LOC: EC 11:49
DX: R10.9 Unspecified abdominal pain (principal); I10 Essential (primary) hypertension; J44.9 Chronic obstructive pulmonary disease, unspecified; K21.9 Gastro-esophageal reflux disease without esophagitis; Z79.51 Long term (current) use of inhaled steroids; Z79.84 Long term (current) use of oral hypoglycemic drugs; Z79.899 Other long term (current) drug therapy; Z87.891 Personal history of nicotine dependence
CPT/HCPCS: 99284; 96374; 96361 ×2; 36415; 80053; 82150; 83605; 83690; 85025; 81003; 74177; 96375; J2405; J1170; Q9967

== ENCOUNTER 2023-07-30 13:06 | Inpatient (IN) | payer MEDICARE ==
[2023-07-30 14:03] LABS: Basophils # (A) 0.1 k/uL (0-0.2); Basophils % (A) 0 %; Eosinophils # (A) 1.2 k/uL (0-0.7); Eosinophils % (A) 7 %; HCT 45.1 % (39.0-53.0); HGB 14.6 gm/dL (13.0-17.5); Lymphocytes # (A) 1.3 k/uL (1.0-4.8); Lymphocytes % (A) 8 %; MCH 28.3 pg (25.0-35.0); MCHC 32.3 g/dL (31.0-37.0); MCV 87.7 fL (80.0-100.0); Mean Platelet Volume 7.1; Monocytes # (A) 1.1 k/uL (0-1.0); Monocytes % (A) 7 %; Neutrophils # (A) 12.5 k/uL (1.3-7.7); Neutrophils % (A) 77 %; Platelet Count 286 k/uL (150-450); RBC 5.15 m/uL (4.30-5.90); RDW 13.6 % (11.5-15.5); WBC 16.3 k/uL (3.8-10.6)
--- NOTE | 2023-07-30 14:19 | XR ---
EXAMINATION TYPE: XR KUB DATE OF EXAM: 07/30/2023 COMPARISON: None INDICATION: Abdomen pain TECHNIQUE: Single view abdomen upright view FINDINGS: There is a normal bowel gas pattern. No free air is evident. No differential air-fluid levels are pre sent. Psoas margins are normal. No organomegaly is present. Postsurgical changes are present L3-L5. Infiltrate and effusion is present at the left lung base. IMPRESSION: 1. Unremarkable Abdomen. 2. Left lower lobe infiltrate and effusion
[2023-07-30 14:38] LABS: ALT 12 U/L (4-49); AST 17 U/L (17-59); African American GFR (CKD) 69 (>60 ml/min/1.73 sqM); Albumin 4.3 g/dL (3.5-5.0); Alkaline Phosphatase 68 U/L (38-126); Amylase 112 U/L (30-110); Anion Gap 12 mmol/L; Blood Urea Nitrogen 14 mg/dL (9-20); Carbon Dioxide 27 mmol/L (22-30); Chloride 102 mmol/L (98-107); Glucose 97 mg/dL (74-99); Lipase 67 U/L (23-300); Non-African American GFR(CKD) 60 (>60 ml/min/1.73 sqM); Potassium 3.6 mmol/L (3.5-5.1); Sodium 141 mmol/L (137-145); Total Bilirubin 0.5 mg/dL (0.2-1.3); Total Protein 7.8 g/dL (6.3-8.2)
[2023-07-30] MEDS ORDERED: PANTOPRAZOLE 40 MG/10 ML VIAL IVP STA (15:29)
[2023-07-30] MEDS ORDERED: MORPHINE SULFATE 4 MG/ML SYRINGE IVP STA (15:29)
[2023-07-30] MEDS ORDERED: ONDANSETRON 4 MG/2 ML VIAL IVP STA (15:29)
[2023-07-30] MEDS ORDERED: SODIUM CHLORIDE 0.9% 500 ML 500 ML IV STA (15:29)
[2023-07-30 15:46] LABS: Appearance,Urine Clear (Clear); Bilirubin,Urine Negative (Negative); Blood,Urine Negative (Negative); Color,Urine Yellow; Glucose,Urine (UA) Negative (Negative); Ketones,Urine Negative (Negative); Leukocyte Esterase,Urine Negative (Negative); Nitrite,Urine Negative (Negative); Protein,Urine Trace (Negative); Urobilinogen,Urine <2.0 mg/dL (<2.0)
--- NOTE | 2023-07-30 15:54 | ED ---
Abdominal Pain HPI - General Chief Complaint: Abdominal Pain Stated Complaint: abd pain Time Seen by Provider: 07/30/23 15:26 Source: patient, RN notes reviewed, old records reviewed, Caregiver Mode of arrival: ambulatory Limitations: no limitations - History of Present Illness Initial Comments: This 72-year-old male to the emergency department for evaluation. Patient conceivably states is his normal abdominal pain believe is related to his reflux ulcer type pain. Patient also has mild cough concern for recurrent effusion on the left as well as persistent abdominal pain worsening abdominal pain. Positive nausea no active vomiting. No fevers. No diarrhea. Patient states he has had episodic intermittent pain for 3-4 weeks and is currently having bowel movements MD Complaint: abdominal pain -: week(s) Location: diffuse, epigastric Radiation: epigastric Migration to: epigastric Severity: moderate Severity scale (1-10): 4 Quality: sharp Consistency: intermittent Improves With: nothing Worsens With: nothing Associated Symptoms: nausea Treatments Prior to Arrival: other (0) - Related Data Home Medications Medication Instructions Recorded Confirmed Citalopram Hydrobromide 20 mg PO DAILY 04/29/17 07/30/23 [Citalopram HBr] Cyanocobalamin (Vitamin B-12) 1,000 mcg PO DAILY 04/29/17 07/30/23 [Vitamin B-12] Niacin 500 mg PO DAILY 04/29/17 07/30/23 Thiamine [Vitamin B-1] 100 mg PO DAILY 04/29/17 07/30/23 Fenofibrate 160 mg PO DAILY 01/19/19 07/30/23 Pioglitazone [Actos] 15 mg PO DAILY 01/21/22 07/30/23 Docusate [Colace] 100 mg PO DAILY 02/19/22 07/30/23 Donepezil HCl [Aricept] 10 mg PO DAILY 02/19/22 07/30/23 Montelukast Sodium [Singulair] 10 mg PO DAILY 02/19/22 07/30/23 Cholecalciferol [Vitamin D3 (25 25 mcg PO DAILY 10/15/22 07/30/23 Mcg = 1000 Iu)] Fludrocortisone [Florinef] 0.1 mg PO DAILY 07/30/23 07/30/23 Sucralfate [Carafate] 1 gm PO ACHS 11/15/23 11/15/23 Previous Rx's Medication Instructions Recorded Folic Acid 1 mg PO DAILY #90 tablet 02/21/22 Albuterol Sulfate [Albuterol 1 puff PO Q4-6H #8.5 gm 08/01/23 Sulfate Hfa] Budesonide-Formot 160-4.5 Mcg 2 puff INHALATION RT-BID 30 Days 08/01/23 [Symbicort 160-4.5 Mcg Inhaler] #1 each Pantoprazole [Protonix] 40 mg PO BID 30 Days #60 tab 08/01/23 Allergies Allergy/AdvReac Type Severity Reaction Status Date / Time No Known Allergies Allergy Verified 07/30/23 17:57 Review of Systems ROS Statement: Those systems with pertinent positive or pertinent negative responses have been documented in the HPI. ROS Other: All systems not noted in ROS Statement are negative. Past Medical History Past Medical History: COPD, GERD/Reflux, Hyperlipidemia, Hypertension, Osteoarthritis (OA) Additional Past Medical History / Comment(s): Hypoglycemia, hemorrhoids History of Any Multi-Drug Resistant Organisms: None Reported Past Surgical History: Back Surgery, Joint Replacement Additional Past Surgical History / Comment(s): 01/20/19 total left knee arthroplasty, COLONOSCOPY Past Anesthesia/Blood Transfusion Reactions: No Reported Reaction Additional Past Anesthesia/Blood Transfusion Reaction / Comment(s): claustrophobic,no hx blood transfusion Past Psychological History: No Psychological Hx Reported, Depression Smoking Status: Former smoker Past Alcohol Use History: None Reported, Occasional Past Drug Use History: None Reported - Past Family History Mother Family Medical History: No Reported History Additional Family Medical History / Comment(s): Leukemia Father Family Medical History: No Reported History Additional Family Medical History / Comment(s): from old age General Exam Limitations: no limitations General appearance: alert, in no apparent distress, anxious Head exam: Present: atraumatic, normocephalic, normal inspection Eye exam: Present: normal appearance, PERRL, EOMI. Absent: scleral icterus, conjunctival injection, periorbital swelling ENT exam: Present: normal exam, mucous membranes moist Neck exam: Present: normal inspection. Absent: tenderness, meningismus, lymphadenopathy Respiratory exam: Present: normal lung sounds bilaterally. Absent: respiratory distress, wheezes, rales, rhonchi, stridor Cardiovascular Exam: Present: regular rate, normal rhythm, normal heart sounds. Absent: systolic murmur, diastolic murmur, rubs, gallop, clicks GI/Abdominal exam: Present: soft, tenderness, guarding, normal bowel sounds. Absent: distended, rebound, rigid Extremities exam: Present: normal inspection, full ROM, normal capillary refill. Absent: tenderness, pedal edema, joint swelling, calf tenderness Back exam: Present: normal inspection Neurological exam: Present: alert, oriented X3, CN II-XII intact Psychiatric exam: Present: normal affect, normal mood Skin exam: Present: warm, dry, intact, normal color. Absent: rash Course Vital Signs 07/30/23 07/30/23 07/30/23 13:40 15:45 16:16 Temperature 98.3 F Pulse Rate 85 77 75 Respiratory 18 20 19 Rate Blood Pressure 140/85 139/79 157/88 O2 Sat by Pulse 94 L 94 L 96 Oximetry 07/30/23 07/30/23 17:09 18:00 Temperature 98.1 F Pulse Rate 58 L 101 H Respiratory 20 18 Rate Blood Pressure 144/84 132/98 O2 Sat by Pulse 93 L 95 Oximetry - Reevaluation(s) Reevaluation #1: 07/30/23 17:55 Medical records reviewed Reevaluation #2: 07/30/23 17:56 Patient symptoms are improving Reevaluation #3: 07/30/23 17:56 Patient informed results questions answered Reevaluation #4: 07/30/23 17:56 Was pt. sent in by a medical professional or institution (, PA, CLINICAL NURSING PROFESSOR, urgent care, hospital, or long-term...) When possible be specific @ -no Did you speak to anyone other than the patient for history (EMS, parent, family, police, friend...)? What history was obtained from this source @ -no Did you review nursing and triage notes (agree or disagree)? Why? @ -agree Are old charts reviewed (outside hosp., previous admission, EMS record, old EKG, old radiological studies, urgent care reports/EKG's, long-term records)? Report findings @ -yes Differential Diagnosis (chest pain, altered mental status, abdominal pain women, abdominal pain men, vaginal bleeding, weakness, fever, dyspnea, syncope, headache, dizziness, GI bleed, back pain, seizure, CVA, palpatations, mental health, musculoskeletal)? @ -prior EKG interpreted by me (3pts min.). @ -yes X-rays interpreted by me (1pt min.). @ -yes CT interpreted by me (1pt min.). @ -yes U/S interpreted by me (1pt. min.). @ -no What testing was considered but not performed or refused? (CT, X-rays, U/S, labs)? Why? @ -none What meds were considered but not given or refused? Why? @ -none Did you discuss the management of the patient with other professionals (professionals i.e. DrKit, PA, CLINICAL NURSING PROFESSOR, lab, RT, psych nurse, social problems specialist, admiralty lawyer, teacher, protection officer, watch caser)? Give summary @ -no Was smoking cessation discussed for >3mins.? @ -no Was critical care preformed (if so, how long)? @ -no Were there social determinants of health that impacted care today? How? (Homele ssness, low income, unemployed, alcoholism, drug addiction, transportation, low edu. Level, literacy, decrease access to med. care, fpc, rehab)? @ -none Was there de-escalation of care discussed even if they declined (Discuss DNR or withdrawal of care, Hospice)? DNR status @ -no What co-morbidities impacted this encounter? (DM, HTN, Smoking, COPD, CAD, Cancer, CVA, ARF, Chemo, Hep., AIDS, mental health diagnosis, sleep apnea, morbid obesity)? @ -none Was patient admitted / discharged? Hospital course, mention meds given and route, prescriptions, significant lab abnormalities, going to OR and other pertinent info. @ - 72 male to the emergency room today for evaluation abdominal pain. Po sitive for ileus on computed tomography scan likely recurrent effusion from cancer of possible pneumonia as well. Patient be admitted for antibiotics currently pain control symptom management: Nothing per mouth Admitted Undiagnosed new problem with uncertain prognosis? @ -no Drug Therapy requiring intensive monitoring for toxicity (Heparin, Nitro, Insulin, Cardizem)? @ -no Were any procedures done? @ -no Diagnosis/symptom? @ -Ileus, SBO, pneumonia Acute, or Chronic, or Acute on Chronic? @ -Acute Uncomplicated (without systemic symptoms) or Complicated (systemic symptoms)? @ -Complicated Side effects of treatment? @ -no Exacerbation, Progression, or Severe Exacerbation? @ -exacerbation Poses a threat to life or bodily function? How? (Chest pain, USA, SC, pneumonia, PE, COPD, DKA, ARF, appy, cholecystitis, CVA, Diverticulitis, Homicidal, Suicidal, threat to staff... and all critical care pts) @ -yes with significant ileus and small bowel obstruction Reevaluation #5: 07/30/23 17:56 Differential Abdominal Pain Men: Appendicitis, cholecystitis, diverticulosis, ischemic bowel, pancreatitis, hepatitis, UTI, gastroenteritis, AAA, incarcerated hernia, bowel obstruction, constipation, inflammatory bowel, hepatitis, peptic ulcer disease, splenic infarction, perforated viscus, testicular torsion, this is not meant to be an all-inclusive list - Consultations Consultation #1: spoke w [facility] who agrees to admit the patinent Medical Decision Making - Medical Decision Making 72 male to the emergency room today for evaluation abdominal pain. Positive for ileus on computed tomography scan likely recurrent effusion from cancer of p ossible pneumonia as well. Patient be admitted for antibiotics currently pain control symptom management: Nothing per mouth - Lab Data Result diagrams: 08/01/23 09:09 07/31/23 06:34 Lab Results 07/30/23 07/30/23 07/30/23 Range/Units 13:44 13:44 15:34 WBC 16.3 H (3.8-10.6) k/uL RBC 5.15 (4.30-5.90) m/uL Hgb 14.6 (13.0-17.5) gm/dL Hct 45.1 (39.0-53.0) % MCV 87.7 (80.0-100.0) fL MCH 28.3 (25.0-35.0) pg MCHC 32.3 (31.0-37.0) g/dL RDW 13.6 (11.5-15.5) % Plt Count 286 (150-450) k/uL MPV 7.1 Neutrophils % 77 % Lymphocytes % 8 % Monocytes % 7 % Eosinophils % 7 % Basophils % 0 % Neutrophils # 12.5 H (1.3-7.7) k/uL Lymphocytes # 1.3 (1.0-4.8) k/uL Monocytes # 1.1 H (0-1.0) k/uL Eosinophils # 1.2 H (0-0.7) k/uL Basophils # 0.1 (0-0.2) k/uL Sodium 141 (137-145) mmol/L Potassium 3.6 (3.5-5.1) mmol/L Chloride 102 (98-107) mmol/L Carbon Dioxide 27 (22-30) mmol/L Anion Gap 12 mmol/L BUN 14 (9-20) mg/dL Creatinine 1.19 (0.66-1.25) mg/dL Est GFR (CKD-EPI)AfAm 69 (>60 ml/min/1.73 sqM) Est GFR (CKD-EPI)NonAf 60 (>60 ml/min/1.73 sqM) Glucose 97 (74-99) mg/dL Calcium 10.0 (8.4-10.2) mg/dL Total Bilirubin 0.5 (0.2-1.3) mg/dL AST 17 (17-59) U/L ALT 12 (4-49) U/L Alkaline Phosphatase 68 (38-126) U/L Total Protein 7.8 (6.3-8.2) g/dL Albumin 4.3 (3.5-5.0) g/dL Amylase 112 H (30-110) U/L Lipase 67 (23-300) U/L Urine Color Yellow Urine Appearance Clear (Clear) Urine pH 7.0 (5.0-8.0) Ur Specific Wayne 1.020 (1.001-1.035) Urine Protein Trace H (Negative) Urine Glucose (UA) Negative (Negative) Urine Ketones Negative (Negative) Urine Blood Negative (Negative) Urine Nitrite Negative (Negative) Urine Bilirubin Negative (Negative) Urine Urobilinogen <2.0 (<2.0) mg/dL Ur Leukocyte Esterase Negative (Negative) - Radiology Data Radiology results: report reviewed (CT head and pelvis positive for left pleural effusion positive for ileus, XR Kub is positive for ileus), image reviewed Disposition Clinical Impression: Left lower lobe pneumonia, Ileus, Gastritis, Abdominal colic, Abdominal pain Disposition: ADMITTED IP TO THIS HOSP Condition: Fair Is patient prescribed a controlled substance at d/c from ED?: No Time of Disposition: 18:00
--- NOTE | 2023-07-30 16:23 | CT ---
EXAMINATION TYPE: CT abdomen pelvis w con DATE OF EXAM: 07/30/2023 COMPARISON: 06/28/2023 HISTORY: 72-year-old male abdominal pain, hx of recent ca sx TECHNIQUE: Contiguous axial scanning of the abdomen and pelvis following administration of 100 ml Iso jarvis 300 IV contrast. Delayed images through the kidneys and coronal/sagittal reconstructions perform ed. CT DLP: 1357.9 mGycm Automated exposure control for dose reduction was used. FINDINGS: Redemonstrated pleural-parenchymal opacities at the left base. Areas of pleural nodularity are increasing, for example, anterior medial left lower lung axial image 1, medial left base measurin g 3.6 x 3.2 cm axial image 7, and posterior left costophrenic angle, axial image 7 as well. No focal liver lesion or biliary ductal dilatation. Portal venous system is patent. Gallbladder, adrenal glands, kidneys, spleen, and pancreas within normal limits. Some fluid-filled small bowel loops in the midabdomen. No dilated small bowel, free fluid, or free ai r is seen. Scattered mild stool. No pericolic inflammatory change. Mild to moderate atherosclerotic calcifications abdominal aorta. Previous inguinal hernia repairs with multiple mesh coils. Prostatomegaly at 6.0 cm wide. Bladder partially distended. No abnormal fluid collection in the pelvi s or pelvic lymphadenopathy. Bones: Post surgical change L3-L5 posterior lumbar fusion. Mild superior endplate deformity L1 is unc hanged from prior exam. IMPRESSION: 1. REDEMONSTRATED IN LEFT BASILAR PLEURAL-PARENCHYMAL OPACITIES THOUGH NOW WITH INCREASING AREAS OF P LEURAL-BASED NODULARITY NOW MEASURING UP TO 3.6 CM. UNABLE TO EXCLUDE NEOPLASTIC PROGRESSION. 2. SOME FLUID-FILLED SMALL BOWEL LOOPS IN THE MIDABDOMEN COULD BE TRANSIENT OR CHOROID REPRESENT A OK LD REGIONAL ILEUS OR ENTERITIS. 3. PROSTATOMEGALY AT 6.0 CM WIDE.
[2023-07-30] MEDS ORDERED: ONDANSETRON 4 MG/2 ML VIAL IVP PRN (17:50)
[2023-07-30] MEDS ORDERED: NALOXONE 0.4 MG/ML 1 ML VIAL IV PRN (17:50)
[2023-07-30] MEDS ORDERED: AZITHROMYCIN 500 MG in SODIUM CHLORIDE 0.9% 250 ML IVPB STA (17:53)
[2023-07-30] MEDS: MORPHINE SULFATE 4 MG/ML SYRINGE IV PRN ×2 (18:00→21:54)
[2023-07-30] MEDS: SODIUM CHLORIDE 0.9% 1,000 ML IV SCH (18:02)
[2023-07-31] MEDS: SODIUM CHLORIDE 0.9% 1,000 ML IV SCH (01:55)
[2023-07-31] MEDS ORDERED: IPRATROPIUM-ALBUTEROL 3 ML NEB INHALATION PRN (08:48)
--- NOTE | 2023-07-31 08:56 | P.CNPUL ---
History of Present Illness Consult date: 07/31/23 Requesting physician: Luis Antonio Messer Reason for consult: other (History of lung cancer) Chief complaint: Abdominal pain History of present illness: I am seeing this patient in consultation today 07/31/2023 in the emergency room, as he is known to the pulmonary service for a history of non-small cell lung carcinoma and COPD. Patient presented chiefly for the complaint of abdominal pain. Patient is a 72-year-old male with past medical history significant for adenocarcinoma of the lung, COPD, GERD, hyperlipidemia, hypertension, among other things. He does follow in the pulmonary office with Dr. Burton for management of his COPD and known non-small cell lung carcinoma. He is a fairly poor historian. He states that he's had memory issues since his previous rounds of chemotherapy. He states that his normally "handles all of that". Apparently, the patient had intermittent generalized abdominal pain for the last 3-4 weeks. States that he is having normal bowel movements. Abdomen is soft. Denies any nausea or vomiting, diarrhea, or blood bowel movements. CT of abdomen and pelvis on arrival demonstrated some fluid-filled small bowel loops in the mid-abdomen which could be transient or choroid represent of mild regional ileus or enteritis. There is also redemonstration of the left basilar pleural parenchymal opacities with increasing areas of pleural based nodularity now measuring up to 3.6 cm. There is a chronic small associated pleural effusion. No active pulmonary disease process seen on abdominal CT. Patient denies any respiratory complaints. He states that he is not currently undergoing any treatment for his known pulmonary adenocarcinoma. I believe his oncologist is Dr. Colon. He was originally diagnosed in Jan, 2022. Completed 4 cycles of carb o/Alimta/Keytruda in 2021. He has subsequently stopped any further treatment. He apparently had some intolerances. Patient is currently sitting in bed, on room air, in no acute respiratory distress. No significant cough, fever. Denies any shortness of breath, chest pain, hemoptysis. CBC on arrival did show some leukocytosis would've his count of 16.3, hemoglobin 14.6, hematocrit 45.1, platelets 286. BMP unremarkable. LFTs not elevated. Urinalysis not concerning for UTI. Patient did receive several doses of azithromycin and Rocephin. He remains afebrile. Patient appears nontoxic and is to be monitored on the general medical floor. Review of Systems REVIEW OF SYSTEMS: CONSTITUTIONAL: Denies any recent significant weight loss or weight gain. EYES: Denies change in vision. EARS, NOSE, MOUTH, THROAT: Denies headaches, denies sore throat. CARDIOVASCULAR: Denies chest pain, palpitations or syncopal episodes. RESPIRATORY: Denies shortness of breath, cough, congestion or hemoptysis. GASTROINTESTINAL: See HPI GENITOURINARY: Denies hematuria, denies infections. MUSKULOSKELETAL: Denies pain, denies swelling. INTEGUMENTARY: Denies rash, denies eczema. NEUROLOGICAL: Denies recent memory loss, no recent seizure activity. PSYCHIATRIC: Denies anxiety, denies depression. HEMATOLOGIC/LYMPHATIC: Denies anemia, denies enlarged lymph node Past Medical History Past Medical History: COPD, GERD/Reflux, Hyperlipidemia, Hypertension, Osteoarthritis (OA) Additional Past Medical History / Comment(s): Hypoglycemia, hemorrhoids History of Any Multi-Drug Resistant Organisms: None Reported Past Surgical History: Back Surgery, Joint Replacement Additional Past Surgical History / Comment(s): 01/20/19 total left knee arthroplasty, COLONOSCOPY Past Anesthesia/Blood Transfusion Reactions: No Reported Reaction Additional Past Anesthesia/Blood Transfusion Reaction / Comment(s): claustrophobic,no hx blood transfusion Past Psychological History: No Psychological Hx Reported, Depression Additional Psychological History / Comment(s): Pt normally resides alone,family around the corner Smoking Status: Former smoker Past Alcohol Use History: None Reported, Occasional Additional Past Alcohol Use History / Comment(s): Pt started smoking as a teen and quit in 1999. He drinks approximately 4 beers a day but none for several days d/t recent surgery. Past Drug Use History: None Reported - Past Family History Mother Family Medical History: No Reported History Additional Family Medical History / Comment(s): Leukemia Father Family Medical History: No Reported History Additional Family Medical History / Comment(s): from old age Medications and Allergies Home Medications Medication Instructions Recorded Confirmed Type Citalopram Hydrobromide 20 mg PO DAILY 04/29/17 07/30/23 History [Citalopram HBr] Cyanocobalamin (Vitamin B-12) 1,000 mcg PO DAILY 04/29/17 07/30/23 History [Vitamin B-12] Niacin 500 mg PO DAILY 04/29/17 07/30/23 History Pantoprazole Sodium 40 mg PO DAILY 04/29/17 07/30/23 History Thiamine [Vitamin B-1] 100 mg PO DAILY 04/29/17 07/30/23 History Fenofibrate 160 mg PO DAILY 01/19/19 07/30/23 History Pioglitazone [Actos] 15 mg PO DAILY 01/21/22 07/30/23 History Docusate [Colace] 100 mg PO DAILY 02/19/22 07/30/23 History Donepezil HCl [Aricept] 10 mg PO DAILY 02/19/22 07/30/23 History Montelukast Sodium [Singulair] 10 mg PO DAILY 02/19/22 07/30/23 History Folic Acid 1 mg PO DAILY #90 tablet 02/21/22 07/30/23 Rx Cholecalciferol [Vitamin D3 (25 25 mcg PO DAILY 10/15/22 07/30/23 History Mcg = 1000 Iu)] Fludrocortisone [Florinef] 0.1 mg PO DAILY 07/30/23 07/30/23 History Sucralfate [Carafate] 1 gm PO ACHS 07/30/23 07/30/23 History Allergies Allergy/AdvReac Type Severity Reaction Status Date / Time No Known Allergies Allergy Verified 07/30/23 17:57 Physical Exam Vitals: Vital Signs Temp Pulse Pulse Resp BP BP Pulse Ox 07/31/23 01:49 98.7 F 107 H 16 153/83 90 L 07/30/23 20:00 99.0 F 93 17 123/78 91 L 07/30/23 18:00 98.1 F 101 H 18 132/98 95 07/30/23 17:09 58 L 20 144/84 93 L 07/30/23 16:16 75 19 157/88 96 07/30/23 15:45 77 20 139/79 94 L 07/30/23 13:40 98.3 F 85 18 140/85 94 L Intake and Output 07/30/23 07/30/23 07/31/23 14:59 22:59 06:59 Other: # Voids 3 Weight 97.522 kg 97.522 kg GENERAL EXAM: Alert, 72-year-old white male appearing stated age , comfortable in no apparent distress. HEAD: Normocephalic and atraumatic EYES: Normal reaction of pupils, equal size. NOSE: Clear with pink turbinates. THROAT: No erythema or exudates. NECK: No masses, no JVD. CHEST: No chest wall deformity. LUNGS: Equal air entry with left basilar inspiratory crackles. No wheezes, rhonchi, dullness. On room air. No conversational dyspnea or accessory muscle use.. CVS: S1 and S2 normal with no audible murmur, regular rhythm. No extra heart sounds ABDOMEN: No hepatosplenomegaly, active bowel sounds, no guarding or rigidity. Negative Cavanaugh's or rebound tenderness. Nondistended and Soft. No masses. SKIN: No rashes CENTRAL NERVOUS SYSTEM: No focal deficits, tone is normal in all 4 extremities. EXTREMITIES: There is no peripheral edema, clubbing, or cyanosis. Peripheral pulses are intact. Results - Laboratory Findings CBC and BMP: 07/31/23 06:34 07/31/23 06:34 Abnormal lab findings: Abnormal Labs 07/30/23 07/30/23 07/30/23 13:44 13:44 15:34 WBC 16.3 H Neutrophils # 12.5 H Monocytes # 1.1 H Eosinophils # 1.2 H Amylase 112 H Urine Protein Trace H - Diagnostic Findings Chest x-ray: image reviewed Assessment and Plan Assessment: Abdominal pain, currently under investigation, possible small ileus. Leukocytosis Metastatic adenocarcinoma of the lung with small associated left-sided pleural effusion. CT of the abdomen there is redemonstration of the left basilar pleural parenchymal opacities with increasing areas of pleural based nodularity now measuring up to 3.6 cm. There is a chronic small associated pleural effusion. No active pulmonary disease process was seen on abdominal CT. Chronic obstructive pulmonary disease, stable Former tobacco dependence Memory impairment Hypertension Hyperlipidemia GERD without esophagitis Plan: Patient's medications, labs, imaging reviewed Patient's abdominal pain could possibly be related to a small ileus. No obvious obstruction. General surgery was asked to see the patient for this. After general surgery evaluation, diet could probably be advanced as tolerated starting with clears. From a pulmonary standpoint, patient is currently on room air, in no acute respiratory distress. Patient actually denies any pulmonary complaints to me. Lung findings on the abdominal CT were essentially chronic. Will obtain chest x-ray. Continue maintenance medications for COPD. We will continue to follow I have personally seen and examined the patient, performed the documentation and the assessment and plan as written. Number of minutes spent on the visit:20 This is a joint evaluation that was done along with the nurse practitioner. His evaluation was done in more than 30 minutes. The patient is known to have a malignant left-sided pleural effusion the patient has completed systemic treatment through oncology. The patient hospitalized currently for ileus and abdominal pain. No major respiratory difficulties and the patient is currently on room air oxygen. I reviewed the CAT scan of the abdomen and it showed some pleural thickening in the left lung base. Some pleural nodularity. Minimal amount of effusion and left lung base. No other acute abnormalities noted in the lung bases bilaterally. Patient has COPD which is currently inactive and stable. The patient will be seen by general surgery regarding abdominal pain a nd ileus. The patient is being considered for EGD to be done today. As such, the patient is nothing by mouth for now. Mild leukocytosis. LFTs are normal. UA is negative. Amylase and lipase also within normal limits. Time with Patient: Greater than 30
[2023-07-31] MEDS: PANTOPRAZOLE 40 MG/10 ML VIAL IV SCH (10:08)
[2023-07-31] MEDS: DONEPEZIL 10 MG TAB PO SCH (10:20)
[2023-07-31] MEDS: FLUDROCORTISONE 0.1 MG TAB PO SCH (10:20)
[2023-07-31] MEDS: FOLIC ACID 1 MG TAB PO SCH (10:20)
--- NOTE | 2023-07-31 11:14 | XR ---
EXAMINATION TYPE: XR chest 1V portable DATE OF EXAM: 07/31/2023 COMPARISON: 10/16/2022 INDICATION: Lung cancer TECHNIQUE: Single frontal view of the chest is obtained. FINDINGS: The heart size is normal. The pulmonary vasculature is normal. There is increased density and stranding adjacent left hilum. There is thickening in the superior lef t lung. Increased lung markings at the left lower lung field. Findings have worsened over the interva l. Findings can be compatible with patient's reported Neoplasm. Differential diagnosis would include pneumonia. IMPRESSION: 1. Worsening of lung markings and thickening of the superior left spine can be compatible with the pa tient's reported lung cancer. Differential diagnosis should include post pneumonia.
--- NOTE | 2023-07-31 11:20 | P.GSCN ---
History of Present Illness Consult date: 07/31/23 History of present illness: CHIEF COMPLAINT: Abdominal pain HISTORY OF PRESENT ILLNESS: This is a 72-year-old male who presented to the hospital with complaints of abdominal pain 3 weeks. Patient is a poor historian. He denies any nausea or vomiting. Reports that he's been having bowel movements and flatus. Denies any blood in his stools. Also complains of chronic acid recent flux and supposedly was scheduled to have an EGD outpatient with Dr. Lloyd. Patient thinks his last EGD and colonoscopy on was about 10 years ago. Reports having colon polyps. Patient had a computed tomography scan abdomen and pelvis that had shown some fluid filled small bowel loops in the mid abdomen could be transient or could represent a mild regional ileus or enteritis. Patient has a known history of metastatic adenocarcinoma of the lung cancer with associated left sided pleural effusion. Patient initially reports that the pain is more in the right lower abdomen. Also has epigastric discomfort at times with acid reflux. PAST MEDICAL HISTORY: See list. PAST SURGICAL HISTORY: See list. MEDICATIONS: See list. ALLERGIES: See list. SOCIAL HISTORY: No illicit drug use. REVIEW OF SYSTEMS: CONSTITUTIONAL: Denies fever or chills. HEENT: Denies blurred vision, vision changes, or eye pain. Denies hemoptysis ENDOCRINE: Denies heat or cold intolerance. CARDIOVASCULAR: Denies chest pain or pressure. RESPIRATORY: No shortness of breath. GASTROINTESTINAL: Please refer to HPI NEURO: Denies history of seizures. PSYCH: No depression or suicidal ideation HEMATOLOGIC: Denies bleeding disorders. LYMPHATIC: The patient denies any lumps and bumps around the neck. GENITOURINARY: Denies any blood in urine or increased urinary frequency. MUSCULOSKELETAL: Denies myalgias. Denies joint swelling. Denies decreased range of motion beyond patients baseline. SKIN: Denies pruitis. Denies rash. PHYSICAL EXAM: VITAL SIGNS: Reviewed GENERAL: Well-developed in no acute distress. HEENT: No sclera icterus. Extraocular movements grossly intact. Moist buccal mucosa. Head is atraumatic, normocephalic. Hears conversational speech. No nasal drainage. NECK: Supple without lymphadenopathy. CHEST: Non-labored respirations and equal bilateral excursions. CARDIOVASCULAR: Palpable 2+ radial pulses. ABDOMEN: Soft. Nondistended. Tenderness with palpation to the lower right abdomen. Mild discomfort with palpation epigastric area MUSCULOSKELETAL: No clubbing or cyanosis. NEUROLOGIC: No focal or lateralizing signs. Cranial nerves II through XII grossly intact. PSYCH: Appropriate affect. mildly confused SKIN: Well perfused. Good skin turgor. LABORATORY DATA: WBC is 16.3 Hgb 14.6 platelets 286 Sodium 141 potassium 3.6 creatinine 1.19 LFTs normal lipase 67 IMAGING: Computed tomography scan abdomen and pelvis redemonstration of left basilar pleural parenchymal opacities though now with increasing areas of pleural based nodularity now measuring up to 3.6 cm. Unable to exclude neoplastic progression. Some fluid-filled small bowel loops in the mid abdomen could be transient or could represent a mild regional ileus or enteritis. Prostamegaly at 6.0 cm wide. Chest x-ray pending ASSESSMENT: 1. Abdominal pain 2. Possible ileus. Some fluid-filled small bowel loops in the mid abdomen could be transient or could represent a mild regional ileus or enteritis noted on CT 3. Epigastric pain and GERD 4. Metastatic Adenocarcinoma of the lung with associated left pleural effusion 5. Leukocytosis PLAN: -Patient scheduled for EGD today with Dr. 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 Signing provider agrees with the documented findings, assessment, and plan of care. Past Medical History Past Medical History: COPD, GERD/Reflux, Hyperlipidemia, Hypertension, Osteoarthritis (OA) Additional Past Medical History / Comment(s): Hypoglycemia, hemorrhoids History of Any Multi-Drug Resistant Organisms: None Reported Past Surgical History: Back Surgery, Joint Replacement Additional Past Surgical History / Comment(s): 01/20/19 total left knee arthroplasty, COLONOSCOPY Past Anesthesia/Blood Transfusion Reactions: No Reported Reaction Additional Past Anesthesia/Blood Transfusion Reaction / Comm: claustrophobic,no hx blood transfusion Past Psychological History: No Psychological Hx Reported, Depression Additional Psychological History / Comment(s): Pt normally resides alone,family around the corner Smoking Status: Former smoker Past Alcohol Use History: None Reported, Occasional Additional Past Alcohol Use History / Comment(s): Pt started smoking as a teen and quit in 1999. He drinks approximately 4 beers a day but none for several days d/t recent surgery. Past Drug Use History: None Reported - Past Family History Mother Family Medical History: No Reported History Additional Family Medical History / Comment(s): Leukemia Father Family Medical History: No Reported History Additional Family Medical History / Comment(s): from old age Medications and Allergies Home Medications Medication Instructions Recorded Confirmed Type Citalopram Hydrobromide 20 mg PO DAILY 04/29/17 07/30/23 History [Citalopram HBr] Cyanocobalamin (Vitamin B-12) 1,000 mcg PO DAILY 04/29/17 07/30/23 History [Vitamin B-12] Niacin 500 mg PO DAILY 04/29/17 07/30/23 History Pantoprazole Sodium 40 mg PO DAILY 04/29/17 07/30/23 History Thiamine [Vitamin B-1] 100 mg PO DAILY 04/29/17 07/30/23 History Fenofibrate 160 mg PO DAILY 01/19/19 07/30/23 History Pioglitazone [Actos] 15 mg PO DAILY 01/21/22 07/30/23 History Docusate [Colace] 100 mg PO DAILY 02/19/22 07/30/23 History Donepezil HCl [Aricept] 10 mg PO DAILY 02/19/22 07/30/23 History Montelukast Sodium [Singulair] 10 mg PO DAILY 02/19/22 07/30/23 History Folic Acid 1 mg PO DAILY #90 tablet 02/21/22 07/30/23 Rx Cholecalciferol [Vitamin D3 (25 25 mcg PO DAILY 10/15/22 07/30/23 History Mcg = 1000 Iu)] Fludrocortisone [Florinef] 0.1 mg PO DAILY 07/30/23 07/30/23 History Sucralfate [Carafate] 1 gm PO ACHS 07/30/23 07/30/23 History Allergies Allergy/AdvReac Type Severity Reaction Status Date / Time No Known Allergies Allergy Verified 07/30/23 17:57 Surgical - Exam Vital Signs Temp Pulse Resp BP Pulse Ox 98.3 F 85 18 140/85 94 L 07/30/23 13:40 07/30/23 13:40 07/30/23 13:40 07/30/23 13:40 07/30/23 13:40 Results - Labs 07/30/23 13:44 07/30/23 13:44 Abnormal Lab Results - Last 24 Hours (Table) 11/07/30/23 07/30/23 Range/Units 13:44 13:44 15:34 WBC 16.3 H (3.8-10.6) k/uL Neutrophils # 12.5 H (1.3-7.7) k/uL Monocytes # 1.1 H (0-1.0) k/uL Eosinophils # 1.2 H (0-0.7) k/uL Amylase 112 H (30-110) U/L Urine Protein Trace H (Negative) Diabetes panel 07/30/23 Range/Units 13:44 Sodium 141 (137-145) mmol/L Potassium 3.6 (3.5-5.1) mmol/L Chloride 102 (98-107) mmol/L Carbon Dioxide 27 (22-30) mmol/L BUN 14 (9-20) mg/dL Creatinine 1.19 (0.66-1.25) mg/dL Glucose 97 (74-99) mg/dL Calcium 10.0 (8.4-10.2) mg/dL AST 17 (17-59) U/L ALT 12 (4-49) U/L Alkaline Phosphatase 68 (38-126) U/L Total Protein 7.8 (6.3-8.2) g/dL Albumin 4.3 (3.5-5.0) g/dL Calcium panel 07/30/23 Range/Units 13:44 Calcium 10.0 (8.4-10.2) mg/dL Albumin 4.3 (3.5-5.0) g/dL Pituitary panel 07/30/23 Range/Units 13:44 Sodium 141 (137-145) mmol/L Potassium 3.6 (3.5-5.1) mmol/L Chloride 102 (98-107) mmol/L Carbon Dioxide 27 (22-30) mmol/L BUN 14 (9-20) mg/dL Creatinine 1.19 (0.66-1.25) mg/dL Glucose 97 (74-99) mg/dL Calcium 10.0 (8.4-10.2) mg/dL Adrenal panel 07/30/23 Range/Units 13:44 Sodium 141 (137-145) mmol/L Potassium 3.6 (3.5-5.1) mmol/L Chloride 102 (98-107) mmol/L Carbon Dioxide 27 (22-30) mmol/L BUN 14 (9-20) mg/dL Creatinine 1.19 (0.66-1.25) mg/dL Glucose 97 (74-99) mg/dL Calcium 10.0 (8.4-10.2) mg/dL Total Bilirubin 0.5 (0.2-1.3) mg/dL AST 17 (17-59) U/L ALT 12 (4-49) U/L Alkaline Phosphatase 68 (38-126) U/L Total Protein 7.8 (6.3-8.2) g/dL Albumin 4.3 (3.5-5.0) g/dL
[2023-07-31] MEDS: IPRATROPIUM-ALBUTEROL 3 ML NEB INHALATION SCH ×3 (12:13→20:24)
--- NOTE | 2023-07-31 12:14 | P.HPIM ---
History of Present Illness H&P Date: 07/31/23 Chief Complaint: Abdominal pain and shortness of breath * 72-year-old gentleman with past medical history significant for non-small cell lung carcinoma, history of COPD, gastroesophageal reflux disease, hypertension, hyperlipidemia history of memory impairment presented to the emergency department with complains of intermittent generalized abdominal pain ongoing for the last 3 weeks * At the time of presentation workup in ED included CT abdomen and pelvis which showed fluid-filled small bowel loops and mid abdomen, enlarged prostate and redemonstration of left basilar pleural effusion * Workup in ER on Friday include CBC which showed white cell count of 16.3, hemoglobin of 14.6 platelet 286. Serum chemistry was unremarkable, liver profile within normal limits * Patient denied associated fever, chills, chest pain, nausea, vomiting * Patient admitted to medical floor with consultation from general surgeon pulmonary medicine REVIEW OF SYSTEMS: Abdominal pain, distention CONSTITUTIONAL: No fever, no malaise, no fatigue. HEENT: No recent visual problems or hearing problems. Denied any sore throat. CARDIOVASCULAR: No chest pain, orthopnea, PND, no palpitations, no syncope. PULMONARY: No shortness of breath, no cough, no hemoptysis. GASTROINTESTINAL: No diarrhea, no nausea, no vomiting, NEUROLOGICAL: No headaches, no weakness, no numbness. HEMATOLOGICAL: Denies any bleeding or petechiae. GENITOURINARY: Denies any burning micturition, frequency, or urgency. MUSCULOSKELETAL/RHEUMATOLOGICAL: Denies any joint pain, swelling, or any muscle pain. ENDOCRINE: Denies any polyuria or polydipsia. PHYSICAL EXAMINATION: GENERAL: The patient is alert and oriented x3, not in any acute distress. Well developed, well nourished. HEENT: Pupils are round and equally reacting to light. EOMI. No scleral icterus. CARDIOVASCULAR: S1 and S2 present. No murmurs, rubs, or gallops. PULMONARY: Chest is clear to auscultation, no wheezing or crackles. ABDOMEN: Soft, nontender, nondistended, normoactive bowel sounds. No palpable organomegaly. MUSCULOSKELETAL: No joint swelling or deformity. EXTREMITIES: No cyanosis, clubbing, or pedal edema. NEUROLOGICAL: Gross neurological examination did not reveal any focal deficits. SKIN: No rashes. Past Medical History Past Medical History: COPD, GERD/Reflux, Hyperlipidemia, Hypertension, Osteoarthritis (OA) Additional Past Medical History / Comment(s): Hypoglycemia, hemorrhoids History of Any Multi-Drug Resistant Organisms: None Reported Past Surgical History: Back Surgery, Joint Replacement Additional Past Surgical History / Comment(s): 01/20/19 total left knee arthroplasty, COLONOSCOPY Past Anesthesia/Blood Transfusion Reactions: No Reported Reaction Additional Past Anesthesia/Blood Transfusion Reaction / Comment(s): claustrophobic,no hx blood transfusion Past Psychological History: No Psychological Hx Reported, Depression Additional Psychological History / Comment(s): Pt normally resides alone,family around the corner Smoking Status: Former smoker Past Alcohol Use History: None Reported, Occasional Additional Past Alcohol Use History / Comment(s): Pt started smoking as a teen and quit in 1999. He drinks approximately 4 beers a day but none for several days d/t recent surgery. Past Drug Use History: None Reported - Past Family History Mother Family Medical History: No Reported History Additional Family Medical History / Comment(s): Leukemia Father Family Medical History: No Reported History Additional Family Medical History / Comment(s): from old age Medications and Allergies Home Medications Medication Instructions Recorded Confirmed Type Citalopram Hydrobromide 20 mg PO DAILY 04/29/17 07/30/23 History [Citalopram HBr] Cyanocobalamin (Vitamin B-12) 1,000 mcg PO DAILY 04/29/17 07/30/23 History [Vitamin B-12] Niacin 500 mg PO DAILY 04/29/17 07/30/23 History Pantoprazole Sodium 40 mg PO DAILY 04/29/17 07/30/23 History Thiamine [Vitamin B-1] 100 mg PO DAILY 04/29/17 07/30/23 History Fenofibrate 160 mg PO DAILY 01/19/19 07/30/23 History Pioglitazone [Actos] 15 mg PO DAILY 01/21/22 07/30/23 History Docusate [Colace] 100 mg PO DAILY 02/19/22 07/30/23 History Donepezil HCl [Aricept] 10 mg PO DAILY 02/19/22 07/30/23 History Montelukast Sodium [Singulair] 10 mg PO DAILY 02/19/22 07/30/23 History Folic Acid 1 mg PO DAILY #90 tablet 02/21/22 07/30/23 Rx Cholecalciferol [Vitamin D3 (25 25 mcg PO DAILY 10/15/22 07/30/23 History Mcg = 1000 Iu)] Fludrocortisone [Florinef] 0.1 mg PO DAILY 07/30/23 07/30/23 History Sucralfate [Carafate] 1 gm PO ACHS 07/30/23 07/30/23 History Allergies Allergy/AdvReac Type Severity Reaction Status Date / Time No Known Allergies Allergy Verified 07/30/23 17:57 Physical Exam Vitals: Vital Signs Temp Pulse Pulse Resp BP BP BP 07/31/23 07:37 97.9 F 98 18 151/87 07/31/23 01:49 98.7 F 107 H 16 153/83 07/30/23 20:00 99.0 F 93 17 123/78 07/30/23 18:00 98.1 F 101 H 18 132/98 07/30/23 17:09 58 L 20 144/84 07/30/23 16:16 75 19 157/88 07/30/23 15:45 77 20 139/79 07/30/23 13:40 98.3 F 85 18 140/85 Pulse Ox 07/31/23 07:37 90 L 07/31/23 01:49 90 L 07/30/23 20:00 91 L 07/30/23 18:00 95 07/30/23 17:09 93 L 07/30/23 16:16 96 07/30/23 15:45 94 L 07/30/23 13:40 94 L Intake and Output 07/30/23 07/31/23 07/31/23 22:59 06:59 14:59 Other: # Voids 3 1 Weight 97.522 kg Results CBC & Chem 7: 07/30/23 13:44 07/30/23 13:44 Labs: Abnormal Lab Results - Last 24 Hours (Table) 07/30/23 07/30/23 07/30/23 Range/Units 13:44 13:44 15:34 WBC 16.3 H (3.8-10.6) k/uL Neutrophils # 12.5 H (1.3-7.7) k/uL Monocytes # 1.1 H (0-1.0) k/uL Eosinophils # 1.2 H (0-0.7) k/uL Amylase 112 H (30-110) U/L Urine Protein Trace H (Negative) Assessment and Plan Assessment: Assessment and plan Small bowel ileus with abdominal pain History of adenocarcinoma of lung with unilateral pleural effusion History of COPD Cognitive impairment with impaired memory Hypertension Gastroesophageal reflux disease Hyperlipidemia * In regards to small bowel ileus advance diet as tolerated, serial abdominal exam and x-ray ordered * In regards to pleural effusion, pulmonary medicine consulted to evaluate for thoracentesis * In regards to history of COPD, continue breathing treatments * In regards to history of impaired memory, continue donepezil continue frequent reorientation * In regards to gastroesophageal reflux disease continue patient on Protonix * CODE STATUS is full code
[2023-07-31] MEDS ORDERED: IV FLUID CONTINUATION 1,000 ML IV ONE (12:33)
[2023-07-31] MEDS ORDERED: PROPOFOL 10 MG/ML 20 ML VIAL IV ONE (12:33)
[2023-07-31] MEDS ORDERED: LIDOCAINE 1% INJ 10MG/ML (20 ML MDV) ONE (12:33)
--- NOTE | 2023-07-31 12:49 | P.PCN ---
Date of Procedure: 07/31/23 Description of Procedure: PREOPERATIVE DIAGNOSIS: Gastritis with epigastric abdominal pain POSTOPERATIVE DIAGNOSIS: Gastroesophageal reflux disease with erosive esophagitis Gastritis. OPERATION: Esophagogastroduodenoscopy with biopsies along esophagus, antrum and duodenum SURGEON: Norma Singh MD ANESTHESIA: MAC. INDICATIONS: The patient is a 72-year-old male who presents with epigastric abdominal pain and gastritis. Benefits and risks of the procedure were described. Informed consent was obtained. DESCRIPTION: The patient was brought into the endoscopy suite and laid in the left lateral decubitus position. An Olympus gastroscope was passed along the posterior oropharynx down to the distal esophagus where the squamocolumnar junction was encountered at 40 cm from the incisors. The stomach was entered and no bile reflux was found. Additional findings are listed below. Biopsies with cold forceps were obtained of the antrum. The first through third portion of the duodenum was examined. Retroflexion of the scope confirmed Hill grade 2 lower esophageal valve. The squamocolumnar junction demonstrated LA grade B erosive esophagitis. The stomach was desufflated. The patient tolerated the procedure well. FINDINGS: Squamocolumnar junction 40 cm from the incisors. Diaphragmatic hiatus at 40 cm. Hill grade 2 lower esophageal valve. LA grade B erosive esophagitis with biopsies obtained Biopsies obtained of the duodenum. Chronic gastritis with biopsies obtained. RECOMMENDATIONS: Upper endoscopy as needed.
[2023-07-31 13:15] LABS: HCT 39.1 % (39.6-50.0); HGB 12.5 g/dL (13.0-17.0); MCH 27.9 pg (27.0-32.0); MCV 87.3 FL (80.0-97.0); Mean Platelet Volume 10.3 FL (9.5-12.2); NRBC Per 100 WBC 0 X 10*3/uL (0.00-0.01); Platelet Count 266 X 10*3/uL (140-440); RBC 4.48 X 10*6/uL (4.40-5.60); RDW 14.1 % (11.5-14.5); WBC 14.39 X 10*3/uL (4.50-10.00)
[2023-07-31 13:55] LABS: BUN/Creat Ratio 10.91 Ratio (12.00-20.00); Glucose 97 mg/dL (70-110)
[2023-07-31 13:56] LABS: ALT 8 U/L (10-49); AST 9 U/L (14-35); Albumin 3.7 g/dL (3.8-4.9); Albumin/Globulin Ratio 1.42 Ratio (1.60-3.17); Alkaline Phosphatase 50 U/L (41-126); Calcium 9.4 mg/dL (8.7-10.3); Carbon Dioxide 22.8 mmol/L (21.6-31.8); Chloride 104 mmol/L (96-109); Globulin 2.6 g/dL (1.6-3.3); Lipase 12 U/L (14-60); Magnesium 1.5 mg/dL (1.5-2.4); Phosphorus 2.7 mg/dL (2.4-5.1); Potassium 3.6 mmol/L (3.5-5.5); Sodium 140 mmol/L (135-145); Total Bilirubin 0.4 mg/dL (0.3-1.2); Total Protein 6.3 g/dL (6.2-8.2)
[2023-07-31 14:41] LABS: Basophils # (A) 0.07 X 10*3/uL (0.00-0.10); Basophils % (A) 0.5 %; Eosinophils # (A) 0.45 X 10*3/uL (0.04-0.35); Eosinophils % (A) 3.1 %; Lymphocytes # (A) 0.78 X 10*3/uL (0.90-5.00); Lymphocytes % (A) 5.4 %; Monocytes # (A) 1.92 X 10*3/uL (0.20-1.00); Monocytes % (A) 13.3 %; Neutrophils # (A) 11.04 X 10*3/uL (1.80-7.70); Neutrophils % (A) 76.8 %; RBC Morphology Normal (Normal)
[2023-07-31] MEDS: SYMBICORT 160-4.5 MCG INHALER INHALATION SCH (20:24)
--- NOTE | 2023-08-01 07:34 | XR ---
EXAMINATION TYPE: XR abdomen complete w decub DATE OF EXAM: 08/01/2023 6:35 AM CLINICAL INDICATION:Male, 72 years old with history of ileus follow up; [facility] COMPARISON: 07/30/2023 TECHNIQUE: Two views of the abdomen were obtained. FINDINGS: The bowel gas pattern is nonspecific without dilated loops of small or large bowel. There i s no evidence for organomegaly or pneumoperitoneum. The osseous structures are intact. No abnormal calcifications are present. Fecal material and gas are demonstrated throughout the colon and rectum. Fixation hardware in the spine appears intact. Hernia repair anchors noted. IMPRESSION: Nonspecific bowel gas pattern without radiographic evidence for acute process.
[2023-08-01] MEDS ORDERED: ACETAMINOPHEN TAB 325 MG TAB PO PRN (07:43)
[2023-08-01] MEDS: IPRATROPIUM-ALBUTEROL 3 ML NEB INHALATION SCH ×2 (08:02→14:39)
[2023-08-01] MEDS: SYMBICORT 160-4.5 MCG INHALER INHALATION SCH (08:02)
[2023-08-01 08:43] VITALS: BP 125/82; PULSE 91; RESP 23; TEMP 99
[2023-08-01] MEDS ORDERED: CYANOCOBALAMIN 500 MCG TAB PO SCH (09:00)
[2023-08-01] MEDS ORDERED: CITALOPRAM HYDROBROMIDE 20 MG TAB PO SCH (09:00)
[2023-08-01] MEDS ORDERED: FENOFIBRATE 160 MG TAB PO SCH (09:00)
[2023-08-01] MEDS ORDERED: MONTELUKAST 10 MG TAB PO SCH (09:00)
[2023-08-01 10:03] LABS: HCT 38.6 % (39.0-53.0); MCH 29.2 pg (25.0-35.0); MCHC 33.7 g/dL (31.0-37.0); MCV 86.7 fL (80.0-100.0); Mean Platelet Volume 7.8; Platelet Count 243 k/uL (150-450); RBC 4.45 m/uL (4.30-5.90); RDW 13.4 % (11.5-15.5); WBC 14.4 k/uL (3.8-10.6)
[2023-08-01] MEDS: DONEPEZIL 10 MG TAB PO SCH (10:16)
[2023-08-01] MEDS: FLUDROCORTISONE 0.1 MG TAB PO SCH (10:17)
[2023-08-01] MEDS: PANTOPRAZOLE 40 MG/10 ML VIAL IV SCH (10:17)
[2023-08-01] MEDS: FOLIC ACID 1 MG TAB PO SCH (10:17)
--- NOTE | 2023-08-01 12:26 | P.DS ---
Providers Date of admission: 07/30/23 17:53 Expected date of discharge: 08/01/23 Attending physician: Amanda Crain Consults: 07/30/23 17:50 Consult Physician Routine Consulting Provider: Rodolfo Burton Consult Reason/Comments: known Do you want consulting provider notified?: Yes Consult Physician Routine Consulting Provider: Norma Singh Consult Reason/Comments: ileus Do you want consulting provider notified?: Yes Primary care physician: [facility] Course: * 72-year-old gentleman with past medical history significant for non-small cell lung carcinoma, history of COPD, gastroesophageal reflux disease, hypertension, hyperlipidemia history of memory impairment presented to the emergency department with complains of intermittent generalized abdominal pain ongoing for the last 3 weeks * At the time of presentation workup in ED included CT abdomen and pelvis which showed fluid-filled small bowel loops and mid abdomen, enlarged prostate and redemonstration of left basilar pleural effusion * Workup in ER on Friday include CBC which showed white cell count of 16.3, hemoglobin of 14.6 platelet 286. Serum chemistry was unremarkable, liver profile within normal limits * Patient denied associated fever, chills, chest pain, nausea, vomiting * Patient admitted to medical floor with consultation from general surgeon pulmonary medicine * 08/01: Patient was seen and evaluated at bedside, patient was seen by pulmonary medicine. In regards to pleural effusion pulmonary medicine recommended conservative management and outpatient follow-up with PCP and primary oncology no need for thoracentesis. Patient started on albuterol and Symbicort prescription provided at a time of discharge. In regards to Luciana is follow-up x-ray abdomen obtained which showed resolution of her ileus. Patient able to tolerate diet. Patient was seen by general surgery and underwent EGD which showed esophagitis. Please see EGD report for details. Patient started on IV Protonix. Patient already taking Protonix oral at home however frequency changed to twice a day continue patient on Carafate as well. In regards to acute delirium patient was seen by physical therapy o ccupational therapy and they recommended home with assist. Patient to be discharged home with home care. Prior to discharge patient daughter came was called and notified about instability. Recommended that Daughter to provide supervision at home/patient to do home care visiting nurse physical therapy occupational therapy/continue with frequent reorientation for delirium/patient continued to remain high fall risk REVIEW OF SYSTEMS: Abdominal pain Resolved CONSTITUTIONAL: No fever, no malaise, no fatigue. HEENT: No recent visual problems or hearing problems. Denied any sore throat. CARDIOVASCULAR: No chest pain, orthopnea, PND, no palpitations, no syncope. PULMONARY: No shortness of breath, no cough, no hemoptysis. GASTROINTESTINAL: No diarrhea, no nausea, no vomiting, NEUROLOGICAL: No headaches, no weakness, no numbness. HEMATOLOGICAL: Denies any bleeding or petechiae. GENITOURINARY: Denies any burning micturition, frequency, or urgency. MUSCULOSKELETAL/RHEUMATOLOGICAL: Denies any joint pain, swelling, or any muscle pain. ENDOCRINE: Denies any polyuria or polydipsia. PHYSICAL EXAMINATION: GENERAL: The patient is alert and oriented x2 , intermittently gets confused HEENT: Pupils are round and equally reacting to light. EOMI. No scleral icterus. CARDIOVASCULAR: S1 and S2 present. No murmurs, rubs, or gallops. PULMONARY: Chest is clear to auscultation, no wheezing or crackles. ABDOMEN: Soft, nontender, nondistended, normoactive bowel sounds. No palpable organomegaly. MUSCULOSKELETAL: No joint swelling or deformity. EXTREMITIES: No cyanosis, clubbing, or pedal edema. NEUROLOGICAL: Gross neurological examination did not reveal any focal deficits. SKIN: No rashes. 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 * In regards to esophagitis/patient underwent EGD/biopsies taken/will need outpatient follow-up with PCP and general surgery for results/continue patient on oral Protonix twice a day prescription provided * In regards to pleural effusion, pulmonary medicine consulted to evaluate for thoracentesis/for pulmonary medicine consulted management. * In regards to history of COPD, continue breathing treatments/prescription for albuterol and Symbicort provided * In regards to history of impaired memory, continue donepezil continue frequent reorientation/episode of delirium while inpatient we'll discharge home with home care * In regards to gastroesophageal reflux disease continue patient on Protonix Patient Condition at Discharge: Fair Plan - Discharge Summary Discharge Rx Participant: Yes New Discharge Prescriptions: New Pantoprazole [Protonix] 40 mg PO BID 30 Days #60 tab Albuterol Sulfate [Albuterol Sulfate Hfa] 1 puff PO Q4-6H #8.5 gm Budesonide-Formot 160-4.5 Mcg [Symbicort 160-4.5 Mcg Inhaler] 2 puff INHALATION RT-BID 30 Days #1 each Continue Thiamine [Vitamin B-1] 100 mg PO DAILY Niacin 500 mg PO DAILY Citalopram Hydrobromide [Citalopram HBr] 20 mg PO DAILY Cyanocobalamin (Vitamin B-12) [Vitamin B-12] 1,000 mcg PO DAILY Fenofibrate 160 mg PO DAILY Folic Acid 1 mg PO DAILY #90 tablet Fludrocortisone [Florinef] 0.1 mg PO DAILY Pioglitazone [Actos] 15 mg PO DAILY Docusate [Colace] 100 mg PO DAILY Montelukast Sodium [Singulair] 10 mg PO DAILY Donepezil HCl [Aricept] 10 mg PO DAILY Cholecalciferol [Vitamin D3 (25 Mcg = 1000 Iu)] 25 mcg PO DAILY Sucralfate [Carafate] 1 gm PO ACHS Discontinued Pantoprazole Sodium 40 mg PO DAILY Discharge Medication List Citalopram Hydrobromide [Citalopram HBr] 20 mg PO DAILY 04/29/17 [History] Cyanocobalamin (Vitamin B-12) [Vitamin B-12] 1,000 mcg PO DAILY 04/29/17 [History] Niacin 500 mg PO DAILY 04/29/17 [History] Thiamine [Vitamin B-1] 100 mg PO DAILY 04/29/17 [History] Fenofibrate 160 mg PO DAILY 01/19/19 [History] Pioglitazone [Actos] 15 mg PO DAILY 01/21/22 [History] Docusate [Colace] 100 mg PO DAILY 02/19/22 [History] Donepezil HCl [Aricept] 10 mg PO DAILY 02/19/22 [History] Montelukast Sodium [Singulair] 10 mg PO DAILY 02/19/22 [History] Folic Acid 1 mg PO DAILY #90 tablet 02/21/22 [Rx] Cholecalciferol [Vitamin D3 (25 Mcg = 1000 Iu)] 25 mcg PO DAILY 10/15/22 [History] Fludrocortisone [Florinef] 0.1 mg PO DAILY 07/30/23 [History] Sucralfate [Carafate] 1 gm PO ACHS 07/30/23 [History] Albuterol Sulfate [Albuterol Sulfate Hfa] 1 puff PO Q4-6H #8.5 gm 08/01/23 [Rx] Budesonide-Formot 160-4.5 Mcg [Symbicort 160-4.5 Mcg Inhaler] 2 puff INHALATION RT-BID 30 Days #1 each 08/01/23 [Rx] Pantoprazole [Protonix] 40 mg PO BID 30 Days #60 tab 08/01/23 [Rx] Follow up Appointment(s)/Referral(s): Shabana Gannon MD [Primary Care Provider] - 1-2 days Nik Colon MD [STAFF PHYSICIAN] - 08/22/23 2:00 pm Discharge Disposition: HOME WITH HOME HEALTH SERVICES
--- NOTE | 2023-08-01 13:17 | P.PN ---
Subjective Progress Note Date: 08/01/23 CHIEF COMPLAINT: Abdominal pain HISTORY OF PRESENT ILLNESS: Patient is status post EGD which had shown erosive esophagitis and gastritis. Patient denies any abdominal pain. He tolerated regular diet. He possibly had a bowel movement. Denies any nausea or vomiting afebrile. He is scheduled for discharge today. PHYSICAL EXAM: VITAL SIGNS: Reviewed GENERAL: Well-developed in no acute distress. HEENT: No sclera icterus. Extraocular movements grossly intact. Moist buccal mucosa. Head is atraumatic, normocephalic. Hears conversational speech. No nasal drainage. NECK: Supple without lymphadenopathy. CHEST: Non-labored respirations and equal bilateral excursions. CARDIOVASCULAR: Palpable 2+ radial pulses. ABDOMEN: Soft. Nondistended. Nontender. MUSCULOSKELETAL: No clubbing or cyanosis. NEUROLOGIC: No focal or lateralizing signs. Cranial nerves II through XII grossly intact. PSYCH: Pleasantly confused SKIN: Well perfused. Good skin turgor. ASSESSMENT: 1. Abdominal pain resolved 2. Possible ileus resolved 3. Status post EGD revealing esophagitis and gastritis 4. History of lung cancer with pleural effusion PLAN: -Patient can be discharged from surgical standpoint when medically cleared -Recommend to continue PPI Physician Business Operations Specialist note has been reviewed by physician. Signing provider agrees with the documented findings, assessment, and plan of care. Objective - Vital Signs Vital signs: Vital Signs Temp 99.0 F 08/01/23 07:10 Pulse 91 08/01/23 08:21 Resp 23 08/01/23 08:21 BP 125/82 08/01/23 07:10 Pulse Ox 94 L 08/01/23 07:10 FiO2 Intake & Output 07/31/23 08/01/23 08/01/23 18:59 06:59 18:59 Intake Total 50 Balance 50 Intake: IV 50 Other: Voiding Method Toilet Toilet Urinal # Voids 1 4 1 - Labs CBC & Chem 7: 08/01/23 09:09 07/31/23 06:34 Labs: Abnormal Lab Results - Last 24 Hours (Table) 07/31/23 07/31/23 08/01/23 Range/Units 06:34 06:34 09:09 WBC 14.39 H 14.4 H (4.50-10.00) X 10*3/uL Hgb 12.5 L (13.0-17.0) g/dL Hct 39.1 L 38.6 L (39.6-50.0) % Neutrophils # 11.04 H (1.80-7.70) X 10*3/uL Lymphocytes # 0.78 L (0.90-5.00) X 10*3/uL Monocytes # 1.92 H (0.20-1.00) X 10*3/uL Eosinophils # 0.45 H (0.04-0.35) X 10*3/uL Anion Gap 13.20 H (4.00-12.00) mmol/L BUN/Creatinine Ratio 10.91 L (12.00-20.00) Ratio AST 9 L (14-35) U/L ALT 8 L (10-49) U/L Albumin 3.7 L (3.8-4.9) g/dL Albumin/Globulin Ratio 1.42 L (1.60-3.17) Ratio Lipase 12 L (14-60) U/L
--- NOTE | 2023-08-01 13:17 | P.PN ---
Subjective Progress Note Date: 08/01/23 I am seeing this patient in consultation today 07/31/2023 in the emergency room, as he is known to the pulmonary service for a history of non-small cell lung carcinoma and COPD. Patient presented chiefly for the complaint of abdominal pain. Patient is a 72-year-old male with past medical history significant for adenocarcinoma of the lung, COPD, GERD, hyperlipidemia, hypertension, among other things. He does follow in the pulmonary office with Dr. Burton for management of his COPD and known non-small cell lung carcinoma. He is a fairly poor historian. He states that he's had memory issues since his previous rounds of chemotherapy. He states that his normally "handles all of that". Apparently, the patient had intermittent generalized abdominal pain for the last 3-4 weeks. States that he is having normal bowel movements. Abdomen is soft. Denies any nausea or vomiting, diarrhea, or blood bowel movements. CT of abdomen and pelvis on arrival demonstrated some fluid-filled small bowel loops in the mid-abdomen which could be transient or choroid represent of mild regional ileus or enteritis. There is also redemonstration of the left basilar pleural paren chymal opacities with increasing areas of pleural based nodularity now measuring up to 3.6 cm. There is a chronic small associated pleural effusion. No active pulmonary disease process seen on abdominal CT. Patient denies any respiratory complaints. He states that he is not currently undergoing any treatment for his known pulmonary adenocarcinoma. I believe his oncologist is Dr. Colon. He was originally diagnosed in Jan, 2022. Completed 4 cycles of carbo/Alimta/Keytruda in 2021. He has subsequently stopped any further treatment. He apparently had some intolerances. Patient is currently sitting in bed, on room air, in no acute respiratory distress. No significant cough, fever. Denies any shortness of breath, chest pain, hemoptysis. CBC on arrival did show some leukocytosis would've his count of 16.3, hemoglobin 14.6, hematocrit 45.1, platelets 286. BMP unremarkable. LFTs not elevated. Urinalysis not concerning for UTI. Patient did receive several doses of azithromycin and Rocephin. He remains afebrile. Patient appears nontoxic and is to be monitored [facility]. On 08/01/2023, no new complaints. No respiratory difficulties and the patient remains on room air oxygen. EGD was completed yesterday the patient was found to have erosive esophagitis and gastritis. The patient was placed on PPIs. No nausea. No emesis. Having bowel movements. Objective - Vital Signs Vital signs: Vital Signs Temp 99.0 F 08/01/23 07:10 Pulse 91 08/01/23 08:21 Resp 23 08/01/23 08:21 BP 125/82 08/01/23 07:10 Pulse Ox 94 L 08/01/23 07:10 FiO2 Intake & Output 07/31/23 08/01/23 08/01/23 18:59 06:59 18:59 Intake Total 50 Balance 50 Intake: IV 50 Other: Voiding Method Toilet Toilet Urinal # Voids 1 4 1 - Exam GENERAL EXAM: Alert, 72-year-old white male appearing stated age , comfortable in no apparent distress. HEAD: Normocephalic and atraumatic EYES: Normal reaction of pupils, equal size. NOSE: Clear with pink turbinates. THROAT: No erythema or exudates. NECK: No masses, no JVD. CHEST: No chest wall deformity. LUNGS: Equal air entry with left basilar inspiratory crackles. No wheezes, rhonchi, dullness. On room air. No conversational dyspnea or accessory muscle use.. CVS: S1 and S2 normal with no audible murmur, regular rhythm. No extra heart sounds ABDOMEN: No hepatosplenomegaly, active bowel sounds, no guarding or rigidity. Negative Cavanaugh's or rebound tenderness. Nondistended and Soft. No masses. SKIN: No rashes CENTRAL NERVOUS SYSTEM: No focal deficits, tone is normal in all 4 extremities. EXTREMITIES: There is no peripheral edema, clubbing, or cyanosis. Peripheral pulses are intact. - Labs CBC & Chem 7: 08/01/23 09:09 07/31/23 06:34 Labs: Abnormal Lab Results - Last 24 Hours (Table) 07/31/23 07/31/23 08/01/23 Range/Units 06:34 06:34 09:09 WBC 14.39 H 14.4 H (4.50-10.00) X 10*3/uL Hgb 12.5 L (13.0-17.0) g/dL Hct 39.1 L 38.6 L (39.6-50.0) % Neutrophils # 11.04 H (1.80-7.70) X 10*3/uL Lymphocytes # 0.78 L (0.90-5.00) X 10*3/uL Monocytes # 1.92 H (0.20-1.00) X 10*3/uL Eosinophils # 0.45 H (0.04-0.35) X 10*3/uL Anion Gap 13.20 H (4.00-12.00) mmol/L BUN/Creatinine Ratio 10.91 L (12.00-20.00) Ratio AST 9 L (14-35) U/L ALT 8 L (10-49) U/L Albumin 3.7 L (3.8-4.9) g/dL Albumin/Globulin Ratio 1.42 L (1.60-3.17) Ratio Lipase 12 L (14-60) U/L Assessment and Plan Assessment: Abdominal pain, currently under investigation, possible small ileus. EGD was completed and the patient has some erosive esophagitis and gastritis Leukocytosis, improving currently down to 14 Metastatic adenocarcinoma of the lung with small associated left-sided pleural effusion. CT of the abdomen there is redemonstration of the left basilar pleural parenchymal opacities with increasing areas of pleural based nodularity now measuring up to 3.6 cm. There is a chronic small associated pleural effusion. No active pulmonary disease process was seen on abdominal CT. Chronic obstructive pulmonary disease, stable Former tobacco dependence Memory impairment Hypertension Hyperlipidemia GERD without esophagitis Plan: Continue PPI Advance diet as tolerated No issues with pulmonary The patient is known to have a malignant left-sided pleural effusion the patient has completed systemic treatment through oncology. The patient hospitalized currently for ileus and abdominal pain. No major respiratory difficulties and the patient is currently on room air oxygen. I reviewed the CAT scan of the abdomen and it showed some pleural thickening in the left lung base. Some pleural nodularity. Minimal amount of effusion and left lung base. No other acute abnormalities noted in the lung bases bilaterally. Patient has COPD which is currently inactive and stable. WBC count is improving LFTs are normal. UA is negative. Amylase and lipase also within normal limits.
== END 2023-08-01 15:49 | disposition home health service (06) | DRG 389 ==
LOC: EC 13:06 → 4SSUR 17:53
PROVIDERS: ADMIT Hospitalist; ATTEND Hospitalist
DX: K56.7 Ileus, unspecified (principal); C34.90 Malignant neoplasm of unspecified part of unspecified bronchus or lung; K22.10 Ulcer of esophagus without bleeding; J44.0 Chronic obstructive pulmonary disease with (acute) lower respiratory infection; J90 Pleural effusion, not elsewhere classified; K21.00 Gastro-esophageal reflux disease with esophagitis, without bleeding; K25.9 Gastric ulcer, unspecified as acute or chronic, without hemorrhage or perforation; E78.5 Hyperlipidemia, unspecified; I10 Essential (primary) hypertension; K29.50 Unspecified chronic gastritis without bleeding; Z87.891 Personal history of nicotine dependence; F40.240 Claustrophobia; K63.5 Polyp of colon; Z79.51 Long term (current) use of inhaled steroids; Z79.52 Long term (current) use of systemic steroids; Z79.84 Long term (current) use of oral hypoglycemic drugs; Z79.899 Other long term (current) drug therapy; Z87.19 Personal history of other diseases of the digestive system; Z91.81 History of falling; Z96.652 Presence of left artificial knee joint; Z85.118 Personal history of other malignant neoplasm of bronchus and lung
CPT/HCPCS: 36415; 43239; 71045; 74018; 74021; 74177; 80053; 81003; 82150; 83690; 83735; 84100; 85025; 85027; 88305; 94640; 96361; 96365; 96375; 96376; 99285

== ENCOUNTER → 2023-08-14 | Outpatient (CLI) | payer MEDICARE ==
--- NOTE | 2023-08-20 07:50 | PE ---
EXAMINATION TYPE: PET CT fusion skull to thigh DATE OF EXAM: 08/14/2023 COMPARISON: CT abdomen pelvis 07/30/2023 Prior PET/CT: 03/21/2023 HISTORY: Lung cancer TECHNIQUE: Following the intravenous administration of 11.85 mCi of F-18 FDG, whole body images are performed from the skull base to the midthigh. Images are reviewed on the computer in the coronal, a xial, and sagittal planes. Reconstructed rotating images are created on independent workstation and reviewed on the computer. A localization and attenuation correction CT is performed in conjunction with the PET scan. DLP: 844.96 mGycm SCAN: Subsequent Blood glucose: 85 mg/dL Average Mediastinum SUV: 1.57 Average Liver SUV: 1.99 FINDINGS: NECK: No abnormal uptake THORAX: There pleural plaques on the left associated the value, example image mediastinum image 79, S UV 6.57. These extend from the upper lung field towards the base medially and laterally suspicious fo r neoplasm. There is a nodule within the medial left lung 4, image 85, SUV 10.94 compatible with meta stasis. There may be some additional nodules at the pleural reflection at the diaphragm, example 132, SUV 9.1 anteriorly, image 127, SUV 8.31. Intense uptake is in the posterior medial left apex, SUV 8. 17. There is a focus radiotracer within the left infrahilar region posteriorly with SUV value of 6.8 comp atible with neoplasm. There is a medial aortopulmonic window lymph node with an SUV 3.58. Image 76. ABDOMEN: No abnormal uptake PELVIS: No abnormal uptake OSSEOUS STRUCTURES: There is some uptake adjacent to posterior left lower ribs, example image 147, KNAPP V 6.97. Additional uptake is between the ribs, example image 154, SUV 5.87. LOCALIZATION CT: Small pericardial effusion may be developing. Small left pleural effusion is develop ing. The pleural thickening has increased over the interval. COMPARISON: The medial aortic pulmonic window lymph node may have slight increase uptake over the int erval. The left infrahilar uptake has developed over the interval. The pleural margins with uptake mejía ve thickened and developed over the interval. IMPRESSION: 1. Increasing uptake within thickening left pleural margins, worsening from comparison. 2. Mild increased uptake within the mediastinal lymph nodes. New uptake is within the left infrahilar region may be a hilar metastasis.
== END | disposition home or self-care (01) ==
LOC: RADPETMAIN 11:29
PROVIDERS: ATTEND Internal Medicine Hematology & Oncology
DX: C34.12 Malignant neoplasm of upper lobe, left bronchus or lung (principal); R93.89 Abnormal findings on diagnostic imaging of other specified body structures
CPT/HCPCS: 78815; A9552

== ENCOUNTER 2023-11-21 06:00 | Emergency (ER) | payer MEDICARE ==
[2023-11-21 06:06] VITALS: TEMP 98.3
[2023-11-21 06:20] LABS: Basophils # (A) 0.1 k/uL (0-0.2); Basophils % (A) 1 %; Eosinophils # (A) 0.7 k/uL (0-0.7); Eosinophils % (A) 5 %; HCT 33.3 % (39.0-53.0); Lymphocytes % (A) 7 %; MCH 28.2 pg (25.0-35.0); MCV 85.6 fL (80.0-100.0); Mean Platelet Volume 7.2; Monocytes % (A) 7 %; Neutrophils # (A) 10.5 k/uL (1.3-7.7); Neutrophils % (A) 77 %; Platelet Count 319 k/uL (150-450); RDW 14.2 % (11.5-15.5); WBC 13.7 k/uL (3.8-10.6)
[2023-11-21] MEDS ORDERED: IPRATROPIUM-ALBUTEROL 3 ML NEB INHALATION STA (06:31)
[2023-11-21 06:33] LABS: ALT 12 U/L (4-49); AST 21 U/L (17-59); African American GFR (CKD) 72 (>60 ml/min/1.73 sqM); Albumin 2.6 g/dL (3.5-5.0); Alkaline Phosphatase 81 U/L (38-126); Anion Gap 6 mmol/L; Blood Urea Nitrogen 14 mg/dL (9-20); Calcium 8.6 mg/dL (8.4-10.2); Carbon Dioxide 20 mmol/L (22-30); Chloride 103 mmol/L (98-107); Glucose 80 mg/dL (74-99); Magnesium 1.5 mg/dL (1.6-2.3); Non-African American GFR(CKD) 62 (>60 ml/min/1.73 sqM); Potassium 3.9 mmol/L (3.5-5.1); Sodium 129 mmol/L (137-145); Total Bilirubin 0.5 mg/dL (0.2-1.3)
[2023-11-21 06:39] LABS: INR 1.2 (<1.2); Partial Thromboplastin Time 27.1 sec (22.0-30.0); Prothrombin Time 12.3 sec (10.0-12.5)
--- NOTE | 2023-11-21 06:40 | ED ---
General Adult HPI - General Chief complaint: Shortness of Breath Stated complaint: MUKESH Time Seen by Provider: 11/21/23 06:06 Source: patient, EMS, RN notes reviewed Mode of arrival: EMS Limitations: no limitations - History of Present Illness Initial comments: 72-year-old male presents emergency department from [facility] with chief complaint of shortness of breath. Patient states been getting worse last 3 to 4 days. He does have a history of lung cancer he states he sees Dr. Diaz he states he is on some form of treatment he states he was told that he would likely cannot handle a dose chemo so he was not started on this. Patient denies any fever states he has large amount of congestion denies any leg pain or leg swelling denies any associated chest pain headache or dizziness. - Related Data Home Medications Medication Instructions Recorded Confirmed Citalopram Hydrobromide 20 mg PO DAILY 04/29/17 07/30/23 [Citalopram HBr] Cyanocobalamin (Vitamin B-12) 1,000 mcg PO DAILY 04/29/17 07/30/23 [Vitamin B-12] Niacin 500 mg PO DAILY 04/29/17 07/30/23 Thiamine [Vitamin B-1] 100 mg PO DAILY 04/29/17 07/30/23 Fenofibrate 160 mg PO DAILY 01/19/19 07/30/23 Pioglitazone [Actos] 15 mg PO DAILY 01/21/22 07/30/23 Docusate [Colace] 100 mg PO DAILY 02/19/22 07/30/23 Donepezil HCl [Aricept] 10 mg PO DAILY 02/19/22 07/30/23 Montelukast Sodium [Singulair] 10 mg PO DAILY 02/19/22 07/30/23 Cholecalciferol [Vitamin D3 (25 25 mcg PO DAILY 10/15/22 07/30/23 Mcg = 1000 Iu)] Fludrocortisone [Florinef] 0.1 mg PO DAILY 07/30/23 07/30/23 Sucralfate [Carafate] 1 gm PO ACHS 07/30/23 07/30/23 Previous Rx's Medication Instructions Recorded Folic Acid 1 mg PO DAILY #90 tablet 02/21/22 Albuterol Sulfate [Albuterol 1 puff PO Q4-6H #8.5 gm 08/01/23 Sulfate Hfa] Budesonide-Formot 160-4.5 Mcg 2 puff INHALATION RT-BID 30 Days 08/01/23 [Symbicort 160-4.5 Mcg Inhaler] #1 each Pantoprazole [Protonix] 40 mg PO BID 30 Days #60 tab 08/01/23 Allergies Allergy/AdvReac Type Severity Reaction Status Date / Time No Known Allergies Allergy Verified 11/21/23 06:05 Review of Systems ROS Statement: Those systems with pertinent positive or pertinent negative responses have been documented in the HPI. ROS Other: All systems not noted in ROS Statement are negative. Past Medical History Past Medical History: COPD, GERD/Reflux, Hyperlipidemia, Hypertension, Osteoarthritis (OA) Additional Past Medical History / Comment(s): Hypoglycemia, hemorrhoids History of Any Multi-Drug Resistant Organisms: None Reported Past Surgical History: Back Surgery, Joint Replacement Additional Past Surgical History / Comment(s): 01/20/19 total left knee arthroplasty, COLONOSCOPY Past Anesthesia/Blood Transfusion Reactions: No Reported Reaction Additional Past Anesthesia/Blood Transfusion Reaction / Comment(s): claustrophobic,no hx blood transfusion Past Psychological History: No Psychological Hx Reported, Depression Smoking Status: Former smoker Past Alcohol Use History: None Reported, Occasional Past Drug Use History: None Reported - Past Family History Mother Family Medical History: No Reported History Additional Family Medical History / Comment(s): Leukemia Father Family Medical History: No Reported History Additional Family Medical History / Comment(s): from old age General Exam Limitations: no limitations General appearance: alert, in no apparent distress Head exam: Present: atraumatic, normocephalic, normal inspection Eye exam: Present: normal appearance, PERRL, EOMI. Absent: scleral icterus, conjunctival injection, periorbital swelling ENT exam: Present: normal exam, normal oropharynx, mucous membranes moist Neck exam: Present: normal inspection, full ROM. Absent: tenderness, meningismus, lymphadenopathy Respiratory exam: Present: wheezes, rhonchi. Absent: normal lung sounds bilaterally, respiratory distress, rales, stridor Cardiovascular Exam: Present: normal rhythm, tachycardia, normal heart sounds. Absent: systolic murmur, diastolic murmur, rubs, gallop, clicks GI/Abdominal exam: Present: soft, normal bowel sounds. Absent: distended, tenderness, guarding, rebound, rigid Extremities exam: Present: pedal edema (Minimal) Course Vital Signs 11/21/23 11/21/23 06:01 06:05 Temperature 98.3 F Pulse Rate 108 H Respiratory 22 24 Rate Blood Pressure 127/84 O2 Sat by Pulse 96 Oximetry EKG Findings - EKG Comments: EKG Findings:: EKG performed at 6: 10 sinus tachycardia with a rate of 107 NE 185 QRS 86 QT/QTc 330/393 - EKG Results: EKG: interpreted by STACI Medical Decision Making - Medical Decision Making Was pt. sent in by a medical professional or institution (, PA, PRECISION IN[employer]UMENT [employer] TOOL [employer]KER, urgent care, hospital, or long term...) When possible be specific @ -No Did you speak to anyone other than the patient for history (EMS, parent, family, police, friend...)? What history was obtained from this source @ -No Did you review nursing and triage notes (agree or disagree)? Why? @ -I reviewed and agree with nursing and triage notes Were old charts reviewed (outside hosp., previous admission, EMS record, old EKG, old radiological studies, urgent care reports/EKG's, long term records)? Report findings @ -[Prior chest x-rays Differential Diagnosis (chest pain, altered mental status, abdominal pain women, abdominal pain men, vaginal bleeding, weakness, fever, dyspnea, syncope, headache, dizziness, GI bleed, back pain, seizure, CVA, palpatations, mental health, musculoskeletal)? @ -Differential Dyspnea: Coronary syndrome, arrhythmia, tamponade, asthma, COPD, pulmonary embolism, pneumonia, pneumothorax, pulmonary effusion, anaphylaxis, diabetic ketoacidosis, flailed chest, pulmonary contusion, diaphragmatic rupture, anemia, neuromuscular, this is not meant to be an all-inclusive list. EKG interpreted by me (3pts min.). @ -As above X-rays interpreted by me (1pt min.). @ -[Chest x-ray shows no acute changes persistent perihilar changes, chronic changes noted CT interpreted by me (1pt min.). @ -None done U/S interpreted by me (1pt. min.). @ -None done What testing was considered but not performed or refused? (CT, X-rays, U/S, labs)? Why? @ -None What meds were considered but not given or refused? Why? @ -None Did you discuss the management of the patient with other professionals (pro fessionals i.e. , PA, PRE[employer]KER, lab, RT, psych nurse, social work lecturer, director learning and development, teacher, security vehicle patrol officer, casework manager)? Give summary @ -No Was smoking cessation discussed for >3mins.? @ -No Was critical care preformed (if so, how long)? @ -No Were there social determinants of health that impacted care today? How? (Homelessness, low income, unemployed, alcoholism, drug addiction, transportation, low edu. Level, literacy, decrease access to med. care, alf, rehab)? @ -No Was there de-escalation of care discussed even if they declined (Discuss DNR or withdrawal of care, Hospice)? DNR status @ -No What co-morbidities impacted this encounter? (DM, HTN, Smoking, COPD, CAD, Cancer, CVA, ARF, Chemo, Hep., AIDS, mental health diagnosis, sleep apnea, morbid obesity)? @ -[Lung CA Was patient admitted / discharged? Hospital course, mention meds given and route, prescriptions, significant lab abnormalities, going to OR and other pertinent info. @ -Discharge patient is COVID-19 positive chest x-ray shows no acute changes. Laboratory studies are unremarkable. Patient has no hypoxia and will be discharged in stable condition symptoms have been present for at least 4 days. Undiagnosed new problem with uncertain prognosis? @ -No Drug Therapy requiring intensive monitoring for toxicity (Heparin, Nitro, Insulin, Cardizem)? @ -No Were any procedures done? @ -No Diagnosis/symptom? @ -COVID-19 Acute, or Chronic, or Acute on Chronic? @ -Acute Uncomplicated (without systemic symptoms) or Complicated (systemic symptoms)? @ -Uncomplicated Side effects of treatment? @ -No Exacerbation, Progression, or Severe Exacerbation? @ -No Poses a threat to life or bodily function? How? (Chest pain, USA, SD, pneumonia, PE, COPD, DKA, ARF, appy, cholecystitis, CVA, Diverticulitis, Homicidal, Suicidal, threat to staff... and all critical care pts) @ -No - Lab Data Result diagrams: 11/21/23 06:08 11/21/23 06:08 Lab Results 11/21/23 11/21/23 11/21/23 Range/Units 06:08 06:08 06:08 WBC 13.7 H (3.8-10.6) k/uL RBC 3.90 L (4.30-5.90) m/uL Hgb 11.0 L (13.0-17.5) gm/dL Hct 33.3 L (39.0-53.0) % MCV 85.6 (80.0-100.0) fL MCH 28.2 (25.0-35.0) pg MCHC 33.0 (31.0-37.0) g/dL RDW 14.2 (11.5-15.5) % Plt Count 319 (150-450) k/uL MPV 7.2 Neutrophils % 77 % Lymphocytes % 7 % Monocytes % 7 % Eosinophils % 5 % Basophils % 1 % Neutrophils # 10.5 H (1.3-7.7) k/uL Lymphocytes # 1.0 (1.0-4.8) k/uL Monocytes # 1.0 (0-1.0) k/uL Eosinophils # 0.7 (0-0.7) k/uL Basophils # 0.1 (0-0.2) k/uL PT 12.3 (10.0-12.5) sec INR 1.2 H (<1.2) APTT 27.1 (22.0-30.0) sec Sodium 129 L (137-145) mmol/L Potassium 3.9 (3.5-5.1) mmol/L Chloride 103 (98-107) mmol/L Carbon Dioxide 20 L (22-30) mmol/L Anion Gap 6 mmol/L BUN 14 (9-20) mg/dL Creatinine 1.16 (0.66-1.25) mg/dL Est GFR (CKD-EPI)AfAm 72 (>60 ml/min/1.73 sqM) Est GFR (CKD-EPI)NonAf 62 (>60 ml/min/1.73 sqM) Glucose 80 (74-99) mg/dL Plasma Lactic Acid Mg (0.7-2.0) mmol/L Calcium 8.6 (8.4-10.2) mg/dL Magnesium 1.5 L (1.6-2.3) mg/dL Total Bilirubin 0.5 (0.2-1.3) mg/dL AST 21 (17-59) U/L ALT 12 (4-49) U/L Alkaline Phosphatase 81 (38-126) U/L Troponin I (0.000-0.034) ng/mL NT-Pro-B Natriuret Pep 1010 pg/mL Total Protein 7.0 (6.3-8.2) g/dL Albumin 2.6 L (3.5-5.0) g/dL Influenza Type A (PCR) (Not Detectd) Influenza Type B (PCR) (Not Detectd) RSV (PCR) (Not Detectd) SARS-CoV-2 (PCR) (Not Detectd) 11/21/23 11/21/23 11/21/23 Range/Units 06:08 06:08 06:41 WBC (3.8-10.6) k/uL RBC (4.30-5.90) m/uL Hgb (13.0-17.5) gm/dL Hct (39.0-53.0) % MCV (80.0-100.0) fL MCH (25.0-35.0) pg MCHC (31.0-37.0) g/dL RDW (11.5-15.5) % Plt Count (150-450) k/uL MPV Neutrophils % % Lymphocytes % % Monocytes % % Eosinophils % % Basophils % % Neutrophils # (1.3-7.7) k/uL Lymphocytes # (1.0-4.8) k/uL Monocytes # (0-1.0) k/uL Eosinophils # (0-0.7) k/uL Basophils # (0-0.2) k/uL PT (10.0-12.5) sec INR (<1.2) APTT (22.0-30.0) sec Sodium (137-145) mmol/L Potassium (3.5-5.1) mmol/L Chloride (98-107) mmol/L Carbon Dioxide (22-30) mmol/L Anion Gap mmol/L BUN (9-20) mg/dL Creatinine (0.66-1.25) mg/dL Est GFR (CKD-EPI)AfAm (>60 ml/min/1.73 sqM) Est GFR (CKD-EPI)NonAf (>60 ml/min/1.73 sqM) Glucose (74-99) mg/dL Plasma Lactic Acid Mg 1.0 (0.7-2.0) mmol/L Calcium (8.4-10.2) mg/dL Magnesium (1.6-2.3) mg/dL Total Bilirubin (0.2-1.3) mg/dL AST (17-59) U/L ALT (4-49) U/L Alkaline Phosphatase (38-126) U/L Troponin I <0.012 (0.000-0.034) ng/mL NT-Pro-B Natriuret Pep pg/mL Total Protein (6.3-8.2) g/dL Albumin (3.5-5.0) g/dL Influenza Type A (PCR) Not Detected (Not Detectd) Influenza Type B (PCR) Not Detected (Not Detectd) RSV (PCR) Not Detected (Not Detectd) SARS-CoV-2 (PCR) Detected A (Not Detectd) Disposition Clinical Impression: COVID-19 Disposition: HOME SELF-CARE Condition: Stable Instructions (If sedation given, give patient instructions): COVID-19 (Coronavirus Disease 2019) (ED) Additional Instructions: Please return to the Emergency Department if symptoms worsen or any other concerns. Is patient prescribed a controlled substance at d/c from ED?: No Referrals: Shabana Gannon MD [Primary Care Provider] - 1-2 days Time of Disposition: 08:19
[2023-11-21 06:42] LABS: NT-Pro-B-Type Natriuretic Pept 1010 pg/mL
--- NOTE | 2023-11-21 07:47 | XR ---
EXAMINATION TYPE: Chest X-ray 2 Views DATE OF EXAM: 11/21/2023 COMPARISON: 07/31/2023 HISTORY: Shortness of breath TECHNIQUE: Frontal and lateral views of the chest are obtained. FINDINGS: Scattered senescent parenchymal changes noted. Hyperinflation compatible with COPD. Persistent patchy density left perihilar left basilar regions may reflect underlying pneumonia. Under lying fibrotic change not excluded. Heart size is stable. Mediastinal structures are stable and grossly unremarkable. No evidence for hilar prominence. Degenerative changes dorsal spine. IMPRESSION: 1. Persistent patchy density left perihilar left basilar regions may reflect underlying pneumonia. Un derlying fibrotic change not excluded.
[2023-11-21] MEDS: TIOTROPIUM 2.5 MCG INHALER INHALATION STA (08:39)
[2023-11-21] MEDS: ALBUTEROL HFA INHALER INHALATION STA (08:39)
[2023-11-21 10:05] VITALS: BP 120/76; PULSE 105; RESP 20
== END 2023-11-21 08:00 | disposition home or self-care (01) ==
LOC: EC 06:00
DX: U07.1 COVID-19 (principal); R00.0 Tachycardia, unspecified; R60.0 Localized edema; I10 Essential (primary) hypertension; J44.9 Chronic obstructive pulmonary disease, unspecified; F32.A Depression, unspecified; Z79.899 Other long term (current) drug therapy; Z87.891 Personal history of nicotine dependence
CPT/HCPCS: 36415; 71046; 80053; 83605; 83735; 83880; 84484; 85025; 85610; 85730; 87636; 93005; 94640; 99285